=== PATIENT | female | born 1935 | race Caucasian/White ===

== ENCOUNTER 2017-09-05 13:40 | Emergency (ER) | payer MEDICARE, OTHER ==
[2017-09-05 14:36] VITALS: BP 128/49
--- NOTE | 2017-09-05 14:56 | UC ---
Skin Complaint HPI - HPI Summary HPI Summary: 81 year old female presents with complains of rash on her right upper arm after a Prevnar vaccination - History of Current Complaint Chief Complaint: UCSkin Time Seen by Provider: 09/05/17 14:54 Stated Complaint: BUG BITE BLISTER ON ARM Hx Obtained From: Patient Onset/Duration: Lasting Days Skin Exposure Onset/Duration: Days Ago Onset Severity: Moderate Current Severity: Moderate - Allergy/Home Medications Allergies/Adverse Reactions: Allergies Allergy/AdvReac Type Severity Reaction Status Date / Time Haloperidol [From Haldol] Allergy Severe Altered Verified 09/05/17 14:25 Mental Status Azathioprine Allergy Unknown Verified 09/05/17 14:25 Reaction Details Bupropion [From Wellbutrin] Allergy Unknown Verified 09/05/17 14:25 Reaction Details Methotrexate Allergy Unknown Verified 09/05/17 14:25 Reaction Details Mycophenolate [From Cellcept] Allergy Unknown Verified 09/05/17 14:25 Reaction Details Review of Systems Constitutional: Negative Skin: Rash Eyes: Negative ENT: Negative Respiratory: Negative Cardiovascular: Negative Gastrointestinal: Negative Genitourinary: Negative Motor: Negative Neurovascular: Negative Musculoskeletal: Negative Neurological: Negative Psychological: Negative All Other Systems Reviewed And Are Negative: Yes PMH/Surg Hx/FS Hx/Imm Hx Previously Healthy: Yes Other History Of: Anticoagulant Therapy - Surgical History Surgical History: Yes Surgery Procedure, Year, and Place: Hysterectomy, bilat carpal tunnel, cataracts ; choley; hip surgery - Family History Known Family History: Positive: Diabetes, Other - CVA, Lung CA. - Social History Alcohol Use: None Substance Use Type: None Smoking Status (MU): Former Smoker Type: Cigarettes Have You Smoked in the Last Year: No When Did the Patient Quit Smoking/Using Tobacco: 50 years ago Household Exposure Type: Cigarettes - Immunization History Most Recent Influenza Vaccination: 08/2016 Most Recent Tetanus Shot: 2013 Most Recent Pneumonia Vaccination: 2014 Physical Exam Triage Information Reviewed: Yes Vital Signs: Initial Vital Signs Temp 36.9 C 09/05/17 14:27 Pulse 87 09/05/17 14:27 Resp 16 09/05/17 14:27 BP 128/49 09/05/17 14:27 Pulse Ox 97 09/05/17 14:27 Vital Signs Reviewed: Yes Eye Exam: Normal ENT Exam: Normal Dental Exam: Normal Neck exam: Normal Neck: Positive: 1 Respiratory Exam: Normal Cardiovascular Exam: Normal Abdominal Exam: Normal Musculoskeletal Exam: Normal Neurological Exam: Normal Psychological Exam: Normal Skin: Positive: rashes Course/Dx - Diagnoses Provider Diagnoses: right arm rash/erythema/infection post prevnar injection Discharge - Discharge Plan Condition: Stable Disposition: HOME Prescriptions: Cephalexin CAP* [Keflex CAP*] 500 mg PO TID #30 cap [id number]-Uxtfgotfg [Triple Antibiotic] 1 oin TOPICAL TID #1 tube Patient Education Materials: Acute Wound Care (ED) Referrals: Miguel Dwyer MD [Medical Doctor] -
== END 2017-09-05 15:15 | disposition home or self-care (01) ==
LOC: UCEAST 13:40
DX: R21 Rash and other nonspecific skin eruption (principal)
CPT/HCPCS: 99212; G0463

== ENCOUNTER 2018-08-17 10:44 | Inpatient (IN) | payer MEDICARE, OTHER ==
[2018-08-17] MEDS ORDERED: Ondansetron INJ* 2 MG/ML VIAL IV ONE (11:02)
[2018-08-17] MEDS ORDERED: NS 0.9% 1000 ML* 1,000 ML IV ONE (11:02)
[2018-08-17 11:23] LABS: ABS Basophils 0.1 10^3/ul (0-0.2); ABS Eosinophils 0.2 10^3/ul (0-0.6); ABS Lymphocytes 1.5 10^3/ul (1.0-4.8); ABS Monocytes 0.6 10^3/ul (0-0.8); ABS Neutrophils 3.3 10^3/ul (1.5-7.7); ABS Nucleated RBC 0 10^3/ul; Eosinophil % 2.8 % (0-6); Hematocrit 40 % (35-47); Hemoglobin 13.7 g/dl (12.0-16.0); Lymphocyte % 26.8 % (25-47); Mean Corpuscular HGB Conc 35 g/dl (31-36); Mean Corpuscular Hemoglobin 33 pg (27-31); Mean Corpuscular Volume 95 fL (80-97); Mean Platelet Volume 7.6 um3 (7.4-10.4); Nucleated Red Blood Cells % 0.1; Platelet Count 215 10^3/ul (150-450); Red Blood Count 4.16 10^6/ul (4.00-5.40); Red Cell Distribution Width 13 % (10.5-15); White Blood Count 5.6 10^3/ul (3.5-10.8)
[2018-08-17 11:40] LABS: INR 1.01 (0.77-1.02)
[2018-08-17 11:49] LABS: EGFR Non-African American 35.1 (>60)
--- NOTE | 2018-08-17 11:59 | ED ---
Neurological HPI - HPI Summary HPI Summary: An 82 y/o female JUDY presents to [facility] c/o losing balance and falling at 18:22 last night when going to the bathroom. She iced herself and this morning she woke up and everything became fuzzy and she fell again on the floor. 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 She has dizziness, nausea and vomiting, with movement worsening the nausea. She has neck pain. She seemed fine last night despite her fall. She denies CP, SOB, MOON, abdominal pain, weakness or numbness. She is on a blood thinner. 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 She is borderline diabetic but denies HLD or HTN. She does not smoke or drink. - History of Current Complaint Chief Complaint: EDDizziness Stated Complaint: NAUSEA/VOMITING Time Seen by Provider: 08/17/18 10:49 Hx Obtained From: Patient, Family/Bone Char Operator Onset/Duration: Sudden Onset, Started hours ago Timing: Intermittent Episodes Lasting: - two falling episodes a couple hours apart Onset Severity: Moderate Current Severity: Moderate Neurological Deficit Location: Generalized Pain Intensity: 0 Associated Signs and Symptoms: Positive: Nausea/Vomiting - Additional Pertinent History Primary Care Physician: [id number] - Allergy/Home Medications Allergies/Adverse Reactions: Allergies Allergy/AdvReac Type Severity Reaction Status Date / Time azathioprine Allergy Unknown Verified 08/17/18 11:49 Reaction Details bupropion [From Wellbutrin] Allergy Unknown Verified 08/17/18 11:49 Reaction Details haloperidol [From Haldol] Allergy Altered Verified 08/17/18 11:49 Mental Status methotrexate Allergy Unknown Verified 08/17/18 11:49 Reaction Details mycophenolate mofetil Allergy Unknown Verified 08/17/18 11:49 [From CellCept] Reaction Details Home Medications: Home Medications Atorvastatin* [Lipitor*] 10 mg PO DAILY 08/17/18 [History Confirmed 08/17/18] DOXYcycline CAP(*) [DOXYcycline 100MG CAP(*)] 100 mg PO BID 08/17/18 [History Confirmed 08/17/18] Dipyridamole/Aspirin 25/200* [Aggrenox 25/200*] 1 cap.er PO BID 08/17/18 [ History Confirmed 08/17/18] Fexofenadine/Pseudoephedrine [Uma-D 24 Hour Tablet] 1 tab PO DAILY 08/17/18 [History Confirmed 08/17/18] Fluticasone NASAL SPRAY 50MCG* [Flonase NASAL SPRAY 50MCG*] 2 spray BOTH NARES BID PRN 08/17/18 [History Confirmed 08/17/18] Iron 28 mg PO DAILY 08/17/18 [History Confirmed 08/17/18] Levothyroxine TAB* [Synthroid TAB*] 125 mcg PO DAILY 08/17/18 [History Confirmed 08/17/18] Mirabegron (NF) [Myrbetriq (NF)] 25 mg PO BID 08/17/18 [History Confirmed ] Omeprazole CAP* [Prilosec CAP* 20 MG] 20 mg PO DAILY 08/17/18 [History Confirmed 08/17/18] Potassium Chlor TAB* [Klor Con ER TAB*] 20 meq PO BID 08/17/18 [History Confirmed 08/17/18] Ranitidine TAB (NF) [Zantac TAB (NF)] 150 mg PO DAILY PRN 08/17/18 [History Confirmed 08/17/18] Venlafaxine EXT RELEASE CAP* [Effexor Xr CAP*] 37.5 mg PO BEDTIME 08/17/18 [ History Confirmed 08/17/18] Venlafaxine EXT RELEASE CAP* [Effexor Xr CAP*] 75 mg PO QAM 08/17/18 [History Confirmed 08/17/18] PMH/Surg Hx/FS Hx/Imm Hx Endocrine/Hematology History: Reports: Hx Anticoagulant Therapy, Hx Thyroid Disease - hypothyroidism Denies: Hx Diabetes, Hx Anemia, Other Endocrine/Hematological Disorders Cardiovascular History: Reports: Hx Hypercholesterolemia Denies: Other Cardiovascular Problems/Disorders - temporal arteritis Respiratory History: Reports: Other Respiratory Problems/Disorders - SARCOIDOSIS ; hx of respiratory failure. Denies: Hx Asthma GI History: Reports: Hx Gall Bladder Disease - removed, Hx Gastroesophageal Reflux Disease, Hx Obstructive Bowel - small bowel obstruction, Other GI Disorders - constipation/diarrheaa History: Reports: Hx Acute Renal Failure, Hx Chronic Renal Failure Musculoskeletal History: Reports: Hx Back Problems, Hx Orthopedic Injury - left pelvic fracture, 2013, Other Musculoskeletal History - Hip fx and surgery jul 2016 Sensory History: Reports: Hx Cataracts, Hx Contacts or Glasses, Hx Vision Problem - L eye blindness, Hx Hearing Aid - b/l Opthamlomology History: Reports: Hx Cataracts, Hx Contacts or Glasses, Hx Vision Problem - L eye blindness Neurological History: Reports: Other Neuro Impairments/Disorders - HX of AMS Denies: Hx Dementia Psychiatric History: Reports: Hx Depression Denies: Other Psychiatric Issues/Disorders - Cancer History Cancer Type, Location and Year: h/o sarcoidosis - Surgical History Surgery Procedure, Year, and Place: Hysterectomy, bilat carpal tunnel, cataracts ; choley; hip surgery Hx Anesthesia Reactions: No - Immunization History Date of Influenza Vaccine: Fall 2012 Infectious Disease History: Unable to Obtain/Confirm Infectious Disease History: Denies: Traveled Outside the [place] in Last 30 Days - Family History Known Family History: Positive: Diabetes, Other - CVA, Lung CA. - Social History Alcohol Use: None Substance Use Type: Reports: None Smoking Status (MU): Former Smoker Type: Cigarettes Have You Smoked in the Last Year: No Review of Systems Negative: Fever Negative: Chest Pain Negative: Shortness Of Breath Positive: Vomiting, Nausea. Negative: Abdominal Pain Positive: Myalgia - neck Neurological: Other - Positive: dizziness Negative: Headache, Weakness, Numbness All Other Systems Reviewed And Are Negative: Yes Physical Exam - Summary Physical Exam Summary: Appearance: Well appearing, no pain distress Skin: warm, dry, reflects adequate perfusion Head/face: forehead contusion with hematoma and no step off Eyes: EOMI, KHADIJAH, cataract lenses, no nystagmus ENT: mucous membranes moist Neck: supple, non-tender Respiratory: CTA, breath sounds present Cardiovascular: RRR, grade 3 systolic murmur, pulses symmetrical Abdomen: non-tender, soft Bowel Sounds: present Musculoskeletal: normal, no midline cervical tenderness, no T or L-spine tenderness, strength/ROM intact Neuro: normal, sensory motor intact, A&Ox3 GCS: 15 Triage Information Reviewed: Yes Vital Signs On Initial Exam: Initial Vitals Temp Pulse Resp BP Pulse Ox 97.7 F 80 18 161/86 92 08/17/18 10:48 08/17/18 10:48 08/17/18 10:48 08/17/18 10:48 08/17/18 10:48 Vital Signs Reviewed: Yes Diagnostics - Vital Signs Vital Signs Temp Pulse Resp BP Pulse Ox 08/17/18 11:32 75 7 150/75 96 08/17/18 11:02 82 22 161/86 91 08/17/18 11:00 17 08/17/18 10:48 97.7 F 80 18 161/86 92 - Laboratory Lab Results: Lab Results 08/17/18 08/17/18 08/17/18 Range/Units 11:10 11:19 11:19 WBC 5.6 (3.5-10.8) 10^3/ul RBC 4.16 (4.00-5.40) 10^6/ul Hgb 13.7 (12.0-16.0) g/dl Hct 40 (35-47) % MCV 95 (80-97) fL MCH 33 H (27-31) pg MCHC 35 (31-36) g/dl RDW 13 (10.5-15) % Plt Count 215 (150-450) 10^3/ul MPV 7.6 (7.4-10.4) um3 Neut % (Auto) 58.6 (38-83) % Lymph % (Auto) 26.8 (25-47) % [place] % (Auto) 10.6 H (0-7) % Eos % (Auto) 2.8 (0-6) % Baso % (Auto) 1.2 (0-2) % Absolute Neuts (auto) 3.3 (1.5-7.7) 10^3/ul Absolute Lymphs (auto) 1.5 (1.0-4.8) 10^3/ul Absolute Monos (auto) 0.6 (0-0.8) 10^3/ul Absolute Eos (auto) 0.2 (0-0.6) 10^3/ul Absolute Basos (auto) 0.1 (0-0.2) 10^3/ul Absolute Nucleated RBC 0 10^3/ul Nucleated RBC % 0.1 INR (Anticoag Therapy) 1.01 (0.77-1.02) Sodium 138 (135-145) mmol/L Potassium 4.2 (3.5-5.0) mmol/L Chloride 104 (101-111) mmol/L Carbon Dioxide 25 (22-32) mmol/L Anion Gap 9 (2-11) mmol/L BUN 33 H (6-24) mg/dL Creatinine 1.43 H (0.51-0.95) mg/dL Est GFR ( Amer) 42.5 (>60) Est GFR (Non-Af Amer) 35.1 (>60) BUN/Creatinine Ratio 23.1 H (8-20) Glucose 131 H (70-100) mg/dL Calcium 9.6 (8.6-10.3) mg/dL Total Bilirubin 0.40 (0.2-1.0) mg/dL AST 17 (13-39) U/L ALT 10 (7-52) U/L Alkaline Phosphatase 70 (34-104) U/L Troponin I 0.01 (<0.04) ng/mL Total Protein 7.2 (6.4-8.9) g/dL Albumin 3.8 (3.2-5.2) g/dL Globulin 3.4 (2-4) g/dL Albumin/Globulin Ratio 1.1 (1-3) Result Diagrams: 08/17/18 11:10 08/17/18 11:19 Lab Statement: Any lab studies that have been ordered have been reviewed, and results considered in the medical decision making process. - Radiology CXR Xray Interpretation: No Acute Changes Radiology Interpretation Completed By: Radiologist - No acute cardiopulmonary disease. This report has been reviewed by the ED physician. - CT cervical spine CT Interpretation: Positive (See Comments) CT Interpretation Completed By: Radiologist - 1. OSTEOPENIA. 2. DEGENERATIVE DISC DISEASE AND OSTEOARTHRITIS. 3. NO ACUTE OSSEOUS INJURY TO THE CERVICAL SPINE. This report has been reviewed by the ED physicain. Brain CT CT Interpretation: Positive (See Comments) CT Interpretation Completed By: Radiologist - Chronic ischemic White matter change. There is no evidence of intracranial mass or hemorrhage noted. This report has been reviewed by the ED physician. - EKG 11:23 Cardiac Rate: NL - 77 bpm EKG Rhythm: Sinus Rhythm ST Segment: Non-Specific EKG Interpretation: RBBB, LAD Course/Dx - Course Course Of Treatment: Patient describes rotational dizziness associated with fall and forehead injury last night. She now has been sensing nausea and vomiting associated with movements and dizziness. Head CT is negative. Some improvement with IV fluids, Zofran and meclizine. She is still unsteady and given her age she will be admitted for further evaluation and treatment. - Differential Dx Differential Diagnoses Neuro: Positive: Benign Paroxysmal Positional Vertigo, Hemorrhage, Hypovolemia, Intracranial Bleed, Medication Reaction, Metabolic Abnormality, Vasovagal Reaction, Other - Diagnoses Provider Diagnoses: Vertigo, Fall, Weakness - Physician Notifications Discussed Care Of Patient With: Aissatou Gay Time Discussed With Above Provider: 14:04 Instructed by Provider To: Admit As Inpatient Discharge - Sign-Out/Discharge Documenting (check all that apply): Patient Departure - admit - Discharge Plan Condition: Fair Disposition: ADMITTED TO [facility] - Billing Disposition and Condition Condition: FAIR Disposition: Admitted to [facility] - Attestation Statements Document Initiated by Scribe: Yes Documenting Scribe: Andrew Funes Provider For Whom Scribe is Documenting (Include Credential): Darrin Portillo MD Scribe Attestation: Andrew Chong scribed for Darrin Portillo MD on 08/17/18 at 1518. Scribe Documentation Reviewed: Yes Provider Attestation: The documentation as recorded by the Andrew riggs accurately reflects the service I personally performed and the decisions made by me, Darrin Portillo MD
--- NOTE | 2018-08-17 12:11 | RAD ---
Indication: Fall, head injury. CT of the brain performed without IV contrast. Ventricular structures are midline. No midline shift is noted. The extra-axial spaces are unremarkable. Periventricular lucency consistent with chronic ischemic White matter change is noted. There is no evidence of intracranial mass or hemorrhage noted. When compared to previous exam of July 09, 2016 no significant change is noted. IMPRESSION: Chronic ischemic White matter change. There is no evidence of intracranial mass or hemorrhage noted.
--- NOTE | 2018-08-17 12:13 | RAD ---
HISTORY: fall, injury COMPARISONS: July 09, 2016 TECHNIQUE: Multiple contiguous axial CT scans were obtained of the cervical spine without intravenous contrast, with coronal and sagittal multiplanar reformations. FINDINGS: BRAIN: The visualized brain is unremarkable CENTRAL CANAL: Evaluation of the central canal is limited on CT technique; however, there is no obvious canalicular mass or epidural hemorrhage. ALIGNMENT: There is straightening of the cervical lordosis. VERTEBRAL BODIES: There is diffuse osteopenia. There is multilevel anterolateral marginal osteophyte formation. There is no displaced fracture. JOINTS: There is multilevel uncovertebral and facet osteoarthritis. MUSCULATURE: Unremarkable INTERVERTEBRAL DISCS: There is diffuse loss of intervertebral disc height. AXIAL IMAGES: C2-C3: There is left greater than the right facet osteoarthritis. There is no osseous neural foraminal narrowing or central canal stenosis. C3-C4: There is bilateral uncovertebral and facet hypertrophy. There is severe right and moderate left neural foraminal narrowing. There is mild narrowing of the central canal. C4-C5: There is bilateral uncovertebral hypertrophy. There is moderate bilateral neuroforaminal narrowing. There is moderate narrowing of the central canal. C5-C6: There is bilateral uncovertebral hypertrophy. There is mild right neuroforaminal narrowing. There is mild narrowing of the central canal. C6-C7: There is bilateral uncovertebral hypertrophy. There is no osseous neural foraminal narrowing of central canal stenosis. C7-T1: There is no osseous neural foraminal narrowing or central canal stenosis. SOFT TISSUES: There is calcification of the bifurcations bilaterally.. The prevertebral fat stripe is preserved. The thyroid gland is atrophic versus absent. OTHER: There is advanced osteoarthritis of the left compartment joint. IMPRESSION: 1. OSTEOPENIA. 2. DEGENERATIVE DISC DISEASE AND OSTEOARTHRITIS. 3. NO ACUTE OSSEOUS INJURY TO THE CERVICAL SPINE.
--- NOTE | 2018-08-17 12:54 | RAD ---
HISTORY: fall, injury COMPARISONS: February 04, 2018 VIEWS: 1: frontal AP view of the chest at 12:30 PM FINDINGS: LINES AND TUBES: None. CARDIOMEDIASTINAL SILHOUETTE: The cardiomediastinal silhouette is normal for portable technique. PLEURA: The costophrenic angles are sharp. No pleural abnormalities are noted. LUNG PARENCHYMA: The lungs are clear. ABDOMEN: The upper abdomen is clear. There is no subphrenic gas. BONES AND SOFT TISSUES: No bone or soft tissue abnormalities are noted. IMPRESSION: NO ACTIVE CARDIOPULMONARY DISEASE.
[2018-08-17] MEDS ORDERED: Meclizine TAB* 12.5 MG PO ONE (13:40)
[2018-08-17 13:51] LABS: Urine Appearance Clear; Urine Blood Negative (Negative); Urine Color Straw; Urine Ketones Negative (Negative); Urine Protein Negative (Negative); Urine Specific Gravity 1.008 (1.010-1.030); Urine Urobilinogen Negative (Negative)
[2018-08-17] MEDS ORDERED: Albuterol 2.5 MG/3 ML NEB.SOL* (0.083%) INH PRN (15:10)
[2018-08-17] MEDS ORDERED: Al Hydrox/Mg Hydrox/Simet LIQ* 30 ML UDC PO PRN (15:10)
[2018-08-17] MEDS ORDERED: Ondansetron INJ* 2 MG/ML VIAL IV PRN (15:10)
[2018-08-17] MEDS ORDERED: Acetaminophen TAB* 325 MG PO PRN (15:10)
[2018-08-17] MEDS ORDERED: Meclizine TAB* 12.5 MG PO PRN (15:13)
[2018-08-17] MEDS ORDERED: Fluticasone NASAL SPRAY 50MCG* 16 gm SPRAY BTL BOTH NARES PRN (15:14)
--- NOTE | 2018-08-17 17:03 | HP ---
AMENDED REPORT NOW INCLUDES COSIGNER DESIGNATION - ESIGNED BEFORE ADJUSTMENT CC: Dr. Yun * ADMISSION HISTORY AND PHYSICAL: DATE OF ADMISSION: 08/17/18 PATIENT OF ADMITTING HOSPITALIST: Dr. Aissatou Michael. PRIMARY CARE PROVIDER: Dr. Rios Yun. ATTENDING PHYSICIAN WHILE PATIENT HERE: Dr. Michael.* (DICTATED BY DIONNE ESPINOZA) CHIEF COMPLAINT: Weakness, dizziness, and fall. HISTORY OF PRESENT ILLNESS: Mrs. Poe is an 82-year-old female with past medical history significant for hyperlipidemia, chronic kidney disease, hypothyroidism, as well as CVA with left-sided residual weakness back from 2007 , who presented to the emergency room earlier today with complaints of fall at home. The patient apparently fell last night without any dizziness and she sustained traumatic injury to her head. She struck the left side of her adventism against the chair; however, she denied any loss of consciousness, dizziness last night, nausea, or vomiting. She got up and was able to ambulate and went back to sleep. She got up again this morning and this time she felt a little dizzy, for which she was not able to maintain her balance and noticed that the room was spinning when she fell again. She denied any head trauma this morning, nausea, vomiting, chest pain, or any progressive weakness or numbness. She has never had any dizzy spells in the past. Given her recurrent fall and the fact that she struck her head last night, her family was concerned and wanted her to be evaluated in the emergency room. The patient herself denied any headache, visual changes, loss of consciousness. She had a CT scan of the head that revealed no evidence of intracranial hemorrhage. She has been taking Aggrenox for the past few years given her history of CVA with left hemiparesis. She had laboratory workup that revealed normal hemoglobin and hematocrit as well as normal chemistry panel. She was noted to have slightly elevated BUN and creatinine, however looking back in her record it appears to be at her baseline. She denied any nausea, vomiting, cough, shortness of breath, urinary symptoms, or any other associated issues. Given her multiple falls and her longstanding history of left-sided weakness, which was secondary to her CVA incident back in 2007, we were asked to see the patient to consider admission for observation overnight and for PT/OT evaluation. PAST MEDICAL HISTORY: As mentioned above, significant for: 1. 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 2. History of temporal arteritis and sarcoidosis. 3. History of hip fracture, status post fixation about 3 years ago. 4. Hypothyroidism. 5. Hyperlipidemia. 6. Urinary incontinence. 7. Chronic kidney disease at stage 3. 8. GERD. PAST SURGICAL HISTORY: Significant for: 1. Right hip fixation secondary to fracture about 3 years ago. 2. Carpal tunnel release bilaterally. 3. Hysterectomy. 4. Cataract extraction. HOME MEDICATIONS: Her medications at home include: 1. Lipitor 10 mg p.o. daily. 2. Aggrenox 25/200 one tablet p.o. b.i.d. 3. Doxycycline 100 mg p.o. b.i.d. 4. Uma-D 1 tablet daily. 5. Fluticasone nasal spray 50 mcg 2 sprays both nostrils once daily. 6. Iron supplement 28 mg p.o. daily. 7. Synthroid 125 mcg p.o. daily. 8. Mirabegron 25 mg p.o. b.i.d. 9. Prilosec 20 mg p.o. daily. 10. Potassium chloride 20 mEq p.o. b.i.d. 11. Zantac 150 mg p.o. daily as needed for heartburn. 12. Effexor 37.5 mg p.o. q.h.s. 13. Effexor 75 mg p.o. daily. ALLERGIES: Multiple, include AZATHIOPRINE, HALOPERIDOL, METHOTREXATE. FAMILY HISTORY: Reviewed and noncontributory. SOCIAL HISTORY: The patient lives with her daughter in a separate apartment behind her house. She denies any history of smoking or regular alcohol consumption. She ambulates at her baseline using a walker and the healthcare proxy is carried between her daughter and granddaughter, Kemi. REVIEW OF SYSTEMS: See HPI. Otherwise, 12 points review of systems were examined and they were essentially negative. PHYSICAL EXAMINATION GENERAL: She is a pleasant, elderly female, appears healthy and in no acute distress or discomfort at the time of admission. VITAL SIGNS: Revealed temperature of 98.2, blood pressure 141/78, pulse of 76, respirations of 17 with O2 sat of 95% on room air. HEENT: Head is normocephalic, atraumatic. Sclerae are anicteric. PERRLA. EOMs intact. Oropharynx is pink and moist. NECK: Supple. Trachea midline. No cervical adenopathy, thyromegaly, or JVD. LUNGS: Clear to auscultation bilaterally. HEART: Regular rate and rhythm. There is a harsh 4/6 systolic murmur noted at the right sternal margin. No rubs or gallops. ABDOMEN: Soft, nontender, and nondistended. There are no hernias, masses, or hepatosplenomegaly. BACK: With normal curvature and no CVA tenderness. EXTREMITIES: Without cyanosis, clubbing, or edema. NEUROLOGIC: She is awake, alert, and oriented x3. Handgrip is equal bilaterally. Tongue is midline and sensation is intact throughout. RECTAL: Exam deferred at this time. LABORATORY WORKUP: CBC with white count of 5600, hemoglobin 13.7, hematocrit of 40, and platelets of 215. Her INR is 1.01. Chemistry panel with sodium of 138, potassium 4.2, chloride 104, CO2 of 25, BUN of 33 and creatinine of 1.43, glucose is 131. LFTs within normal limits and troponin was negative. Urinalysis was essentially within normal limits. ACCESSORY DIAGNOSTIC DATA: EKG with evidence of right bundle branch block, sinus rhythm, unchanged from prior studies and no evidence of ST changes. Chest x-ray with no acute cardiopulmonary issues. Brain and cervical spine CT with no intracranial hemorrhage and evidence of arthritis and degenerative disk changes and no acute injury. IMPRESSION: An 82-year-old female with past medical history significant for cerebrovascular accident, hyperlipidemia, hypothyroidism, temporal arteritis and sarcoidosis, who presented to the emergency room after she sustained a fall with head trauma last night and again this morning with accompanied dizziness and will be admitted for the following. ASSESSMENT AND PLAN: 1. Vertigo versus concussion. The patient exhibits signs and symptoms of vertigo at home this morning. She had episode lasting approximately a minute with the room spinning and led to her loss of balance and fall. She also sustained a fall last night with head trauma and luckily she did not have any intracranial acute process given the fact that she is on dual antiplatelet therapy given her history of stroke. The patient will be admitted to telemetry for close observation. I suspect this could be related to vertigo given symptomatic relief with meclizine and bedrest in the emergency room. She also could have a slight concussion related to her head trauma from falling last night. Her scans were normal and she has no other bony injury. We will ask the PT for assessment to see if she is able to ambulate using her walking and how steady she is on her feet prior to making any discharge planning. 2. History of cerebrovascular accident. The patient appears to be stable at this point and there is no new neurological deficit. She does exhibit some weakness from residual stroke 10 years ago that was per family very much unchanged. 3. Chronic kidney disease, stage 3. Appears to be at her baseline with BUN and creatinine compared to her last admission a couple of years ago. 4. History of temporal arteritis. She is stable and not on any prednisone or immunosuppressive therapy. 5. Hypothyroidism. We will continue her levothyroxine dose. 6. History of sarcoidosis. Again, not an active issue. 7. Code status: She wishes to be DNR and according to her daughter, DNR paperwork has been filled and updated and we will review that during this admission. 8. DVT prophylaxis: She is at highest risk and will be covered with subcu heparin on a daily basis. 9. Disposition: Admit to telemetry for close observation, neurologic checks, likely secondary to concussion versus vertigo. Will ambulate with caution and resume all her meds including antiplatelet therapy given her history of strokes. TIME SPENT: Approximately 60 minutes spent admitting this patient, for which greater than 50% on taking history and performing physical exam. I went on and discussed the case with my attending, who agreed to plan of care and will follow her up accordingly. Any plans for additional imaging including MRI of the brain is on hold for this time given the patient's improvement of dizziness, however if she continues to have any worsening dizziness or recurrent episodes overnight we will go ahead and MRI her head to rule out any acute ischemic stroke. DIONEN ESPINOZA [id number]/[facility] #: [id number] SHEYLA
[2018-08-17] MEDS: NF:Mirabegron (NF) 25 MG TAB PO SCH (21:43)
[2018-08-17] MEDS: Venlafaxine EXT RELEASE CAP* 37.5 MG PO SCH (21:44)
[2018-08-17] MEDS: Heparin VIAL(*) 5000 UNITS/ML VIAL (FIVE THOUSAND) SUBCUT SCH (21:44)
[2018-08-17] MEDS: DOXYcycline CAP(*) 100 MG PO SCH (21:44)
[2018-08-17] MEDS: Dipyridamole/Aspirin 25/200* CAP.ER PO SCH (21:44)
[2018-08-17] MEDS: Potassium Chlor TAB* 20 MEQ TAB.ER PO SCH (21:44)
[2018-08-18] MEDS: Heparin VIAL(*) 5000 UNITS/ML VIAL (FIVE THOUSAND) SUBCUT SCH ×3 (05:48→22:14)
[2018-08-18] MEDS: Levothyroxine TAB* 125 MCG TAB PO SCH (05:49)
[2018-08-18 06:55] LABS: ABS Basophils 0 10^3/ul (0-0.2); ABS Eosinophils 0.2 10^3/ul (0-0.6); ABS Lymphocytes 2.1 10^3/ul (1.0-4.8); ABS Monocytes 0.5 10^3/ul (0-0.8); ABS Neutrophils 2.4 10^3/ul (1.5-7.7); ABS Nucleated RBC 0 10^3/ul; Eosinophil % 3.2 % (0-6); Hematocrit 39 % (35-47); Hemoglobin 13.2 g/dl (12.0-16.0); Lymphocyte % 39.7 % (25-47); Mean Corpuscular HGB Conc 34 g/dl (31-36); Mean Corpuscular Hemoglobin 32 pg (27-31); Mean Corpuscular Volume 96 fL (80-97); Mean Platelet Volume 7.8 um3 (7.4-10.4); Nucleated Red Blood Cells % 0.2; Platelet Count 198 10^3/ul (150-450); Red Cell Distribution Width 13 % (10.5-15); White Blood Count 5.2 10^3/ul (3.5-10.8)
[2018-08-18 07:45] LABS: EGFR Non-African American 34.3 (>60)
[2018-08-18] MEDS ORDERED: Atorvastatin* 10 MG TAB PO SCH ×2 (09:00→21:00)
[2018-08-18] MEDS ORDERED: Omeprazole CAP* 20 MG PO SCH (09:00)
[2018-08-18] MEDS: DOXYcycline CAP(*) 100 MG PO SCH ×2 (09:25→22:11)
[2018-08-18] MEDS: Potassium Chlor TAB* 20 MEQ TAB.ER PO SCH ×2 (09:25→22:11)
[2018-08-18] MEDS: Venlafaxine EXT RELEASE CAP* 75 MG PO SCH (09:25)
[2018-08-18] MEDS: Dipyridamole/Aspirin 25/200* CAP.ER PO SCH ×2 (09:25→22:11)
[2018-08-18] MEDS: NF:Mirabegron (NF) 25 MG TAB PO SCH ×2 (09:31→22:12)
--- NOTE | 2018-08-18 11:19 | RAD ---
HISTORY: r/o CVA COMPARISONS: Head CT dated July 18, 2018, MRI dated March 01, 2009 TECHNIQUE: The following sequences were obtained of the head: Sagittal T1-weighted images, axial T2-weighted images, axial FLAIR images, axial susceptibility weighted images, axial T1-weighted images. Additionally, axial diffusion-weighted images were obtained with calculated apparent diffusion coefficients. FINDINGS: HEMORRHAGE/INFARCT: There are punctate foci of restricted diffusion within the posterior medial temporal lobe on the right and along the lateral aspect of the splenium of the corpus callosum best seen on axial image 16 of series 5. This is consistent with subacute nonhemorrhagic infarct. Elsewhere, there is no hemorrhage or acute infarct. MASSES/SHIFT: There is no mass or shift. EXTRA-AXIAL SPACES/MENINGES: There are no extra-axial fluid collections. SULCI AND VENTRICLES: The sulci and ventricles are normal in size and position for the patient's stated age. CEREBRUM: There is diffusely elevated T2/FLAIR signal within the periventricular and subcortical white matter. There is right periventricular encephalomalacia. BRAINSTEM: There is elevated T2/FLAIR signal in the pontine white matter. CEREBELLUM: There is elevated T2/FLAIR signal within the cerebellar white matter. The cerebellar tonsils are normal in size and position. SELLA: The sella is normal. PINEAL: The pineal region is clear. CP ANGLE/TEMPORAL BONES: The labyrinthine structures are grossly normal. VESSELS: Normal flow-voids are noted within the visualized vertebral vasculature. DIFFUSION ABNORMALITIES: As noted above, there are punctate foci of restricted diffusion within the right mesial temporal lobe posteriorly and along the splenium of the corpus callosum PARANASAL SINUSES/MASTOIDS: The paranasal sinuses are clear. ORBITS: The orbits are unremarkable. BONES AND SOFT TISSUE: No bone or soft tissue abnormalities are noted. OTHER: None IMPRESSION: 1. PUNCTATE FOCI OF RESTRICTED DIFFUSION ALONG THE LATERAL MARGIN THE SPLENIUM OF THE CORPUS CALLOSUM AND THE POSTERIOR MESIAL TEMPORAL LOBE ON THE RIGHT CONSISTENT WITH SUBACUTE NONHEMORRHAGIC INFARCT. THE DIFFERENTIAL INCLUDES EMBOLIC DISEASE. 2. EXTENSIVE WHITE MATTER CHANGES MOST CONSISTENT WITH ADVANCED CHRONIC SMALL VESSEL ISCHEMIC CHANGE.
[2018-08-18] MEDS ORDERED: Sodium Phosphate ADULT ENEMA* 118 ml bottle PR ONE (11:25)
--- NOTE | 2018-08-18 11:38 | PN ---
Subjective Date of Service: 08/18/18 Interval History: pt walked to bathroom with assist and felt back to her baseline. At baseline" she drags her left foot a little bit". today is on day 04/19 on PO Doxy for left 3rd toe infection Objective Active Medications: Acetaminophen (Tylenol Tab*) 650 mg PO Q4H PRN PRN Reason: FEVER/PAIN Al Hydrox/Mg Hydrox/Simethicone (Maalox Plus*) 30 ml PO Q6H PRN PRN Reason: INDIGESTION Albuterol (Ventolin 2.5 Mg/3 Ml Neb.Tierney*) 2.5 mg INH [id number] AWAKE PRN PRN Reason: sob/wheezing Atorvastatin Calcium (Lipitor*) 10 mg PO 2100 [facility] Dipyridamole/Aspirin (Aggrenox 25/200*) 1 cap.er PO BID [facility] Last Admin: 08/18/18 09:25 Dose: 1 cap.er Doxycycline Hyclate (Vibramycin Cap(*)) 100 mg PO BID [facility] Last Admin: 08/18/18 09:25 Dose: 100 mg Fluticasone Propionate (Flonase Nasal [place] 50mcg*) 2 spray BOTH NARES BID PRN PRN Reason: CONGESTION Heparin Sodium (Porcine) (Heparin Vial(*)) 5,000 units SUBCUT Q8HR [facility] Last Admin: 08/18/18 05:48 Dose: 5,000 units Levothyroxine Sodium (Synthroid Tab*) 125 mcg PO 0600 [facility] Last Admin: 08/18/18 05:49 Dose: 125 mcg Meclizine HCl (Antivert Tab*) 25 mg PO Q8HR PRN PRN Reason: VERTIGO Mirabegron (Myrbetriq (Nf)) 25 mg PO BID [facility] Last Admin: 08/18/18 09:31 Dose: Not Given Omeprazole (Prilosec Cap*) 20 mg PO DAILY [facility] Last Admin: 08/18/18 09:25 Dose: 20 mg Ondansetron HCl (Zofran Inj*) 4 mg IV Q4H PRN PRN Reason: NAUSEA/VOMITING Potassium Chloride (Klor Con Er Tab*) 20 meq PO BID [facility] Last Admin: 08/18/18 09:25 Dose: 20 meq Venlafaxine HCl (Effexor Xr Cap*) 37.5 mg PO BEDTIME [facility] Last Admin: 08/17/18 21:44 Dose: 37.5 mg Venlafaxine HCl (Effexor Xr Cap*) 75 mg PO QAM [facility] Last Admin: 08/18/18 09:25 Dose: 75 mg Vital Signs - 8 hr 08/18/18 08/18/18 03:43 08:59 Temperature 98.1 F 97.5 F Pulse Rate 76 78 Respiratory 16 16 Rate Blood Pressure 155/75 143/74 (mmHg) O2 Sat by Pulse 97 96 Oximetry Oxygen Devices in Use Now: Nasal Cannula Appearance: 82 yo F in nAD, aAOx3 Eyes: No Scleral Icterus, PERRLA Ears/Nose/Mouth/Throat: NL Teeth, Lips, Gums, Mucous Membranes Moist Neck: NL Appearance and Movements; NL JVP, Trachea Midline Respiratory: Symmetrical Chest Expansion and Respiratory Effort, Clear to Auscultation Cardiovascular: NL Sounds; No Murmurs; No JVD, RRR Abdominal: NL Sounds; No Tenderness; No Distention, No Hepatosplenomegaly Lymphatic: No Cervical Adenopathy Extremities: No Clubbing, Cyanosis, - - trace left ankle edema Skin: No Nodules or Sclerosis Neurological: Alert and Oriented x 3, - - left LE- distal weakness at 4+/5. figer to nose b/l dysmetric by 2 cm. speech clear, CN2-12 grossly intact Result Diagrams: 08/18/18 06:24 08/18/18 06:24 Additional Lab and Data: Lab Results 08/17/18 08/17/18 08/17/18 Range/Units 11:10 11:19 11:19 WBC 5.6 (3.5-10.8) 10^3/ul RBC 4.16 (4.00-5.40) 10^6/ul Hgb 13.7 (12.0-16.0) g/dl Hct 40 (35-47) % MCV 95 (80-97) fL MCH 33 H (27-31) pg MCHC 35 (31-36) g/dl RDW 13 (10.5-15) % Plt Count 215 (150-450) 10^3/ul MPV 7.6 (7.4-10.4) um3 Neut % (Auto) 58.6 (38-83) % Lymph % (Auto) 26.8 (25-47) % Calloway % (Auto) 10.6 H (0-7) % Eos % (Auto) 2.8 (0-6) % Baso % (Auto) 1.2 (0-2) % Absolute Neuts (auto) 3.3 (1.5-7.7) 10^3/ul Absolute Lymphs (auto) 1.5 (1.0-4.8) 10^3/ul Absolute Monos (auto) 0.6 (0-0.8) 10^3/ul Absolute Eos (auto) 0.2 (0-0.6) 10^3/ul Absolute Basos (auto) 0.1 (0-0.2) 10^3/ul Absolute Nucleated RBC 0 10^3/ul Nucleated RBC % 0.1 INR (Anticoag Therapy) 1.01 (0.77-1.02) Sodium 138 (135-145) mmol/L Potassium 4.2 (3.5-5.0) mmol/L Chloride 104 (101-111) mmol/L Carbon Dioxide 25 (22-32) mmol/L Anion Gap 9 (2-11) mmol/L BUN 33 H (6-24) mg/dL Creatinine 1.43 H (0.51-0.95) mg/dL Est GFR ( Amer) 42.5 (>60) Est GFR (Non-Af Amer) 35.1 (>60) BUN/Creatinine Ratio 23.1 H (8-20) Glucose 131 H (70-100) mg/dL Calcium 9.6 (8.6-10.3) mg/dL Total Bilirubin 0.40 (0.2-1.0) mg/dL AST 17 (13-39) U/L ALT 10 (7-52) U/L Alkaline Phosphatase 70 (34-104) U/L Troponin I 0.01 (<0.04) ng/mL Total Protein 7.2 (6.4-8.9) g/dL Albumin 3.8 (3.2-5.2) g/dL Globulin 3.4 (2-4) g/dL Albumin/Globulin Ratio 1.1 (1-3) Assess/Plan/Problems-Billing Assessment: 82 yo f with h/o left sided hemiparesis due to ischemic CVA in the past, CKD stage 3, sarcoidosis, PMR presents s/p fall c/o dizziness - Patient Problems (1) Dizziness Comment: MRI positive for CVA, possible embolic. Asked DR. Pinzon to see pt in consult Echo with bubble, carotid dopplers pending Cont neurochecks Cont Aggrenox for now (2) AV block, 2nd degree Comment: curbsided cardiology, pt was noted on telem to drop 3 beats- asymptomatic. It appears to be related to AV block type 2, but it is diffcult to determine whether it is Mobitz I, or II cont tele, for now. 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 TSH pending (6) Hx of polymyalgia rheumatica Comment: in remission (7) Cellulitis of toe Comment: no evidence od cellulitis, but apparently this is her second round of antibiotics today is day 6/10 and there is no longer evidence of cellulitis. Will cont Doxy x 10 days as scheduled (8) DVT prophylaxis Comment: HSQ
[2018-08-18] MEDS ORDERED: Senna TAB PO ONE (12:19)
[2018-08-18] MEDS ORDERED: Sodium Phosphate ADULT ENEMA* 118 ml bottle PR PRN (12:20)
--- NOTE | 2018-08-18 15:23 | RAD ---
CPT II: CPT II Codes: 3100F Indication: Stroke. Duplex Doppler sonography of the carotid arteries was performed. The right common carotid artery demonstrates intimal wall thickening with plaque extending into the right internal carotid artery. Peak systolic velocity of the distal right common carotid artery is 58 cm/s. Peak systolic velocity of the proximal right internal carotid artery is 46 cm/s. The ICA/CC ratio is 0.79. Right vertebral artery demonstrates antegrade flow. The left common carotid artery demonstrates intimal wall thickening with plaque extending into the left internal carotid artery. Peak systolic velocity of the distal left common carotid artery is 42 cm/s. The peak systolic velocity of the proximal left internal carotid artery is 64 cm/s. The ICA/CC ratio is 1.52. Left vertebral artery demonstrates antegrade flow. IMPRESSION: Intimal wall thickening with plaque in the carotid bulb extending into the ICA bilaterally. No evidence of elevated velocity is noted. Less than 50% stenosis of both internal carotid arteries.
--- NOTE | 2018-08-18 15:58 | ECHO ---
Patient: MIREYA COREAS [place] Rec#: [id number] : 1935 Date: 08/18/2018 Age: 82y Height: 163 cm / 64.2 in Weight: 79.1 kg / 174.3 lbs Sex: F BSA: 1.85 Room#: 434 Admit Date#: 08/18/2018 Type: Inpatient Referring: Kinjal Hinton MD Reading: Sam Leger MD Machine Lay Out Worker: Lubna Webb RN RDCS CC: Rios Yun MD Transthoracic Echocardiogram Indication: CVA BP: 143/74 HR: 83 Rhythm: NSR Findings History: DM, HLD, CVA, hypothyroidism, sarcoidosis, temporal arteritis, polymyalgia rheumatica, CKD Technical Comments: The study quality is fair. The study is technically limited due to patient body habitus. Left Ventricle: The left ventricular chamber size is decreased. Moderate concentric left ventricular hypertrophy is observed. There is increased basal septal hypertrophy noted without evidence of an increased gradient across the left ventricular outflow tract. Global left ventricular wall motion and contractility are within normal limits. There is normal left ventricular systolic function. The estimated ejection fraction is 60-65%. Abnormal left ventricular diastolic filling is observed, consistent with impaired relaxation. Left Atrium: The left atrium is mildly dilated. Right Ventricle: The right ventricular chamber size and systolic function are within normal limits. Right Atrium: The right atrial cavity size is normal. The bubble study is negative. A patent foramen ovale is not demonstrated with color Doppler and agitated contrast. Aortic Valve: The aortic valve leaflets are mildly thickened. There is moderate thickening of the non coronary cusp. Systolic excursion of the aortic valve cusps is reduced. There is aortic annular calcification. There is no evidence of aortic regurgitation. There is moderate aortic stenosis. The mean gradient of the aortic valve is 10 mmHg. The peak instantaneous gradient of the aortic valve is 25 mmHg. The aortic valve area, by peak velocities, is calculated at 1.1 cm2. The aortic valve area, by VTI's, is calculated at 1.3 cm2. The dimensionless index is 0.40 to 0.46. Highest aortic valve velocity was acquired with Pedoff in right sternal border position. Mitral Valve: Moderate mitral annular calcification present. The mitral valve leaflets are mildly thickened. There is mild mitral regurgitation. Tricuspid Valve: The tricuspid valve leaflets are normal. There is mild tricuspid regurgitation. No pulmonary hypertension is noted. There is no tricuspid stenosis. Pulmonic Valve: The pulmonic valve appears normal. There is a trace pulmonic regurgitation. There is no pulmonic stenosis. Pericardium: There is no significant pericardial effusion. A pericardial fat pad is visualized. Aorta: There is no dilatation of the ascending aorta. The aortic arch is not well visualized. There is no dilation of the aortic root. Pulmonary Artery: The main pulmonary artery appears normal. Venous: The inferior vena cava appears normal in size. There is a greater than 50% respiratory change in the inferior vena cava dimension. Contrast: Normal saline was used as contrast for the bubble study. Images 97 and 98. Summary: There are no significant changes when compared to the previous study done on 01/05/15 Conclusions Moderate concentric left ventricular hypertrophy is observed. Global left ventricular wall motion and contractility are within normal limits. There is normal left ventricular systolic function. The estimated ejection fraction is 60-65%. A patent foramen ovale is not demonstrated with color Doppler and agitated contrast. There is moderate thickening of the non coronary cusp. There is moderate aortic stenosis. The mean gradient of the aortic valve is 10 mmHg. There is no evidence of aortic regurgitation. There is mild mitral regurgitation. Moderate mitral annular calcification present. There is mild tricuspid regurgitation. No pulmonary hypertension is noted. There is no significant pericardial effusion. There are no significant changes when compared to the previous study done on 01/05/15 Measurements Name Value Normal Range RVIDd (AP) 2D 2.8 cm (0.9 - 2.6) RVDdMajor (2D) 3.2 cm (2.2 - 4.4) RAd ISD 4CH 4.7 cm (3.4 - 4.9) RA (A4C)W 3 cm (2.9 - 4.6) IVSd (2D) 1.9 cm (0.6 - 1) LVPWd (2D) 1.4 cm (0.6 - 1) LVIDd (2D) 2.7 cm (3.6 - 5.4) LVIDs (2D) 1.8 cm - LV FS (2D) 33 % (25 - 45) Aortic Annulus 1.9 cm (1.4 - 2.6) Ao root diameter (2D) 2.4 cm (2.1 - 3.5) Ascending Ao 3.4 cm (2.1 - 3.4) LA dimension (AP) 2D 4.5 cm (2.3 - 3.8) LAd ISD 4CH 5 cm (2.9 - 5.3) LA ISD 4CH W 3.9 cm (2.5 - 4.5) Name Value Normal Range LA ESV BP (A/L) index 28 ml/m2 - Name Value Normal Range MV E-wave Vmax 1.1 m/sec - MV deceleration time 408 msec - MV A-wave Vmax 1.7 m/sec - MV E:A ratio 0.65 ratio - LV septal e' Vmax 0.05 m/sec - LV lateral e' Vmax 0.05 m/sec - LV E:e' septal ratio 22 ratio - LV E:e' lateral ratio 22 ratio - Name Value Normal Range AV Vmax 2.5 m/sec - AV VTI 50 cm - AV peak gradient 25 mmHg - AV mean gradient 10 mmHg - LVOT diameter 1.9 cm - LVOT Vmax 1 m/sec - LVOT VTI 22.9 cm - LVOT peak gradient 4 mmHg - LVOT mean gradient 3 mmHg - DOI (VTI) 0.46 ratio - DOI (Vmax) 0.4 ratio - Cardiac index 2.9 l/min/m2 - ZACHARY (continuity Vmax) 1.1 cm2 - ZACHARY (continuity VTI) 1.3 cm2 - Name Value Normal Range MV Vmax 2 m/sec - MV VTI 47.5 cm - MV peak gradient 16 mmHg - MV mean gradient 5 mmHg - MV PHT 119 msec - MVA (PHT) 1.9 cm2 - MVA (continuity VTI) 1.4 cm2 - Name Value Normal Range TR Vmax 2.5 m/sec - TR peak gradient 25 mmHg - RAP 3 mmHg - RVSP 28 mmHg - IVC diameter 1.8 cm - Name Value Normal Range PV Vmax 0.99 m/sec -
[2018-08-18] MEDS ORDERED: Senna TAB PO SCH (21:00)
[2018-08-18] MEDS: Venlafaxine EXT RELEASE CAP* 37.5 MG PO SCH (22:11)
--- NOTE | 2018-08-18 23:34 | CONS ---
CC: Dr. Hinton * CONSULTATION REPORT: DATE OF CONSULT: 08/18/18 PATIENT OF: Dr. Yun. HISTORY OF PRESENT ILLNESS: This is an 82-year-old woman who I am asked to evaluate for a new stroke. The night prior to admission, she fell and her balance has been slowly worse over time but she was fine. She walked without problems and went back to sleep. In the morning, she felt little dizzy and had room spinning and fell again and she came in and was admitted. I was asked to see her when her MRI scan was positive for subacute stroke. 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 Her stroke left her with a hemiparesis affecting her left leg mostly, status post hip fracture, hypothyroidism. She has had sarcoid in the past; this has been quiet for many years. She has hyperlipidemia; urinary incontinence; chronic kidney disease, stage 3; GERD. PAST SURGICAL HISTORY: She has carpal tunnel release bilaterally, hysterectomy , and cataract extraction. MEDICATIONS: At home, include: 1. Lipitor 10 mg daily. 2. Aggrenox 25/200 one p.o. b.i.d. 3. Doxycycline 100 b.i.d. 4. Uma 1 tab daily. 5. Synthroid 125 mcg daily. 6. Mirabegron 25 mg b.i.d. 7. Prilosec 20 mg daily. 8. Zantac 150 mg daily. 9. Effexor 37.5 q.h.s. 10. Effexor 75 mg daily. ALLERGIES: She is allergic to AZATHIOPRINE, HALOPERIDOL, METHOTREXATE. FAMILY HISTORY: Reviewed, noncontributory. SOCIAL HISTORY: She lives with her daughter. She does not smoke, drink, or use drugs. She uses a walker at baseline. REVIEW OF SYSTEMS: Negative in all 14 spheres other than HPI and she notes that her vertigo is completely gone and she feels back to baseline. PHYSICAL EXAM: Temperature 97.9, pulse 75, respirations 20, blood pressure 138/ 48. She had no temporal tenderness in either oriental orthodox. Cranial nerves II through XII were intact. Fundi were benign. Motor exam revealed normal tone and strength is with some 5-/5 left weakness but she needed to be coaxed to do that. Reflexes were 1. Toes were equivocal to downgoing. Neck was supple. Chest: Clear. Cardiovascular: Regular rate and rhythm. Abdomen: Soft with positive bowel sounds. DIAGNOSTIC STUDIES/LAB DATA: I reviewed her MRI scan, which did show some extensive white matter disease and a small subacute infarct on DWI in the splenium and mesial temporal lobe on the right. She also has extensive white matter disease consistent with chronic small vessel disease. She had a carotid Doppler that showed less than 50% stenosis bilaterally. Her echo did not show any source of clot and there was no patent foramen ovale noted on bubble study. Labs include negative UA. Normal CMP other than BUN of 26, creatinine of 1.46. Normal TSH. Normal CBC. The lipid profile was being done in the morning. IMPRESSION AND PLAN: She has had most of her stroke workup done but she needs a sed rate done just to screen for temporal arteritis with the past history of temporal arteritis. She has no temporal tenderness today and if her sed rate is normal, I would not pursue this further. Depending on what her LDL is, she may need more aggressive treatment with her Lipitor. She is on Aggrenox. I would probably switch her to Plavix at this point since the stroke occurred on Aggrenox. Dr. Tian raised the issue of embolic disease with multiple punctate lesions that may be embolic from an artery since it is all within an arterial distribution rather than cardiac but it would be not unreasonable to check. Thank you for sharing her case. [id number]/[facility] #: [id number] SHEYLA
[2018-08-19] MEDS: Levothyroxine TAB* 125 MCG TAB PO SCH (05:45)
[2018-08-19] MEDS: Heparin VIAL(*) 5000 UNITS/ML VIAL (FIVE THOUSAND) SUBCUT SCH ×2 (05:46→13:32)
[2018-08-19] MEDS: Venlafaxine EXT RELEASE CAP* 75 MG PO SCH (08:58)
[2018-08-19] MEDS: DOXYcycline CAP(*) 100 MG PO SCH (08:59)
[2018-08-19] MEDS: Potassium Chlor TAB* 20 MEQ TAB.ER PO SCH (08:59)
[2018-08-19] MEDS ORDERED: Clopidogrel TAB* 75 MG PO SCH (09:00)
[2018-08-19] MEDS ORDERED: Pantoprazole TAB (NF) 40 MG TAB PO SCH (09:00)
[2018-08-19] MEDS ORDERED: MIRABEGRON 25 MG PO SCH (10:00)
[2018-08-19] MEDS: NF:Mirabegron (NF) 25 MG TAB PO SCH (10:37)
[2018-08-19 13:35] VITALS: BP 148/72
[2018-08-19] MEDS ORDERED: amLODIPine TAB* 5 MG PO SCH (14:00)
--- NOTE | 2018-08-20 08:37 | DS ---
CC: Dr. Pinzon; Dr. Wu; Dr. Yun* DISCHARGE SUMMARY: DATE OF ADMISSION: 08/17/18 DATE OF DISCHARGE: 08/19/18 PRIMARY CARE PROVIDER: Dr. Yun. The patient also follows with Dr. Pinzon and Dr. Wu. DISCHARGE DIAGNOSES: An episode of dizziness and fall as well as worsening left leg weakness due to ischemic cerebrovascular accident of the right hemisphere. SECONDARY DIAGNOSES: 1. Left hemiplegia due to ischemic cerebrovascular accident in 2018 affecting mostly left leg. 2. History of temporal arteritis, in remission. 3. History of sarcoidosis, in remission. 4. History of hip fracture, status post open reduction and internal fixation 3 years ago. 5. Hypothyroidism. 6. Hyperlipidemia. 7. History of urinary incontinence. 8. History of chronic kidney disease stage 3. 9. Gastroesophageal reflux disease. MEDICATIONS AT DISCHARGE: Include, 1. Aggrenox was discontinued. 2. Omeprazole was substituted with pantoprazole due to patient being on Plavix now. 1. Plavix 75 mg p.o. daily. 2. Lipitor 10 mg daily. 3. Doxycycline 100 mg b.i.d. for total of 3 days and stop. 4. Uma-D 1 tablet daily. 5. Fluticasone 2 sprays both nostrils daily. 6. Iron supplements 28 mg daily. 7. Levothyroxine 125 mcg daily. 8. Mirabegron 25 mg b.i.d. 9. Potassium chloride 20 mEq b.i.d. 10. Zantac 150 mg daily. 11. Effexor XR 37.5 mg at bedtime and 75 mg q.a.m. 12. Protonix 40 mg daily. CONSULTATIONS DURING HOSPITAL STAY: Included Dr. Pinzon from Neurology. LABORATORY DATA AND STUDIES PERFORMED DURING HOSPITAL STAY: Included, On 08/18/18, white blood cell count was 5.2, hemoglobin of 13.2, hematocrit of 39, and platelets of 198. The patient's ESR was 32. Sodium was 139, potassium 4.4, chloride 105, carbon dioxide 29, BUN 26, creatinine 1.46. Liver function tests were unremarkable and checked on admission. TSH was 0.57. Cholesterol was total of 107, triglycerides of 204, HDL of 47, and LDL of 82. Carotid Doppler studies obtained on 08/18/18 showed less than 50% stenosis of both internal carotid arteries. Transthoracic echocardiogram obtained on 08/18/18 was negative for PFO. Shows EF of 60% to 65% with moderate mitral annular calcification present and mild mitral regurgitation and moderate aortic stenosis. There were no significant changes noted from 2015 echo. Brain MRI on 08/18/18, impression: "Punctate foci of restricted diffusion along the lateral margin of the splenium of the corpus callosum and the posterior medial temporal lobe on the right, consistent with subacute nonhemorrhagic infarct. The differential includes embolic disease. Extensive white matter changes were consistent with advanced chronic small vessel ischemic changes." Cervical spine CT obtained on admission, impression: "Osteopenia. Degenerative disk disease and osteoarthritis. No acute osseous injury to the cervical spine." HOSPITALIZATION COURSE: Francine Poe is an 82-year-old female with history of ischemic stroke 8 years ago from which the patient has residual left leg weakness and ambulates with a roller walker with slight footdrop. She stated that she fell 2 days prior to her presentation to the emergency department. She had another fall on the day of presentation to the ER. She also complained of dizziness. She was admitted to the hospital initially for observation. An MRI of the brain was obtained, which showed [id number] ischemic CVA. At this point, patient was placed for admission and neurology consult was requested. By the time her symptoms of dizziness resolved, but she did notice to have more weakness in the left leg than her baseline. Dr. Pinzon saw the patient on evaluation and recommended switching the patient from Aggrenox to Plavix. With the patient being on omeprazole, that was discontinued and changed to Protonix. The patient was seen by physical therapist who recommended physiotherapy admission to our PMRU unit, to which the patient is going to be discharged and transferred on 08/19/18. By the time of discharge, the patient still requires assistance with walking due to left leg weakness but otherwise has no other neurologic symptoms. Please note that during her hospital stay, on the first day of her hospital stay , she had 3 episodes of dropping her beats. When I evaluated the EKG with the floor broker power plant operations manager, there was a question of Mobitz type 1 or type 2 on patient 's telemetry. Unfortunately, we were unable to capture those episodes on patient's full 12-lead EKG. The patient was continued to be monitored for another 24 hours on conveyor monitor bed and had no further episodes. At this point, recommendations is for the patient, who after seeing her primary care provider, to be referred to a floor broker for possibility of longer term monitoring consideration in the future. PHYSICAL EXAM AT THE TIME OF DISCHARGE: Blood pressure of 144/70, heart rate of 88 and regular, respiratory rate 20, oxygen saturation 96% on room air, temperature 98.3. General: The patient is a very pleasant 82-year-old female who is in no acute distress, alert, oriented x3. HEENT: Head: Atraumatic, normocephalic. Eyes: Pupils equal and reactive to light and accommodation. Oropharynx clear. Mucosa moist. Neck: Supple. No JVD. No bruits bilaterally. Cardiovascular: Regular rate and rhythm with 2/6 systolic ejection murmur noted on auscultation of right upper sternal border. Respiratory: Clear to auscultation bilaterally. Abdomen: Soft, nontender. Bowel sounds present in all 4 quadrants. Extremities: There is no edema. Pulses +2 bilaterally. No clubbing or cyanosis. Neuro Evaluation: Speech clear, cranial nerves II through XII grossly intact. Motor strength is 5/5 in all extremities apart from the left lower extremity where the strength is at 4+/ 5, decreased more so distally with foot, plantar flexion being mostly affected. The patient's [id number]-[id number] is dissymmetric by 2 cm bilaterally. There is no pronator drift. Psychiatric Evaluation: Oriented x2 with no evidence of anxiety or depression. Please note that this is a short summary of the patient' s hospitalization. Please refer to further medical records for details. TIME SPENT: Approximately 50 minutes were spent on the patient's discharge. ADDENDUM TO DISCHARGE SUMMARY: Please note the patient's repeat blood pressure measurements later on during the day prior to her discharge to [facility] noted the patient to have systolic pressures in the 160s to 170s. On the basis of that, the patient was started on amlodipine 5 mg daily which is going to be continued after discharge. [id number]/[facility] #: [id number]/[facility] #: [id number] SHEYLA
== END 2018-08-19 14:20 | DRG 65 ==
LOC: ED 10:44 → MEDTELE 14:49 → OBSVTOIN 08-18 11:35
PROVIDERS: ADMIT Internal Medicine; ATTEND Internal Medicine
DX: I63.9 Cerebral infarction, unspecified (principal); E78.5 Hyperlipidemia, unspecified; E03.9 Hypothyroidism, unspecified; W18.30XA Fall on same level, unspecified, initial encounter; D86.9 Sarcoidosis, unspecified; N18.3 Chronic kidney disease, stage 3 (moderate); K21.9 Gastro-esophageal reflux disease without esophagitis; Z66 Do not resuscitate; R73.03 Prediabetes; H54.62 Unqualified visual loss, left eye, normal vision right eye; F32.9 Major depressive disorder, single episode, unspecified; I44.1 Atrioventricular block, second degree; L03.032 Cellulitis of left toe; R42 Dizziness and giddiness; M35.3 Polymyalgia rheumatica; I08.0 Rheumatic disorders of both mitral and aortic valves; M47.812 Spondylosis without myelopathy or radiculopathy, cervical region; M50.30 Other cervical disc degeneration, unspecified cervical region; M85.88 Other specified disorders of bone density and structure, other site; M21.379 Foot drop, unspecified foot; I69.354 Hemiplegia and hemiparesis following cerebral infarction affecting left non-dominant side; Y92.009 Unspecified place in unspecified non-institutional (private) residence as the place of occurrence of the external cause; Z90.710 Acquired absence of both cervix and uterus; Z98.49 Cataract extraction status, unspecified eye; Z88.8 Allergy status to other drugs, medicaments and biological substances; Z90.49 Acquired absence of other specified parts of digestive tract; Z97.4 Presence of external hearing-aid; Z98.42 Cataract extraction status, left eye; Z98.41 Cataract extraction status, right eye; Z83.3 Family history of diabetes mellitus; Z82.3 Family history of stroke; Z80.1 Family history of malignant neoplasm of trachea, bronchus and lung; Z87.891 Personal history of nicotine dependence; Z23 Encounter for immunization; Z79.02 Long term (current) use of antithrombotics/antiplatelets
CPT/HCPCS: 36415; 70450; 70551; 71045; 72125; 80048; 80053; 80061; 81003; 84443; 84484; 85025; 85610; 85652; 90686; 93005; 93306; 93880; 99285; A9270-GY; G0378; G8987-GO-CL; G8988-GO-CI; J1644; J2405

== ENCOUNTER 2018-11-08 11:20 | Inpatient (IN) | payer MEDICARE, OTHER ==
--- NOTE | 2018-11-08 12:09 | ED ---
HPI Chest Pain - HPI Summary HPI Summary: The patient is an 82 y/o F presenting to [facility] accompanied by daughter with a chief complaint of epigastric pain and burning across the lower sternal region of her chest starting six days ago. She reports that she has had a nonproductive cough except for some emesis of phlegm with GERD episodes. She additionally c/o SOB with exertion, edema in left leg, which is due to a series of strokes she had in August 2018, decreased appetite, and chest congestion. She is not currently experiencing heartburn symptoms, but she had them while in the waiting room. Her current discomfort is rated 5/10 in severity. The pain is aggravated by movement. She has hx of thyroid disease, but denies diabetes or cardiac diseases. Her PCP is Dr. Yun. - History of Current Complaint Chief Complaint: EDChestPainROMI Time Seen by Provider: 11/08/18 11:45 Hx Obtained From: Patient Onset/Duration: Started Days Ago - six, Still Present Timing: Lasting Days - six Initial Severity: Moderate Current Severity: Mild Pain Intensity: 5 Pain Scale Used: 0-10 Numeric Chest Pain Location: Lower Sternal Chest Pain Radiates: No Character: Burning Aggravating Factor(s): Exertion - SOB worsens, Movement - epigastric pain worsens Alleviating Factor(s): Nothing Associated Signs and Symptoms: Positive: Shortness of Breath, Nonproductive Cough - except with episodes of GERD, Edema - in left leg, since strokes in Aug 2018. Negative: Chest Pain - Additional Pertinent History Primary Care Physician: [id number] - Allergy/Home Medications Allergies/Adverse Reactions: Allergies Allergy/AdvReac Type Severity Reaction Status Date / Time azathioprine Allergy Unknown Verified 11/08/18 11:29 Reaction Details bupropion [From Wellbutrin] Allergy Unknown Verified 11/08/18 11:29 Reaction Details haloperidol [From Haldol] Allergy Altered Verified 11/08/18 11:29 Mental Status methotrexate Allergy Unknown Verified 11/08/18 11:29 Reaction Details mycophenolate mofetil Allergy Unknown Verified 11/08/18 11:29 [From CellCept] Reaction Details PMH/Surg Hx/FS Hx/Imm Hx Endocrine/Hematology History: Reports: Hx Anticoagulant Therapy, Hx Thyroid Disease - hypothyroidism Denies: Hx Diabetes, Hx Anemia, Other Endocrine/Hematological Disorders Cardiovascular History: Reports: Hx Hypercholesterolemia Denies: Hx Pacemaker/ICD, Other Cardiovascular Problems/Disorders - temporal arteritis Respiratory History: Reports: Other Respiratory Problems/Disorders - SARCOIDOSIS ; hx of respiratory failure. Denies: Hx Asthma GI History: Reports: Hx Gall Bladder Disease - removed, Hx Gastroesophageal Reflux Disease, Hx Obstructive Bowel - small bowel obstruction, Other GI Disorders - constipation/diarrheaa History: Reports: Hx Acute Renal Failure, Hx Chronic Renal Failure - stage 3 , Other Problems/Disorders - incontinence Musculoskeletal History: Reports: Hx Back Problems, Hx Orthopedic Injury - left pelvic fracture, 2013, Other Musculoskeletal History - Hip fx and surgery jul 2016 Sensory History: Reports: Hx Cataracts, Hx Contacts or Glasses, Hx Vision Problem - left sided peripheral vision problems Denies: Hx Hearing Aid Opthamlomology History: Reports: Hx Cataracts, Hx Contacts or Glasses, Hx Vision Problem - left sided peripheral vision problems Neurological History: Reports: Hx Dementia - short term memory loss, Other Neuro Impairments/Disorders - HX of AMS Psychiatric History: Reports: Hx Depression - controlled w/ meds Denies: Hx Panic Disorder, Other Psychiatric Issues/Disorders - Cancer History Cancer Type, Location and Year: h/o sarcoidosis - Surgical History Surgery Procedure, Year, and Place: Hysterectomy, bilat carpal tunnel, cataracts ; choley; right hip surgery Hx Anesthesia Reactions: No - Immunization History Date of Influenza Vaccine: Fall 2012 Infectious Disease History: No Infectious Disease History: Denies: Traveled Outside the [place] in Last 30 Days - Family History Known Family History: Positive: Diabetes, Other - CVA, Lung CA. - Social History Alcohol Use: None Substance Use Type: Reports: None Smoking Status (MU): Former Smoker Type: Cigarettes Have You Smoked in the Last Year: No Review of Systems Negative: Fever, Chills Negative: Erythema Negative: Sore Throat Positive: Other - burning across chest especially low sternal to epigastric area. Negative: Chest Pain Positive: Shortness Of Breath - with exertion, Cough - nonproductive, Other - chest congestion Positive: Abdominal Pain - epigastric pain, Other - decreased appetite. Negative: Vomiting, Nausea Negative: dysuria, hematuria Positive: Edema - in left leg s/p stroke. Negative: Myalgia Neurological: Other - NEGATIVE: dizziness All Other Systems Reviewed And Are Negative: Yes Physical Exam - Summary Physical Exam Summary: Constitutional: Well-developed, Well-nourished, Alert. (-) Distressed Skin: Warm, Dry HENT: Normocephalic; Atraumatic Eyes: Conjunctiva normal Neck: Musculoskeletal ROM normal neck. (-) JVD, (-) Stridor, (-) Tracheal deviation Cardio: Rhythm regular, rate normal, Heart sounds normal; Intact distal pulses; The pedal pulses are 2+ and symmetric. Radial pulses are 2+ and symmetric. (-) Murmur Pulmonary/Chest wall: Diminished breath sounds, Effort normal. (-) Respiratory distress, (-) Wheezes, (-) Rales Abd: Soft, (-) epigastric tenderness, (-) Distension, (-) Guarding, (-) Rebound Musculoskeletal: (-) Edema Lymph: (-) Cervical adenopathy Neuro: Alert, Oriented x3 Psych: Mood and affect Normal Triage Information Reviewed: Yes Vital Signs On Initial Exam: Initial Vitals Temp Pulse Resp BP Pulse Ox 96.7 F 88 16 102/73 97 11/08/18 11:29 11/08/18 11:29 11/08/18 11:29 11/08/18 11:29 11/08/18 11:29 Vital Signs Reviewed: Yes Diagnostics - Vital Signs Vital Signs Temp Pulse Resp BP Pulse Ox 11/08/18 11:29 96.7 F 88 16 102/73 97 - Laboratory Result Diagrams: 11/08/18 12:32 11/08/18 12:32 Lab Statement: Any lab studies that have been ordered have been reviewed, and results considered in the medical decision making process. - Radiology CXR Radiology Interpretation Completed By: Radiologist Summary of Radiographic Findings: 1. There appears to be a numerable small multifocal densities throughout both lung pat. This appearance as a broad differential but can be seen in the setting of sarcoidosis. 2. Additional chronic findings described in body the report unlikely to be related to the patient's current clinical presentation. ED physician has reviewed this report. - CT Chest/Thorax CTA CT Interpretation Completed By: Radiologist Summary of CT Findings: 1. There are scattered segmental and subsegmental nonocclusive filling defects in the bilateral lower lobes consistent with small pulmonary emboli. At least one of these filling defects in the right lower lobe appears to have been present on the CTA of the chest November 08, 2010 indicating the possibility of chronic segmental and subsegmental arterial filling defects. 2. Interval appearance of widespread pulmonary edema that is improved when compared to the CTA of the chest dated November 08, 2010 but worse when compared to the more recent September 08, 2016 CT of the chest. 3. Additional chronic and degenerative changes described in the body the report. ED physician has reviewed this report. - EKG 11:36 Cardiac Rate: NL - 86 BPM EKG Rhythm: Sinus Rhythm Summary of EKG Findings: No STEMI. Re-Evaluation - Re-Evaluation First Eval Re-Evaluation Time: 16:25 Change: Unchanged Comment: I spoke with the patient concerning imaging results and admission to [facility]. Chest Pain Course/Dx - Course Course Of Treatment: We went to see the patient [12:00] in [facility], but she was not there. She will be posted in room 15, and we will see her then. The patient is an 82 y/o F presenting to [facility] accompanied by daughter with a chief complaint of epigastric pain and burning across the lower sternal region of her chest starting six days ago. She reports that she has had a nonproductive cough except for some emesis of phlegm with GERD episodes. She additionally c/o SOB with exertion, edema in left leg, which is due to a series of strokes she had in August 2018, decreased appetite, and chest congestion. She is not currently experiencing heartburn symptoms, but she had them while in the waiting room. The pain is aggravated by movement. She has hx of thyroid disease, but denies diabetes or cardiac diseases. Her PCP is Dr. Yun. Upon physical exam, the patient exhibits diminished breath sounds. In the ED course, the patient was administered Lovenox, Lasix, and Iodixanol (for CTA). Blood work reveals elevated D-dimer and BUN. UA is unremarkable. EKG is negative. CXR reveals small densities in bilateral lung pat. CTA Chest/Thorax reveals small pulmonary emboli. I consulted with Dr. Michael, hospitalist, at 16:30; she accepts the patient for admission. She is diagnosed with pulmonary embolus and unspecified chest pain. The patient understands the need for admission and agrees with this plan. - Diagnoses Provider Diagnoses: Pulmonary embolus, Chest pain, unspecified - Provider Notifications Discussed Care Of Patient With: Aissatou Michael - hospitalist Time Discussed With Above Provider: 16:30 Instructed by Provider To: Admit As Observation - I consulted with Dr. Michael, who accepts the patient for admission. Discharge - Sign-Out/Discharge Documenting (check all that apply): Patient Departure - Patient will be admitted to [facility] for further care by Dr. Michael. - Discharge Plan Condition: Stable Disposition: ADMITTED TO [facility] Referrals: Rios Yun MD [Primary Care Provider] - - Billing Disposition and Condition Condition: STABLE Disposition: Admitted to [facility] - Attestation Statements Document Initiated by Tom: Yes Documenting Scribe: Racheal Cleveland Provider For Whom Tom is Documenting (Include Credential): Dr. Jad Goodman MD Scribe Attestation: IRacheal, scribed for Dr. Jad Goodman MD on 11/08/18 at 1635. Scribe Documentation Reviewed: Yes Provider Attestation: The documentation as recorded by the Racheal riggs accurately reflects the service I personally performed and the decisions made by me, Dr. Jad Goodman MD Status of Scribe Document: Viewed
[2018-11-08 12:47] LABS: ABS Basophils 0.1 10^3/ul (0-0.2); ABS Eosinophils 0.3 10^3/ul (0-0.6); ABS Lymphocytes 1.7 10^3/ul (1.0-4.8); ABS Monocytes 0.6 10^3/ul (0-0.8); ABS Neutrophils 3.5 10^3/ul (1.5-7.7); ABS Nucleated RBC 0 10^3/ul; Eosinophil % 4.4 %; Hematocrit 43 % (35-47); Hemoglobin 14.5 g/dl (12.0-16.0); Lymphocyte % 28.2 %; Mean Corpuscular HGB Conc 34 g/dl (31-36); Mean Corpuscular Hemoglobin 33 pg (27-31); Mean Corpuscular Volume 96 fL (80-97); Mean Platelet Volume 7.1 fL (7.4-10.4); Nucleated Red Blood Cells % 0.1; Platelet Count 259 10^3/ul (150-450); Red Blood Count 4.42 10^6/ul (4.00-5.40); Red Cell Distribution Width 13 % (10.5-15)
[2018-11-08 13:04] LABS: Albumin 3.9 g/dL (3.2-5.2); Albumin/Globulin Ratio 1.1 (1-3); BUN/Creatinine Ratio 20.4 (8-20); Calcium 10.2 mg/dL (8.6-10.3); EGFR Non-African American 30.4 (>60); Globulin 3.4 g/dL (2-4); Potassium 4.3 mmol/L (3.5-5.0); Total Bilirubin 0.4 mg/dL (0.2-1.0); Total Protein 7.3 g/dL (6.4-8.9)
[2018-11-08] MEDS ORDERED: Iodixanol* (CONTRAST) 320 MG/ML 100 ML SDV IV ONE (14:24)
[2018-11-08 15:01] LABS: Urine Appearance Clear; Urine Bilirubin Negative (Negative); Urine Blood Negative (Negative); Urine Color Yellow; Urine Glucose Negative (Negative); Urine Ketones Negative (Negative); Urine Nitrite Negative (Negative); Urine Protein Negative (Negative); Urine Specific Gravity 1.009 (1.010-1.030); Urine Urobilinogen Negative (Negative)
[2018-11-08] MEDS ORDERED: Enoxaparin(*) 80 MG/0.8 ML SYR SUBCUT ONE (16:32)
[2018-11-08] MEDS ORDERED: Furosemide IV* 10 MG/ML VIAL (40 MG) IV SLOW PU ONE (16:36)
[2018-11-08] MEDS ORDERED: Famotidine TAB* 20 MG PO PRN (18:04)
--- NOTE | 2018-11-08 20:19 | HP ---
CC: Dr. Rios Yun HISTORY AND PHYSICAL: DATE OF ADMISSION: 11/08/18 TIME OF EVALUATION: 5:50 p.m. PRIMARY CARE PROVIDER: Dr. Rios Yun. CHIEF COMPLAINT: Chest pain. HISTORY OF PRESENT ILLNESS: Ms. Poe is an 82-year-old lady with a past medical history of temporal arteritis, sarcoidosis, both in remission; hip fracture, status post ORIF; hypothyroidism; hyperlipidemia; CKD, stage 3; GERD; CVA, the most recent one in August 2018, who presents to the emergency room with complaints of chest pain. The patient was [place] [facility] [place] where she was diagnosed with a CVA. On that admission, her Aggrenox had been changed to low-dose aspirin and Plavix. The patient did well with rehab and as per her daughter, she is making lots of progress with physical therapy as an outpatient 4 times a week with progress of her energy levels and improvement of her mobility. The patient states that about a week ago, she started to have some shortness of breath associated with retrosternal chest pain, worse with exertion. She rates the pain at 3/10, but this has progressed to the point that she decided to come to the emergency room today. She also has had frequent dry cough for more than 2 weeks, but did not seek medical attention because she thought "it was not that bad." She denies fever, chills, urinary or GI symptoms. There is no hemoptysis. PAST MEDICAL HISTORY: 1. History of CVA with residual left hemiparesis, initially in 2007 and another episode in August 2018. 2. History of temporal arteritis and sarcoidosis, in remission. 3. History of hip fracture, status post ORIF. 4. Hypothyroidism. 5. Hyperlipidemia. 6. Urinary incontinence. 7. CKD, stage 3. 8. GERD. PAST SURGICAL HISTORY: 1. Status post right hip ORIF. 2. Status post carpal tunnel release bilaterally. 3. Status post hysterectomy. 4. Status post cataract extraction. MEDICATIONS: 1. Amlodipine 2.5 mg p.o. daily. 2. Aspirin 81 mg p.o. daily. 3. Atorvastatin 10 mg p.o. daily. 4. Plavix 75 mg p.o. daily. 5. Colace 100 mg p.o. b.i.d. 6. Levothyroxine 125 mcg p.o. daily at 6 a.m. 7. Myrbetriq 25 mg p.o. b.i.d. 8. Potassium chloride 20 mEq p.o. b.i.d. 9. Ranitidine 150 mg p.o. daily as needed for indigestion. 10. Senna 2 tablets p.o. at bedtime. 11. Effexor XR 75 mg p.o. q.a.m. and 37.5 mg p.o. at bedtime. ALLERGIES: To AZATHIOPRINE, BUPROPION, HALOPERIDOL, METHOTREXATE, and CELLCEPT. FAMILY HISTORY: Reviewed and noncontributory. SOCIAL HISTORY: There is no history of tobacco, alcohol, or drug use. With physical therapy, the patient now is transferring independently and uses a walker. Surrogate decision maker is her daughter, Alla Gilman, phone number [phone] or her granddaughter, Kemi Gilman, phone number is [phone]. REVIEW OF SYSTEMS: A 14-point review of systems was performed and all the pertinent negative and positive findings are in the HPI. PHYSICAL EXAMINATION GENERAL: The patient is a pleasant, elderly lady, lying in the ED stretcher, in no acute distress. VITAL SIGNS: Temperature 96.7, heart rate is 79, respiratory rate is 22, oxygen saturation 95% on room air, blood pressure is 167/80. HEENT: Pupils are equal. Moist mucous membranes. CHEST: Breath sounds present bilaterally with no added sounds. CVS: Normal S1, S2. Regular rate and rhythm. ABDOMEN: Soft. Bowel sounds are present. EXTREMITIES: There is mild left lower extremity edema, but no calf tenderness. NEURO: She is alert and oriented x3. Able to move all 4 extremities. Hard of hearing. DIAGNOSTIC STUDIES/LAB DATA: The patient had a CBC that showed WBC of 6, hemoglobin of 14.5, hematocrit of 43, platelets of 259 with 57% neutrophils. D - dimer is 527. Chemistry showed a sodium of 136, potassium of 4.3, chloride of 101, bicarb of 29, BUN of 33, creatinine of 1.6, glucose 119, lactic acid of 1.4, calcium of 10.2. LFTs were normal. Troponin is 0.01 x2. Urinalysis was negative. EKG done 11/08/18 at 11:30 a.m. shows sinus rhythm at 86 beats per minute with an RBBB and left anterior fascicular block. The RBBB and LAFB are unchanged from her prior EKG from 08/18/18. Chest x-ray showed innumerable small multifocal densities throughout both lung pat with a broad differential, but can be seen in the setting of sarcoidosis. CTA of the chest shows scattered segmental and subsegmental nonocclusive filling defects in the bilateral lower lobes consistent with small pulmonary emboli. At least one of these filling defects in the right lower lobe appears to have been present on the CTA in October 2010 indicating the possibility of chronic segmental and subsegmental arterial filling defects. ASSESSMENT AND PLAN: Ms. Poe is an 82-year-old lady with a past medical history of cerebrovascular accident, temporal arteritis, sarcoidosis, hypothyroidism, hyperlipidemia, chronic kidney disease, who presents to the emergency room with complaints of chest pain, cough, shortness of breath, found to have bilateral pulmonary embolism. 1. Bilateral pulmonary embolism. There are some old reports in [facility] that when the patient was followed by Dr. Barclay there was suspicion for antiphospholipid syndrome. The patient was on warfarin in the past and this was discontinued. As per daughter, the warfarin was initiated when she had her first stroke in 2007 and as far as she knows there is no history of pulmonary embolism and the antiphospholipid syndrome was never confirmed. Although the report of the CTA suggested that there are blood clots that were present in 2009 , the family and the patient are unaware. I did talk to Dr. Gabriel and he states that at least 1 blood clot he thinks was already present and that the findings now could be suggestive of chronicity, but the patient does have acute symptoms with chest pain and shortness of breath over the last week. I am going to check lupus anticoagulant and anticardiolipin IgG and IgM. For now, she will be treated with Lovenox until we complete her workup. She will have an echocardiogram and lower extremity duplex to rule out deep venous thrombosis. I am concerned with aspirin, Plavix, and another anticoagulant on this lady, who already is at high risk for fall due to her left hemiparesis. I discussed the case with Neurology (Dr. Pinzon) and the plan for now is to discontinue her Plavix as she has been on it for 3 months after her cerebrovascular accident in August and continue low-dose aspirin and Lovenox for now. Neurology will see her in consultation to see if they have any other recommendations. At this point, the patient is comfortable with mild pleuritic chest pain and good oxygen saturation on room air. She will be admitted to telemetry, so we can continue her workup and treatment. 2. History of cerebrovascular accident. We will continue aspirin and atorvastatin. 3. Hypothyroidism. We will continue levothyroxine. 4. Depression. We will continue Effexor. 5. DVT prophylaxis. The patient has a score of 3 on the DVT Prophylaxis Risk Assessment Guide and she is already being treated with Lovenox. 6. Code status was discussed with the patient and her daughter and she wishes to be a do not resuscitate. A MOLST form was completed and signed, added to her chart. TIME SPENT: Approximately 50 minutes was spent with the patient and daughter's interview, medical records review, physical examination to complete this admission, more than half of this time was spent [id number] with the patient and coordination of care. [id number]/[facility] #: [id number] SHEYLA
[2018-11-08] MEDS: Senna TAB PO SCH (22:13)
[2018-11-08] MEDS: Venlafaxine EXT RELEASE CAP* 37.5 MG PO SCH (22:13)
[2018-11-08] MEDS: Potassium Chlor TAB* 20 MEQ TAB.ER PO SCH (22:13)
[2018-11-08] MEDS: Docusate CAP* 100 MG PO SCH (22:13)
[2018-11-08] MEDS: NF:Mirabegron (NF) 25 MG TAB PO SCH (22:15)
[2018-11-09] MEDS ORDERED: Acetaminophen TAB* 325 MG ONE (04:08)
[2018-11-09] MEDS: Acetaminophen TAB* 325 MG PO PRN ×3 (04:11→23:01)
[2018-11-09] MEDS: Levothyroxine TAB* 125 MCG TAB PO SCH (05:55)
[2018-11-09 06:48] LABS: ABS Basophils 0 10^3/ul (0-0.2); ABS Eosinophils 0.3 10^3/ul (0-0.6); ABS Lymphocytes 1.2 10^3/ul (1.0-4.8); ABS Monocytes 0.6 10^3/ul (0-0.8); ABS Neutrophils 4.2 10^3/ul (1.5-7.7); ABS Nucleated RBC 0 10^3/ul; Eosinophil % 4.8 %; Hematocrit 41 % (35-47); Lymphocyte % 19.4 %; Mean Corpuscular HGB Conc 34 g/dl (31-36); Mean Corpuscular Hemoglobin 33 pg (27-31); Mean Corpuscular Volume 96 fL (80-97); Mean Platelet Volume 7.8 fL (7.4-10.4); Nucleated Red Blood Cells % 0; Platelet Count 240 10^3/ul (150-450); Red Blood Count 4.28 10^6/ul (4.00-5.40); Red Cell Distribution Width 13 % (10.5-15); White Blood Count 6.4 10^3/ul (3.5-10.8)
[2018-11-09 07:02] LABS: BUN/Creatinine Ratio 21.6 (8-20); Calcium 9.7 mg/dL (8.6-10.3); EGFR Non-African American 26.1 (>60); Potassium 3.8 mmol/L (3.5-5.0)
[2018-11-09] MEDS: NF:Mirabegron (NF) 25 MG TAB PO SCH ×2 (09:12→21:16)
--- NOTE | 2018-11-09 09:16 | CONSULT ---
Consultation - Reason for Consultation Reason for Consultation: recurrent blood clots Ordering Provider: Aissatou Gay Chief Complaint: chest pain, found to have PE History of Present Illness: Pleasant 82 yo F w PMH of sarcoidosis, temporal arteritis, ischemic colitis, and prior Mata now p.w. chest pain and found to have likely acute on chronic PEs. In terms of 's clotting history,the history is a bit difficult to recreate, and there was at least at some point concern for antiphospholipid antibody syndrome in 2008 when she presented with a CVA. In reading Dr. Dwyer 's notes from that period however it was felt likely related to her temporal arteritis. She was on coumadin for a period of time, and then ultimately felt NOT to have APLS and this was stopped. The only testing I see in our EMR is from 2010 and was negative. She was [place] [facility] [place] with a CVA. She reports the day before she fell in her bathroom and hit her head. The next day she was diagnosed with a CVA. Her aggrenox was changed to plavix and low dose aspirin. She comes in now with chest pain and SOB and had a CTA which revealed new and at least one old PE. She has been on lovenox since and we are asked to consult on most appropriate anticoagulation. Unfortunately according to Ms. Poe and her granddaughter she falls very frequently, since her initial stroke in 2008. Sometimes as frequently as several times per week, and has hit her head. She is not really clear as to why she falls, but it does sound to be a gait issue, and some noncompliance at times with her walker (though she falls with it too). Allergies/Medications Medication: Acetaminophen (Tylenol Tab*) 650 mg PO Q4H PRN PRN Reason: FEVER/PAIN Last Admin: 11/09/18 04:11 Dose: 650 mg Amlodipine Besylate (Norvasc Tab*) 2.5 mg PO DAILY [facility] Aspirin (Aspirin Ec Tab*) 81 mg PO DAILY [facility] Atorvastatin Calcium (Lipitor*) 10 mg PO DAILY [facility] Docusate Sodium (Colace Cap*) 100 mg PO BID [facility] Last Admin: 11/08/18 22:13 Dose: 100 mg Enoxaparin Sodium (Lovenox(*)) 70 mg SUBCUT DAILY@1700 [facility] Famotidine (Pepcid Tab*) 20 mg PO DAILY PRN; Protocol PRN Reason: INDIGESTION Levothyroxine Sodium (Synthroid Tab*) 125 mcg PO DAILY@0600 [facility] Last Admin: 11/09/18 05:55 Dose: 125 mcg Mirabegron (Myrbetriq (Nf)) 25 mg PO BID [facility] Last Admin: 11/09/18 09:12 Dose: Not Given Potassium Chloride (Klor Con Er Tab*) 20 meq PO BID [facility] Last Admin: 11/08/18 22:13 Dose: 20 meq Senna (Senokot Tab*) 2 tab PO BEDTIME [facility] Last Admin: 11/08/18 22:13 Dose: 2 tab Venlafaxine HCl (Effexor Xr Cap*) 75 mg PO QAM [facility] Venlafaxine HCl (Effexor Xr Cap*) 37.5 mg PO BEDTIME [facility] Last Admin: 11/08/18 22:13 Dose: 37.5 mg Allergies/Adverse Reactions: Allergies Allergy/AdvReac Type Severity Reaction Status Date / Time azathioprine Allergy Unknown Verified 11/08/18 11:29 Reaction Details bupropion [From Wellbutrin] Allergy Unknown Verified 11/08/18 11:29 Reaction Details haloperidol [From Haldol] Allergy Altered Verified 11/08/18 11:29 Mental Status methotrexate Allergy Unknown Verified 11/08/18 11:29 Reaction Details mycophenolate mofetil Allergy Unknown Verified 11/08/18 11:29 [From CellCept] Reaction Details History - Past Medical History Other History: CVA x 2. ischemic colitis. hyperlip. hypothyroidism. sarcoidosis. termporal arteritis. CKD. GERD. r ORIF hip. carpal tunnel bl. hysterectomy. cataracts Review of Systems - Review of Systems General Comments: fatigued today but did not sleep well. gait instability. denies SOB or chest pain now. left sided weakness. otherwise neg ROS Physical Exam - Physical Exam Physical Examination: Vital Signs Temp Pulse Resp BP Pulse Ox 97.9 F 84 20 126/59 94 11/09/18 07:31 11/09/18 07:31 11/09/18 07:31 11/09/18 07:31 11/09/18 07:31 lying in bed in nad perr eomi op moist CTA bl s1 s2 nl soft obese nt+bs trace LLE edema did not ambulate but grossly nonfocal oriented and conversant Results - Lab Results Lab Results: 11/08/18 11/08/18 11/08/18 12:29 12:29 12:32 WBC 6.0 RBC 4.42 Hgb 14.5 Hct 43 MCV 96 MCH 33 H MCHC 34 RDW 13 Plt Count 259 MPV 7.1 L Neut % (Auto) 57.0 Lymph % (Auto) 28.2 [place] % (Auto) 9.4 Eos % (Auto) 4.4 Baso % (Auto) 1.0 Absolute Neuts (auto) 3.5 Absolute Lymphs (auto) 1.7 Absolute Monos (auto) 0.6 Absolute Eos (auto) 0.3 Absolute Basos (auto) 0.1 Absolute Nucleated RBC 0 Nucleated RBC % 0.1 D-Dimer, Quantitative 527 H Sodium Potassium Chloride Carbon Dioxide Anion Gap BUN Creatinine Est GFR ( Amer) Est GFR (Non-Af Amer) BUN/Creatinine Ratio Glucose Lactic Acid Calcium Total Bilirubin AST ALT Alkaline Phosphatase Troponin I B-Natriuretic Peptide 60 Total Protein Albumin Globulin Albumin/Globulin Ratio Urine Color Urine Appearance Urine pH Ur Specific [place] Urine Protein Urine Ketones Urine Blood Urine Nitrate Urine Bilirubin Urine Urobilinogen Ur Leukocyte Esterase Urine Glucose Influenza A (Rapid) Influenza B (Rapid) 11/08/18 11/08/18 11/08/18 12:32 12:32 14:24 WBC RBC Hgb Hct MCV MCH MCHC RDW Plt Count MPV Neut % (Auto) Lymph % (Auto) [place] % (Auto) Eos % (Auto) Baso % (Auto) Absolute Neuts (auto) Absolute Lymphs (auto) Absolute Monos (auto) Absolute Eos (auto) Absolute Basos (auto) Absolute Nucleated RBC Nucleated RBC % D-Dimer, Quantitative Sodium 136 Potassium 4.3 Chloride 101 Carbon Dioxide 29 Anion Gap 6 BUN 33 H Creatinine 1.62 H Est GFR ( Amer) 36.8 Est GFR (Non-Af Amer) 30.4 BUN/Creatinine Ratio 20.4 H Glucose 119 H Lactic Acid 1.4 Calcium 10.2 Total Bilirubin 0.40 AST 14 ALT 11 Alkaline Phosphatase 76 Troponin I 0.01 B-Natriuretic Peptide Total Protein 7.3 Albumin 3.9 Globulin 3.4 Albumin/Globulin Ratio 1.1 Urine Color Yellow Urine Appearance Clear Urine pH 5.0 Ur Specific [place] 1.009 L Urine Protein Negative Urine Ketones Negative Urine Blood Negative Urine Nitrate Negative Urine Bilirubin Negative Urine Urobilinogen Negative Ur Leukocyte Esterase Negative Urine Glucose Negative Influenza A (Rapid) Influenza B (Rapid) 11/08/18 11/08/18 11/08/18 15:53 18:17 21:11 WBC RBC Hgb Hct MCV MCH MCHC RDW Plt Count MPV Neut % (Auto) Lymph % (Auto) [place] % (Auto) Eos % (Auto) Baso % (Auto) Absolute Neuts (auto) Absolute Lymphs (auto) Absolute Monos (auto) Absolute Eos (auto) Absolute Basos (auto) Absolute Nucleated RBC Nucleated RBC % D-Dimer, Quantitative Sodium Potassium Chloride Carbon Dioxide Anion Gap BUN Creatinine Est GFR ( Amer) Est GFR (Non-Af Amer) BUN/Creatinine Ratio Glucose Lactic Acid Calcium Total Bilirubin AST ALT Alkaline Phosphatase Troponin I 0.01 0.01 B-Natriuretic Peptide Total Protein Albumin Globulin Albumin/Globulin Ratio Urine Color Urine Appearance Urine pH Ur Specific [place] Urine Protein Urine Ketones Urine Blood Urine Nitrate Urine Bilirubin Urine Urobilinogen Ur Leukocyte Esterase Urine Glucose Influenza A (Rapid) Negative Influenza B (Rapid) Negative 11/09/18 11/09/18 05:58 05:58 WBC 6.4 RBC 4.28 Hgb 14.0 Hct 41 MCV 96 MCH 33 H MCHC 34 RDW 13 Plt Count 240 MPV 7.8 Neut % (Auto) 65.5 Lymph % (Auto) 19.4 [place] % (Auto) 9.6 Eos % (Auto) 4.8 Baso % (Auto) 0.7 Absolute Neuts (auto) 4.2 Absolute Lymphs (auto) 1.2 Absolute Monos (auto) 0.6 Absolute Eos (auto) 0.3 Absolute Basos (auto) 0 Absolute Nucleated RBC 0 Nucleated RBC % 0 D-Dimer, Quantitative Sodium 136 Potassium 3.8 Chloride 100 L Carbon Dioxide 26 Anion Gap 10 BUN 40 H Creatinine 1.85 H Est GFR ( Amer) 31.6 Est GFR (Non-Af Amer) 26.1 BUN/Creatinine Ratio 21.6 H Glucose 135 H Lactic Acid Calcium 9.7 Total Bilirubin AST ALT Alkaline Phosphatase Troponin I B-Natriuretic Peptide Total Protein Albumin Globulin Albumin/Globulin Ratio Urine Color Urine Appearance Urine pH Ur Specific [place] Urine Protein Urine Ketones Urine Blood Urine Nitrate Urine Bilirubin Urine Urobilinogen Ur Leukocyte Esterase Urine Glucose Influenza A (Rapid) Influenza B (Rapid) Assessment and Plan Impression: complicated 82 yo F w PMH of CVA x 2, ischemic colitis, and now PEs. There was some prior question of APLS though no testing to confirm this. Unfortunately at this point I do not think it matters as I do not feel that she can be safely anticoagulated given her recurrent and frequent falls. I have recommended an IVC filter to protect against further PEs. Her family understands that this is a very difficult situation and she is clearly at higher risk of further blood clots, but the risk of bleeding with multiple falls is too high for coumadin. In terms of her aspirin and plavix, I will defer that to neurology. I would keep her on a heparin drip while inpatient and being monitored closely.
[2018-11-09] MEDS: Venlafaxine EXT RELEASE CAP* 75 MG PO SCH (10:35)
[2018-11-09] MEDS: amLODIPine TAB* 5 MG PO SCH (10:35)
[2018-11-09] MEDS: Aspirin EC TAB* 81 MG TAB.EC PO SCH (10:36)
[2018-11-09] MEDS: Potassium Chlor TAB* 20 MEQ TAB.ER PO SCH ×2 (10:36→21:03)
[2018-11-09] MEDS: Docusate CAP* 100 MG PO SCH ×2 (10:36→21:03)
[2018-11-09] MEDS: Atorvastatin* 10 MG TAB PO SCH (10:36)
[2018-11-09 11:23] LABS: EGFR Non-African American 24.1 (>60)
--- NOTE | 2018-11-09 11:47 | ECHO ---
Patient: MIREYA COREAS [facility] Rec#: [id number] : 1935 Date: 11/09/2018 Age: 82y Height: 163 cm / 64.2 in Weight: 70 kg / 154.3 lbs Sex: F BSA: 1.76 Room#: [facility] Admit Date#: 11/08/2018 Type: Inpatient Referring: Aissatou Sosa MD Reading: Chung Sanchez MD [employer] Developer: Sera Maynard RDCS,RDMS CC: Rios Yun MD Transthoracic Echocardiogram Indication: PE BP: 98/52 HR: 83 Rhythm: NSR Findings History: DM, HLD, CVA, AOV stenosis, sarcoidosis Technical Comments: The study quality is fair. Left Ventricle: The left ventricular chamber size is decreased. Moderate concentric left ventricular hypertrophy is observed. There is increased basal septal hypertrophy noted without evidence of an increased gradient across the left ventricular outflow tract. Global left ventricular wall motion and contractility are within normal limits. There is normal left ventricular systolic function. The estimated ejection fraction is 60-65%. There is an E to A reversal in the mitral valve flow pattern suggestive of diastolic dysfunction. Left Atrium: The left atrium is mildly dilated. Right Ventricle: The right ventricular chamber size and systolic function are within normal limits. The right ventricle wall thickness is mildly increased. Right Atrium: The right atrium is mildly dilated. Aortic Valve: The aortic valve is trileaflet. The aortic valve leaflets are mildly thickened. There is moderate thickening of the non coronary cusp. Systolic excursion of the aortic valve cusps is reduced. There is no evidence of aortic regurgitation. There is mild aortic stenosis. The mean gradient of the aortic valve is 9 mmHg. Mitral Valve: Moderate mitral annular calcification present. The mitral valve leaflets are mildly thickened. There is a trace of mitral regurgitation. There is mild mitral stenosis. Tricuspid Valve: The tricuspid valve leaflets are normal. There is trace tricuspid regurgitation. Unable to estimate the right ventricular systolic pressure. Pulmonic Valve: The pulmonic valve appears normal. There is a trace pulmonic regurgitation. There is no pulmonic stenosis. Pericardium: There is no significant pericardial effusion. Aorta: The aortic root appears normal. There is no dilatation of the aortic arch. Pulmonary Artery: The main pulmonary artery is not well visualized. Venous: The inferior vena cava appears normal in size. There is a greater than 50% respiratory change in the inferior vena cava dimension. Conclusions There is normal left ventricular systolic function. The estimated ejection fraction is 60-65%. Global left ventricular wall motion and contractility are within normal limits. The left ventricular chamber size is decreased. Moderate concentric left ventricular hypertrophy is observed. There is an E to A reversal in the mitral valve flow pattern suggestive of diastolic dysfunction. The left atrium is mildly dilated. The right atrium is mildly dilated. There is mild aortic stenosis. There is mild mitral stenosis. Since the prior echocardiogram completed 08/18/18, there appears to be little change. Measurements Name Value Normal Range RVIDd (AP) 2D 2.6 cm (0.9 - 2.6) RVDdMajor (2D) 3.6 cm (2.2 - 4.4) RAd ISD 4CH 5.3 cm (3.4 - 4.9) RA (A4C)W 3.8 cm (2.9 - 4.6) IVSd (2D) 1.7 cm (0.6 - 1) LVPWd (2D) 1.2 cm (0.6 - 1) LVIDd (2D) 3.1 cm (3.6 - 5.4) LVIDs (2D) 1.6 cm - LV FS (2D) 49 % (25 - 45) Aortic Annulus 2 cm (1.4 - 2.6) Ao root diameter (2D) 2.6 cm (2.1 - 3.5) Ascending Ao 2.7 cm (2.1 - 3.4) Aortic arch 2.5 cm (1.8 - 3.4) LA dimension (AP) 2D 4 cm (2.3 - 3.8) LAd ISD 4CH 5.5 cm (2.9 - 5.3) LA ISD 4CH W 4.3 cm (2.5 - 4.5) Name Value Normal Range MV E-wave Vmax 0.9 m/sec - MV deceleration time 164 msec - MV A-wave Vmax 1.6 m/sec - MV E:A ratio 0.5 ratio - LV lateral e' Vmax 0.02 m/sec - LV E:e' lateral ratio 36.5 ratio - Name Value Normal Range AV Vmax 2 m/sec - AV VTI 38 cm - AV peak gradient 16 mmHg - AV mean gradient 9 mmHg - LVOT diameter 2 cm - LVOT Vmax 0.7 m/sec - LVOT VTI 14.5 cm - LVOT peak gradient 2 mmHg - LVOT mean gradient 1 mmHg - DOI (VTI) 0.4 ratio - ZACHARY (continuity VTI) 1.2 cm2 - Name Value Normal Range MV Vmax 1.9 m/sec - MV VTI 33 cm - MV peak gradient 14 mmHg - MV mean gradient 5 mmHg - MV PHT 89 msec - MVA (PHT) 2.5 cm2 - MVA (continuity VTI) 1.3 cm2 - Name Value Normal Range RAP 8 mmHg - IVC diameter 1.1 cm - Name Value Normal Range PV Vmax 0.8 m/sec - PV peak gradient 2.6 mmHg -
--- NOTE | 2018-11-09 12:46 | PN ---
Subjective Date of Service: 11/09/18 Interval History: HOSPITALIST PROGRESS NOTE Patient seen and examined at bedside. Care reviewed and d/w Gino Georges RN. She feels better today. Chest pain is resolved, and breathing is easier, but not back to baseline. Family History: Unchanged from Admission Social History: Unchanged from Admission Past Medical History: Unchanged from Admission Objective Active Medications: Acetaminophen (Tylenol Tab*) 650 mg PO Q4H PRN PRN Reason: FEVER/PAIN Last Admin: 11/09/18 11:40 Dose: 650 mg Amlodipine Besylate (Norvasc Tab*) 2.5 mg PO DAILY [facility] Last Admin: 11/09/18 10:35 Dose: 2.5 mg Aspirin (Aspirin Ec Tab*) 81 mg PO DAILY [facility] Last Admin: 11/09/18 10:36 Dose: 81 mg Atorvastatin Calcium (Lipitor*) 10 mg PO DAILY [facility] Last Admin: 11/09/18 10:36 Dose: 10 mg Docusate Sodium (Colace Cap*) 100 mg PO BID [facility] Last Admin: 11/09/18 10:36 Dose: 100 mg Famotidine (Pepcid Tab*) 20 mg PO DAILY PRN; Protocol PRN Reason: INDIGESTION Heparin Sodium/Dextrose (Heparin Drip 25,000 Units(*)) 25,000 units in 500 mls @ 0 mls/hr IV PER RATE [facility]; Protocol Levothyroxine Sodium (Synthroid Tab*) 125 mcg PO DAILY@0600 [facility] Last Admin: 11/09/18 05:55 Dose: 125 mcg Mirabegron (Myrbetriq (Nf)) 25 mg PO BID [facility] Last Admin: 11/09/18 09:12 Dose: Not Given Potassium Chloride (Klor Con Er Tab*) 20 meq PO BID [facility] Last Admin: 11/09/18 10:36 Dose: 20 meq Senna (Senokot Tab*) 2 tab PO BEDTIME [facility] Last Admin: 11/08/18 22:13 Dose: 2 tab Venlafaxine HCl (Effexor Xr Cap*) 75 mg PO QAM [facility] Last Admin: 11/09/18 10:35 Dose: 75 mg Venlafaxine HCl (Effexor Xr Cap*) 37.5 mg PO BEDTIME [facility] Last Admin: 11/08/18 22:13 Dose: 37.5 mg Vital Signs - 8 hr 11/09/18 11/09/18 07:31 08:00 Temperature 97.9 F Pulse Rate 84 Respiratory 20 16 Rate Blood Pressure 126/59 (mmHg) O2 Sat by Pulse 94 Oximetry Oxygen Devices in Use Now: None Appearance: Pleasant elderly lady lying in bed in NAD. Eyes: No Scleral Icterus Ears/Nose/Mouth/Throat: Mucous Membranes Moist Neck: Trachea Midline Respiratory: Symmetrical Chest Expansion and Respiratory Effort, Clear to Auscultation Cardiovascular: RRR - Normal S1 and S2 Abdominal: NL Sounds; No Tenderness; No Distention Neurological: Alert and Oriented x 3, NL Muscle Strength and Tone Result Diagrams: 11/09/18 05:58 11/09/18 10:56 Assess/Plan/Problems-Billing Assessment: Mrs Poe is an 82yo F with PMH of CVA with residual left hemiparesis, temporal arteritis, sarcoidosis, HLD, hypothyroidism, CKD stage 3, GERD, who presented to ED with c/o chest pain and dyspnea, found to have PE. - Patient Problems (1) Pulmonary embolism Comment: - Echo showed EF 60-65% and normal RV function. - LE doppler negative for DVT. - Hematology input appreciated - not a candidate for anticoagulation due to high risk for fall/head trauma/bleed. Surgery consult requested for IVC filter placement. - Will transition to heparin drip while in the hospital. (2) H/O: CVA (cerebrovascular accident) Comment: - Continue Aspirin and statin. - Plavix was discontinued 11/08/18 after discussion with Neurology. (3) Hypothyroid Code(s): E03.9 - HYPOTHYROIDISM, UNSPECIFIED SNOMED Code(s): 91823530 Comment: - Continue levothyroxine. (4) History of depression Comment: - Continue Effexor. (5) DNR (do not resuscitate)
[2018-11-09] MEDS: Heparin DRIP 25,000 UNITS(*) 25,000 UNITS/500 ML BAG IV SCH (15:37)
[2018-11-09] MEDS ORDERED: Enoxaparin(*) 80 MG/0.8 ML SYR SUBCUT SCH (17:00)
[2018-11-09] MEDS: Venlafaxine EXT RELEASE CAP* 37.5 MG PO SCH (21:03)
[2018-11-09] MEDS: Senna TAB PO SCH (21:03)
--- NOTE | 2018-11-09 23:33 | CONS ---
CC: Dr. Chin * CONSULTATION REPORT: DATE OF CONSULT: 11/09/18 PATIENT OF: Dr. Michael. HISTORY OF PRESENT ILLNESS: This is an 82-year-old woman who I had seen back on 08/18/18 for subacute stroke with a positive MRI scan at that point. She has a history of temporal arteritis, but had negative sed rate then and was placed on aspirin and Plavix at that time. Following her workup, her MRI scan had shown restricted diffusion along the corpus callosum and a medial temporal lobe on the right consistent with a subacute nonhemorrhagic stroke. She had an echo negative for PFO without significant change from prior studies. She had a carotid Doppler at that time showing less than 50% stenosis in both carotid arteries. She had had a prior stroke years prior to August 2018 stroke and she notes that after the stroke in August, she returned to her baseline, which was a mild left hemiparesis but with continued falls and the left footdrop. She presents on 11/08/18 with several weeks of shortness of breath and chest pain worse with exertion and was found to have pulmonary embolism. She has been started on anticoagulation, but because of her frailty and falls, the geotechnical engineering technician is not recommending ongoing anticoagulation. PAST MEDICAL HISTORY: Significant for: 1. Stroke with residual left hemiparesis. 2. History of temporal arteritis and sarcoidosis, in remission. 3. History of hip fracture, status post ORIF. 4. Hypothyroidism. 5. Hyperlipidemia. 6. Urinary incontinence. 7. CKD, stage III. 8. GERD. PAST SURGICAL HISTORY: She has also had bilateral carpal tunnel release as well as a hysterectomy and cataract extraction. MEDICATIONS: Medicines on admission include: 1. Amlodipine 2.5 daily. 2. Aspirin 81 mg daily. 3. Atorvastatin 10 mg daily. 4. Plavix 75 mg daily. 5. Colace 100 mg b.i.d. 6. Levothyroxine 125 mcg daily at 6 a.m. 7. Myrbetriq 25 mg b.i.d. 8. Ranitidine 100 mg p.r.n. 9. Effexor 75 mg in the morning and 37.5 mg at bedtime. ALLERGIES: She is allergic to AZATHIOPRINE, BUPROPION, HALOPERIDOL, METHOTREXATE, and CELLCEPT. FAMILY HISTORY: Noncontributory. SOCIAL HISTORY: She does not smoke, drink or use drugs. She uses a walker. REVIEW OF SYSTEMS: Negative in all 14 spheres other than in the HPI. PHYSICAL EXAM: Temperature 97.7, pulse 80, respirations 16 and blood pressure 114/51. She is alert and oriented with normal speech and comprehension. Cranial nerves II through XII were intact. Other than a mild left facial weakness, she has a mild left hemiparesis, weakness in the left arm, left leg is -5/5 weak with 4+/5 left foot dorsiflexion. Reflexes were 2+ on the left, 2 on the right. Equivocal toe on the left, downgoing on the right. Chest: Clear. Cardiovascular: Regular rate and rhythm. Abdomen: Soft with positive bowel sounds. DIAGNOSTIC STUDIES/LAB DATA: She had a transthoracic echo at this time, which showed no change from prior studies, but there was bilateral biatrial mild dilatation. Her chest and thorax CTA showed evidence of pulmonary embolism. IMPRESSION: I defer to Dr. Chin whether she should be anticoagulated given her pulmonary embolisms and her fall status. If she is on longstanding anticoagulation, I will just have her on baby aspirin in addition and this is the plan. If she goes off anticoagulation, she should be on aspirin plus Plavix for 3 months following her stroke in August, which would mean the beginning of November, at which point, I would have her either back on Aggrenox which she was on before or Plavix, whichever she tolerates better. I would probably start off with the Plavix because it is less likely to give headaches. Thank you for sharing her case. [id number]/[facility] #: [id number] SHEYLA
[2018-11-10] MEDS: Levothyroxine TAB* 125 MCG TAB PO SCH (06:03)
[2018-11-10 06:56] LABS: ABS Basophils 0 10^3/ul (0-0.2); ABS Eosinophils 0.5 10^3/ul (0-0.6); ABS Lymphocytes 2.4 10^3/ul (1.0-4.8); ABS Monocytes 0.5 10^3/ul (0-0.8); ABS Neutrophils 2.5 10^3/ul (1.5-7.7); ABS Nucleated RBC 0 10^3/ul; Eosinophil % 8.6 %; Hematocrit 40 % (35-47); Hemoglobin 13.7 g/dl (12.0-16.0); Lymphocyte % 40.3 %; Mean Corpuscular HGB Conc 34 g/dl (31-36); Mean Corpuscular Hemoglobin 33 pg (27-31); Mean Corpuscular Volume 96 fL (80-97); Mean Platelet Volume 7.5 fL (7.4-10.4); Nucleated Red Blood Cells % 0.1; Platelet Count 234 10^3/ul (150-450); Red Blood Count 4.17 10^6/ul (4.00-5.40); Red Cell Distribution Width 14 % (10.5-15)
[2018-11-10 08:24] LABS: BUN/Creatinine Ratio 21.4 (8-20); EGFR Non-African American 26.6 (>60)
[2018-11-10 08:31] LABS: Potassium 4.1 mmol/L (3.5-5.0)
[2018-11-10 08:35] LABS: Calcium 9.3 mg/dL (8.6-10.3)
[2018-11-10] MEDS: Potassium Chlor TAB* 20 MEQ TAB.ER PO SCH ×2 (09:25→20:52)
[2018-11-10] MEDS: Docusate CAP* 100 MG PO SCH ×2 (09:25→20:54)
[2018-11-10] MEDS: Aspirin EC TAB* 81 MG TAB.EC PO SCH (09:25)
[2018-11-10] MEDS: NF:Mirabegron (NF) 25 MG TAB PO SCH ×2 (09:26→20:55)
[2018-11-10] MEDS: Venlafaxine EXT RELEASE CAP* 75 MG PO SCH (09:26)
[2018-11-10] MEDS: Atorvastatin* 10 MG TAB PO SCH (09:26)
[2018-11-10] MEDS: amLODIPine TAB* 5 MG PO SCH (09:26)
--- NOTE | 2018-11-10 09:53 | CONSULT ---
Consult Consult: Care discussed with Dr. Pollack Will plan IVC filter on with Dr. Boyle Will need to be NPO after MN Friday and D/C IV heparin at least 6 hours before the procedure.
--- NOTE | 2018-11-10 14:54 | PN ---
Subjective Date of Service: 11/10/18 Interval History: HOSPITALIST PROGRESS NOTE Patient seen and examined at bedside. Care reviewed and d/w Audie Robertson RN. She offers no new complaints today. Chest pain is resolved. Has not moved around much. Family History: Unchanged from Admission Social History: Unchanged from Admission Past Medical History: Unchanged from Admission Objective Active Medications: Acetaminophen (Tylenol Tab*) 650 mg PO Q4H PRN PRN Reason: FEVER/PAIN Last Admin: 11/09/18 23:01 Dose: 650 mg Amlodipine Besylate (Norvasc Tab*) 2.5 mg PO DAILY [facility] Last Admin: 11/10/18 09:26 Dose: 2.5 mg Aspirin (Aspirin Ec Tab*) 81 mg PO DAILY [facility] Last Admin: 11/10/18 09:25 Dose: 81 mg Atorvastatin Calcium (Lipitor*) 10 mg PO DAILY [facility] Last Admin: 11/10/18 09:26 Dose: 10 mg Docusate Sodium (Colace Cap*) 100 mg PO BID [facility] Last Admin: 11/10/18 09:25 Dose: 100 mg Famotidine (Pepcid Tab*) 20 mg PO DAILY PRN; Protocol PRN Reason: INDIGESTION Heparin Sodium/Dextrose (Heparin Drip 25,000 Units(*)) 25,000 units in 500 mls @ 0 mls/hr IV PER RATE [facility]; Protocol Last Admin: 11/09/18 15:37 Dose: 25 mls/hr Levothyroxine Sodium (Synthroid Tab*) 125 mcg PO DAILY@0600 [facility] Last Admin: 11/10/18 06:03 Dose: 125 mcg Mirabegron (Myrbetriq (Nf)) 25 mg PO BID [facility] Last Admin: 11/10/18 09:26 Dose: Not Given Potassium Chloride (Klor Con Er Tab*) 20 meq PO BID [facility] Last Admin: 11/10/18 09:25 Dose: 20 meq Senna (Senokot Tab*) 2 tab PO BEDTIME [facility] Last Admin: 11/09/18 21:03 Dose: 2 tab Venlafaxine HCl (Effexor Xr Cap*) 75 mg PO QAM [facility] Last Admin: 11/10/18 09:26 Dose: 75 mg Venlafaxine HCl (Effexor Xr Cap*) 37.5 mg PO BEDTIME [facility] Last Admin: 12/31/18 21:03 Dose: 37.5 mg Vital Signs - 8 hr 11/10/18 11/10/18 11/10/18 07:50 08:00 10:59 Temperature 97.5 F 97.5 F Pulse Rate 87 83 Respiratory 18 18 18 Rate Blood Pressure 110/58 124/58 (mmHg) O2 Sat by Pulse 93 92 Oximetry Oxygen Devices in Use Now: None Appearance: Elderly lady lying in bed in NAD. Eyes: No Scleral Icterus Ears/Nose/Mouth/Throat: Mucous Membranes Moist Neck: Trachea Midline Respiratory: Symmetrical Chest Expansion and Respiratory Effort, Clear to Auscultation Cardiovascular: RRR - Normal S1 and S2 Neurological: Alert and Oriented x 3, NL Muscle Strength and Tone Result Diagrams: 11/10/18 06:49 11/10/18 06:49 Assess/Plan/Problems-Billing Assessment: Mrs Poe is an 82yo F with PMH of CVA with residual left hemiparesis, temporal arteritis, sarcoidosis, HLD, hypothyroidism, CKD stage 3, GERD, who presented to ED with c/o chest pain and dyspnea, found to have PE. - Patient Problems (1) Pulmonary embolism Comment: - Echo showed EF 60-65% and normal RV function. - LE doppler negative for DVT. - Hematology input appreciated - not a candidate for anticoagulation due to high risk for fall/head trauma/bleed. - Surgery consult requested for IVC filter placement - tentative plan for with Dr Boyle. - Continue heparin drip while in the hospital. (2) H/O: CVA (cerebrovascular accident) Comment: - Continue Aspirin and statin. - Plavix was discontinued 11/08/18 after discussion with Neurology. (3) Hypothyroid Code(s): E03.9 - HYPOTHYROIDISM, UNSPECIFIED SNOMED Code(s): 06324266 Comment: - Continue levothyroxine. (4) History of depression Comment: - Continue Effexor. (5) DNR (do not resuscitate)
[2018-11-10] MEDS: Heparin DRIP 25,000 UNITS(*) 25,000 UNITS/500 ML BAG IV SCH (15:32)
[2018-11-10] MEDS ORDERED: Heparin VIAL(*) 5000 UNITS/ML VIAL (FIVE THOUSAND) IV SCH (16:00)
[2018-11-10] MEDS: Venlafaxine EXT RELEASE CAP* 37.5 MG PO SCH (20:52)
[2018-11-10] MEDS: Senna TAB PO SCH (20:55)
[2018-11-11] MEDS: Levothyroxine TAB* 125 MCG TAB PO SCH (05:39)
[2018-11-11 07:02] LABS: ABS Basophils 0 10^3/ul (0-0.2); ABS Eosinophils 0.5 10^3/ul (0-0.6); ABS Lymphocytes 2.4 10^3/ul (1.0-4.8); ABS Monocytes 0.5 10^3/ul (0-0.8); ABS Neutrophils 2.7 10^3/ul (1.5-7.7); ABS Nucleated RBC 0 10^3/ul; Eosinophil % 8.3 %; Hematocrit 38 % (35-47); Hemoglobin 12.8 g/dl (12.0-16.0); Lymphocyte % 38.6 %; Mean Corpuscular HGB Conc 34 g/dl (31-36); Mean Corpuscular Hemoglobin 33 pg (27-31); Mean Corpuscular Volume 97 fL (80-97); Mean Platelet Volume 7.7 fL (7.4-10.4); Nucleated Red Blood Cells % 0.1; Platelet Count 223 10^3/ul (150-450); Red Blood Count 3.95 10^6/ul (4.00-5.40); Red Cell Distribution Width 14 % (10.5-15); White Blood Count 6.1 10^3/ul (3.5-10.8)
[2018-11-11 07:28] LABS: EGFR Non-African American 28.4 (>60)
[2018-11-11] MEDS: Atorvastatin* 10 MG TAB PO SCH (08:20)
[2018-11-11] MEDS: Docusate CAP* 100 MG PO SCH ×3 (08:20→21:00)
[2018-11-11] MEDS: Venlafaxine EXT RELEASE CAP* 75 MG PO SCH (08:20)
[2018-11-11] MEDS: Acetaminophen TAB* 325 MG PO PRN (08:20)
[2018-11-11] MEDS: Potassium Chlor TAB* 20 MEQ TAB.ER PO SCH ×2 (08:20→21:31)
[2018-11-11] MEDS: Aspirin EC TAB* 81 MG TAB.EC PO SCH (08:20)
[2018-11-11] MEDS: amLODIPine TAB* 5 MG PO SCH (08:20)
[2018-11-11] MEDS: NF:Mirabegron (NF) 25 MG TAB PO SCH ×2 (08:23→21:00)
--- NOTE | 2018-11-11 15:58 | PN ---
Subjective Date of Service: 11/11/18 Interval History: HOSPITALIST PROGRESS NOTE Patient seen and examined at bedside. Care reviewed and d/w Annemarie Gray RN. Family History: Unchanged from Admission Social History: Unchanged from Admission Past Medical History: Unchanged from Admission Objective Active Medications: Acetaminophen (Tylenol Tab*) 650 mg PO Q4H PRN PRN Reason: FEVER/PAIN Last Admin: 11/11/18 08:20 Dose: 650 mg Amlodipine Besylate (Norvasc Tab*) 2.5 mg PO DAILY [facility] Last Admin: 11/11/18 08:20 Dose: 2.5 mg Aspirin (Aspirin Ec Tab*) 81 mg PO DAILY [facility] Last Admin: 11/11/18 08:20 Dose: 81 mg Atorvastatin Calcium (Lipitor*) 10 mg PO DAILY [facility] Last Admin: 11/11/18 08:20 Dose: 10 mg Docusate Sodium (Colace Cap*) 100 mg PO BID [facility] Last Admin: 11/11/18 08:23 Dose: Not Given Famotidine (Pepcid Tab*) 20 mg PO DAILY PRN; Protocol PRN Reason: INDIGESTION Heparin Sodium (Porcine) (Heparin Vial(*)) 0 units IV .PER PROTOCOL [facility] Heparin Sodium/Dextrose (Heparin Drip 25,000 Units(*)) 25,000 units in 500 mls @ 0 mls/hr IV PER RATE [facility]; Protocol Last Admin: 11/10/18 15:32 Dose: 15 mls/hr Levothyroxine Sodium (Synthroid Tab*) 125 mcg PO DAILY@0600 [facility] Last Admin: 11/11/18 05:39 Dose: 125 mcg Mirabegron (Myrbetriq (Nf)) 25 mg PO BID [facility] Last Admin: 11/11/18 08:23 Dose: Not Given Potassium Chloride (Klor Con Er Tab*) 20 meq PO BID [facility] Last Admin: 11/11/18 08:20 Dose: 20 meq Senna (Senokot Tab*) 2 tab PO BEDTIME [facility] Last Admin: 11/10/18 20:55 Dose: Not Given Venlafaxine HCl (Effexor Xr Cap*) 75 mg PO QAM [facility] Last Admin: 11/11/18 08:20 Dose: 75 mg Venlafaxine HCl (Effexor Xr Cap*) 37.5 mg PO BEDTIME [facility] Last Admin: 11/10/18 20:52 Dose: 37.5 mg Vital Signs - 8 hr 11/11/18 11/11/18 08:00 11:49 Temperature 98.7 F Pulse Rate 86 Respiratory 18 16 Rate Blood Pressure 131/65 (mmHg) O2 Sat by Pulse 95 Oximetry Oxygen Devices in Use Now: None Appearance: Pleasant elderly lady lying in bed in NAD. Eyes: No Scleral Icterus Ears/Nose/Mouth/Throat: Mucous Membranes Moist Neck: Trachea Midline Respiratory: Symmetrical Chest Expansion and Respiratory Effort, Clear to Auscultation Cardiovascular: NL Sounds; No Murmurs; No JVD, RRR Neurological: Alert and Oriented x 3, NL Muscle Strength and Tone Result Diagrams: 11/11/18 06:06 11/11/18 06:06 Assess/Plan/Problems-Billing Assessment: Mrs Poe is an 82yo F with PMH of CVA with residual left hemiparesis, temporal arteritis, sarcoidosis, HLD, hypothyroidism, CKD stage 3, GERD, who presented to ED with c/o chest pain and dyspnea, found to have PE. - Patient Problems (1) Pulmonary embolism Comment: - Echo showed EF 60-65% and normal RV function. - LE doppler negative for DVT. - Hematology input appreciated - not a candidate for anticoagulation due to high risk for fall/head trauma/bleed. - Surgery consult requested for IVC filter placement - tentative plan for with Dr Boyle. Daughter called and updated about plan. Questions answered, but still has questions for surgeon. - Continue heparin drip while in the hospital. (2) H/O: CVA (cerebrovascular accident) Comment: - Continue Aspirin and statin. - Plavix was discontinued 11/08/18 after discussion with Neurology. (3) Hypothyroid Code(s): E03.9 - HYPOTHYROIDISM, UNSPECIFIED SNOMED Code(s): 49553208 Comment: - Continue levothyroxine. (4) History of depression Comment: - Continue Effexor. (5) DNR (do not resuscitate)
[2018-11-11] MEDS ORDERED: Heparin DRIP 25,000 UNITS(*) 25,000 UNITS/500 ML BAG IV SCH ×2 (16:00→23:59)
[2018-11-11 16:41] LABS: ABS Basophils 0 10^3/ul (0-0.2); ABS Eosinophils 0.4 10^3/ul (0-0.6); ABS Lymphocytes 1.9 10^3/ul (1.0-4.8); ABS Monocytes 0.4 10^3/ul (0-0.8); ABS Neutrophils 2.4 10^3/ul (1.5-7.7); ABS Nucleated RBC 0 10^3/ul; Eosinophil % 8.1 %; Hematocrit 38 % (35-47); Hemoglobin 12.7 g/dl (12.0-16.0); Lymphocyte % 37.2 %; Mean Corpuscular HGB Conc 34 g/dl (31-36); Mean Corpuscular Hemoglobin 33 pg (27-31); Mean Corpuscular Volume 97 fL (80-97); Mean Platelet Volume 7.5 fL (7.4-10.4); Nucleated Red Blood Cells % 0.2; Platelet Count 235 10^3/ul (150-450); Red Blood Count 3.88 10^6/ul (4.00-5.40); Red Cell Distribution Width 14 % (10.5-15); White Blood Count 5.2 10^3/ul (3.5-10.8)
[2018-11-11] MEDS ORDERED: diPHENhydraMINE PO* 25 MG PO PRN (18:47)
[2018-11-11] MEDS: Hydrocortisone 1% CREAM* 30 GM TUBE TOPICAL SCH ×2 (19:50→21:00)
[2018-11-11] MEDS: Senna TAB PO SCH (21:00)
[2018-11-11] MEDS: Venlafaxine EXT RELEASE CAP* 37.5 MG PO SCH (21:31)
[2018-11-11 22:49] LABS: Phospholipid Ab IgG < 9.4 GPL; Phospholipid Ab IgM, S 10.2 MPL
[2018-11-12] MEDS ORDERED: Famotidine TAB* 20 MG PO SCH (01:00)
[2018-11-12] MEDS: Levothyroxine TAB* 125 MCG TAB PO SCH (05:53)
[2018-11-12] MEDS ORDERED: oxyCODONE/Acetamin 5/325 MG* TAB PO PRN (05:55)
[2018-11-12] MEDS ORDERED: fentaNYL* 50 MCG/ML 2 ML VIAL (100 MCG VIAL) IV PRN (05:55)
[2018-11-12] MEDS ORDERED: Naloxone* 0.4 MG/ML 1 ML VIAL IV PRN (05:55)
[2018-11-12 07:39] LABS: ABS Basophils 0 10^3/ul (0-0.2); ABS Eosinophils 0.5 10^3/ul (0-0.6); ABS Lymphocytes 1.8 10^3/ul (1.0-4.8); ABS Monocytes 0.4 10^3/ul (0-0.8); ABS Neutrophils 2.7 10^3/ul (1.5-7.7); ABS Nucleated RBC 0 10^3/ul; Eosinophil % 8.3 %; Hematocrit 40 % (35-47); Hemoglobin 13.6 g/dl (12.0-16.0); Lymphocyte % 33.1 %; Mean Corpuscular HGB Conc 34 g/dl (31-36); Mean Corpuscular Hemoglobin 33 pg (27-31); Mean Corpuscular Volume 97 fL (80-97); Mean Platelet Volume 7.2 fL (7.4-10.4); Nucleated Red Blood Cells % 0; Platelet Count 248 10^3/ul (150-450); Red Blood Count 4.14 10^6/ul (4.00-5.40); Red Cell Distribution Width 14 % (10.5-15); White Blood Count 5.5 10^3/ul (3.5-10.8)
[2018-11-12] MEDS: Venlafaxine EXT RELEASE CAP* 75 MG PO SCH (08:15)
[2018-11-12] MEDS: amLODIPine TAB* 5 MG PO SCH (08:16)
[2018-11-12] MEDS: Aspirin EC TAB* 81 MG TAB.EC PO SCH (08:16)
[2018-11-12] MEDS: Hydrocortisone 1% CREAM* 30 GM TUBE TOPICAL SCH ×3 (08:16→21:00)
[2018-11-12] MEDS: Potassium Chlor TAB* 20 MEQ TAB.ER PO SCH ×3 (08:16→20:59)
[2018-11-12] MEDS: Atorvastatin* 10 MG TAB PO SCH (08:16)
[2018-11-12] MEDS: NF:Mirabegron (NF) 25 MG TAB PO SCH ×2 (08:19→20:50)
[2018-11-12] MEDS: Docusate CAP* 100 MG PO SCH ×2 (08:19→20:59)
[2018-11-12] MEDS ORDERED: Lactated Ringers 1000 ML Bag* 1,000 ML IV SCH (12:00)
[2018-11-12 12:31] LABS: LAC APTT 36 sec (26 - 36); LAC INR 1.1; Prothrombin Time(LAC) 12.4 sec
[2018-11-12] MEDS ORDERED: KETAMINE HCL* 50 MG/ML 10 ML VIAL ONE (13:36)
[2018-11-12] MEDS ORDERED: Midazolam* 1 MG/ML 2 ML VIAL (2 MG) ONE (13:36)
[2018-11-12] MEDS ORDERED: fentaNYL* 50 MCG/ML 2 ML VIAL (100 MCG VIAL) ONE (13:36)
[2018-11-12] MEDS ORDERED: Ketorolac INJ* 30 MG/ML 1 ML VIAL ONE (13:37)
[2018-11-12] MEDS ORDERED: Heparin DIALYSIS ONLY(*) 1,000 UNITS/ML VIAL ONE (14:11)
[2018-11-12] MEDS ORDERED: Iohexol 180 (CONTRAST) 10 ML SDV IV ONE (14:11)
[2018-11-12] MEDS ORDERED: Lidocaine 1% INJ* 10 MG/ML 30 ML SDV ONE (14:11)
--- NOTE | 2018-11-12 15:06 | PN ---
Subjective Date of Service: 11/12/18 Interval History: HOSPITALIST PROGRESS NOTE Patient seen and examined at bedside. Care reviewed and d/w Annemarie Gray RN. She is anxious for her procedure today. Denies chest pain, dyspnea, palpitations. Her rash is improving. Family History: Unchanged from Admission Social History: Unchanged from Admission Past Medical History: Unchanged from Admission Objective Active Medications: Acetaminophen (Tylenol Tab*) 650 mg PO Q4H PRN PRN Reason: FEVER/PAIN Last Admin: 11/11/18 08:20 Dose: 650 mg Amlodipine Besylate (Norvasc Tab*) 2.5 mg PO DAILY [facility] Last Admin: 11/12/18 08:16 Dose: 2.5 mg Aspirin (Aspirin Ec Tab*) 81 mg PO DAILY [facility] Last Admin: 11/12/18 08:16 Dose: 81 mg Atorvastatin Calcium (Lipitor*) 10 mg PO DAILY [facility] Last Admin: 11/12/18 08:16 Dose: 10 mg Diphenhydramine HCl (Benadryl Po*) 25 mg PO Q4H PRN PRN Reason: ITCHING Last Admin: 11/12/18 00:34 Dose: 25 mg Docusate Sodium (Colace Cap*) 100 mg PO BID [facility] Last Admin: 11/12/18 08:19 Dose: Not Given Famotidine (Pepcid Tab*) 20 mg PO EVERY OTHER DAY [facility] Last Admin: 11/12/18 01:31 Dose: 20 mg Fentanyl Citrate (Fentanyl*) 10 mcg IV Q5M PRN PRN Reason: PAIN - MODERATE Heparin Sodium (Porcine) (Heparin Vial(*)) 0 units IV .PER PROTOCOL [facility] Hydrocortisone (Hytone Cream 1%*) 1 applic TOPICAL TID [facility] Last Admin: 11/12/18 13:20 Dose: 1 applic Lactated Ringer's (Lactated Ringers 1000 Ml Bag*) 1,000 mls @ 75 mls/hr IV PER RATE [facility] Last Admin: 11/12/18 11:49 Dose: 75 mls/hr Levothyroxine Sodium (Synthroid Tab*) 125 mcg PO DAILY@0600 [facility] Last Admin: 11/12/18 05:53 Dose: 125 mcg Mirabegron (Myrbetriq (Nf)) 25 mg PO BID [facility] Last Admin: 11/12/18 08:19 Dose: Not Given Naloxone HCl (Narcan*) 0.08 mg IV Q2M PRN PRN Reason: severe induced resp depression Oxycodone/Acetaminophen (Percocet 5/325 Tab*) 1 tab PO ONCE PRN PRN Reason: PAIN - MODERATE Potassium Chloride (Klor Con Er Tab*) 20 meq PO BID [facility] Last Admin: 11/12/18 08:23 Dose: Not Given Senna (Senokot Tab*) 2 tab PO BEDTIME [facility] Last Admin: 11/11/18 21:00 Dose: Not Given Venlafaxine HCl (Effexor Xr Cap*) 75 mg PO QAM [facility] Last Admin: 11/12/18 08:15 Dose: 75 mg Venlafaxine HCl (Effexor Xr Cap*) 37.5 mg PO BEDTIME [facility] Last Admin: 11/11/18 21:31 Dose: 37.5 mg Vital Signs - 8 hr 11/12/18 11/12/18 11/12/18 07:28 07:39 11:03 Temperature 97.1 F 97.3 F Pulse Rate 81 72 Respiratory 18 20 18 Rate Blood Pressure 148/70 142/67 (mmHg) O2 Sat by Pulse 96 94 Oximetry 11/12/18 13:48 Temperature 97.9 F Pulse Rate 80 Respiratory 18 Rate Blood Pressure 166/88 (mmHg) O2 Sat by Pulse 94 Oximetry Oxygen Devices in Use Now: None Appearance: Pleasant elderly lady lying in bed in NAD Eyes: No Scleral Icterus Ears/Nose/Mouth/Throat: Mucous Membranes Moist Neck: Trachea Midline Respiratory: Symmetrical Chest Expansion and Respiratory Effort, Clear to Auscultation Cardiovascular: RRR - Normal S1 and S2 Abdominal: NL Sounds; No Tenderness; No Distention Skin: - - faint macular rash on lower abdome extending to thighs and back Neurological: Alert and Oriented x 3, NL Muscle Strength and Tone Result Diagrams: 11/12/18 07:32 11/11/18 06:06 Assess/Plan/Problems-Billing Assessment: Mrs Poe is an 82yo F with PMH of CVA with residual left hemiparesis, temporal arteritis, sarcoidosis, HLD, hypothyroidism, CKD stage 3, GERD, who presented to ED with c/o chest pain and dyspnea, found to have PE. - Patient Problems (1) Pulmonary embolism Comment: - Echo showed EF 60-65% and normal RV function. - LE doppler negative for DVT. - Hematology input appreciated - not a candidate for anticoagulation due to high risk for fall/head trauma/bleed. - Surgery consult requested for IVC filter placement - plan for placement today with Dr Boyle. - Heparin drip discontinued. (2) Rash Comment: - Continue Benadryl, Famotidine, and hydrocortisone cream. (3) H/O: CVA (cerebrovascular accident) Comment: - Continue Aspirin and statin. - Plavix was discontinued 11/08/18 after discussion with Neurology. (4) Hypothyroid Code(s): E03.9 - HYPOTHYROIDISM, UNSPECIFIED SNOMED Code(s): 72980726 Comment: - Continue levothyroxine. (5) History of depression Comment: - Continue Effexor. (6) DNR (do not resuscitate)
[2018-11-12] MEDS ORDERED: Lidocaine 2% PF * 5 ML VIAL ONE (15:15)
[2018-11-12] MEDS ORDERED: Propofol* 500 MG/50 ML BTL ONE (15:15)
[2018-11-12] MEDS: Venlafaxine EXT RELEASE CAP* 37.5 MG PO SCH (20:59)
[2018-11-12] MEDS: Senna TAB PO SCH (20:59)
--- NOTE | 2018-11-12 23:22 | OP ---
DATE OF OPERATION: 11/12/18 - ROOM #446 DATE OF : 35 SURGEON: Dr. Boyle. HIGHWAY MAINTENANCE TECHNICIAN: None. ANESTHESIOLOGIST: Dr. Estevez. ANESTHESIA: LMAC anesthesia. PRE-OP DIAGNOSIS: Pulmonary embolus. POST-OP DIAGNOSIS: Pulmonary embolus. OPERATIVE PROCEDURE: Placement of right transfemoral inferior vena cava filter with fluoroscopy. DESCRIPTION OF PROCEDURE: The patient was supine on the operating room table. After adequate intravenous sedation, the right groin was prepped with antiseptic and draped in a sterile fashion. Local infiltrative anesthesia was administered. Venipuncture was carried out in the right femoral space without difficulty. Guidewire was passed under fluoroscopic guidance and dilator was used to expand the tract and then the introducer was placed. The filter was brought in through the introducer and placed roughly at the L2-3 level, at which point it was deployed and opened nicely. The catheter was removed and the filter was in good position; 5-0 Vicryl suture was used at the skin. Pressure was held for about 10 minutes. Everything was in good condition and the patient was brought to recovery. COMPLICATIONS: There were no complications. DRAINS: No drains. SPECIMENS: No pathologic specimens. ESTIMATED BLOOD LOSS: 5 mL. [id number]/[facility] #: [id number] MTDD
[2018-11-13] MEDS: Levothyroxine TAB* 125 MCG TAB PO SCH (05:09)
[2018-11-13 06:33] LABS: ABS Basophils 0 10^3/ul (0-0.2); ABS Eosinophils 0.4 10^3/ul (0-0.6); ABS Lymphocytes 1.7 10^3/ul (1.0-4.8); ABS Monocytes 0.5 10^3/ul (0-0.8); ABS Neutrophils 3.5 10^3/ul (1.5-7.7); ABS Nucleated RBC 0 10^3/ul; Eosinophil % 7.2 %; Hematocrit 38 % (35-47); Hemoglobin 13.1 g/dl (12.0-16.0); Lymphocyte % 27.8 %; Mean Corpuscular HGB Conc 34 g/dl (31-36); Mean Corpuscular Hemoglobin 33 pg (27-31); Mean Corpuscular Volume 96 fL (80-97); Mean Platelet Volume 7.2 fL (7.4-10.4); Nucleated Red Blood Cells % 0; Platelet Count 232 10^3/ul (150-450); Red Blood Count 4.01 10^6/ul (4.00-5.40); Red Cell Distribution Width 14 % (10.5-15); White Blood Count 6.2 10^3/ul (3.5-10.8)
[2018-11-13 06:51] LABS: EGFR Non-African American 32.7 (>60)
[2018-11-13] MEDS: Venlafaxine EXT RELEASE CAP* 75 MG PO SCH (09:48)
[2018-11-13] MEDS: Potassium Chlor TAB* 20 MEQ TAB.ER PO SCH (09:48)
[2018-11-13] MEDS: Atorvastatin* 10 MG TAB PO SCH (09:48)
[2018-11-13] MEDS: Docusate CAP* 100 MG PO SCH (09:48)
[2018-11-13] MEDS: Aspirin EC TAB* 81 MG TAB.EC PO SCH (09:49)
[2018-11-13] MEDS: amLODIPine TAB* 5 MG PO SCH (09:49)
[2018-11-13] MEDS: Hydrocortisone 1% CREAM* 30 GM TUBE TOPICAL SCH ×2 (09:49→15:40)
[2018-11-13] MEDS: NF:Mirabegron (NF) 25 MG TAB PO SCH (09:54)
[2018-11-13 18:28] VITALS: BP 149/65
--- NOTE | 2018-11-14 01:47 | DS ---
CC: Dr. Meghann Connell at [facility] [address] * DISCHARGE SUMMARY: DATE OF ADMISSION: 11/08/18 DATE OF DISCHARGE: 11/13/18 PRIMARY CARE PROVIDER: Dr. Rios Yun. PRIMARY DIAGNOSIS: Pulmonary embolism. SECONDARY DIAGNOSES: Include: 1. Frequent falls. 2. History of cerebrovascular accidents. 3. History of temporal arteritis. 4. Drug rash. MEDICATIONS ON DISCHARGE: Include: 1. Docusate 100 mg twice daily. 2. Clopidogrel 75 mg daily, until 11/19/18. 3. Atorvastatin 10 mg daily. 4. Aspirin 81 mg daily. 5. Levothyroxine 125 mcg daily. 6. Ranitidine 150 mg daily as needed. 7. Potassium chloride 20 mEq twice daily. 8. Myrbetriq 25 mg twice daily. 9. Senna 2 tablets at bedtime. 10. Effexor 75 mg in the morning and 37.5 mg at bedtime. 11. Amlodipine 2.5 mg at bedtime. DIAGNOSTIC DATA: CTA chest: Impression: Scattered segmental and subsegmental nonocclusive filling defects in the bilateral lower lobes consistent with small pulmonary emboli, at least one of these filling defects in the right lower lobe appears to have been present on the CTA from October 2010. Interval-appearing widespread pulmonary edema that has improved when compared to the CTA of the chest from 2009 and additional chronic degenerative changes described in the full body of this report. CONSULTATIONS DURING THE COURSE OF HOSPITAL STAY: 1. Neurology. 2. General surgery. 3. Hematology. PROCEDURES PERFORMED DURING HOSPITAL STAY: Placement of IVC filter by General Surgery on 11/12/18. HISTORY OF PRESENT ILLNESS AND HOSPITAL COURSE: This is an 82-year-old female with past medical history as outlined in the history of present illness. On the day of admission, with a history of CVA, most recently in August 2018, was on aspirin and Plavix in addition to history of multiple falls, perhaps up to several times a week, presented to the hospital with retrosternal chest pain and found with bilateral pulmonary embolism with some evidence on the CTA of chronicity. She was seen in consultation with Hematology who did not recommend long-term anticoagulation in the setting of her frequent falls with head strikes at home. She was also seen in consultation with Neurology. She is to continue her aspirin and Plavix for the full 3 months, which is to complete on 11/19/18, after which she will resume aspirin alone. She is not to begin an anticoagulation. She is ambulating on the day of discharge. Discussed the care with both the patient and her daughter who agreed with plan of discharge at this time. There are no complications according to the hospital stay, although there was noted a rash that began approximately half way down medial thighs, extended up partially on her belly and around to her sides not to fully include her flank that was petechial and blanching and no purpura associated with it. I believe this would be a medication- induced rash that is asymptomatic. She is to follow up with a commercial real estate lender if it persists. At followup, please; 1. Evaluate for continued disability after discharge. 2. Evaluate rash, referring for appropriate care if it does not resolve. 3. No other specific labs or vitals need to be followed. Reasons to return to the hospital including, but not limited to recurrent or worsening symptoms, increasing shortness of breath, dyspnea on exertion, chest pain, lightheadedness, loss of consciousness or near loss of consciousness, bleeding from any source following head strike discussed with the patient and her daughter. They acknowledged understanding. TIME SPENT: Greater than 60 minutes was spent on discharge of this patient, greater than half was spent [id number] with the patient . [id number]/[facility] #: [id number] SHEYLA
== END 2018-11-13 18:30 | disposition home or self-care (01) | DRG 167 ==
LOC: ED 11:20 → MEDTELE 17:51
PROVIDERS: ADMIT Internal Medicine; ATTEND Internal Medicine
PROC: 06H03DZ Insertion of Intraluminal Device into Inferior Vena Cava, Percutaneous Approach (ICD-10-PCS; principal; 2018-11-12 14:45)
DX: I26.99 Other pulmonary embolism without acute cor pulmonale (principal); I69.354 Hemiplegia and hemiparesis following cerebral infarction affecting left non-dominant side; E03.9 Hypothyroidism, unspecified; E78.5 Hyperlipidemia, unspecified; N18.3 Chronic kidney disease, stage 3 (moderate); K21.9 Gastro-esophageal reflux disease without esophagitis; F32.9 Major depressive disorder, single episode, unspecified; Z66 Do not resuscitate; L27.0 Generalized skin eruption due to drugs and medicaments taken internally; R32 Unspecified urinary incontinence; Z91.81 History of falling; Z79.02 Long term (current) use of antithrombotics/antiplatelets; Z79.82 Long term (current) use of aspirin; Z79.899 Other long term (current) drug therapy; Z88.8 Allergy status to other drugs, medicaments and biological substances
CPT/HCPCS: 36415; 71045; 71275; 76000; 80048; 80053; 81003; 82565; 83605; 83880; 84484; 84520; 85025; 85379; 85610; 85613; 85730; 86147; 93005; 93306; 93970; 99223; 99284; A9270-GY; G8978-GP-CJ; G8979-GP-CI; J1644; J1650; J1885; J1940; J2250; J2704; J3010; Q9967

== ENCOUNTER 2019-03-15 14:43 | Emergency (ER) | payer MEDICARE, OTHER ==
--- OUTSIDE RECORDS SUMMARY | 2019-03-15 14:50 | XMS REPORT | Continuity of Care Document ---
:1935 External Reference #:[id number] Author Name TiagoLarissa hudson Care Team Providers Name Role Phone Meghann Connell M.D. Primary Care Physician Unavailable Payers Date Identification Numbers Payment Provider Subscriber Policy Number: [id number] Medicare Mireya Coreas PayID: [id number] [address] [place] [address] Policy Number: [id number] [employer] Mireya Coreas Group Number: [id number] [address] PayID: [id number] [place] [address] Advance Directives Type Date Description Status Comment Other Directive 08/21/2017 [facility] Care Agent Current and Verified Problems Active Problems Provider Date Giant cell arteritis Coleman Barclay M.D. Onset: 02/28/2011 Disorder of muscle Coleman Barclay M.D. 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 Onset: 12/2011 Inactive: 12/03/2017 Resolved Problems Acute ill-defined cerebrovascular disease Coleman Barclay M.D. Onset: 2012 Resolved: 12/03/2017 Family History Date Family Member(s) Observation Comments General Diabetes General Heart Disease General Hypertension General Cancer General Rheumatoid Arthritis Father Lung Cancer Heavy smoker - age 74 Mother Hypertension Mother Diabetes Mother Congestive Heart Failure (CHF) age 86 Siblings 4 1 bro now First Brother due to Diabetes () First Sister due to Alcohol Related () Second Sister due to Gastric Cancer () Social History Type Date Description Comments Sex Unknown Lives With Alone apartment on the back of daughters house Occupation Retired ADL's/IADL's Independent with feeding ADL's/IADL's Independent with dressing ADL's/IADL's Independent with grooming ADL's/IADL's Independent with standing ADL's/IADL's Independent with toileting ADL's/IADL's Requires assistance with ambulating ADL's/IADL's Requires assistance with bathing ADL's/IADL's Independent with money management ADL's/IADL's Dependent with cleaning ADL's/IADL's Dependent with cooking ADL's/IADL's Dependent with food preparation ADL's/IADL's Dependent with housekeeping ADL's/IADL's Dependent with laundry ADL's/IADL's Independent with using the telephone ADL's/IADL's Independent with reading ADL's/IADL's Dependent with transportation ADL's/IADL's Dependent with shopping Tobacco Use Start: Unknown Former Cigarette Smoker End: Unknown Smoking Status Reviewed: 03/08/19 Former Cigarette Smoker ETOH Use 12/03/2017 Denies alcohol use Tobacco Use Start: Unknown Patient is a former End: Unknown smoker Recreational Drug Use Denies Drug Use Exercise Type/Frequency Exercises rarely walks very little Allergies, Adverse Reactions, Alerts Active Allergies Reaction Severity Comments Date Haldol contracts muscles, Severe altered mental status 01/09/2011 agitation Methotrexate Methotrexate lung 02/28/2011 Mycophenolate leukopenia 02/28/2011 Azathioprine nausea 04/14/2012 Bupropion 08/12/2016 Medications Active Medications SIG Qnty Indications Ordering Date Provider Clotrimazole Apply to affected 45gm B35.4 Meghann Connell MD 03/08/2019 1% Cream area of skin twice a day for 7-10 days Macrobid 1 by mouth twice a 14caps N39.0 Meghann Connell MD 03/08/2019 100mg day x 7 days Capsules Lactulose 30ml once a day, march 473ml K59.00 Meghann Connell MD 01/20/2019 10GM/15ML take 60 if needed Solution Atorvastatin Calcium Take 1 Tablet By 90tabs Lucie Pavon MD 12/23/2018 Mouth Every Night 10mg Tablets AT Bedtime Norvasc 1 by mouth every day 90tabs Rios Mcdowell 09/07/2018 2.5mg Tablets Lanette Yun,FACP Aspirin Regimen Low one tab by mouth Rios Mcdowell 09/07/2018 Dose Adult daily Lanette Yun,FACP 81mg Tablets DR Transport Chair use as needed when 1units Z86.73 Meghann Connell MD 2017 Misc going out of residence to appointments M23.231 Fluticasone Propionate 2 sprays each 48gm Rios Yun, 04/03/2018 nostril twice a day M.July,FACP 50mcg/Act Suspension as needed Myrbetriq Take 1 Tablet By 180tabs Rios Yun, 12/03/2017 25mg Tablets ER 24HR Mouth Twice A Day M.DGomez,FACP Effexor XR once at bedtime 90caps Rios Yun, 06/02/2017 37.5mg Caps ER 24HR M.DGomez,FACP Tylenol PM Extra Strength q hs Unknown 500-25mg Tablets Melatonin ER 1 tab at bedtime Unknown 5mg Tablets ER Senna take 2 tablets by Unknown 8.6mg Tablets mouth every day at bedtime Iron 1 by mouth every Unknown 65mg Tablets day Vitamin D 3 Unknown Omeprazole 1 by mouth every 30caps Meghann Connell MD 20mg Capsules DR day Levothyroxine Sodium 1 by mouth every 90tabs Rios Yun, 125mcg day M.DGomez,FACP Tablets Effexor XR 1 cap by mouth in 90caps Rios Yun, 75mg Caps ER 24HR in the morning M.D.,FACP History Medications Aricept 1 by mouth every 30tabs R41.81 Meghann Connell MD 12/08/2018 - 10mg day, at bedtime 01/20/2019 Tablets Tramadol HCL 1 by mouth every 30tabs Meghann Connell MD 11/27/2018 - 50mg 6-8 hours as 03/08/2019 Tablets needed for pain Potassium Chloride 1 by mouth twice 30tabs Meghann Connell MD 11/20/2018 - ER daily 11/20/2018 20Meq Tablets ER Colace 1 tab by mouth 90caps Rios Mcdowell 09/07/2018 - 100mg twice daily Lanette Yun,FACP 12/03/2018 Capsules Lipitor 1 by mouth every 90tabs Rios Mcdowell 09/07/2018 - 10mg night at bedtime Lanette Yun,FACP 12/23/2018 Tablets Potassium Chloride twice daily 180tabs Meghann Connell MD 08/26/2018 - Shannan ER 01/20/2019 20Meq Tablets ER Potassium Chloride Twice Daily Unknown 08/17/2018 - Shannan ER 09/18/2018 20Meq Tablets ER Doxycycline Hyclate 1 tablet twice a 20tabs L03.032 Rani Munoz, 2017 - day x 10 days M.DGomez 08/22/[address] Cephalexin take 1 by mouth 20tabs L03.032 Miesha 07/31/2018 - 500mg four times a day x Lanette Hansen 08/05/2018 Tablets 5 days Miralax one packet qd for 1units K59.00 Camila 02/04/2018 - 3350NF constipation LAURA Hector 12/03/2018 Packet Bactroban apply to nasal 15gm J34.9 Camila 02/04/2018 - 2% Cream passage twice a LAURA Hector 05/07/2018 day for 2 weeks Ranitidine HCL take one tablet by 90tabs Rios Mcdowell 12/03/2017 - mouth once a day Lanette Yun,[facility] 01/20/2019 150mg Tablets as needed Sulfacetamide 2 drops in left 15ml H10.9 Camila 10/22/2017 - Sodium eye four times a LAURA Hector 11/12/2017 10% Solution day Silvadene apply to bilateral 50gm T24.212A Camila 10/22/2017 - 1% Cream thigh de luna area HectorLAURA gregg 05/07/2018 every 12 hours, remove all old cream before iam new Uma Allergy 1 by mouth every Umer EGomez 10/14/2017 - day Lanette Rodriguez 11/10/2017 60mg Tablets Ciprofloxacin HCL take 1 tab by 10tabs N39.0 Jared Castillo, 10/10/2017 - mouth twice a day [employer]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 Prednisone 1 tab po q Am in 30tabs 446.5 Alejandraofikody Castillo, 2012 - 5mg conjunction with 2 PRODUCTION DRILLING MACHINE OPERATOR 11/24/2013 Tablets tabs of 1 mg dose po q PM. V58.69 Lidoderm Apply Patch 30units 721.3 Coleman Barclay, 04/26/2012 - 5% Patches And Leave On M.D. 08/05/2014 For 10 Hours Prednisone 1 qam plus 90tabs Coleman Barclay, 04/04/2011 - 5mg Tablets 1/2 qpm M.D. 2012 Azathioprine 1 tab every 30tabs Coleman Barclay, 01/09/2011 - 50mg Tablets day M.D. 08/06/2011 Prednisone 1 and 1/2 tabs 45tabs Coleman Barclay, 01/09/2011 - 10mg Tablets q pm M.D. 02/11/2012 Prednisone 1 po q am 30tabs Coleman Barclay, 01/09/2011 - 20mg Tablets M.D. 04/04/2011 Pantoprazole Sodium 1 by mouth Unknown - 40mg Tablets every day 09/07/2018 Clopidogrel Bisulfate 1 by mouth 30tabs Rios Mcdowell - 75mg every day Joice, 11/23/2018 Tablets M.D.,FACP Potassium Chloride ER 1 by mouth Unknown - 20Meq every day 09/18/2018 Tablets ER Uma D once per day Unknown - 08/19/2018 Uma Allergy 1 by mouth Unknown - 60mg Tablets every day 10/13/2017 Iron 1 by mouth Unknown - 28mg Tablets every day 09/07/2018 Atorvastatin Calcium 1 by mouth 90tabs Camila - 10mg Tablets every day LAURA Hector 08/17/2018 Glipizide XL 1 po qd 30tabs Unknown - 10mg Tablets ER 24HR 08/21/2017 Omeprazole 1 by mouth 90caps Camila - 20mg Capsules DR every day LAURA Hector 08/17/2018 Feosol once daily 90tabs Unknown - 200(65Fe) mg Tablets 02/16/2014 Potassium one tab twice 180tabs Camila - 20Meq Tablets a day LAURA Hector 08/21/2017 Oxybutynin Chloride two tablets 180tabs Camila - 5mg Tablets daily as LAURA Hector 12/03/2017 needed Humalog Insulin Lispro 30u qd 3Bottles Unknown - 2012 100Units/ML Hydrochlorothiazide 1 po qd 30caps Unknown - 12.5mg 2012 Capsules Calcium 500/D 1 po bid Unknown - [id number] 08/21/2017 Tablets Levothyroxine Sodium take 1 tablet 90tabs [place] - 100mcg by mouth every [place], 08/21/2017 Tablets morning M.D. Lipitor 1 po qhs Unknown - 10mg Tablets 08/21/2017 Aggrenox 1 by mouth 180caps Camila - 25-200mg Caps ER 12HR twice a day LAURA Hector 08/16/2015 Immunizations CPT Code Status Date Vaccine Reaction Lot # [id number] Given 08/21/2018 Influenza Virus Vaccine, Quadrivalent, Split, Preservative Free [id number] Given 08/12/2018 Pneumonia Vaccine Pt. tolerated well. [id number] Given 08/29/2017 Influenza Virus Vaccine, administered at [facility] Quadrivalent, Split, Preservative Free 67571 Given 08/19/2017 Pneumococcal Conjugate Vaccine 13 Valent For Intramuscular Use Vital Signs Date Vital Result Comment 03/08/2019 2:32pm Height 60 inches 5'0" Weight 156.00 lb Heart Rate 96 /min BP Systolic Sitting 121 mmHg BP Diastolic Sitting 75 mmHg Body Temperature 97.4 F O2 % BldC Oximetry 95 % BMI (Body Mass Index) 30.5 kg/m2 01/20/2019 2:04pm Height 60 inches 5'0" Weight 159.38 lb Heart Rate 94 /min BP Systolic 130 mmHg BP Diastolic 76 mmHg Body Temperature 97.7 F O2 % BldC Oximetry 94 % BMI (Body Mass Index) 31.1 kg/m2 12/08/2018 9:52am Height 60 inches 5'0" Weight 155.00 lb Heart Rate 92 /min BP Systolic 106 mmHg BP Diastolic 70 mmHg O2 % BldC Oximetry 96 % BMI (Body Mass Index) 30.3 kg/m2 12/04/2018 10:59am Height 64 inches 5'4" Weight 164.00 lb Heart Rate 86 /min BP Systolic 120 mmHg BP Diastolic 78 mmHg Body Temperature 97.6 F O2 % BldC Oximetry 96 % BMI (Body Mass Index) 28.1 kg/m2 11/18/2018 2:10pm Height 64 inches 5'4" Weight 156.00 lb Heart Rate 92 /min BP Systolic 130 mmHg BP Diastolic 74 mmHg Body Temperature 97.6 F O2 % BldC Oximetry 93 % BMI (Body Mass Index) 26.8 kg/m2 09/18/2018 10:24am Height 64 inches 5'4" Weight 155.00 lb Heart Rate 85 /min BP Systolic Sitting 136 mmHg BP Diastolic Sitting 70 mmHg Body Temperature 97.0 F O2 % BldC Oximetry 99 % BMI (Body Mass Index) 26.6 kg/m2 08/12/2018 10:32am Height 64 inches 5'4" Weight 155.00 lb Heart Rate 81 /min BP Systolic Sitting 120 mmHg BP Diastolic Sitting 76 mmHg O2 % BldC Oximetry 95 % BMI (Body Mass Index) 26.6 kg/m2 07/31/2018 8:40am Height 64 inches 5'4" Weight 154.00 lb Heart Rate 83 /min BP Systolic 130 mmHg BP Diastolic 78 mmHg O2 % BldC Oximetry 96 % BMI (Body Mass Index) 26.4 kg/m2 05/07/2018 1:34pm Weight 156.00 lb Heart Rate 92 /min BP Systolic Sitting 120 mmHg BP Diastolic Sitting 70 mmHg Body Temperature 97.7 F O2 % BldC Oximetry 96 % 02/04/2018 10:18am Weight 152.00 lb Heart Rate 99 /min BP Systolic 118 mmHg BP Diastolic 60 mmHg Body Temperature 97.9 F O2 % BldC Oximetry 96 % 12/03/2017 3:48pm Weight 151.00 lb Heart Rate 92 /min BP Systolic Sitting 122 mmHg BP Diastolic Sitting 70 mmHg Body Temperature 96.7 F O2 % BldC Oximetry 95 % 11/12/2017 10:40am Height 63 inches 5'3" Weight 154.00 lb Heart Rate 81 /min BP Systolic Standing 114 mmHg BP Diastolic Standing 66 mmHg Body Temperature 97.0 F O2 % BldC Oximetry 95 % BMI (Body Mass Index) 27.3 kg/m2 10/22/2017 3:11pm Weight 157.00 lb Heart Rate 87 /min BP Systolic Sitting 118 mmHg BP Diastolic Sitting 78 mmHg Body Temperature 97.5 F O2 % BldC Oximetry 92 % 10/14/2017 11:56am Height 64 inches 5'4" Weight 157.00 lb Heart Rate 87 /min BP Systolic Sitting 110 mmHg BP Diastolic Sitting 75 mmHg Body Temperature 97.5 F O2 % BldC Oximetry 94 % BMI (Body Mass Index) 26.9 kg/m2 10/10/2017 2:41pm Height 64 inches 5'4" Weight 157.00 lb Heart Rate 96 /min BP Systolic Sitting 120 mmHg BP Diastolic Sitting 71 mmHg Respiratory Rate 16 /min Body Temperature 99.0 F BMI (Body Mass Index) 26.9 kg/m2 08/21/2017 1:35pm Height 64 inches 5'4" Weight 153.00 lb Heart Rate 103 /min BP Systolic Sitting 130 mmHg BP Diastolic Sitting 70 mmHg Body Temperature 98.3 F O2 % BldC Oximetry 96 % BMI (Body Mass Index) 26.3 kg/m2 10/16/2016 1:44pm Height 62 inches 5'2" Weight 140.00 lb Respiratory Rate 16 /min Pain Level 2 BMI (Body Mass Index) 25.6 kg/m2 08/12/2016 10:16am Height 62 inches 5'2" Respiratory Rate 16 /min Pain Level 0 took pain meds 08/05/2014 12:47pm Height 62 inches 5'2" Weight 140.00 lb Heart Rate 94 /min BP Systolic Sitting 130 mmHg BP Diastolic Sitting 62 mmHg Pain Level 1 BMI (Body Mass Index) 25.6 kg/m2 04/20/2014 1:34pm Height 62 inches 5'2" Weight 145.50 lb Heart Rate 102 /min BP Systolic Sitting 110 mmHg BP Diastolic Sitting 68 mmHg Pain Level 4 BMI (Body Mass Index) 26.6 kg/m2 02/16/2014 1:22pm Height 62 inches 5'2" Weight 144.00 lb Heart Rate 102 /min BP Systolic Sitting 114 mmHg BP Diastolic Sitting 70 mmHg BMI (Body Mass Index) 26.3 kg/m2 11/24/2013 1:46pm Weight 147.00 lb Heart Rate 95 /min BP Systolic Sitting 140 mmHg BP Diastolic Sitting 78 mmHg 09/01/2013 1:41pm Height 62.50 inches 5'2.50" Weight 144.75 lb Heart Rate 82 /min BP Systolic Sitting 154 mmHg BP Diastolic Sitting 84 mmHg BMI (Body Mass Index) 26.1 kg/m2 06/30/2013 10:59am Height 62 inches 5'2" Weight 137.00 lb Heart Rate 60 /min BP Systolic Sitting 124 mmHg BP Diastolic Sitting 70 mmHg BMI (Body Mass Index) 25.1 kg/m2 03/09/2013 1:34pm Height 62 inches 5'2" Weight 138.00 lb Heart Rate 78 /min BP Systolic Sitting 128 mmHg BP Diastolic Sitting 66 mmHg BMI (Body Mass Index) 25.2 kg/m2 2012 1:06pm Height 62 inches 5'2" Weight 140.00 lb Heart Rate 82 /min BP Systolic Sitting 117 mmHg BP Diastolic Sitting 72 mmHg BMI (Body Mass Index) 25.6 kg/m2 09/11/2012 11:50am Height 62 inches 5'2" Weight 148.50 lb Heart Rate 81 /min BP Systolic Sitting 122 mmHg BP Diastolic Sitting 72 mmHg BMI (Body Mass Index) 27.2 kg/m2 06/29/2012 1:21pm Height 62 inches 5'2" Heart Rate 80 /min BP Systolic Sitting 110 mmHg BP Diastolic Sitting 66 mmHg 04/14/2012 3:49pm Height 62 inches 5'2" Heart Rate 79 /min BP Systolic Sitting 128 mmHg BP Diastolic Sitting 72 mmHg 02/11/2012 4:02pm Height 62 inches 5'2" Heart Rate 82 /min BP Systolic Sitting 117 mmHg BP Diastolic Sitting 73 mmHg 12/16/2011 2:29pm Height 62 inches 5'2" Weight 168.00 lb Heart Rate 80 /min BP Systolic Sitting 126 mmHg BP Diastolic Sitting 73 mmHg BMI (Body Mass Index) 30.7 kg/m2 10/21/2011 3:20pm Height 62 inches 5'2" Weight 160.00 lb Heart Rate 82 /min BP Systolic Sitting 108 mmHg BP Diastolic Sitting 68 mmHg BMI (Body Mass Index) 29.3 kg/m2 08/06/2011 4:23pm Height 62 inches 5'2" Heart Rate 76 /min BP Systolic 100 mmHg BP Diastolic 70 mmHg 05/28/2011 10:02am Height 62 inches 5'2" Heart Rate 78 /min BP Systolic 122 mmHg BP Diastolic 74 mmHg 04/04/2011 9:16am Height 62 inches 5'2" Weight 162.00 lb Heart Rate 88 /min BP Systolic 130 mmHg BP Diastolic 90 mmHg BMI (Body Mass Index) 29.6 kg/m2 02/28/2011 4:06pm Height 62 inches 5'2" Weight 162.00 lb Heart Rate 80 /min BP Systolic 100 mmHg BP Diastolic 60 mmHg BMI (Body Mass Index) 29.6 kg/m2 01/09/2011 4:29pm Height 62 inches 5'2" Weight 162.00 lb Heart Rate 82 /min BP Systolic 138 mmHg BP Diastolic 86 mmHg BMI (Body Mass Index) 29.6 kg/m2 Results Test Date Facility Test Result H/L Range Note Ua Routine 03/08/2019 [facility] Ua Specific [place] 1.020 Ua PH 5 Ua Color dark yellow Ua Appera cloudy Ua WBC ++ Ua Protein trace Ua Glucose normal Ua Ketones negative Ua Bilirubin negative Ua Urobilinogen negative Ua Nitrite negative Ua Occult Blood trace Laboratory test 02/23/2019 [facility] Potassium 4.4 mmol/L N 3.5-5.[address] [place] [address] [phone] Basic Metabolic 01/21/2019 [facility] Sodium 136 mmol/L N 135- 145 1 Panel [address] [place] [address] [phone] Chloride 104 mmol/L N 101-111 Co2 Carbon Dioxide 22 mmol/L N 22-32 Calcium 9.5 mg/dL N 8.6-10.3 Glucose 145 mg/dL High 70-100 Blood Urea Nitrogen 27 mg/dL High 6-24 Creatinine 1.55 mg/dL High 0.51-0.95 BUN/Creatinine Ratio 17.4 N 8-20 Egfr Non- 31.9 >60 Egfr 38.6 >60 2 Potassium TNP mmol/L 3.5-5.0 3 Anion Gap 10 mmol/L N 2-11 Laboratory test 11/24/2018 [facility] Hemoglobin A1c 6.1 % High 4.0-5.6 4, [address] [facility] ([facility]) [place] [address] [phone] TSH (Thyroid Stim Horm) 1.04 mcIU/mL N 0.34-5.60 6 Basic Metabolic Panel 11/24/2018 [facility] Sodium 137 mmol/L N 135-145 [address] [place] [address] [phone] Potassium 4.5 mmol/L N 3.5-5.0 Chloride 105 mmol/L N 101-111 Co2 Carbon Dioxide 24 mmol/L N 22-32 Anion Gap 8 mmol/L N 2-11 Glucose 130 mg/dL High 70-100 Blood Urea Nitrogen 25 mg/dL High 6-24 Creatinine 1.46 mg/dL High 0.51-0.95 BUN/Creatinine Ratio 17.1 N 8-20 Calcium 9.1 mg/dL N 8.6-10.3 Egfr Non- 34.3 >60 Egfr 41.5 >60 7 Laboratory test 11/08/2018 [facility] Troponin-I (TnI) 0.01 ng/ mL <0.04 8 finding [address] [place] [address] [phone] Laboratory test 11/08/2018 [facility] Troponin-I (TnI) 0.01 ng/ mL <0.04 9 finding [address] [place] [address] [phone] Urinalysis 11/08/2018 [facility] Urine Color Yellow Profile [address] [place] [address] [phone] Urine Appearance Clear Urine Specific [place] 1.009 Low 1.010-1.030 Urine pH 5.0 N 5-9 Urine Urobilinogen Negative Negative Urine Ketones Negative Negative Urine Protein Negative Negative Urine Leukocytes Negative Negative Urine Blood Negative Negative Urine Nitrite Negative Negative Urine Bilirubin Negative Negative Urine Glucose Negative Negative CBC Auto Diff 11/08/2018 [facility] White Blood 6.0 10^3/uL N 3.5-10.[address] [facility] [place] [address] [phone] Red Blood Count 4.42 10^6/uL N 4.00-5.40 Hemoglobin 14.5 g/dL N 12.0-16.0 Hematocrit 43 % N 35-47 Mean Corpuscular Volume 96 fL N 80-97 Mean Corpuscular Hemoglobin 33 pg High 27-31 Mean Corpuscular HGB Conc 34 g/dL N 31-36 Red Cell Distribution Width 13 % N 10.5-15 Platelet Count 259 10^3/uL N 150-450 Mean Platelet Volume 7.1 fL Low 7.4-10.4 Abs Neutrophils 3.5 10^3/uL N 1.5-7.7 Abs Lymphocytes 1.7 10^3/uL N 1.0-4.8 Abs Monocytes 0.6 10^3/uL N 0-0.8 Abs Eosinophils 0.3 10^3/uL N 0-0.6 Abs Basophils 0.1 10^3/uL N 0-0.2 Abs Nucleated RBC 0 10^3/uL Granulocyte % 57.0 % Lymphocyte % 28.2 % Monocyte % 9.4 % Eosinophil % 4.4 % Basophil % 1.0 % Nucleated Red Blood Cells % 0.1 Laboratory test 11/08/2018 [facility] Lactic Acid 1.4 mmol/L N 0.5-2.0 10 finding [address] [place] [address] [phone] Comp Metabolic 11/08/2018 [facility] Sodium 136 mmol/L N 135- 145 Panel [address] [place] [address] [phone] Potassium 4.3 mmol/L N 3.5-5.0 Chloride 101 mmol/L N 101-111 Co2 Carbon Dioxide 29 mmol/L N 22-32 Anion Gap 6 mmol/L N 2-11 Glucose 119 mg/dL High 70-100 Blood Urea Nitrogen 33 mg/dL High 6-24 Creatinine 1.62 mg/dL High 0.51-0.95 BUN/Creatinine Ratio 20.4 High 8-20 Calcium 10.2 mg/dL N 8.6-10.3 Total Protein 7.3 g/dL N 6.4-8.9 Albumin 3.9 g/dL N 3.2-5.2 Globulin 3.4 g/dL N 2-4 Albumin/Globulin Ratio 1.1 N 1-3 Total Bilirubin 0.40 mg/dL N 0.2-1.0 Alkaline Phosphatase 76 U/L N 34-104 Alt 11 U/L N 7-52 Ast 14 U/L N 13-39 Egfr Non- 30.4 >60 Egfr 36.8 >60 11 Laboratory test 11/08/2018 [facility] Troponin-I (TnI) 0.01 ng/ mL <0.04 [address] [place] [address] [phone] Laboratory test 11/08/2018 [facility] B-Type 60 pg/mL <=[address] [place] [address] Peptide BNP [phone] D Dimer Quantitative 527 ng/mL High Less Than 230 13 Inr/Protime 08/17/2018 [facility] Inr 1.01 N 0.77-1.02 [address] [place] [address] [phone] Comp Metabolic Panel 08/17/2018 [facility] Sodium 138 mmol/L N 135-145 [address] [place] [address] [phone] Potassium 4.2 mmol/L N 3.5-5.0 Chloride 104 mmol/L N 101-111 Co2 Carbon Dioxide 25 mmol/L N 22-32 Anion Gap 9 mmol/L N 2-11 Glucose 131 mg/dL High 70-100 Blood Urea Nitrogen 33 mg/dL High 6-24 Creatinine 1.43 mg/dL High 0.51-0.95 BUN/Creatinine Ratio 23.1 High 8-20 Calcium 9.6 mg/dL N 8.6-10.3 Total Protein 7.2 g/dL N 6.4-8.9 Albumin 3.8 g/dL N 3.2-5.2 Globulin 3.4 g/dL N 2-4 Albumin/Globulin Ratio 1.1 N 1-3 Total Bilirubin 0.40 mg/dL N 0.2-1.0 Alkaline Phosphatase 70 U/L N 34-104 Alt 10 U/L N 7-52 Ast 17 U/L N 13-39 Egfr Non- 35.1 >60 Egfr 42.5 >60 14 Laboratory test 08/17/2018 [facility] Troponin-I (TnI) 0.01 ng/ mL <0.04 finding [address] [place] [address] [phone] Urinalysis 08/17/2018 [facility] Urine Color Straw Profile [address] [place] [address] [phone] Urine Appearance Clear Urine Specific [place] 1.008 Low 1.010-1.030 Urine pH 7.0 N 5-9 Urine Urobilinogen Negative Negative Urine Ketones Negative Negative Urine Protein Negative Negative Urine Leukocytes Negative Negative Urine Blood Negative Negative Urine Nitrite Negative Negative Urine Bilirubin Negative Negative Urine Glucose Negative Negative CBC Auto Diff 08/17/2018 [facility] White Blood 5.6 10^3/uL N 3.5-10.[address] [place] [address] [phone] Red Blood Count 4.16 10^6/uL N 4.00-5.40 Hemoglobin 13.7 g/dL N 12.0-16.0 Hematocrit 40 % N 35-47 Mean Corpuscular Volume 95 fL N 80-97 Mean Corpuscular Hemoglobin 33 pg High 27-31 Mean Corpuscular HGB Conc 35 g/dL N 31-36 Red Cell Distribution Width 13 % N 10.5-15 Platelet Count 215 10^3/uL N 150-450 Mean Platelet Volume 7.6 um3 N 7.4-10.4 Abs Neutrophils 3.3 10^3/uL N 1.5-7.7 Abs Lymphocytes 1.5 10^3/uL N 1.0-4.8 Abs Monocytes 0.6 10^3/uL N 0-0.8 Abs Eosinophils 0.2 10^3/uL N 0-0.6 Abs Basophils 0.1 10^3/uL N 0-0.2 Abs Nucleated RBC 0 10^3/uL Granulocyte % 58.6 % N 38-83 Lymphocyte % 26.8 % N 25-47 Monocyte % 10.6 % High 0-7 Eosinophil % 2.8 % N 0-6 Basophil % 1.2 % N 0-2 Nucleated Red Blood Cells % 0.1 Lipid Profile 05/11/2018 [facility] Triglycerides 172 mg/dL 15 (Trig/Chol/HDL) [address] [place] [address] [phone] Cholesterol 167 mg/dL 16 HDL Cholesterol 46.2 mg/dL 17 LDL Cholesterol 86 mg/dL 18 Basic Metabolic Panel 05/11/2018 [facility] Sodium 137 mmol/L N 135-145 [address] [place] [address] [phone] Potassium 4.5 mmol/L N 3.5-5.0 Chloride 103 mmol/L N 101-111 Co2 Carbon Dioxide 25 mmol/L N 22-32 Anion Gap 9 mmol/L N 2-11 Glucose 137 mg/dL High 70-100 Blood Urea Nitrogen 30 mg/dL High 6-24 Creatinine 1.57 mg/dL High 0.51-0.95 BUN/Creatinine Ratio 19.1 N 8-20 Calcium 9.2 mg/dL N 8.6-10.3 Egfr Non- 31.5 >60 Egfr 38.2 >60 19 Laboratory test 05/11/2018 [facility] Hemoglobin A1c 6.3 % High 4.0-5.6 [address] (Glyco HGB) [place] [address] [phone] Laboratory test 05/07/2018 [facility] Hemoglobin A1c 7.4 High 5-7 finding Laboratory test 12/03/2017 [facility] Hemoglobin A1c 6.5 5-7 finding Urine 12/03/2017 [facility] Ur Microalbumin 22.[address] (mg/L) mg/[place] [address] [phone] Urine Creatinine 125.02 mg/dL Urine Microalbumin/Creatinine 17.9 ug/mg N <31 Urinalysis Profile 10/10/2017 [facility] Urine Color Yellow [address] [place] [address] [phone] Urine Appearance Cloudy Urine Specific [place] 1.014 N 1.010-1.030 Urine pH 5.0 N 5-9 Urine Urobilinogen Negative Negative Urine Ketones Negative Negative Urine Protein Negative Negative Urine Leukocytes 3+ Abnormal Negative Urine Blood Negative Negative Urine Nitrite Positive Abnormal Negative Urine Bilirubin Negative Negative Urine Glucose Negative Negative Urine White Blood Cell 3+(>20/hpf) Abnormal Absent Urine Red Blood Cell Absent Absent Urine Bacteria 1+ Abnormal Absent Urine Transitional Epithelial Present Abnormal Absent Urine Amorphous Crystals Present Abnormal Absent Urine Culture And 10/10/2017 [facility] Urine Culture SEE RESULT [address] [place] [address] [phone] Ua Routine 10/10/2017 [facility] Ua Specific 1.015 [place] Ua PH 5 Ua Color yellow Ua WBC ++ Ua Protein trace Ua Glucose normal Ua Ketones neg Ua Bilirubin neg Ua Urobilinogen normal Ua Nitrite pos Ua Occult Blood about 50 Laboratory test 09/05/2017 [facility] TSH (Thyroid 1.57 mcIU/mL N 0.34-5.[address] Stim Horm) [place] [address] [phone] Comp Metabolic 09/05/2017 [facility] Sodium 137 mmol/L N 133- [address] [place] [address] [phone] Potassium 4.2 mmol/L N 3.5-5.0 Chloride 102 mmol/L N 101-111 Co2 Carbon Dioxide 29 mmol/L N 22-32 Anion Gap 6 mmol/L N 2-11 Glucose 116 mg/dL High 70-100 Blood Urea Nitrogen 35 mg/dL High 6-24 Creatinine 1.61 mg/dL High 0.51-0.95 BUN/Creatinine Ratio 21.7 High 8-20 Calcium 10.3 mg/dL N 8.6-10.3 Total Protein 7.4 g/dL N 6.4-8.9 Albumin 4.0 g/dL N 3.2-5.2 Globulin 3.4 g/dL N 2-4 Albumin/Globulin Ratio 1.2 N 1-3 Total Bilirubin 0.40 mg/dL N 0.2-1.0 Alkaline Phosphatase 66 U/L N 34-104 Alt 10 U/L N 7-52 Ast 16 U/L N 13-39 Egfr Non- 30.7 N >60 Egfr 39.5 N >60 22 CBC Auto Diff 12/26/2014 [facility] White Blood 5.3 10^3/uL N 4.8-10.[address] [place] [address] [phone] Red Blood Count 3.10 10^6/uL Low 4.0-5.4 Hemoglobin 8.6 g/dL Low 12.0-16.0 Hematocrit 26 % Low 35-47 Mean Corpuscular Volume 85 fL N 80-97 Mean Corpuscular Hemoglobin 28 pg N 27-31 Mean Corpuscular HGB Conc 32 g/dL N 31-36 Red Cell Distribution Width 15 % N 10.5-15 Platelet Count 343 10^3/uL N 150-450 Mean Platelet Volume 7 um3 Low 7.4-10.4 Abs Neutrophils 3.0 10^3/uL N 1.5-7.7 Abs Lymphocytes 1.6 10^3/uL N 1.0-4.8 Abs Monocytes 0.5 10^3/uL N 0-0.8 Abs Eosinophils 0.2 10^3/uL N 0-0.6 Abs Basophils 0.1 10^3/uL N 0-0.2 Abs Nucleated RBC 0 10^3/uL N Granulocyte % 56.7 % N 38-83 Lymphocyte % 29.5 % N 25-47 Monocyte % 9.9 % High 1-9 Eosinophil % 2.8 % N 0-6 Basophil % 1.1 % N 0-2 Nucleated Red Blood Cells % 0 N Comp Metabolic Panel 12/26/2014 [facility] Sodium 135 mmol/L N 133-[address] [place] [address] [phone] Potassium 4.3 mmol/L N 3.5-5.0 Chloride 101 mmol/L N 101-111 Co2 Carbon Dioxide 28 mmol/L N 22-32 Anion Gap 6 mmol/L N 2-11 Glucose 128 mg/dL High 70-100 Blood Urea Nitrogen 30 mg/dL High 6-24 Creatinine 2.09 mg/dL High 0.51-0.95 BUN/Creatinine Ratio 14.4 N 8-20 Calcium 11.2 mg/dL High 8.6-10.3 Total Protein 6.9 g/dL N 6.4-8.9 Albumin 3.9 g/dL N 3.2-5.2 Globulin 3.0 g/dL N 2-4 Albumin/Globulin Ratio 1.3 N 1-3 Total Bilirubin 0.30 mg/dL N 0.2-1.0 Alkaline Phosphatase 50 U/L N 34-104 Alt 8 U/L N 7-52 Ast 14 U/L N 13-39 Egfr Non- 22.8 N >60 Egfr 29.4 N >60 23 Laboratory test 12/26/2014 [facility] C Reactive 1.10 mg/L N < 5.00 [address] [place] [address] [phone] Erythrocyte Sed Rate 77 mm/Hr High 0-40 Protein 12/26/2014 [facility] Total 7.2 g/dL N 6.3 - Electrophoresis [address] Protein(Pep) 7.9 [place] [address] [phone] Albumin 3.1 g/dL Abnormal 3.4-4.7 Alpha-1 Globulin 0.3 g/dL N 0.1-0.3 Alpha-2 Globulin 1.2 g/dL Abnormal 0.6-1.0 Beta Globulin 1.1 g/dL N 0.7-1.2 Gamma Globulin 1.5 g/dL N 0.6-1.6 Albumin/Globulin Ratio 0.73 N Impression See Comment N 25 CBC Auto Diff 10/17/2014 [facility] White Blood 6.1 10^3/uL N 4.8-10.[address] [place] [address] [phone] Red Blood Count 3.14 10^6/uL Low 4.0-5.4 Hemoglobin 9.0 g/dL Low 12.0-16.0 Hematocrit 28 % Low 35-47 Mean Corpuscular Volume 88 fL N 80-97 Mean Corpuscular Hemoglobin 29 pg N 27-31 Mean Corpuscular HGB Conc 33 g/dL N 31-36 Red Cell Distribution Width 15 % N 10.5-15 Platelet Count 314 10^3/uL N 150-450 Mean Platelet Volume 8 um3 N 7.4-10.4 Abs Neutrophils 4.2 10^3/uL N 1.5-7.7 Abs Lymphocytes 1.3 10^3/uL N 1.0-4.8 Abs Monocytes 0.5 10^3/uL N 0-0.8 Abs Eosinophils 0.1 10^3/uL N 0-0.6 Abs Basophils 0 10^3/uL N 0-0.2 Abs Nucleated RBC 0 10^3/uL N Granulocyte % 67.7 % N 38-83 Lymphocyte % 21.9 % Low 25-47 Monocyte % 8.3 % N 1-9 Eosinophil % 1.6 % N 0-6 Basophil % 0.5 % N 0-2 Nucleated Red Blood Cells % 0.1 N Laboratory test 10/17/2014 [facility] Erythrocyte Sed 58 mm/Hr High 0-[address] [place] [address] [phone] Comp Metabolic 10/17/2014 [facility] Sodium 138 N 133-[address] mmol/[place] [address] [phone] Potassium 4.5 mmol/L N 3.5-5.0 Chloride 103 mmol/L N 101-111 Co2 Carbon Dioxide 28 mmol/L N 22-32 Anion Gap 7 mmol/L N 2-11 Glucose 99 mg/dL N 70-100 Blood Urea Nitrogen 32 mg/dL High 6-24 Creatinine 1.61 mg/dL High 0.51-0.95 BUN/Creatinine Ratio 19.9 N 8-20 Calcium 9.5 mg/dL N 8.6-10.3 Total Protein 6.9 g/dL N 6.4-8.9 Albumin 3.9 g/dL N 3.2-5.2 Globulin 3.0 g/dL N 2-4 Albumin/Globulin Ratio 1.3 N 1-3 Total Bilirubin 0.30 mg/dL N 0.2-1.0 Alkaline Phosphatase 54 U/L N 34-104 Alt 12 U/L N 7-52 Ast 18 U/L N 13-39 Egfr Non- 31.0 N >60 Egfr 39.8 N >60 26 Laboratory test 10/17/2014 [facility] C Reactive 1.74 mg/L N < 5.[address] [place] [address] [phone] Comp Metabolic 10/03/2014 [facility] Sodium 137 mmol/L N 133- [address] [place] [address] [phone] Potassium 4.7 mmol/L N 3.5-5.0 28 Chloride 104 mmol/L N 101-111 Co2 Carbon Dioxide 28 mmol/L N 22-32 Anion Gap 5 mmol/L N 2-11 Glucose 176 mg/dL High 70-100 Blood Urea Nitrogen 34 mg/dL High 6-24 Creatinine 1.70 mg/dL High 0.51-0.95 BUN/Creatinine Ratio 20.0 N 8-20 Calcium 9.4 mg/dL N 8.6-10.3 Total Protein 6.8 g/dL N 6.4-8.9 Albumin 3.7 g/dL N 3.2-5.2 Globulin 3.1 g/dL N 2-4 Albumin/Globulin Ratio 1.2 N 1-3 Total Bilirubin 0.20 mg/dL N 0.2-1.0 Alkaline Phosphatase 58 U/L N 34-104 Alt 9 U/L N 7-52 Ast 15 U/L N 13-39 Egfr Non- 29.1 N >60 Egfr 37.4 N >60 29 Laboratory test 10/03/2014 [facility] C Reactive 3.10 mg/L N < 5.[address] [place] [address] [phone] CBC Auto Diff 10/03/2014 [facility] White Blood 5.1 N 4.8- 10.[address] Count 10^3/[place] [address] [phone] Red Blood Count 3.12 10^6/uL Low 4.0-5.4 Hemoglobin 9.0 g/dL Low 12.0-16.0 Hematocrit 28 % Low 35-47 Mean Corpuscular Volume 89 fL N 80-97 Mean Corpuscular Hemoglobin 29 pg N 27-31 Mean Corpuscular HGB Conc 33 g/dL N 31-36 Red Cell Distribution Width 15 % N 10.5-15 Platelet Count 324 10^3/uL N 150-450 Mean Platelet Volume 8 um3 N 7.4-10.4 Abs Neutrophils 3.3 10^3/uL N 1.5-7.7 Abs Lymphocytes 1.2 10^3/uL N 1.0-4.8 Abs Monocytes 0.5 10^3/uL N 0-0.8 Abs Eosinophils 0.1 10^3/uL N 0-0.6 Abs Basophils 0 10^3/uL N 0-0.2 Abs Nucleated RBC 0 10^3/uL N Granulocyte % 65.2 % N 38-83 Lymphocyte % 23.0 % Low 25-47 Monocyte % 9.7 % High 1-9 Eosinophil % 1.5 % N 0-6 Basophil % 0.6 % N 0-2 Nucleated Red Blood Cells % 0 N Laboratory test 10/03/2014 [facility] Erythrocyte Sed 68 mm/Hr High 0-[address] [place] [address] [phone] Comp Metabolic 08/31/2014 [facility] Sodium 137 N 133-[address] mmol/[place] [address] [phone] Potassium 4.8 mmol/L N 3.7-5.6 Chloride 104 mmol/L N 101-111 Co2 Carbon Dioxide 28 mmol/L N 22-32 Anion Gap 5 mmol/L N 2-11 Glucose 138 mg/dL High 70-100 Blood Urea Nitrogen 34 mg/dL High 6-24 Creatinine 1.58 mg/dL High 0.51-0.95 BUN/Creatinine Ratio 21.5 High 8-20 Calcium 9.5 mg/dL N 8.6-10.3 Total Protein 6.7 g/dL N 6.4-8.9 Albumin 3.7 g/dL N 3.2-5.2 Globulin 3.0 g/dL N 2-4 Albumin/Globulin Ratio 1.2 N 1-3 Total Bilirubin 0.20 mg/dL N 0.2-1.0 Alkaline Phosphatase 60 U/L N 34-104 Alt 11 U/L N 7-52 Ast 18 U/L N 13-39 Egfr Non- 31.6 N >60 Egfr 40.7 N >60 31 Laboratory test 08/31/2014 [facility] C Reactive 1.17 mg/L N < 5.00 [address] [place] [address] [phone] CBC Auto Diff 08/31/2014 [facility] White Blood 5.3 N 4.8- 10.[address] Count 10^3/[place] [address] [phone] Red Blood Count 3.23 10^6/uL Low 4.0-5.4 Hemoglobin 9.5 g/dL Low 12.0-16.0 Hematocrit 29 % Low 35-47 Mean Corpuscular Volume 90 fL N 80-97 Mean Corpuscular Hemoglobin 29 pg N 27-31 Mean Corpuscular HGB Conc 33 g/dL N 31-36 Red Cell Distribution Width 16 % High 10.5-15 Platelet Count 308 10^3/uL N 150-450 Mean Platelet Volume 7 um3 Low 7.4-10.4 Abs Neutrophils 3.3 10^3/uL N 1.5-7.7 Abs Lymphocytes 1.3 10^3/uL N 1.0-4.8 Abs Monocytes 0.5 10^3/uL N 0-0.8 Abs Eosinophils 0.1 10^3/uL N 0-0.6 Abs Basophils 0.1 10^3/uL N 0-0.2 Abs Nucleated RBC 0 10^3/uL N Granulocyte % 63.0 % N 38-83 Lymphocyte % 24.1 % Low 25-47 Monocyte % 9.4 % High 1-9 Eosinophil % 2.4 % N 0-6 Basophil % 1.1 % N 0-2 Nucleated Red Blood Cells % 0.1 N Laboratory test 08/31/2014 [facility] Erythrocyte Sed 56 mm/Hr High 0-[address] [place] [address] [phone] Comp Metabolic 07/20/2014 [facility] Sodium 137 N 133-[address] mmol/[place] [address] [phone] Potassium 4.6 mmol/L N 3.7-5.6 Chloride 104 mmol/L N 101-111 Co2 Carbon Dioxide 28 mmol/L N 22-32 Anion Gap 5 mmol/L N 2-11 Glucose 138 mg/dL High 70-100 Blood Urea Nitrogen 32 mg/dL High 6-24 Creatinine 1.70 mg/dL High 0.51-0.95 BUN/Creatinine Ratio 18.8 N 8-20 Calcium 9.2 mg/dL N 8.6-10.3 Total Protein 7.2 g/dL N 6.4-8.9 Albumin 3.8 g/dL N 3.2-5.2 Globulin 3.4 g/dL N 2-4 Albumin/Globulin Ratio 1.1 N 1-3 Total Bilirubin 0.30 mg/dL N 0.2-1.0 Alkaline Phosphatase 59 U/L N 34-104 Alt 11 U/L N 7-52 Ast 17 U/L N 13-39 Egfr Non- 29.1 N >60 Egfr 37.4 N >60 33 Laboratory test 07/20/2014 [facility] C Reactive 1.65 mg/L N < 5.00 [address] [place] [address] [phone] CBC With Manual 07/20/2014 [facility] White Blood 5.7 N 4.8- 10.[address] Count 10^3/[place] [address] [phone] Red Blood Count 3.57 10^6/uL Low 4.0-5.4 Hemoglobin 10.5 g/dL Low 12.0-16.0 Hematocrit 32 % Low 35-47 Mean Corpuscular Volume 90 fL N 80-97 Mean Corpuscular Hemoglobin 30 pg N 27-31 Mean Corpuscular HGB Conc 33 g/dL N 31-36 Red Cell Distribution Width 16 % High 10.5-15 Platelet Count 316 10^3/uL N 150-450 Mean Platelet Volume 7 um3 Low 7.4-10.4 Abs Neutrophils 4.1 10^3/uL N 1.5-7.7 Abs Lymphocytes 0.9 10^3/uL Low 1.0-4.8 Abs Monocytes 0.5 10^3/uL N 0-0.8 Abs Eosinophils 0.1 10^3/uL N 0-0.6 Abs Basophils 0 10^3/uL N 0-0.2 Abs Nucleated RBC 0 10^3/uL N Neutrophil % 72 % N 38-83 Band % 1 % N 0-8 Lymphocytes % 19 % Low 25-47 Monocytes % 5 % N 0-13 Eosinophils % 2 % N 0-6 Basophil % 1 % N 0-2 Hypochromasia 1+ N Laboratory test 07/20/2014 [facility] Erythrocyte Sed 53 mm/Hr High 0-[address] [place] [address] [phone] CBC With Manual 05/18/2014 [facility] White Blood 6.2 N 4.8- 10.[address] Count 10^3/[place] [address] [phone] Red Blood Count 3.67 10^6/uL Low 4.0-5.4 Hemoglobin 10.6 g/dL Low 12.0-16.0 Hematocrit 33 % Low 35-47 Mean Corpuscular Volume 89 fL N 80-97 Mean Corpuscular Hemoglobin 29 pg N 27-31 Mean Corpuscular HGB Conc 33 g/dL N 31-36 Red Cell Distribution Width 16 % High 10.5-15 Platelet Count 274 10^3/uL N 150-450 Mean Platelet Volume 8 um3 N 7.4-10.4 Abs Neutrophils 4.7 10^3/uL N 1.5-7.7 Abs Lymphocytes 0.8 10^3/uL Low 1.0-4.8 Abs Monocytes 0.6 10^3/uL N 0-0.8 Abs Eosinophils 0.1 10^3/uL N 0-0.6 Abs Basophils 0 10^3/uL N 0-0.2 Abs Nucleated RBC 0 10^3/uL N Neutrophil % 80 % N 38-83 Lymphocytes % 16 % Low 25-47 Monocytes % 4 % N 0-13 RBC Morphology Normal N Normal Comp Metabolic Panel 05/18/2014 [facility] Sodium 137 mmol/L N 133-[address] [place] [address] [phone] Potassium 4.9 mmol/L N 3.7-5.6 Chloride 105 mmol/L N 101-111 Co2 Carbon Dioxide 27 mmol/L N 22-32 Anion Gap 5 mmol/L N 2-11 Glucose 136 mg/dL High 70-100 Blood Urea Nitrogen 30 mg/dL High 6-24 Creatinine 1.73 mg/dL High 0.51-0.95 BUN/Creatinine Ratio 17.3 N 8-20 Calcium 9.0 mg/dL N 8.6-10.3 Total Protein 6.7 g/dL N 6.4-8.9 Albumin 3.7 g/dL N 3.2-5.2 Globulin 3.0 g/dL N 2-4 Albumin/Globulin Ratio 1.2 N 1-3 Total Bilirubin 0.20 mg/dL N 0.2-1.0 Alkaline Phosphatase 70 U/L N 34-104 Alt 11 U/L N 7-52 Ast 16 U/L N 13-39 Egfr Non- 28.5 N >60 Egfr 36.6 N >60 35 Laboratory test 05/18/2014 [facility] Erythrocyte Sed 48 mm/Hr High 0-[address] [place] [address] [phone] C Reactive Protein 4.90 mg/L N < 5.00 36 Comp Metabolic Panel 04/09/2014 [facility] Sodium 139 mmol/L N 133-[address] [place] [address] [phone] Potassium 4.2 mmol/L N 3.7-5.6 Chloride 104 mmol/L N 101-111 Co2 Carbon Dioxide 29 mmol/L N 22-32 Anion Gap 6 mmol/L N 2-11 Glucose 95 mg/dL N 70-100 Blood Urea Nitrogen 29 mg/dL High 6-24 Creatinine 1.55 mg/dL High 0.51-0.95 BUN/Creatinine Ratio 18.7 N 8-20 Calcium 9.1 mg/dL N 8.6-10.3 Total Protein 6.7 g/dL N 6.4-8.9 Albumin 3.7 g/dL N 3.2-5.2 Globulin 3.0 g/dL N 2-4 Albumin/Globulin Ratio 1.2 N 1-3 Total Bilirubin 0.20 mg/dL N 0.2-1.0 Alkaline Phosphatase 85 U/L N 34-104 Alt 11 U/L N 7-52 Ast 15 U/L N 13-39 Egfr Non- 32.3 N >60 Egfr 41.6 N >60 37 Laboratory test 04/09/2014 [facility] C Reactive 2.30 mg/L N < 5.00 [address] [place] [address] [phone] CBC With Manual 04/09/2014 [facility] White Blood 6.4 N 4.8- 10.[address] Count 10^3/[place] [address] [phone] Red Blood Count 3.52 10^6/uL Low 4.0-5.4 Hemoglobin 10.2 g/dL Low 12.0-16.0 Hematocrit 32 % Low 35-47 Mean Corpuscular Volume 90 fL N 80-97 Mean Corpuscular Hemoglobin 29 pg N 27-31 Mean Corpuscular HGB Conc 32 g/dL N 31-36 Red Cell Distribution Width 15 % N 10.5-15 Platelet Count 316 10^3/uL N 150-450 Mean Platelet Volume 8 um3 N 7.4-10.4 Abs Neutrophils 4.1 10^3/uL N 1.5-7.7 Abs Lymphocytes 1.5 10^3/uL N 1.0-4.8 Abs Monocytes 0.6 10^3/uL N 0-0.8 Abs Eosinophils 0.1 10^3/uL N 0-0.6 Abs Basophils 0 10^3/uL N 0-0.2 Abs Nucleated RBC 0 10^3/uL N Neutrophil % 76 % N 38-83 Lymphocytes % 20 % Low 25-47 Monocytes % 3 % N 0-13 Eosinophils % 1 % N 0-6 RBC Morphology Normal N Normal Laboratory 04/09/2014 [facility] Erythrocyte Sed 55 mm/Hr High 0-40 test finding [address] [place] [address] [phone] Lipid Profile 03/26/2014 [facility] Triglycerides 161 mg/dL N 39, 40 (Trig/Chol/HDL [address] ) [place] [address] [phone] Cholesterol 182 mg/dL N 41 HDL Cholesterol 48.7 mg/dL N 42 LDL Cholesterol 101 mg/dL N 43 Laboratory test 03/26/2014 [facility] Hemoglobin A1c 6.3 % High Less than [address] 6.0 [place] [address] [phone] Comp Metabolic 03/24/2014 [facility] Sodium 138 N 133-[address] mmol/[place] [address] [phone] Potassium 4.8 mmol/L N 3.7-5.6 Chloride 105 mmol/L N 101-111 Co2 Carbon Dioxide 26 mmol/L N 22-32 Anion Gap 7 mmol/L N 2-11 Glucose 122 mg/dL High 70-100 Blood Urea Nitrogen 30 mg/dL High 6-24 Creatinine 1.59 mg/dL High 0.51-0.95 BUN/Creatinine Ratio 18.9 N 8-20 Calcium 9.0 mg/dL N 8.6-10.3 Total Protein 7.1 g/dL N 6.4-8.9 Albumin 3.7 g/dL N 3.2-5.2 Globulin 3.4 g/dL N 2-4 Albumin/Globulin Ratio 1.1 N 1-3 Total Bilirubin 0.30 mg/dL N 0.2-1.0 Alkaline Phosphatase 77 U/L N 34-104 Alt 9 U/L N 7-52 Ast 13 U/L N 13-39 Egfr Non- 31.4 N >60 Egfr 40.4 N >60 45 Laboratory test 03/24/2014 [facility] C Reactive 2.48 mg/L N < 5.00 [address] [place] [address] [phone] CBC Auto Diff 03/24/2014 [facility] White Blood 6.0 N 4.8- 10.[address] Count 10^3/[place] [address] [phone] Red Blood Count 3.62 10^6/uL Low 4.0-5.4 Hemoglobin 10.7 g/dL Low 12.0-16.0 Hematocrit 32 % Low 35-47 Mean Corpuscular Volume 90 fL N 80-97 Mean Corpuscular Hemoglobin 30 pg N 27-31 Mean Corpuscular HGB Conc 33 g/dL N 31-36 Red Cell Distribution Width 14 % N 10.5-15 Platelet Count 331 10^3/uL N 150-450 Mean Platelet Volume 8 um3 N 7.4-10.4 Abs Neutrophils 4.4 10^3/uL N 1.5-7.7 Abs Lymphocytes 1.0 10^3/uL N 1.0-4.8 Abs Monocytes 0.4 10^3/uL N 0-0.8 Abs Eosinophils 0 10^3/uL N 0-0.6 Abs Basophils 0 10^3/uL N 0-0.2 Abs Nucleated RBC 0 10^3/uL N Granulocyte % 74.3 % N 38-83 Lymphocyte % 17.5 % Low 25-47 Monocyte % 7.0 % N 1-9 Eosinophil % 0.6 % N 0-6 Basophil % 0.6 % N 0-2 Nucleated Red Blood Cells % 0.1 N Laboratory test 03/24/2014 [facility] Erythrocyte Sed 58 mm/Hr High 0-[address] [place] [address] [phone] Comp Metabolic 02/15/2014 [facility] Sodium 136 N 133-[address] mmol/[place] [address] [phone] Potassium 5.1 mmol/L N 3.7-5.6 Chloride 104 mmol/L N 101-111 Co2 Carbon Dioxide 25 mmol/L N 22-32 Anion Gap 7 mmol/L N 2-11 Glucose 186 mg/dL High 70-100 Blood Urea Nitrogen 35 mg/dL High 6-24 Creatinine 1.54 mg/dL High 0.51-0.95 BUN/Creatinine Ratio 22.7 High 8-20 Calcium 8.7 mg/dL N 8.6-10.3 Total Protein 6.5 g/dL N 6.4-8.9 Albumin 3.9 g/dL N 3.2-5.2 Globulin 2.6 g/dL N 2-4 Albumin/Globulin Ratio 1.5 N 1-3 Total Bilirubin 0.30 mg/dL N 0.2-1.0 Alkaline Phosphatase 89 U/L N 34-104 Alt 12 U/L N 7-52 Ast 15 U/L N 13-39 Egfr Non- 32.6 N >60 Egfr 41.9 N >60 47 Laboratory test 02/15/2014 [facility] C Reactive 7.08 mg/L High < 5.00 [address] [place] [address] [phone] CBC With Manual 02/15/2014 [facility] White Blood 6.3 N 4.8- 10.[address] Count 10^3/[place] [address] [phone] Red Blood Count 3.47 10^6/uL Low 4.0-5.4 Hemoglobin 11.0 g/dL Low 12.0-16.0 Hematocrit 32 % Low 35-47 Mean Corpuscular Volume 93 fL N 80-97 Mean Corpuscular Hemoglobin 32 pg High 27-31 Mean Corpuscular HGB Conc 34 g/dL N 31-36 Red Cell Distribution Width 15 % N 10.5-15 Platelet Count 281 10^3/uL N 150-450 Mean Platelet Volume 8 um3 N 7.4-10.4 Abs Neutrophils 4.7 10^3/uL N 1.5-7.7 Abs Lymphocytes 1.0 10^3/uL N 1.0-4.8 Abs Monocytes 0.5 10^3/uL N 0-0.8 Abs Eosinophils 0.1 10^3/uL N 0-0.6 Abs Basophils 0 10^3/uL N 0-0.2 Abs Nucleated RBC 0 10^3/uL N Neutrophil % 77 % N 38-83 Lymphocytes % 16 % Low 25-47 Monocytes % 7 % N 0-13 RBC Morphology Normal N Normal Laboratory test 02/15/2014 [facility] Erythrocyte Sed 46 mm/Hr High 0-[address] [place] [address] [phone] Comp Metabolic 11/23/2013 [facility] Sodium 135 133-[address] mmol/[place] [address] [phone] Potassium 4.5 mmol/L 3.5-5.0 Chloride 105 mmol/L 101-111 Co2 Carbon Dioxide 25.0 mmol/L 22-32 Anion Gap 5.0 mmol/L 2-11 Glucose 103 mg/dL High 70-100 Blood Urea Nitrogen 31 mg/dL High 6-24 Creatinine 1.50 mg/dL High 0.50-1.40 BUN/Creatinine Ratio 20.7 High 8-20 Calcium 8.9 mg/dL 8.1-9.9 Total Protein 6.1 g/dL Low 6.2-8.1 Albumin 3.5 g/dL 3.2-5.2 Globulin 2.6 g/dL 2-4 Albumin/Globulin Ratio 1.3 1-3 Total Bilirubin 0.6 mg/dL 0.4-1.5 Alkaline Phosphatase 54 U/L 30-110 Alt 15 U/L 14-54 Ast 20 U/L 12-42 Egfr Non- 33.7 >60 Egfr 43.3 >60 49 Laboratory test 11/23/2013 [facility] C Reactive < 0.5 mg/dL Less than finding [address] Protein 0.5 [place] [address] [phone] CBC With Manual 11/23/2013 [facility] White Blood 7.6 10^3/uL 4.8-10.[address] [place] [address] [phone] Red Blood Count 3.65 10^6/uL Low 4.0-5.4 Hemoglobin 12.2 g/dL 12.0-16.0 Hematocrit 36 % 35-47 Mean Corpuscular Volume 97 fL 80-97 Mean Corpuscular Hemoglobin 34 pg High 27-31 Mean Corpuscular HGB Conc 34 g/dL 31-36 Red Cell Distribution Width 13 % 10.5-15 Platelet Count 272 10^3/uL 150-450 Mean Platelet Volume 8 um3 7.4-10.4 Abs Neutrophils 5.7 10^3/uL 1.5-7.7 Abs Lymphocytes 1.3 10^3/uL 1.0-4.8 Abs Monocytes 0.6 10^3/uL 0-0.8 Abs Eosinophils 0 10^3/uL 0-0.6 Abs Basophils 0 10^3/uL 0-0.2 Abs Nucleated RBC 0 10^3/uL Neutrophil % 73 % 38-83 Band % 1 % 0-8 Lymphocytes % 18 % Low 25-47 Monocytes % 8 % 0-13 RBC Morphology Normal Normal Laboratory test 11/23/2013 [facility] Erythrocyte Sed 35 mm/Hr 0-[address] [place] [address] [phone] Comp Metabolic 09/22/2013 [facility] Sodium 140 mmol/L 133- [address] [place] [address] [phone] Potassium 5.0 mmol/L 3.5-5.0 Chloride 107 mmol/L 101-111 Co2 Carbon Dioxide 28.0 mmol/L 22-32 Anion Gap 5.0 mmol/L 2-11 Glucose 110 mg/dL High 70-100 Blood Urea Nitrogen 29 mg/dL High 6-24 Creatinine 1.50 mg/dL High 0.50-1.40 BUN/Creatinine Ratio 19.3 8-20 Calcium 9.1 mg/dL 8.1-9.9 Total Protein 6.3 g/dL 6.2-8.1 Albumin 3.5 g/dL 3.2-5.2 Globulin 2.8 g/dL 2-4 Albumin/Globulin Ratio 1.3 1-3 Total Bilirubin 0.7 mg/dL 0.4-1.5 Alkaline Phosphatase 51 U/L 30-110 Alt 15 U/L 14-54 Ast 20 U/L 12-42 Egfr Non- 33.7 >60 Egfr 43.3 >60 50 Pthi 09/22/2013 [facility] PTH Intact 11.0 pmol/L High 1.3- 9.[address] [place] [address] [phone] Calcium (PTH Intact) 9.0 mg/dL 8.1-9.9 CBC With 08/31/2013 [facility] White Blood 9.2 10^3/uL 4.8- 10.8 Manual Diff [address] [place] [address] [phone] Red Blood Count 4.29 10^6/uL 4.0-5.4 Hemoglobin 13.4 g/dL 12.0-16.0 Hematocrit 41 % 35-47 Mean Corpuscular Volume 96 fL 80-97 Mean Corpuscular Hemoglobin 31 pg 27-31 Mean Corpuscular HGB Conc 33 g/dL 31-36 Red Cell Distribution Width 15 % 10.5-15 Platelet Count 285 10^3/uL 150-450 Mean Platelet Volume 8 um3 7.4-10.4 Abs Neutrophils 6.2 10^3/uL 1.5-7.7 Abs Lymphocytes 2.1 10^3/uL 1.0-4.8 Abs Monocytes 0.8 10^3/uL 0-0.8 Abs Eosinophils 0.1 10^3/uL 0-0.6 Abs Basophils 0.1 10^3/uL 0-0.2 Abs Nucleated RBC 0 10^3/uL Neutrophil % 73 % 38-83 Band % 2 % 0-8 Lymphocytes % 20 % Low 25-47 Monocytes % 4 % 0-13 Eosinophils % 1 % 0-6 RBC Morphology Normal Normal Comp Metabolic Panel 08/31/2013 [facility] Sodium 137 mmol/L 133-[address] [place] [address] [phone] Potassium 3.7 mmol/L 3.5-5.0 Chloride 100 mmol/L Low 101-111 Co2 Carbon Dioxide 28.0 mmol/L 22-32 Anion Gap 9.0 mmol/L 2-11 Glucose 130 mg/dL High 70-100 Blood Urea Nitrogen 30 mg/dL High 6-24 Creatinine 1.70 mg/dL High 0.50-1.40 BUN/Creatinine Ratio 17.6 8-20 Calcium 10.7 mg/dL High 8.1-9.9 Total Protein 5.9 g/dL Low 6.2-8.1 Albumin 3.6 g/dL 3.2-5.2 Globulin 2.3 g/dL 2-4 Albumin/Globulin Ratio 1.6 1-3 Total Bilirubin 0.6 mg/dL 0.4-1.5 Alkaline Phosphatase 56 U/L 30-110 Alt 15 U/L 14-54 Ast 23 U/L 12-42 Egfr Non- 29.1 >60 Egfr 37.5 >60 51 Laboratory test 08/31/2013 [facility] Erythrocyte Sed 29 mm/Hr 0-[address] [place] [address] [phone] C Reactive Protein < 0.5 mg/dL Less than 0.5 Surgical 07/16/2013 [facility] S RUN DATE: [address] 07/21/ <[place] [address] NOTE> [phone] Laboratory test 06/29/2013 [facility] C Reactive < 0.5 mg/dL Less than finding [address] Protein 0.5 [place], [place] [id number] [phone] Comp Metabolic 06/29/2013 [facility] Sodium 135 mmol/L 133- [address] [place] [address] [phone] Potassium 4.5 mmol/L 3.5-5.0 Chloride 100 mmol/L Low 101-111 Co2 Carbon Dioxide 30.0 mmol/L 22-32 Anion Gap 5.0 mmol/L 2-11 Glucose 98 mg/dL 70-100 Blood Urea Nitrogen 28 mg/dL High 6-24 Creatinine 1.40 mg/dL 0.50-1.40 BUN/Creatinine Ratio 20.0 8-20 Calcium 9.3 mg/dL 8.1-9.9 Total Protein 6.1 g/dL Low 6.2-8.1 Albumin 3.4 g/dL 3.2-5.2 Globulin 2.7 g/dL 2-4 Albumin/Globulin Ratio 1.3 1-3 Total Bilirubin 0.6 mg/dL 0.4-1.5 Alkaline Phosphatase 54 U/L 30-110 Alt 19 U/L 14-54 Ast 28 U/L 12-42 Egfr Non- 36.5 >60 Egfr 46.9 >60 53 Laboratory test 06/29/2013 [facility] Erythrocyte Sed 37 mm/Hr 0-[address] [place] [address] [phone] CBC With Manual 06/29/2013 [facility] White Blood 5.9 4.8- 10.[address] Count 10^3/[place] [address] [phone] Red Blood Count 4.01 10^6/uL 4.0-5.4 Hemoglobin 11.6 g/dL Low 12.0-16.0 Hematocrit 37 % 35-47 Mean Corpuscular Volume 94 fL 80-97 Mean Corpuscular Hemoglobin 29 pg 27-31 Mean Corpuscular HGB Conc 31 g/dL 31-36 Red Cell Distribution Width 23 % High 10.5-15 Platelet Count 272 10^3/uL 150-450 Mean Platelet Volume 8 um3 7.4-10.4 Abs Neutrophils 4.5 10^3/uL 1.5-7.7 Abs Lymphocytes 1.0 10^3/uL 1.0-4.8 Abs Monocytes 0.4 10^3/uL 0-0.8 Abs Eosinophils 0 10^3/uL 0-0.6 Abs Basophils 0 10^3/uL 0-0.2 Abs Nucleated RBC 0 10^3/uL Neutrophil % 80 % 38-83 Lymphocytes % 15 % Low 25-47 Monocytes % 4 % 0-13 Eosinophils % 1 % 0-6 RBC Morphology Normal Normal Laboratory test 04/13/2013 [facility] C Reactive 0.8 mg/dL High Less than finding [address] Protein 0.5 [place], [place] [id number] [phone] Comp Metabolic 04/13/2013 [facility] Sodium 137 mmol/L 133- [address] [place] [address] [phone] Potassium 4.9 mmol/L 3.5-5.0 Chloride 102 mmol/L 101-111 Co2 Carbon Dioxide 26.0 mmol/L 22-32 Anion Gap 9.0 mmol/L 2-11 Glucose 139 mg/dL High 70-100 Blood Urea Nitrogen 34 mg/dL High 6-24 Creatinine 1.80 mg/dL High 0.50-1.40 BUN/Creatinine Ratio 18.9 8-20 Calcium 9.4 mg/dL 8.1-9.9 Total Protein 6.2 g/dL 6.2-8.1 Albumin 3.4 g/dL 3.2-5.2 Globulin 2.8 g/dL 2-4 Albumin/Globulin Ratio 1.2 1-3 Total Bilirubin 0.4 mg/dL 0.4-1.5 Alkaline Phosphatase 53 U/L 30-110 Alt 13 U/L Low 14-54 Ast 18 U/L 12-42 Egfr Non- 27.3 >60 Egfr 35.1 >60 54 Laboratory test 04/13/2013 [facility] Erythrocyte Sed 59 mm/Hr High 0-[address] [place] [address] [phone] CBC With Manual 04/13/2013 [facility] White Blood 7.7 4.8- 10.[address] Count 10^3/[place] [address] [phone] Red Blood Count 3.26 10^6/uL Low 4.0-5.4 Hemoglobin 8.3 g/dL Low 12.0-16.0 Hematocrit 26 % Low 35-47 Mean Corpuscular Volume 81 fL 80-97 Mean Corpuscular Hemoglobin 26 pg Low 27-31 Mean Corpuscular HGB Conc 32 g/dL 31-36 Red Cell Distribution Width 18 % High 10.5-15 Platelet Count 338 10^3/uL 150-450 Mean Platelet Volume 8 um3 7.4-10.4 Abs Neutrophils 6.0 10^3/uL 1.5-7.7 Abs Lymphocytes 1.2 10^3/uL 1.0-4.8 Abs Monocytes 0.5 10^3/uL 0-0.8 Abs Eosinophils 0 10^3/uL 0-0.6 Abs Basophils 0 10^3/uL 0-0.2 Abs Nucleated RBC 0 10^3/uL Neutrophil % 79 % 38-83 Band % 2 % 0-8 Lymphocytes % 17 % Low 25-47 Monocytes % 2 % 0-13 Hypochromasia 1+ Elliptocyte 1+ Order 03/09/2013 [facility] Occupational <pending> [address] [place] [address] [phone] Laboratory 03/01/2013 [facility] C Reactive 1.0 mg/dL High Less test finding [address] [place] [address] 0.5 [phone] Laboratory 03/01/2013 [facility] Erythrocyte Sed 76 mm/Hr High 0-40 test finding [address] Rate [place], [place] [id number] [phone] CBC With 03/01/2013 [facility] White Blood 7.6 10^3/uL 4.8- 10. Manual Diff [address] Count 8 [place], [place] [id number] [phone] Red Blood Count 3.13 10^6/uL Low 4.0-5.4 Hemoglobin 7.9 g/dL Low 12.0-16.0 Hematocrit 26 % Low 35-47 Mean Corpuscular Volume 82 fL 80-97 Mean Corpuscular Hemoglobin 25 pg Low 27-31 Mean Corpuscular HGB Conc 31 g/dL 31-36 Red Cell Distribution Width 18 % High 10.5-15 Platelet Count 397 10^3/uL 150-450 Mean Platelet Volume 8 um3 7.4-10.4 Abs Neutrophils 5.7 10^3/uL 1.5-7.7 Abs Lymphocytes 1.0 10^3/uL 1.0-4.8 Abs Monocytes 0.7 10^3/uL 0-0.8 Abs Eosinophils 0.1 10^3/uL 0-0.6 Abs Basophils 0 10^3/uL 0-0.2 Abs Nucleated RBC 0 10^3/uL Neutrophil % 76 % 38-83 Band % 5 % 0-8 Lymphocytes % 12 % Low 25-47 Monocytes % 5 % 0-13 Eosinophils % 1 % 0-6 Metamyelocytes % 1 % 0-2 Macrocytosis 1+ Microcytosis 1+ Hypochromasia 1+ Polychromasia 1+ Elliptocyte 1+ Comp Metabolic Panel 03/01/2013 [facility] Sodium 137 mmol/L 133-145 [address] [place] [address] [phone] Potassium 4.7 mmol/L 3.5-5.0 Chloride 103 mmol/L 101-111 Co2 Carbon Dioxide 27.0 mmol/L 22-32 Anion Gap 7.0 mmol/L 2-11 Glucose 210 mg/dL High 70-100 Blood Urea Nitrogen 32 mg/dL High 6-24 Creatinine 2.00 mg/dL High 0.50-1.40 BUN/Creatinine Ratio 16.0 8-20 Calcium 9.5 mg/dL 8.1-9.9 Total Protein 6.3 g/dL 6.2-8.1 Albumin 3.1 g/dL Low 3.2-5.2 Globulin 3.2 g/dL 2-4 Albumin/Globulin Ratio 1.0 1-3 Total Bilirubin 0.4 mg/dL 0.4-1.5 Alkaline Phosphatase 47 U/L 30-110 Alt 13 U/L Low 14-54 Ast 18 U/L 12-42 Egfr Non- 24.2 >60 Egfr 31.1 >60 55 Comp Metabolic Panel 11/21/2012 [facility] Sodium 140 mmol/L 133-145 [address] [place] [address] [phone] Potassium 4.5 mmol/L 3.5-5.0 Chloride 104 mmol/L 101-111 Co2 Carbon Dioxide 29.0 mmol/L 22-32 Anion Gap 7.0 mmol/L 2-11 Glucose 116 mg/dL High 70-100 Blood Urea Nitrogen 34 mg/dL High 6-24 Creatinine 1.60 mg/dL High 0.50-1.40 BUN/Creatinine Ratio 21.3 High 8-20 Calcium 9.6 mg/dL 8.1-9.9 Total Protein 6.0 g/dL Low 6.2-8.1 Albumin 3.3 g/dL 3.2-5.2 Globulin 2.7 g/dL 2-4 Albumin/Globulin Ratio 1.2 1-3 Total Bilirubin 0.4 mg/dL 0.4-1.5 Alkaline Phosphatase 56 U/L 30-110 Alt 13 U/L Low 14-54 Ast 16 U/L 12-42 Egfr Non- 31.3 >60 Egfr 40.3 >60 56 Laboratory test 11/21/2012 [facility] C Reactive 0.8 mg/dL High Less than finding [address] Protein 0.5 [place], [place] [id number] [phone] CBC Auto Diff 11/21/2012 [facility] White Blood 8.2 4.8-10.[address] Count 10^3/[place] [address] [phone] Red Blood Count 3.36 10^6/uL Low 4.0-5.4 Hemoglobin 8.7 g/dL Low 12.0-16.0 Hematocrit 28 % Low 35-47 Mean Corpuscular Volume 83 fL 80-97 Mean Corpuscular Hemoglobin 26 pg Low 27-31 Mean Corpuscular HGB Conc 31 g/dL 31-36 Red Cell Distribution Width 18 % High 10.5-15 Platelet Count 356 10^3/uL 150-450 Mean Platelet Volume 8 um3 7.4-10.4 Abs Neutrophils 5.4 10^3/uL 1.5-7.7 Abs Lymphocytes 1.9 10^3/uL 1.0-4.8 Abs Monocytes 0.8 10^3/uL 0-0.8 Abs Eosinophils 0.1 10^3/uL 0-0.6 Abs Basophils 0.1 10^3/uL 0-0.2 Abs Nucleated RBC 0 10^3/uL Granulocyte % 65.9 % 38-83 Lymphocyte % 23.1 % Low 25-47 Monocyte % 9.2 % High 1-9 Eosinophil % 1.2 % 0-6 Basophil % 0.6 % 0-2 Nucleated Red Blood Cells % 0 Laboratory test finding 11/21/2012 [facility] Cell Morphology 2 + [address] [place] [address] [phone] Erythrocyte Sed Rate 60 mm/Hr High 0-40 CBC With 11/21/2012 [facility] White Blood 8.2 10^3/uL 4.8- 10.8 Manual Diff [address] [place] [address] [phone] Red Blood Count 3.36 10^6/uL Low 4.0-5.4 Hemoglobin 8.7 g/dL Low 12.0-16.0 Hematocrit 28 % Low 35-47 Mean Corpuscular Volume 83 fL 80-97 Mean Corpuscular Hemoglobin 26 pg Low 27-31 Mean Corpuscular HGB Conc 31 g/dL 31-36 Red Cell Distribution Width 18 % High 10.5-15 Platelet Count 356 10^3/uL 150-450 Mean Platelet Volume 8 um3 7.4-10.4 Abs Neutrophils 5.4 10^3/uL 1.5-7.7 Abs Lymphocytes 1.9 10^3/uL 1.0-4.8 Abs Monocytes 0.8 10^3/uL 0-0.8 Abs Eosinophils 0.1 10^3/uL 0-0.6 Abs Basophils 0.1 10^3/uL 0-0.2 Abs Nucleated RBC 0 10^3/uL Neutrophil % 76 % 38-83 Lymphocytes % 20 % Low 25-47 Eosinophils % 4 % 0-6 Hypochromasia 2+ Laboratory test 08/18/2012 [facility] C Reactive 0.6 mg/dL High Less Than finding [address] Protein 0.5 [place], [place] [id number] [phone] CBC With Manual 08/18/2012 [facility] White Blood 7.9 4.8- 10.[address] Count 10^3/[place] [address] [phone] Red Blood Count 3.33 10^6/uL Low 4.0-5.4 Hemoglobin 8.5 g/dL Low 12.0-16.0 Hematocrit 28 % Low 35-47 Mean Corpuscular Volume 84 fL 80-97 Mean Corpuscular Hemoglobin 26 pg Low 27-31 Mean Corpuscular HGB Conc 31 g/dL 31-36 Red Cell Distribution Width 18 % High 10.5-15 Platelet Count 358 10^3/uL 150-450 Mean Platelet Volume 8 um3 7.4-10.4 Abs Neutrophils 6.2 10^3/uL 1.5-7.7 Abs Lymphocytes 1.1 10^3/uL 1.0-4.8 Abs Monocytes 0.5 10^3/uL 0-0.8 Abs Eosinophils 0 10^3/uL 0-0.6 Abs Basophils 0 10^3/uL 0-0.2 Abs Nucleated RBC 0 10^3/uL Neutrophil % 76.0 % 38-83 Band % 0 % 0-8 Lymphocytes % 24.0 % Low 25-47 Monocytes % 0 % 0-13 Eosinophils % 0 % 0-6 Basophil % 0 % 0-2 Reactive Lymph % 0 % 0-6 Metamyelocytes % 0 % 0-2 Myelocytes % 0 % 0-1 Promyelocytes % 0 % Blast % 0 % RBC Morphology Normal Normal Macrocytosis 1+ Microcytosis 1+ Laboratory test 08/18/2012 [facility] Erythrocyte Sed 71 MM/HR High 0-[address] [place] [address] [phone] Comp Metabolic 08/18/2012 [facility] Sodium 137 133-[address] mmol/[place] [address] [phone] Potassium 4.5 mmol/L 3.5-5.0 Chloride 104 mmol/L 101-111 Co2 Carbon Dioxide 25.0 mmol/L 22-32 Anion Gap 8.0 mmol/L 2-11 Glucose 171 mg/dL High 70-100 Blood Urea Nitrogen 38 mg/dL High 6-24 Creatinine 2.10 mg/dL High 0.50-1.40 BUN/Creatinine Ratio 18.1 8-20 Calcium 9.8 mg/dL 8.1-9.9 Total Protein 6.6 GM/DL 6.2-8.1 Albumin 3.4 GM/DL 3.2-5.2 Globulin 3.2 GM/DL 2-4 Albumin/Globulin Ratio 1.1 1-3 Total Bilirubin 0.4 mg/dL 0.1-1.0 57 Alkaline Phosphatase 57 U/L 30-110 Alt 12 U/L Low 14-54 Ast 18 U/L 12-42 Egfr Non- 22.9 >60 Egfr 29.4 >60 58 Comp Metabolic Panel 06/25/2012 [facility] Sodium 138 mmol/L 135-[address] [place] [address] [phone] Potassium 4.4 mmol/L 3.5-5.0 Chloride 106 mmol/L 101-111 Co2 (Carbon Dioxide) 25.0 mmol/L 22-32 Anion Gap 7.0 mmol/L 2-11 59 Glucose 117 mg/dL High 70-100 BUN 37 mg/dL High 6-24 Creatinine 1.8 mg/dL High 0.50-1.40 One Over Creatinine 0.55 BUN/Creatinine Ratio 20.6 High 8-20 Calcium 9.9 mg/dL 8.1-9.9 Total Protein 6.4 GM/DL 6.2-8.1 Albumin 3.6 GM/DL 3.2-5.2 Globulin 2.8 GM/DL 2-4 Albumin/Globulin Ratio 1.3 1-3 Bilirubin Total 0.7 mg/dL 0.4-1.5 60 Alkaline Phosphatase 45 U/L 30-110 Alt (SGPT) 16 U/L 14-54 Ast (Sgot) 20 U/L 12-42 eGFR Non- 27.4 > 60 eGFR 35.2 > 60 61 CBC With Manual 06/25/2012 [facility] White Blood 9.0 CUMM 4.8-10.[address] [place] [address] [phone] Red Cell Count 3.37 CUMM Low 4.2-5.4 Hemoglobin 9.0 g/dL Low 12.0-16.0 Hematocrit 28 % Low 35-47 Mean Corpuscular Volume 84 um3 79-97 Mean Corpuscular Hemoglob 27 pg 27-31 Mean Corpuscular HGB Cone 32 g/dL 32-36 Redcell Distribution WDTH 18 % High 10.5-15 Platelet Count 395 CUMM 150-450 Mean Platelet Volume 8.0 um3 7.4-10.4 Absolute Neutrophil Count 6.5 1.5-7.7 Polysegmented Neutrophil 71 % 38-83 Lymphocyte 19 % Low 25-47 Monocyte 8 % 0-13 Basophil 2 % 0-2 Hypochromasia SLIGHT Laboratory test 06/25/2012 [facility] C Reactive < 0.5 mg/dL Less Than finding [address] Protein 0.5 [place] [address] [phone] Erythrocyte Sed Rate 52 MM/HR High 0-40 Comp Metabolic Panel 04/11/2012 [facility] Sodium 138 mmol/L 135-[address] [place] [address] [phone] Potassium 5.0 mmol/L 3.5-5.0 Chloride 105 mmol/L 101-111 Co2 (Carbon Dioxide) 25.0 mmol/L 22-32 Anion Gap 8.0 mmol/L 2-11 62 Glucose 149 mg/dL High 70-100 BUN 40 mg/dL High 6-24 Creatinine 1.7 mg/dL High 0.50-1.40 One Over Creatinine 0.58 BUN/Creatinine Ratio 23.5 High 8-20 Calcium 9.3 mg/dL 8.1-9.9 Total Protein 6.0 GM/DL Low 6.2-8.1 Albumin 3.5 GM/DL 3.2-5.2 Globulin 2.5 GM/DL 2-4 Albumin/Globulin Ratio 1.4 1-3 Bilirubin Total 0.6 mg/dL 0.4-1.5 63 Alkaline Phosphatase 52 U/L 30-110 Alt (SGPT) 14 U/L 14-54 Ast (Sgot) 16 U/L 12-42 eGFR Non- 29.2 > 60 eGFR 37.6 > 60 64 Laboratory test 04/11/2012 [facility] C Reactive 1.0 mg/dL High Less Than finding [address] Protein 0.5 [place] [address] [phone] CBC With Manual 04/11/2012 [facility] White Blood 7.8 CUMM 4.8-10.[address] [place] [address] [phone] Red Cell Count 3.29 CUMM Low 4.2-5.4 Hemoglobin 9.1 g/dL Low 12.0-16.0 Hematocrit 28 % Low 35-47 Mean Corpuscular Volume 84 um3 79-97 Mean Corpuscular Hemoglob 28 pg 27-31 Mean Corpuscular HGB Cone 33 g/dL 32-36 Redcell Distribution WDTH 19 % High 10.5-15 Platelet Count 419 CUMM 150-450 Mean Platelet Volume 7.9 um3 7.4-10.4 Absolute Neutrophil Count 5.3 1.5-7.7 Polysegmented Neutrophil 80 % 38-83 Lymphocyte 14 % Low 25-47 Monocyte 5 % 0-13 Eosinophil 1 % 0-6 Anisocytosis 1+ Polychromasia SLIGHT Laboratory test 04/11/2012 [facility] Erythrocyte Sed 50 MM/HR High 0-[address] [place] [address] [phone] 1 [id number] 2 Because ethnic data is not always readily available, this report includes an eGFR for both -Americans and non- Americans. The National Kidney Disease Education Program (NKDEP) does not endorse the use of the MDRD equation for patients that are not between the ages of 18 and 70, are , have extremes of body size, muscle mass, or nutritional status, or are non- or non-. According to the National Kidney Foundation, irrespective of diagnosis, the stage of the disease is based on the level of kidney function: Stage Description GFR(mL/min/1.73 m(2)) 1 Kidney damage with normal or decreased GFR 90 2 Kidney damage with mild decrease in GFR 60-89 3 Moderate decrease in GFR 30-59 4 Severe decrease in GFR 15-29 5 Kidney failure <15 (or dialysis) 3 Specimen Hemolyzed. Result may not be valid. Unable to report test result due to hemolysis. 4 [id number] 5 Therapeutic target for the treatment of diabetes mellitus patients is <7% HBA1C, and in selective patients <6.0%. Please refer to [place] [employer] diabetic care guidelines for further information. 6 [id number] 7 Because ethnic data is not always readily available, this report includes an eGFR for both -Americans and non- Americans. The National Kidney Disease Education Program (NKDEP) does not endorse the use of the MDRD equation for patients that are not between the ages of 18 and 70, are , have extremes of body size, muscle mass, or nutritional status, or are non- or non-. According to the National Kidney Foundation, irrespective of diagnosis, the stage of the disease is based on the level of kidney function: Stage Description GFR(mL/min/1.73 m(2)) 1 Kidney damage with normal or decreased GFR 90 2 Kidney damage with mild decrease in GFR 60-89 3 Moderate decrease in GFR 30-59 4 Severe decrease in GFR 15-29 5 Kidney failure <15 (or dialysis) 8 Troponin-I testing on Plasma Separator Tubes (PST) has a known false positive rate of 0.20-0.40%. All positive troponins reflex immediate secondary confirmatory testing. 9 Troponin-I testing on Plasma Separator Tubes (PST) has a known false positive rate of 0.20-0.40%. All positive troponins reflex immediate secondary confirmatory testing. 10 [facility] Severe Sepsis and Septic Shock Management Bundle Measure requires all lactic acids initially measuring >2.0 mmol/L be repeated. 11 Because ethnic data is not always readily available, this report includes an eGFR for both -Americans and non- Americans. The National Kidney Disease Education Program (NKDEP) does not endorse the use of the MDRD equation for patients that are not between the ages of 18 and 70, are , have extremes of body size, muscle mass, or nutritional status, or are non- or non-. According to the National Kidney Foundation, irrespective of diagnosis, the stage of the disease is based on the level of kidney function: Stage Description GFR(mL/min/1.73 m(2)) 1 Kidney damage with normal or decreased GFR 90 2 Kidney damage with mild decrease in GFR 60-89 3 Moderate decrease in GFR 30-59 4 Severe decrease in GFR 15-29 5 Kidney failure <15 (or dialysis) 12 Troponin-I testing on Plasma Separator Tubes (PST) has a known false positive rate of 0.20-0.40%. All positive troponins reflex immediate secondary confirmatory testing. 13 Please note: The following may produce a false positive D Dimer test: - Rheumatoid factor greater than 60 IU/ml - Plasma hemoglobin greater than 0.05 gm/dl - Bilirubin greater than 50 mg/dl - Lipids greater than 1000 mg/dl - FDP greater than 20 ug/ml 14 Because ethnic data is not always readily available, this report includes an eGFR for both -Americans and non- Americans. The National Kidney Disease Education Program (NKDEP) does not endorse the use of the MDRD equation for patients that are not between the ages of 18 and 70, are , have extremes of body size, muscle mass, or nutritional status, or are non- or non-. According to the National Kidney Foundation, irrespective of diagnosis, the stage of the disease is based on the level of kidney function: Stage Description GFR(mL/min/1.73 m(2)) 1 Kidney damage with normal or decreased GFR 90 2 Kidney damage with mild decrease in GFR 60-89 3 Moderate decrease in GFR 30-59 4 Severe decrease in GFR 15-29 5 Kidney failure <15 (or dialysis) 15 Desirable: <150 Borderline High: 150-199 High: 200-499 Very High: >500 16 Desirable: <200 Borderline High: 200-239 High: >239 17 Low: <40 Desirable: 40-60 High: >60 18 Desirable: <100 Near Optimal: 100-129 Borderline High: 130-159 High: 160-189 Very High: >189 19 Because ethnic data is not always readily available, this report includes an eGFR for both -Americans and non- Americans. The National Kidney Disease Education Program (NKDEP) does not endorse the use of the MDRD equation for patients that are not between the ages of 18 and 70, are , have extremes of body size, muscle mass, or nutritional status, or are non- or non-. According to the National Kidney Foundation, irrespective of diagnosis, the stage of the disease is based on the level of kidney function: Stage Description GFR(mL/min/1.73 m(2)) 1 Kidney damage with normal or decreased GFR 90 2 Kidney damage with mild decrease in GFR 60-89 3 Moderate decrease in GFR 30-59 4 Severe decrease in GFR 15-29 5 Kidney failure <15 (or dialysis) 20 Therapeutic target for the treatment of diabetes mellitus patients is <7% HBA1C, and in selective patients <6.0%. Please refer to [place] [employer] diabetic care guidelines for further information. 21 SEE RESULT BELOW Name: MIREYA COREAS : [address]: Jared Castillo NP Acct: [id number] Unit: [id number] AGE: 81 Location: [facility] Re10/10/17 SEX: F Status: REG REF SPEC: [id number] FLORES: 10/10/[address]: Jared Castillo NP REQ: [id number] RECD: 10/10/17 STATUS: COMP _ SOURCE: URINE SPDESC: ORDERED: Urine Culture Procedure Result Reported Site Urine Culture Final 10/12/17- 825 ML Organism 1 ESCHERICHIA COLI [place] Count >100,000 (Many) CFU/ML 1. ESCHERICHIA COLI M.I.C. RX --------- ------ Ampicillin 8 S Cefazolin <=4 S Cefepime <=1 S Ceftriaxone <=1 S Ciprofloxacin <=0.25 S Gentamicin <=1 S Levofloxacin <=0.12 S Meropenem <=0.25 S Nitrofurantoin <=16 S Tetracycline <=1 S Pipercillin/Tazobactam <=4 S Trimethoprim/Sulfamethoxazole <=20 S Amoxicillin/Clavulanic Acid 4 S Aztreonam <=1 S Contact the Microbiology Department for any additional antibiotic reporting. * ML - MAIN LAB ([facility]) . END OF REPORT * ML=Testing performed at Main Lab DEPARTMENT OF PATHOLOGY, [address] [place] [address] Enrico Lucero M.D. Director [facility] # [id number] 22 Because ethnic data is not always readily available, this report includes an eGFR for both -Americans and non- Americans. The National Kidney Disease Education Program (NKDEP) does not endorse the use of the MDRD equation for patients that are not between the ages of 18 and 70, are , have extremes of body size, muscle mass, or nutritional status, or are non- or non-. According to the National Kidney Foundation, irrespective of diagnosis, the stage of the disease is based on the level of kidney function: Stage Description GFR(mL/min/1.73 m(2)) 1 Kidney damage with normal or decreased GFR 90 2 Kidney damage with mild decrease in GFR 60-89 3 Moderate decrease in GFR 30-59 4 Severe decrease in GFR 15-29 5 Kidney failure <15 (or dialysis) 23 Because ethnic data is not always readily available, this report includes an eGFR for both -Americans and non- Americans. The National Kidney Disease Education Program (NKDEP) does not endorse the use of the MDRD equation for patients that are not between the ages of 18 and 70, are , have extremes of body size, muscle mass, or nutritional status, or are non- or non-. According to the National Kidney Foundation, irrespective of diagnosis, the stage of the disease is based on the level of kidney function: Stage Description GFR(mL/min/1.73 m(2)) 1 Kidney damage with normal or decreased GFR 90 2 Kidney damage with mild decrease in GFR 60-89 3 Moderate decrease in GFR 30-59 4 Severe decrease in GFR 15-29 5 Kidney failure <15 (or dialysis) 24 Acute inflammation: >10.00 25 RESULT: No apparent monoclonal protein on serum electrophoresis. Test Performed by: [address] [address] [employer]er: Hema Bello II, M.D., Ph.D. 26 Because ethnic data is not always readily available, this report includes an eGFR for both -Americans and non- Americans. The National Kidney Disease Education Program (NKDEP) does not endorse the use of the MDRD equation for patients that are not between the ages of 18 and 70, are , have extremes of body size, muscle mass, or nutritional status, or are non- or non-. According to the National Kidney Foundation, irrespective of diagnosis, the stage of the disease is based on the level of kidney function: Stage Description GFR(mL/min/1.73 m(2)) 1 Kidney damage with normal or decreased GFR 90 2 Kidney damage with mild decrease in GFR 60-89 3 Moderate decrease in GFR 30-59 4 Severe decrease in GFR 15-29 5 Kidney failure <15 (or dialysis) 27 Acute inflammation: >10.00 28 Potassium reference range changed effective 09/11/14 29 Because ethnic data is not always readily available, this report includes an eGFR for both -Americans and non- Americans. The National Kidney Disease Education Program (NKDEP) does not endorse the use of the MDRD equation for patients that are not between the ages of 18 and 70, are , have extremes of body size, muscle mass, or nutritional status, or are non- or non-. According to the National Kidney Foundation, irrespective of diagnosis, the stage of the disease is based on the level of kidney function: Stage Description GFR(mL/min/1.73 m(2)) 1 Kidney damage with normal or decreased GFR 90 2 Kidney damage with mild decrease in GFR 60-89 3 Moderate decrease in GFR 30-59 4 Severe decrease in GFR 15-29 5 Kidney failure <15 (or dialysis) 30 Acute inflammation: >10.00 31 Because ethnic data is not always readily available, this report includes an eGFR for both -Americans and non- Americans. The National Kidney Disease Education Program (NKDEP) does not endorse the use of the MDRD equation for patients that are not between the ages of 18 and 70, are , have extremes of body size, muscle mass, or nutritional status, or are non- or non-. According to the National Kidney Foundation, irrespective of diagnosis, the stage of the disease is based on the level of kidney function: Stage Description GFR(mL/min/1.73 m(2)) 1 Kidney damage with normal or decreased GFR 90 2 Kidney damage with mild decrease in GFR 60-89 3 Moderate decrease in GFR 30-59 4 Severe decrease in GFR 15-29 5 Kidney failure <15 (or dialysis) 32 Acute inflammation: >10.00 33 Because ethnic data is not always readily available, this report includes an eGFR for both -Americans and non- Americans. The National Kidney Disease Education Program (NKDEP) does not endorse the use of the MDRD equation for patients that are not between the ages of 18 and 70, are , have extremes of body size, muscle mass, or nutritional status, or are non- or non-. According to the National Kidney Foundation, irrespective of diagnosis, the stage of the disease is based on the level of kidney function: Stage Description GFR(mL/min/1.73 m(2)) 1 Kidney damage with normal or decreased GFR 90 2 Kidney damage with mild decrease in GFR 60-89 3 Moderate decrease in GFR 30-59 4 Severe decrease in GFR 15-29 5 Kidney failure <15 (or dialysis) 34 Acute inflammation: >10.00 35 Because ethnic data is not always readily available, this report includes an eGFR for both -Americans and non- Americans. The National Kidney Disease Education Program (NKDEP) does not endorse the use of the MDRD equation for patients that are not between the ages of 18 and 70, are , have extremes of body size, muscle mass, or nutritional status, or are non- or non-. According to the National Kidney Foundation, irrespective of diagnosis, the stage of the disease is based on the level of kidney function: Stage Description GFR(mL/min/1.73 m(2)) 1 Kidney damage with normal or decreased GFR 90 2 Kidney damage with mild decrease in GFR 60-89 3 Moderate decrease in GFR 30-59 4 Severe decrease in GFR 15-29 5 Kidney failure <15 (or dialysis) 36 Acute inflammation: >10.00 37 Because ethnic data is not always readily available, this report includes an eGFR for both -Americans and non- Americans. The National Kidney Disease Education Program (NKDEP) does not endorse the use of the MDRD equation for patients that are not between the ages of 18 and 70, are , have extremes of body size, muscle mass, or nutritional status, or are non- or non-. According to the National Kidney Foundation, irrespective of diagnosis, the stage of the disease is based on the level of kidney function: Stage Description GFR(mL/min/1.73 m(2)) 1 Kidney damage with normal or decreased GFR 90 2 Kidney damage with mild decrease in GFR 60-89 3 Moderate decrease in GFR 30-59 4 Severe decrease in GFR 15-29 5 Kidney failure <15 (or dialysis) 38 Acute inflammation: >10.00 39 PT IS FASTING 40 Desirable <150 Borderline high 150-199 High 200-499 Very High >500 41 Desirable <200 Borderline high 200-239 High >239 42 Low <40 Desirable: 40-60 High: >60 43 Desirable <100 Near Optimal 100-129 Borderline high 130-159 High 160-189 Very High >189 44 Therapeutic target for the treatment of diabetes Mellitus patients is <7% HBA1C, and in selective patients <6.0%.Please refer to [place] [employer] Diabetic care guidelines for further information. 45 Because ethnic data is not always readily available, this report includes an eGFR for both -Americans and non- Americans. The National Kidney Disease Education Program (NKDEP) does not endorse the use of the MDRD equation for patients that are not between the ages of 18 and 70, are , have extremes of body size, muscle mass, or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 Cell V58.69 Medications Associate Application Developer (Current) Use Encounter Office Visit 06/29/2012 1:20p Rheumatology Coleman Barclay 446.5 Arteritis [facility] Soil M.D. 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 Cell V58.69 Medications Usp (Current) Use Encounter 733.00 Osteoporosis Unspec 721.3 Spondylosis Lumbar W/O Myelopathy Office Visit 02/11/2012 4:00p Rheumatology Coleman Barclay, 446.5 Arteritis [facility] Soil M.D. Cell V58.69 Medications Associate Application Developer (Current) Use Encounter Office Visit 12/16/2011 2:40p Rheumatology Coleman Barclay, 446.5 Arteritis [facility] Soil M.D. 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 Cell V58.69 Medications Associate Application Developer (Current) Use Encounter Office Visit 08/06/2011 4:20p Rheumatology Coleman Barclay, 446.5 Arteritis [facility] Soil M.D. Cell V58.69 Medications Associate Application Developer (Current) Use Encounter Office Visit 05/28/2011 10:20a Rheumatology Coleman Barclay, 446.5 Arteritis [facility] Soil M.D. 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 Cell v58.69 Medications Associate Application Developer (Current) Use Encounter Office Visit 02/28/2011 4:00p Rheumatology Coleman Barclay 446.5 Arteritis [facility] Soil M.D. Cell V58.69 Medications Associate Application Developer (Current) Use Encounter Office Visit 01/09/2011 Rheumatology Coleman 288.50 Leukocytopenia, 4:00p Services Of Darron Barclay M.D. Unspecified 515 Pulmonary Fibrosis Postinflammatory V58.69 Medications Usp (Current) Use Encounter Office Visit 03/12/2009 2:45a [facility] Willis Grace, 780.79 Malaise And Assoc,pc Lanette Fatigue Other Hospitalists Office Visit 03/11/2009 2:00a [facility] Willis Grace, 780.79 Malaise And Assoc,pc M.D. Fatigue Other Hospitalists Office Visit 03/10/2009 2:30a [facility] 780.79 Malaise And Assocfabio, Fatigue Other Hospitalists Lanette 436 Cerebrovascular Disease Acute Ill-Defined Plan of Treatment Future Appointment(s):04/21/2019 1:40 pm - Meghann Connell MD at [facility] Internal [place]79/29/2019 - Meghann Connell MDB35.4 Tinea corporisNew Medication: Clotrimazole 1 % - Apply to affected area of skin twice a day for 7-10 daysN39.0 Urinary tract infection, site not specifiedNew Medication:Macrobid 100 mg - 1 by mouth twice a day x 7 daysNew Labs:Urine Culture And Sensitivities , Ordered: 03/08/19
--- NOTE | 2019-03-15 15:57 | UC ---
Lower Extremity/Ankle HPI - HPI Summary HPI Summary: 83-year-old woman comes in with a chief complaint of pain and swelling in the right upper thigh. Started yesterday. 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 She is on an aspirin a day. No other blood thinners. Swelling is just distal to the inguinal fold in the area of the femoral vein and artery. No complaint of any weakness or numbness or pain or swelling. The area is tender to palpation so it hurts more when you push on it. No complaint of any abdominal pain or shortness of breath. - History of Current Complaint Chief Complaint: UCLowerExtremity Stated Complaint: LEG COMPLAINT Time Seen by Provider: 03/15/19 15:43 Pain Intensity: 6 - Allergies/Home Medications Allergies/Adverse Reactions: Allergies Allergy/AdvReac Type Severity Reaction Status Date / Time azathioprine Allergy Unknown Verified 03/15/19 15:03 Reaction Details bupropion [From Wellbutrin] Allergy Unknown Verified 03/15/19 15:03 Reaction Details haloperidol [From Haldol] Allergy Altered Verified 03/15/19 15:03 Mental Status methotrexate Allergy Unknown Verified 03/15/19 15:03 Reaction Details mycophenolate mofetil Allergy Unknown Verified 03/15/19 15:03 [From CellCept] Reaction Details Home Medications: Home Medications Clopidogrel TAB* [Plavix TAB*] 75 mg PO DAILY 03/15/19 [History Confirmed ] Ferrous Gluconate [Iron] 1 mg PO DAILY WITH MEAL 03/15/19 [History Confirmed 04/28] PMH/Surg Hx/FS Hx/Imm Hx Previously Healthy: Yes Endocrine History: Hypothyroidism, Dyslipidemia Cardiovascular History: Hypertension, Deep Vein Thrombosis Other Cardiovascular History: PE Other History Of: Anticoagulant Therapy - Surgical History Surgical History: Yes Surgery Procedure, Year, and Place: Hysterectomy, bilat carpal tunnel, cataracts ; choley; right hip surgery Other Surgical History: IVC FILTER - Family History Known Family History: Positive: Diabetes, Other - CVA, Lung CA. - Social History Alcohol Use: None Substance Use Type: None Smoking Status (MU): Former Smoker Type: Cigarettes Have You Smoked in the Last Year: No When Did the Patient Quit Smoking/Using Tobacco: 50 years ago Household Exposure Type: Cigarettes - Immunization History Most Recent Influenza Vaccination: 08/19/18 Most Recent Tetanus Shot: 2013 Most Recent Pneumonia Vaccination: 2018 Review of Systems All Other Systems Reviewed And Are Negative: Yes Constitutional: Positive: Negative Skin: Positive: Other - SEE HPI Eyes: Positive: Negative ENT: Positive: Negative Respiratory: Positive: Negative Cardiovascular: Positive: Negative Gastrointestinal: Positive: Negative Motor: Positive: Other - USES WALKER Neurovascular: Positive: Negative Musculoskeletal: Positive: Other: - SEE HPI Neurological: Positive: Negative Psychological: Positive: Negative Is Patient Immunocompromised?: No Physical Exam Triage Information Reviewed: Yes Appearance: Well-Appearing, No Pain Distress, Well-Nourished Vital Signs: Initial Vital Signs Temp 98.1 F 03/15/19 14:58 Pulse 90 03/15/19 14:58 Resp 20 03/15/19 14:58 BP 147/80 03/15/19 14:58 Pulse Ox 97 03/15/19 14:58 Vital Signs Reviewed: Yes Eye Exam: Normal Eyes: Positive: Conjunctiva Clear Respiratory: Positive: No respiratory distress Musculoskeletal: Positive: ROM Intact, No Edema - NO CALF TENDERNESS, Other: - NORMAL RT LEG CAPILLARY REFILL Neurological: Positive: Alert Psychological Exam: Normal Psychological: Positive: Normal Response To Family, Age Appropriate Behavior Skin: Positive: Other - RIGHT UPPER THIGH OVER THE FEMORAL CANAL THERE IS SWELLING AND TENDERNESS. MINIMAL ERYTHEMA. MILDLY TENDER TO PALPATION. Lower Extremity Course/Dx - Course Course Of Treatment: Patient Name: MIREYA COREAS Medical Record#: [id number] Ordering Physician: Hema Sidhu MD Acct.#: [id number] : 1935 Age: 83 Sex: F Location: [facility] Exam Date: 03/15/191551 ADM Status: REG ER Order Information: VL LOWER EXT VEINS RIGHT Accession Number: [id number] CPT: 67901 INDICATION: Painful RIGHT groin varicosities. COMPARISON: November 09, 2018 ultrasound. TECHNIQUE: Lanier scale, color Doppler, and spectral analysis of the deep veins of the RIGHT lower extremity. Vessel compression, phasicity, and augmentation assessed. REPORT: There is long segment occlusive thrombosis within the RIGHT great saphenous vein extending to the level of the saphenous femoral junction without protruding into the common femoral vein. The RIGHT common femoral, profunda femoral, and superficial femoral veins are patent. There is venous stasis at the RIGHT popliteal vein without visualized thrombosis. Only one patent posterior tibial vein couldn't be visualized limiting assessment. This represents a change compared with the November 09, 2018 exam. The remaining posterior tibial vein may be thrombosed. The peroneal veins appear patent. Patency of the LEFT common femoral vein documented. IMPRESSION: #. There is long segment occlusive superficial venous thrombosis within the RIGHT great saphenous vein extending to the level of the saphenous femoral junction without protruding into the common femoral vein. #. Only one patent posterior tibial vein couldn't be visualized limiting assessment. This represents a change compared with the November 09, 2018 exam. The remaining posterior tibial vein may be thrombosed. #. Venous stasis without definitive thrombosis visualized at the RIGHT common femoral vein. <Electronically signed by Umer Ferreira MD in OV> 03/15/19 4051 I discussed the ultrasound results with the patient and her daughter. At this time the patient's only anticoagulation is a baby aspirin. Backwards she was in the hospital in October 2018 in November 2018 she was evaluated for further anticoagulation however the concern then was that she has some the falls that it would be too dangerous to have her on further anticoagulation. At that time she had a consultation by hematology. I discussed the case with the hospitalist who given the findings did not feel the patient needs to be admitted at this time for TPA or other inpatient treatments. I discussed the case also with hematology Dr. Erazo. His recommendation was to start the patient on Lovenox 1 mg/kg per day for 10 days and have her follow-up with hematology in the outpatient setting. I discussed all this with the patient and her daughter discussing the risks of not being on a blood thinner and also the risks of being on blood thinner. Patient's go the emergency department if she worsens or has any other questions or concerns. - Differential Dx/Diagnosis Provider Diagnosis: Venous thrombosis of leg Discharge - Sign-Out/Discharge Documenting (check all that apply): Patient Departure All imaging exams completed and their final reports reviewed: Yes - Discharge Plan Condition: Stable Disposition: HOME Prescriptions: Enoxaparin Sodium [Lovenox] 70 mg SC DAILY #10 inj Patient Education Materials: Venous Thromboembolism (ED) Referrals: Meghann Connell MD [Primary Care Provider] - Kemi Ribeiro MD [Medical Doctor] - Additional Instructions: FOLLOW UP WITH HEMATOLOGY, DR RIBEIRO. GO TO THE EMERGENCY DEPARTMENT IF YOUR CONDITION WORSENS OR ANY QUESTIONS OR CONCERNS. - Billing Disposition and Condition Condition: STABLE Disposition: Home
[2019-03-15 18:14] VITALS: BP 131/67
== END 2019-03-15 18:14 | disposition home or self-care (01) ==
LOC: UCEAST 14:43
DX: I82.811 Embolism and thrombosis of superficial veins of right lower extremity (principal); I87.8 Other specified disorders of veins; Z86.718 Personal history of other venous thrombosis and embolism; Z79.82 Long term (current) use of aspirin; E03.9 Hypothyroidism, unspecified; E78.5 Hyperlipidemia, unspecified; I10 Essential (primary) hypertension; Z88.8 Allergy status to other drugs, medicaments and biological substances; Z87.891 Personal history of nicotine dependence
CPT/HCPCS: 99212; G0463

== ENCOUNTER 2019-06-15 10:16 | Emergency (ER) | payer MEDICARE, OTHER ==
--- NOTE | 2019-06-15 11:01 | ED ---
HPI Chest Pain - History of Current Complaint Chief Complaint: EDChestWallPain Time Seen by Provider: 06/15/19 10:54 Pain Intensity: 3 - Additional Pertinent History Primary Care Physician: [id number] - Allergy/Home Medications Allergies/Adverse Reactions: Allergies Allergy/AdvReac Type Severity Reaction Status Date / Time azathioprine Allergy Unknown Verified 03/15/19 15:03 Reaction Details bupropion [From Wellbutrin] Allergy Unknown Verified 03/15/19 15:03 Reaction Details haloperidol [From Haldol] Allergy Altered Verified 03/15/19 15:03 Mental Status methotrexate Allergy Unknown Verified 03/15/19 15:03 Reaction Details mycophenolate mofetil Allergy Unknown Verified 03/15/19 15:03 [From CellCept] Reaction Details PMH/Surg Hx/FS Hx/Imm Hx Endocrine/Hematology History: Reports: Hx Anticoagulant Therapy, Hx Thyroid Disease - hypothyroidism Denies: Hx Diabetes, Hx Anemia, Other Endocrine/Hematological Disorders Cardiovascular History: Reports: Hx Hypercholesterolemia, Hx Hypertension, Other Cardiovascular Problems/Disorders - temporal arteritis Denies: Hx Pacemaker/ICD Respiratory History: Reports: Other Respiratory Problems/Disorders - SARCOIDOSIS ; hx of respiratory failure. Denies: Hx Asthma, Hx Chronic Obstructive Pulmonary Disease (COPD) GI History: Reports: Hx Gall Bladder Disease - removed, Hx Gastroesophageal Reflux Disease, Other GI Disorders - constipation/diarrhea Denies: Hx Obstructive Bowel, Hx Ulcer History: Reports: Hx Acute Renal Failure, Hx Chronic Renal Failure - stage 3 , Other Problems/Disorders - incontinence Denies: Hx Renal Disease Musculoskeletal History: Reports: Hx Back Problems, Hx Orthopedic Injury - left pelvic fracture2013, Other Musculoskeletal History - Hip fx and surgery jul 2016 Sensory History: Reports: Hx Cataracts, Hx Contacts or Glasses, 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, Hx Hearing Aid - not with patient Opthamlomology History: Reports: Hx Cataracts, Hx Contacts or Glasses, 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 Neurological History: Reports: Hx Dementia - short term memory loss, Hx Transient Ischemic Attacks (TIA) - three, Other Neuro Impairments/Disorders - HX of AMS Psychiatric History: Reports: Hx Depression - controlled w/ meds Denies: Hx Panic Disorder, Other Psychiatric Issues/Disorders - Cancer History Cancer Type, Location and Year: h/o sarcoidosis - Surgical History Surgery Procedure, Year, and Place: Hysterectomy, bilat carpal tunnel, cataracts ; choley; right hip surgery Hx Anesthesia Reactions: No - Immunization History Date of Influenza Vaccine: Fall 2012 Infectious Disease History: No Infectious Disease History: Denies: Hx Hepatitis, Hx Human Immunodeficiency Virus (HIV), Traveled Outside the [place] in Last 30 Days - Family History Known Family History: Positive: Diabetes, Other - CVA, Lung CA. - Social History Alcohol Use: None Hx Substance Use: No Substance Use Type: Reports: None Hx Tobacco Use: Yes Smoking Status (MU): Former Smoker Type: Cigarettes Have You Smoked in the Last Year: No Review of Systems All Other Systems Reviewed And Are Negative: Yes Physical Exam - Summary Physical Exam Summary: Constitutional: Well-developed, Well-nourished, Alert. (-) Distressed Skin: Warm, Dry HENT: Normocephalic; Atraumatic Eyes: Conjunctiva normal Neck: Musculoskeletal ROM normal neck. (-) JVD, (-) Stridor, (-) Tracheal deviation Cardio: Rhythm regular, rate normal, Heart sounds normal; Intact distal pulses; The pedal pulses are 2+ and symmetric. Radial pulses are 2+ and symmetric. (-) Murmur Pulmonary/Chest wall: Effort normal. (-) Respiratory distress, (-) Wheezes, (-) Rales Abd: Soft, (-) tenderness, (-) Distension, (-) Guarding, (-) Rebound Musculoskeletal: (-) Edema Lymph: (-) Cervical adenopathy Neuro: Alert, Oriented x3 Psych: Mood and affect Normal Triage Information Reviewed: Yes Vital Signs On Initial Exam: Initial Vitals Temp Pulse Resp BP Pulse Ox 98.4 F 82 18 155/88 93 06/15/19 10:17 06/15/19 10:17 06/15/19 10:17 06/15/19 10:17 06/15/19 10:17 Vital Signs Reviewed: Yes Diagnostics - Vital Signs Vital Signs Temp Pulse Resp BP Pulse Ox 06/15/19 10:17 98.4 F 82 18 155/88 93 - Laboratory Lab Statement: Any lab studies that have been ordered have been reviewed, and results considered in the medical decision making process. Discharge - Discharge Plan Referrals: Meghann Connell MD [Primary Care Provider] - - Attestation Statements Document Initiated by Scribe: Yes Documenting Scribe: Racheal Cleveland Provider For Whom Scribe is Documenting (Include Credential): Dr. Greg Rey MD Scribe Attestation: I, Racheal Cleveland, scribed for Dr. Greg Rey MD on 06/15/19 at 1056. Status of Scribe Document: Viewed
[2019-06-15] MEDS ORDERED: Acetaminophen TAB* 325 MG PO ONE (11:03)
--- NOTE | 2019-06-15 11:10 | ED ---
Adult Trauma - HPI Summary HPI Summary: The patient is an 82 y/o F presenting to [facility] accompanied by daughter with a chief complaint of sudden onset right-sided chest wall pain starting last night around 2129. She reports she had been standing in her kitchen and hit the right ribs on the counter. Currently, the pain is rated 3/10 in severity, but there is aggravation of pain with deep respirations and movement. Pain is alleviated by rest. She has taken Tylenol to treat the pain [employer], which was last taken during the night. She denies hitting her head and SOB. Takes baby ASA every day. PMHx: thyroid disease, HLD, HTN, umbrella in lungs, renal failure, dementia , multiple strokes. Former smoker, no EtOH, no substance use. - History of Current Complaint Chief Complaint: EDChestWallPain Stated Complaint: RT SIDE RIB PAIN FROM FALL PER PT Time Seen by Provider: 06/15/19 10:54 Hx Obtained From: Patient Mechanism of Injury: Blunt Trauma - hit ribs on counter Onset/Duration: Started Hours Ago - last night at 2129, Still Present Onset of Pain: Immediate Onset Severity: Mild Current Severity: Moderate Pain Intensity: 3 Pain Scale Used: 0-10 Numeric Location: Chest - wall at right ribs Character: Aching Aggravating Factor(s): Movement, Deep Breaths Alleviating Factor(s): Rest Associated Signs & Symptoms: Positive: Painful Respirations, Other: - NEGATIVE: head injury. Negative: SOB - Additional Pertinent History Primary Care Physician: [id number] - Allergy/Home Medications Allergies/Adverse Reactions: Allergies Allergy/AdvReac Type Severity Reaction Status Date / Time azathioprine Allergy Unknown Verified 06/15/19 11:02 Reaction Details bupropion [From Wellbutrin] Allergy Unknown Verified 06/15/19 11:02 Reaction Details haloperidol [From Haldol] Allergy Altered Verified 06/15/19 11:02 Mental Status methotrexate Allergy Unknown Verified 06/15/19 11:02 Reaction Details mycophenolate mofetil Allergy Unknown Verified 06/15/19 11:02 [From CellCept] Reaction Details PMH/Surg Hx/FS Hx/Imm Hx Endocrine/Hematology History: Reports: Hx Anticoagulant Therapy, Hx Thyroid Disease - hypothyroidism Denies: Hx Diabetes, Hx Anemia, Other Endocrine/Hematological Disorders Cardiovascular History: Reports: Hx Hypercholesterolemia, Hx Hypertension, Other Cardiovascular Problems/Disorders - temporal arteritis Denies: Hx Pacemaker/ICD Respiratory History: Reports: Other Respiratory Problems/Disorders - SARCOIDOSIS ; hx of respiratory failure. Denies: Hx Asthma, Hx Chronic Obstructive Pulmonary Disease (COPD) GI History: Reports: Hx Gall Bladder Disease - removed, Hx Gastroesophageal Reflux Disease, Other GI Disorders - constipation/diarrhea Denies: Hx Obstructive Bowel, Hx Ulcer History: Reports: Hx Acute Renal Failure, Hx Chronic Renal Failure - stage 3 , Other Problems/Disorders - incontinence Denies: Hx Renal Disease Musculoskeletal History: Reports: Hx Back Problems, Hx Orthopedic Injury - left pelvic fracture, 2013, Other Musculoskeletal History - Hip fx and surgery jul 2016 Sensory History: Reports: Hx Cataracts, Hx Contacts or Glasses, 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 Opthamlomology History: Reports: Hx Cataracts, Hx Contacts or Glasses, 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 Neurological History: Reports: Hx Dementia - short term memory loss, Other Neuro Impairments/Disorders - HX of AMS Psychiatric History: Reports: Hx Depression - controlled w/ meds Denies: Hx Panic Disorder, Other Psychiatric Issues/Disorders - Cancer History Cancer Type, Location and Year: h/o sarcoidosis - Surgical History Surgery Procedure, Year, and Place: Hysterectomy, bilat carpal tunnel, cataracts ; choley; right hip surgery Hx Anesthesia Reactions: No - Immunization History Date of Influenza Vaccine: Fall 2012 Infectious Disease History: No Infectious Disease History: Denies: Hx Hepatitis, Hx Human Immunodeficiency Virus (HIV), Traveled Outside the [place] in Last 30 Days - Family History Known Family History: Positive: Diabetes, Other - CVA, Lung CA. - Social History Alcohol Use: None Hx Substance Use: No Substance Use Type: Reports: None Hx Tobacco Use: Yes Smoking Status (MU): Former Smoker Type: Cigarettes Have You Smoked in the Last Year: No Review of Systems Positive: Other - painful respirations. Negative: Shortness Of Breath Positive: Other - chest wall pain in the right ribs Neurological: Other - NEGATIVE: head injury All Other Systems Reviewed And Are Negative: Yes Physical Exam - Summary Physical Exam Summary: Constitutional: Well-developed, Well-nourished, Alert, Cooperative Skin: Warm, Dry HENT: Normocephalic; No Racoons eyes; No garcia's sign; No abrasion; No contusion; No hemotympanum; No maxilla facial tenderness or instability; Dentition are smooth; No dental trauma; No trismus Eyes: EOM normal, PERRL Neck: Trachea is midline. No stridor; No JVD; No step off; No posterior cervical spine tenderness Cardio: Rhythm regular, rate normal Heart sounds normal; Intact distal pulses; The pedal pulses are 2+ and symmetric. Radial pulses are 2+ and symmetric. Pulmonary/Chest wall: Right chest wall tenderness; Effort normal; Breath sounds normal bilaterally; Equal chest rise; No flail segment; No sternal tenderness Abd: Soft, Appearance normal. No distension; No tenderness; No palpable pulsatile mass; No Cullens sign; No Fitch-Turners sign Musculoskeletal: Full ROM and no tenderness at hips, ankles, shoulders, elbows and knees; No joint swelling; No vertebral body tenderness; No paraspinal tenderness; No step off or deformity of the spine; Pelvis is stable to lateral compression and rock Neuro: Alert, Oriented x3, Strength 5/5 all extremities. Psych: Mood and affect Normal Triage Information Reviewed: Yes Vital Signs On Initial Exam: Initial Vitals Temp Pulse Resp BP Pulse Ox 98.4 F 82 18 155/88 93 06/15/19 10:17 06/15/19 10:17 06/15/19 10:17 06/15/19 10:17 06/15/19 10:17 Vital Signs Reviewed: Yes Diagnostics - Vital Signs Vital Signs Temp Pulse Resp BP Pulse Ox 06/15/19 10:17 98.4 F 82 18 155/88 93 - Laboratory Lab Statement: Any lab studies that have been ordered have been reviewed, and results considered in the medical decision making process. - Radiology Right Ribs w/ Chest XR Radiology Interpretation Completed By: Radiologist Summary of Radiographic Findings: Impression: There is suggestion of a nondisplaced fracture of the right ninth rib anterolaterally. No pneumothorax is noted. ED physician has reviewed this report. Re-Evaluation - Re-Evaluation First Eval Re-Evaluation Time: 12:25 Comment: We discussed imaging results and discharge home. Adult Trauma Course/Dx - Course Course Of Treatment: Patient is here after a mechanical fall last night. Patient had right-sided rib pain or neck sugars performed which showed a possible nondisplaced microfracture. Patient has no injury on physical exam outside of that. Patient did not need any imaging. Patient is not in pneumothorax. Patient was satting well on room air. Patient was discharged on Tylenol and given very strict return precautions for worsening pain and evidence of pneumonia. She's blood pressure was elevated but she does have a history of hypertension versus probably exacerbated by her pain. - Diagnoses Provider Diagnoses: Fall, Closed traumatic nondisplaced fracture of one rib of right side Discharge - Sign-Out/Discharge Documenting (check all that apply): Patient Departure - Patient will be discharged home. Patient Received Moderate/Deep Sedation with Procedure: No - Discharge Plan Condition: Stable Disposition: HOME Prescriptions: Acetaminophen TAB* [Tylenol TAB*] 650 mg PO Q6H PRN #40 tab PRN Reason: Pain - Moderate Patient Education Materials: Rib Fracture (ED) Referrals: Meghann Connell MD [Primary Care Provider] - 3 Days Additional Instructions: Please do your breathing device 8 times a day. Please take your Tylenol for pain. Please follow up with your primary care provider in 2-3 days.Please return if you have worsening pain, fever, cough, or any other concerning symptoms. - Billing Disposition and Condition Condition: STABLE Disposition: Home - Attestation Statements Document Initiated by Tom: Yes Documenting Scribe: Racheal [place] Provider For Whom Tom is Documenting (Include Credential): Dr. Greg Rey MD Scribe Attestation: Racheal Chong scribed for Dr. Greg Rey MD on 06/15/19 at 1246. Scribe Documentation Reviewed: Yes Provider Attestation: The documentation as recorded by the Racheal riggs accurately reflects the service I personally performed and the decisions made by me, Dr. Greg Rey MD Status of Scribe Document: Viewed
[2019-06-15 12:40] VITALS: BP 177/90
== END 2019-06-15 12:39 | disposition home or self-care (01) ==
LOC: ED 10:16
DX: S22.31XA Fracture of one rib, right side, initial encounter for closed fracture (principal); W18.30XA Fall on same level, unspecified, initial encounter; Y92.000 Kitchen of unspecified non-institutional (private) residence as the place of occurrence of the external cause; E03.9 Hypothyroidism, unspecified; E78.00 Pure hypercholesterolemia, unspecified; I12.9 Hypertensive chronic kidney disease with stage 1 through stage 4 chronic kidney disease, or unspecified chronic kidney disease; N18.3 Chronic kidney disease, stage 3 (moderate); K21.9 Gastro-esophageal reflux disease without esophagitis; F32.9 Major depressive disorder, single episode, unspecified; Z87.891 Personal history of nicotine dependence; Z79.82 Long term (current) use of aspirin; Z79.899 Other long term (current) drug therapy; Z88.8 Allergy status to other drugs, medicaments and biological substances
CPT/HCPCS: 99283; A9270-GY

== ENCOUNTER 2019-08-05 10:55 | Emergency (ER) | payer MEDICARE, OTHER ==
[2019-08-05] MEDS ORDERED: Acetaminophen TAB* 325 MG PO ONE (11:14)
[2019-08-05] MEDS ORDERED: oxyCODONE TAB* 5 MG TAB PO ONE (11:14)
--- NOTE | 2019-08-05 11:14 | ED ---
HPI Chest Pain - HPI Summary HPI Summary: 83 year old F presenting to [facility] from home where she lives alone accompanied by daughter and son-in-law complains of left side rib cage pain rated 2/10 in severity after waking up and walking to the bathroom, losing her balance, and had a mechanical fall on to a leather recliner, hitting her left side on the leather recliner at 05:30 today. Daughter states that patient walks with walker at home. Patient denies shortness of breath, head trauma, loss of consciousness. Symptoms aggravated by movement, talking, deep breathing. Symptoms alleviated by nothing. Patient states she is currently recovering from right rib fracture. - History of Current Complaint Chief Complaint: EDChestWallPain Time Seen by Provider: 08/05/19 11:08 Hx Obtained From: Patient Onset/Duration: Started Hours Ago - 05:#0, Still Present Timing: Constant Current Severity: Mild Pain Intensity: 2 Pain Scale Used: 0-10 Numeric Aggravating Factor(s): Movement, Deep Breaths, Other: - talking Alleviating Factor(s): Nothing Associated Signs and Symptoms: Positive: Negative - shortness of breath, head trauma, loss of consciousness - Additional Pertinent History Primary Care Physician: [id number] - Allergy/Home Medications Allergies/Adverse Reactions: Allergies Allergy/AdvReac Type Severity Reaction Status Date / Time azathioprine Allergy Unknown Verified 06/15/19 11:02 Reaction Details bupropion [From Wellbutrin] Allergy Unknown Verified 06/15/19 11:02 Reaction Details haloperidol [From Haldol] Allergy Altered Verified 06/15/19 11:02 Mental Status methotrexate Allergy Unknown Verified 06/15/19 11:02 Reaction Details mycophenolate mofetil Allergy Unknown Verified 06/15/19 11:02 [From CellCept] Reaction Details Home Medications: Home Medications Acetaminophen/Diphenhydramine [Tylenol Pm Ex-Strength Caplet] 1 each PO BEDTIME 08/05/19 [History Confirmed 08/05/19] Cholecalciferol CAP/TAB(NF) [Vitamin D3 CAP/TAB (NF)] 5,000 unit PO DAILY [History Confirmed 08/05/19] Melatonin (NF) 1 tab PO BEDTIME PRN 08/05/19 [History Confirmed 08/05/19] Multivitamins/Minerals TAB* [Theragran/minerals TAB*] 1 tab PO DAILY 08/05/19 [ History Confirmed 08/05/19] Omeprazole CAP (NF) [Prilosec CAP* 20 MG] 20 mg PO DAILY 08/05/19 [History Confirmed 08/05/19] Venlafaxine EXT RELEASE CAP* [Effexor Xr CAP*] 37.5 mg PO DAILY 08/05/19 [ History Confirmed 08/05/19] PMH/Surg Hx/FS Hx/Imm Hx Endocrine/Hematology History: Reports: Hx Anticoagulant Therapy, Hx Thyroid Disease - hypothyroidism Denies: Hx Diabetes, Hx Anemia, Other Endocrine/Hematological Disorders Cardiovascular History: Reports: Hx Hypercholesterolemia, Hx Hypertension, Other Cardiovascular Problems/Disorders - temporal arteritis Denies: Hx Pacemaker/ICD Respiratory History: Reports: Other Respiratory Problems/Disorders - SARCOIDOSIS ; hx of respiratory failure. Denies: Hx Asthma, Hx Chronic Obstructive Pulmonary Disease (COPD) GI History: Reports: Hx Gall Bladder Disease - removed, Hx Gastroesophageal Reflux Disease, Other GI Disorders - constipation/diarrhea Denies: Hx Obstructive Bowel, Hx Ulcer History: Reports: Hx Acute Renal Failure, Hx Chronic Renal Failure - stage 3 , Other Problems/Disorders - incontinence Denies: Hx Renal Disease Musculoskeletal History: Reports: Hx Back Problems, Hx Orthopedic Injury - left pelvic fracture, 2013, Other Musculoskeletal History - Hip fx and surgery jul 2016 Sensory History: Reports: Hx Cataracts, Hx Contacts or Glasses, 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 Opthamlomology History: Reports: Hx Cataracts, Hx Contacts or Glasses, 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 Neurological History: Reports: Hx Dementia - short term memory loss, Other Neuro Impairments/Disorders - HX of AMS Psychiatric History: Reports: Hx Depression - controlled w/ meds Denies: Hx Panic Disorder, Other Psychiatric Issues/Disorders - Cancer History Cancer Type, Location and Year: h/o sarcoidosis - Surgical History Surgery Procedure, Year, and Place: Hysterectomy, bilat carpal tunnel, cataracts ; choley; right hip surgery Hx Anesthesia Reactions: No - Immunization History Date of Influenza Vaccine: Fall 2012 Infectious Disease History: No Infectious Disease History: Denies: Hx Hepatitis, Hx Human Immunodeficiency Virus (HIV), Traveled Outside the [place] in Last 30 Days - Family History Known Family History: Positive: Diabetes, Other - CVA, Lung CA. - Social History Alcohol Use: None Hx Substance Use: No Substance Use Type: Reports: None Hx Tobacco Use: Yes Smoking Status (MU): Former Smoker Type: Cigarettes Have You Smoked in the Last Year: No Review of Systems Constitutional: Negative - head trauma Negative: Shortness Of Breath Positive: Other - left side rib cage pain Neurological: Negative - LOC All Other Systems Reviewed And Are Negative: Yes Physical Exam - Summary Physical Exam Summary: VITAL SIGNS: Reviewed. GENERAL: Patient is a well-developed and nourished FEMALE who is lying comfortable in the stretcher. Patient is not in any acute respiratory distress. HEAD AND FACE: No signs of trauma. No ecchymosis, hematomas or skull depressions. No sinus tenderness. EYES: PERRLA, EOMI x 2, No injected conjunctiva, no nystagmus. EARS: Hearing grossly intact. Ear canals and tympanic membranes are within normal limits. MOUTH: Oropharynx within normal limits. NECK: Supple, trachea is midline, no adenopathy, no JVD, no carotid bruit, no c- spine tenderness, neck with full ROM. CHEST: Tenderness left rib cage area LUNGS: Clear to auscultation bilaterally. No wheezing or crackles. CVS: Regular rate and rhythm, S1 and S2 present, no murmurs or gallops appreciated. ABDOMEN: Soft, non-tender. No signs of distention. No rebound, no guarding, and no masses palpated. Bowel sounds are normal. EXTREMITIES: FROM in all major joints, no edema, no cyanosis or clubbing. NEURO: Alert and oriented x 3. No acute neurological deficits. Speech is normal and follows commands. SKIN: Dry and warm. Triage Information Reviewed: Yes Vital Signs On Initial Exam: Initial Vitals Temp Pulse Resp BP Pulse Ox 98.5 F 92 18 126/71 93 08/05/19 10:59 08/05/19 10:59 08/05/19 10:59 08/05/19 10:59 08/05/19 10:59 Vital Signs Reviewed: Yes Diagnostics - Vital Signs Vital Signs Temp Pulse Resp BP Pulse Ox 08/05/19 10:59 98.5 F 92 18 126/71 93 - Laboratory Lab Statement: Any lab studies that have been ordered have been reviewed, and results considered in the medical decision making process. - Radiology Ribs with chest x-ray Radiology Interpretation Completed By: Radiologist Summary of Radiographic Findings: Nondisplaced fracture of the LEFT 10th rib laterally. Negative for pulmonary contusion, pleural effusion, or pneumothorax. ED physician has reviewed this report. Re-Evaluation - Re-Evaluation First Eval Re-Evaluation Time: 12:49 Change: Improved Comment: patient feels better after receiving medications. she was informed of her rib fracture. she is agreeable to discharge Chest Pain Course/Dx - Course Assessment/Plan: Patient is an 83 year old female who presents to the emergency department with a chief complaint of left rib cage pain. She reports that this morning, she woke up to go to the bathroom and she lost her balance and she fell. She reports that she hit the left side of the rib cage against a chair and since then the patient is having pain. Rib x ray IMPRESSION: #. Nondisplaced fracture of the LEFT 10th rib laterally. Negative for pulmonary contusion, pleural effusion, or pneumothorax. In the ED course, the patient was given oxycodone for pain and her symptoms improved. I discussed my physical exam and findings with the patient and she agrees to go home with family. The patient will be given a prescription for oxycodone for home. Patient will also be given a spirometer to prevent pneumonias. I discussed all the findings and test results with the patient. Patient was instructed to return to the emergency room immediately if any of the symptoms return or worsen. Plan of care was discussed with the patient and she understands and agrees. All questions were answered at patient satisfaction. There were no further complaints or concerns. Lung exam before discharge: CTA B/L. Good air exchange. No wheezing or crackles heard. CVS: S1 and S2 present. No murmurs appreciated. Patient is alert and oriented x 3. Patient is hemodynamically stable. Patient will be discharged home with follow up PCP in the next 2-3 days. - Diagnoses Provider Diagnoses: Rib fracture Discharge ED - Sign-Out/Discharge Documenting (check all that apply): Patient Departure - Discharge Patient Received Moderate/Deep Sedation with Procedure: No - Discharge Plan Condition: Stable Disposition: HOME Prescriptions: oxyCODONE TAB* [Roxycodone TAB 5 mg*] 5 mg PO Q6H PRN #10 tab MDD 4 PRN Reason: Pain - Moderate Patient Education Materials: Rib Fracture (ED) Referrals: Meghann Connell MD [Primary Care Provider] - 3 Days Additional Instructions: Follow up with your primary care provider in 3 days. RETURN TO EMERGENCY DEPARTMENT FOR NEW OR WORSENING SYMPTOMS. - Billing Disposition and Condition Condition: STABLE Disposition: Home - Attestation Statements Document Initiated by Tom: Yes Documenting Scribe: Kiley Jack Provider For Whom Tom is Documenting (Include Credential): Umer Rg MD Scribe Attestation: IKiley, scribed for Umer Rg MD on 08/05/19 at 1858. Scribe Documentation Reviewed: Yes Provider Attestation: The documentation as recorded by the [email or web address] accurately reflects the service I personally performed and the decisions made by me, Umer Rg MD Status of Scribe Document: Viewed
--- OUTSIDE RECORDS SUMMARY | 2019-08-05 11:33 | XMS REPORT | Continuity of Care Document ---
:1935 External Reference #:[id number] Author Name Meghann Connell MD (transmitted by agent of provider Jillian Villarreal) [facility] [address] [facility] [address] [place] [address] Care Team Providers Name Role Phone [email or web address] - Care Team Information Furnace Mason [phone] Neurology Director Grey Martinez MD - Hand Surgery Care Team Information Furnace Mason Meghann Connell M.D. 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 Rios Yun M.D.,FRANCISCO JAVIER Onset: 12/03/2017 Hypercalcemia Rios Yun M.D.,FACP Onset: 12/03/2017 Note: due to sarcoidosis Essential hypertension Rios Yun M.D.,MERCEDESP Onset: 09/18/2018 Social History Type Date Description Comments Sex Unknown Tobacco Use Start: Unknown End: Former Cigarette Smoker Unknown Smoking Status Reviewed: 06/29/19 Former Cigarette Smoker ETOH Use 12/03/2017 Denies alcohol use Tobacco Use Start: Unknown End: Patient is a former Unknown smoker Recreational Drug Use Denies Drug Use Exercise Type/Frequency Exercises rarely walks very little Allergies, Adverse Reactions, Alerts Active Allergies Reaction Severity Comments Date Haldol contracts muscles, Severe altered mental status 01/09/2011 agitation Methotrexate Methotrexate lung 02/28/2011 Mycophenolate leukopenia 02/28/2011 Azathioprine nausea 04/14/2012 Bupropion 08/12/2016 Medications Active Medications SIG Qnty Indications Ordering Date Provider Ofloxacin 1 drop in left eye 5ml B30.9 Meghann Connell MD 06/29/2019 (Ophthalmic) 4x/day x 5 days 0.3% Solution Nystatin-Triamcinolon apply to affected 15gm Meghann Connell MD 06/29/2019 e area 4x/day as 788927-9.1Unit/GM-% needed Ointment Acetaminophen 2 tabs po q 6hrs 90tabs Meghann Connell MD 06/29/2019 325mg prn pain Tablets Atorvastatin Calcium Take 1 Tablet By 90tabs Meghann Connell MD 12/23/2018 Mouth Every Night 10mg Tablets AT Bedtime Norvasc 1 by mouth every 90tabs Rios Mcdowell 09/07/2018 2.5mg Tablets day Lanette Yun,FACP Aspirin Regimen Low one tab by mouth Rios Mcdowell 09/07/2018 Dose Adult daily Lanette Yun,FACP 81mg Tablets DR Transport Chair use as needed when 1units Z86.73 [facility] M23.231 Fluticasone Propionate 2 sprays each 48gm Rani Munoz, 04/03/2018 50mcg/Act nostril twice a day M.July Suspension as needed Myrbetriq Take 1 Tablet By 180tabs Rios Yun, 12/03/2017 25mg Tablets ER 24HR Mouth Twice A Day Damien.July,FACP Effexor XR once at bedtime 90caps Rios Yun, 06/02/2017 37.5mg Caps ER 24HR M.D.,FACP Tylenol PM at at bedtime Unknown Tablets Tylenol PM Extra Strength q hs Unknown 500-25mg Tablets Melatonin ER 1 tab at bedtime Unknown 5mg Tablets ER Iron 1 by mouth every Unknown 65mg Tablets day Vitamin D 3 Unknown Omeprazole 1 by mouth every 30caps Meghann Connell MD 20mg Capsules DR day Levothyroxine Sodium 1 by mouth every 90tabs Rios Yun, 125mcg day M.D.,FACP Tablets Effexor XR 1 cap by mouth in 90caps Rios Yun, 75mg Caps ER 24HR in the morning M.D.,FACP History Medications Fluconazole one by mouth march 1tabs N76.2 Paula Arenas, 04/27/2019 - 150mg N.P. 06/28/2019 Tablets Nystatin apply to 45gm Meghann Connell MD 03/18/2019 - [id number]/GM affected area 06/28/2019 Ointment four times a day Clotrimazole apply to 45gm B35.4 Paula Arenas, 03/08/2019 - 1% Cream affected area of N.P. 06/28/2019 skin twice a day for 7-10 days Macrobid 1 by mouth twice 14caps N39.0 Meghann Connell MD 03/08/2019 - 100mg Capsules a day x 7 days 04/21/2019 Lactulose 30ml once a day, 473ml K59.00 Meghann Connell MD 01/20/2019 - 10GM/15ML may take 60 if 04/21/2019 Solution needed Immunizations CPT Code Status Date Vaccine Reaction Lot # [id number] Given 08/21/2018 Influenza Virus Vaccine, Quadrivalent, Split, Preservative Free [id number] Given 08/12/2018 Pneumonia Vaccine Pt. tolerated well. [id number] Given 08/29/2017 Influenza Virus Vaccine, administered at [facility] Quadrivalent, Split, Preservative Free [id number] Given 08/19/2017 Pneumococcal Conjugate Vaccine 13 Valent For Intramuscular Use Vital Signs Date Vital Result Comment 06/29/2019 2:26pm Height 60 inches 5'0" Weight 155.00 lb Heart Rate 89 /min BP Systolic Sitting 117 mmHg Rue reg cuff BP Diastolic Sitting 73 mmHg Rue reg cuff O2 % BldC Oximetry 96 % BMI (Body Mass Index) 30.3 kg/m2 04/27/2019 1:21pm Height 60 inches 5'0" Weight 157.00 lb Heart Rate 88 /min BP Systolic 110 mmHg BP Diastolic 67 mmHg Body Temperature 97.8 F O2 % BldC Oximetry 97 % BMI (Body Mass Index) 30.7 kg/m2 Results Test Date Facility Test Result H/L Range Note Urine Culture And 03/08/2019 [facility] Urine Culture SEE RESULT 1, [address] [place] [address] [phone] Ua Routine 03/08/2019 [facility] [employer] In House Ua Specific 1.020 [place] Ua PH 5 Ua Color dark yellow Ua Appera cloudy Ua WBC ++ Ua Protein trace Ua Glucose normal Ua Ketones negative Ua Bilirubin negative Ua Urobilinogen negative Ua Nitrite negative Ua Occult Blood trace Laboratory test 02/23/2019 [facility] Potassium 4.4 mmol/L Normal 3.5-5.[address] [address] [phone] Basic Metabolic 01/21/2019 [facility] Sodium 136 mmol/L Normal 135-[address] [place] [address] [phone] Chloride 104 mmol/L Normal 101-111 Co2 Carbon Dioxide 22 mmol/L Normal 22-32 Calcium 9.5 mg/dL Normal 8.6-10.3 Glucose 145 mg/dL High 70-100 Blood Urea Nitrogen 27 mg/dL High 6-24 Creatinine 1.55 mg/dL High 0.51-0.95 BUN/Creatinine Ratio 17.4 Normal 8-20 Egfr Non- 31.9 >60 Egfr 38.6 >60 4 Potassium TNP mmol/L 3.5-5.0 5 Anion Gap 10 mmol/L Normal 2-11 1 [id number] 2 SEE RESULT BELOW Name: MIREYA COREAS : [address]: Meghann Connell MD Acct: [id number] Unit: [id number] AGE: 83 Location: [facility] Re03/08/19 SEX: F Status: REG REF SPEC: [id number] FLORES: 03/08/[address]: Meghann Connell MD REQ: [id number] RECD: 03/08/19 STATUS: COMP _ SOURCE: URINE SPDESC: ORDERED: Urine Culture COMMENTS: [id number] Urine Source: Random Procedure Result Reported Site Urine Culture Final 03/10/19- 925 ML Organism 1 ESCHERICHIA COLI [place] Count 10-25,000 (Moderate) CFU/ML 1. ESCHERICHIA COLI [facility] RX --------- ------ Ampicillin 8 S Cefazolin <=4 S Cefepime <=1 S Ceftriaxone <=1 S Ciprofloxacin <=0.25 S Gentamicin <=1 S Levofloxacin <=0.12 S Meropenem <=0.25 S Nitrofurantoin <=16 S Tetracycline <=1 S Pipercillin/Tazobactam <=4 S Trimethoprim/Sulfamethoxazole <=20 S Amoxicillin/Clavulanic Acid 4 S Aztreonam <=1 S Contact the Microbiology Department for any additional antibiotic reporting. * [facility] - Main Lab . END OF REPORT DEPARTMENT OF PATHOLOGY, [address] [place] [address] Enrico Lucero M.D. Director [facility] # [id number] 3 [id number] 4 Because ethnic data is not always readily [...] 15-29 5 Kidney failure <15 (or dialysis) 5 Specimen Hemolyzed. Result may not be valid. Unable to report test result due to hemolysis. Procedures Date Code Description Status 06/29/2018 [id number] Diabetic Retinal Eye Exam Completed 10/09/2012 [id number] Mammogram Completed Medical Devices Description No Information Available Encounters Type Date Location Provider Dx Diagnosis Office Visit 04/27/2019 [facility] Paula Arenas, N76.2 Acute vulvitis 1:20p Medicine - [facility] N.P. Office Visit 04/21/2019 [facility] Meghann Connell MD I10 Essential ( primary) [facility] I[facility].01 Phlebitis and thombophlb of superfic vessels of r low extrem K59.00 Constipation, unspecified R41.81 Age-related cognitive decline Office Visit 03/08/2019 2:40p [facility] Meghann Connell MD B35.4 Tinea corporis [facility] N[facility]0 Urinary tract infection, site not specified Office Visit 01/20/2019 2:00p [facility] Meghann Connell MD R06.02 Shortness of Medicine - Suite breath R K59.00 Constipation, unspecified E87.6 Hypokalemia I10 Essential (primary) hypertension Assessments Date Code Description Provider 06/29/2019 S22.31xD Fracture of one rib, right side, subsequent Meghann Connell MD encounter for fracture with routine healing 06/29/2019 B30.9 Viral conjunctivitis, unspecified Meghann Connell MD 06/29/2019 N76.2 Acute vulvitis Meghann Connell MD 04/27/2019 N76.2 Acute vulvitis Paula Arenas, N.P. 04/21/2019 I10 Essential (primary) hypertension Meghann Connell MD 04/21/2019 I80.01 Phlebitis and thrombophlebitis of superficial Meghann Connell MD vessels of rig 04/21/2019 K59.00 Constipation, unspecified Meghann Connell MD 04/21/2019 R41.81 Age-related cognitive decline Meghann Connell MD 03/08/2019 B35.4 Tinea corporis Meghann Connell MD 03/08/2019 N39.0 Urinary tract infection, site not specified Meghann Connell MD 01/20/2019 R06.02 Shortness of breath Meghann Connell MD 01/20/2019 K59.00 Constipation, unspecified Meghann Connell MD 01/20/2019 E87.6 Hypokalemia Meghann Connell MD 01/20/2019 I10 Essential (primary) hypertension Meghann Connell MD Plan of Treatment Future Appointment(s):08/24/2019 10:40 am - Meghann Connell [facility] at [facility] - Meghann Connell MDS22.31xD Fracture of one rib, right side, subsequent encounter for fracture with routine ecmglohL18.9 Viral conjunctivitis, unspecifiedNew Medication:Ofloxacin (Ophthalmic) 0.3 % - 1 drop in left eye 4x/day x 5 daysN76.2 Acute vulvitis Functional Status Functional Condition Comment Date Status Dependent with shopping Active Dependent with transportation Active Independent with reading Active Independent with using the telephone Active Dependent with laundry Active Dependent with housekeeping Active Dependent with food preparation Active Dependent with cooking Active Dependent with cleaning Active Independent with money management Active Requires assistance with bathing Active Requires assistance with ambulating Active Independent with toileting Active Independent with standing Active Independent with grooming Active Independent with dressing Active Independent with feeding Active Mental Status Description No Information Available Referrals Description No Information Available
[2019-08-05 12:54] VITALS: BP 150/71
== END 2019-08-05 12:54 | disposition home or self-care (01) ==
LOC: ED 10:55
DX: S22.32XA Fracture of one rib, left side, initial encounter for closed fracture (principal); W18.30XA Fall on same level, unspecified, initial encounter; Y92.009 Unspecified place in unspecified non-institutional (private) residence as the place of occurrence of the external cause; E78.00 Pure hypercholesterolemia, unspecified; K21.9 Gastro-esophageal reflux disease without esophagitis; I12.9 Hypertensive chronic kidney disease with stage 1 through stage 4 chronic kidney disease, or unspecified chronic kidney disease; N18.3 Chronic kidney disease, stage 3 (moderate); F03.90 Unspecified dementia, unspecified severity, without behavioral disturbance, psychotic disturbance, mood disturbance, and anxiety; F32.9 Major depressive disorder, single episode, unspecified; Z87.891 Personal history of nicotine dependence; Z79.82 Long term (current) use of aspirin; Z79.899 Other long term (current) drug therapy; Z88.8 Allergy status to other drugs, medicaments and biological substances
CPT/HCPCS: 99283; A9270-GY

== ENCOUNTER 2019-08-13 12:31 | Emergency (ER) | payer MEDICARE, OTHER ==
--- OUTSIDE RECORDS SUMMARY | 2019-08-13 12:46 | XMS REPORT | Continuity of Care Document ---
:1935 External Reference #:[id number] Author Name Marlyn Bell O.D. Address [address] [place] [address] Care Team Providers Name Role Phone Meghann Connell MD - Internal Medicine Care Team Information News Broadcaster Mukesh Muñoz M.D. - Ophthalmology Care Team Information News Broadcaster Problems Active Problems Provider Date Hypothyroidism Onset: Arterial retinal branch occlusion Audrey Brewster O.D. Onset: 03/22/2015 Myopia Audrey Brewster O.D. Onset: 03/22/2015 Regular astigmatism Audrey Brewster O.D. Onset: 03/22/2015 Presbyopia Audrey Brewster O.D. Onset: 03/22/2015 Venous retinal branch occlusion Audrey Brewster O.D. Onset: 03/22/2015 Pseudophakia Audrey Brewster O.D. Onset: 03/22/2015 Exudative age-related macular degeneration Audrey Brewster O.D. Onset: 04/13 Vitreous degeneration Audrey Brewster O.D. Onset: 04/13/2016 Presence of intraocular lens Audrey Brewster O.D. Onset: 04/13/2016 Chronic allergic conjunctivitis Marlyn Bell O.D. Onset: 04/16/2017 Vitreous hemorrhage Marlyn Bell O.D. Onset: 03/10/2018 Blood coagulation disorder Onset: Transient cerebral ischemia Onset: H/O: pulmonary embolus Onset: Tear film insufficiency Marlyn Bell O.D. Onset: 07/27/2019 Social History Type Date Description Comments Sex Unknown ETOH Use Never used alcohol Tobacco Use Start: Unknown Patient has never smoked Recreational Drug Use Never Used Drugs Smoking Status Reviewed: 07/27/19 Patient has never smoked Allergies, Adverse Reactions, Alerts Active Allergies Reaction Severity Comments Date Azathioprine 03/22/2015 Methotrexate 03/22/2015 Mycophenolate 03/22/2015 Wellbutrin 03/22/2015 Haldol 07/27/2019 Medications Active Medications SIG Qnty Indications Ordering Provider Date Erythromycin apply thin 1Tubes H04.123 Marlyn Bell, 07/27/2019 5mg/GM strip to left O.D. Ointment eye before bed Theratears 2-3 times a day Marlyn Bell, 07/26/2019 0.25% Solution O.D. Melatonin Unknown 1mg Capsules Tylenol PM Extra Unknown Strength 1000-50mg/30ML Liquid Myrbetriq Unknown 25mg Tablets ER 24HR Venlafaxine HCL Unknown 37.5mg Tablets Atorvastatin Calcium Unknown 10mg Tablets Vitamin D3 Unknown 25mcg Tablets Iron Unknown 325(65Fe) mg Tablets Multi Vitamin Daily Unknown Tablets Aspirin 81 Unknown 81mg Tablets Amlodipine Besylate Unknown 2.5mg Tablets Omeprazole Unknown 20mg Capsules Levothyroxine Sodium Unknown 125mcg Tablets Systane as needed Marlyn Bell, 0.4-0.3% Solution O.D. Medications Administered in Office Medication SIG Qnty Indications Ordering Provider Date Avastin Bevacizumab Wesly Roger M.D. 12/20/2013 Injection Unclassified Biologics, I.EGomez Roger M.D. 12/20/2013 Avastin Injection Unclassified Biologics, I.EGomez Roger M.D. 11/15/2013 Avastin Injection Unclassified Biologics, I.EGomez Roger M.D. 12/24/2012 Avastin Injection Unclassified Biologics, I.E. Wesly Roger M.D. 05/25/2012 Avastin Injection Injection Dexamethasone Sodium Wesly Roger M.D. 05/25/2012 Phosphate, 1 MG Injection Immunizations Description No Information Available Vital Signs Description No Information Available Results Description No Information Available Procedures Description No Information Available Medical Devices Description No Information Available Encounters Description No Information Available Assessments Date Code Description Provider 07/27/2019 H04.123 Dry eye syndrome of bilateral lacrimal Marlyn Bell O.D. 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 left eye, stable Plan of Treatment 07/27/2019 - Marlyn Bell O.D.H04.123 Dry eye syndrome of bilateral lacrimal glandsNew Medication:Erythromycin 5 mg/GM - apply thin strip to left eye before bedComments:Smoking can increase the risk of developing or worsening any eye related disease, as well as affect your overall health. If you are a smoker, we strongly recommend that you quit.If you are not a smoker, we strongly recommend that you do not start. Both of your eyes appear to be dry. Use artificial tears as directed. You can use the tears more often if you are reading a book or are on the computer,as we tend to blink less, making our eyes dry out more.[facility] offers a few items in our optical department to help alleviate dry eye symptoms. start erythromycin ointment left eye before bed as nzonnlV73.8322 Tributary (branch) retinal vein occlusion, left eye , stableComments:You have a Branch Retinal Vein Occlusion in your left eye. This is when the small veins of the retina have become blocked. Please follow any instructions given to you by Dr. Bell.Follow up:as scheduled Functional Status Description No Information Available Mental Status Description No Information Available Referrals Description No Information Available
[2019-08-13] MEDS ORDERED: NS 0.9% 1000 ML** 1,000 ML IV ONE (14:21)
[2019-08-13 14:39] LABS: ABS Eosinophils 0.2 10^3/ul (0-0.6); ABS Lymphocytes 1.6 10^3/ul (1.0-4.8); ABS Monocytes 0.5 10^3/ul (0-0.8); ABS Neutrophils 3.3 10^3/ul (1.5-7.7); Eosinophil % 3.7 %; Hematocrit 42 % (35-47); Hemoglobin 14.4 g/dL (12.0-16.0); Mean Corpuscular HGB Conc 35 g/dL (31-36); Mean Corpuscular Hemoglobin 32 pg (27-31); Mean Corpuscular Volume 93 fL (80-97); Mean Platelet Volume 7.8 fL (7.4-10.4); Nucleated Red Blood Cells % 0.1; Platelet Count 227 10^3/uL (150-450); Red Blood Count 4.46 10^6 /uL (3.70-4.87); Red Cell Distribution Width 13 % (10-15); White Blood Count 5.6 10^3/uL (3.5-10.8)
[2019-08-13 14:50] LABS: Albumin 3.8 g/dL (3.2-5.2); Anion Gap 5 mmol/L (2-11); BUN/Creatinine Ratio 20.6 (8-20); Blood Urea Nitrogen 27 mg/dL (6-24); CO2 Carbon Dioxide 26 mmol/L (22-32); Calcium 9.2 mg/dL (8.6-10.3); Chloride 106 mmol/L (101-111); EGFR African American 46.9 (>60); EGFR Non-African American 38.8 (>60); Glucose 162 mg/dL (70-100); Magnesium 1.8 mg/dL (1.9-2.7); Potassium 3.8 mmol/L (3.5-5.0); Sodium 137 mmol/L (135-145); Total Protein 6.7 g/dL (6.4-8.9)
[2019-08-13 14:51] LABS: ALT 15 U/L (7-52); AST 16 U/L (13-39); Albumin/Globulin Ratio 1.3 (1-3); Alcohol < 10 mg/dL (<10); Alkaline Phosphatase 83 U/L (34-104); C Reactive Protein 4.18 mg/L (<8.01); Creatine Kinase 73 U/L (10-223); Globulin 2.9 g/dL (2-4)
[2019-08-13 14:52] LABS: Troponin I 0.01 ng/mL (<0.04)
[2019-08-13 15:05] LABS: TSH (Thyroid Stimulating Horm) 0.14 mcIU/mL (0.34-5.60)
[2019-08-13] MEDS ORDERED: Iodixanol* (CONTRAST) 320 MG/ML 100 ML SDV IV ONE (15:10)
[2019-08-13 17:26] LABS: Urine Appearance Clear; Urine Bilirubin Negative (Negative); Urine Blood Negative (Negative); Urine Color Yellow; Urine Glucose Negative (Negative); Urine Ketones Negative (Negative); Urine Nitrite Negative (Negative); Urine Protein Negative (Negative); Urine Specific Gravity 1.014 (1.010-1.030); Urine Urobilinogen Negative (Negative)
--- NOTE | 2019-08-13 17:38 | ED ---
Dizziness - HPI Summary HPI Summary: 83 year old female reports to the ED accompanied by her daughter with a chief complaint of dizziness starting this morning. She is not in pain at the time of arrival. Per daughter, she has been coughing a lot. She fell a few weeks ago and broke a rib. She fell again last week, and broke another rib. Finally she fell down yesterday, but was not injured. Per patient, she is not feeling weak, but is feeling dizziness when bending down. Pt denies any fever, chills, erythema of eyes, sore throat, CP, SOB, cough, abdominal pain, N/V, dysuria, hematuria, myalgia, edema, rash, or loss of appetite. She has a PMHx of lung blood clots. She does not smoke or drink. - History Of Current Complaint Chief Complaint: EDDizziness Stated Complaint: DIZZY SPELLS PER DAUGHTER Time Seen by Provider: 08/13/19 14:14 Hx Obtained From: Patient, Family/School Leader - daughter Onset/Duration: Still Present Timing: Frequency Of Episodes - once every few days, twice this morning. Severity Initially: Moderate Severity Currently: Mild Character: Dizzy Aggravating Factor(s): Supine To Erect Alleviating Factor(s): Rest Associated Signs And Symptoms: Positive: Other: - cough. Negative: Nausea, Vomiting, Decreased Oral Intake, Change In Diet - Allergies/Home Medications Allergies/Adverse Reactions: Allergies Allergy/AdvReac Type Severity Reaction Status Date / Time azathioprine Allergy Unknown Verified 06/15/19 11:02 Reaction Details bupropion [From Wellbutrin] Allergy Unknown Verified 06/15/19 11:02 Reaction Details haloperidol [From Haldol] Allergy Altered Verified 06/15/19 11:02 Mental Status methotrexate Allergy Unknown Verified 06/15/19 11:02 Reaction Details mycophenolate mofetil Allergy Unknown Verified 06/15/19 11:02 [From CellCept] Reaction Details PMH/Surg Hx/FS Hx/Imm Hx Endocrine/Hematology History: Reports: Hx Anticoagulant Therapy, Hx Thyroid Disease - hypothyroidism Denies: Hx Diabetes, Hx Anemia, Other Endocrine/Hematological Disorders Cardiovascular History: Reports: Hx Hypercholesterolemia, Hx Hypertension, Other Cardiovascular Problems/Disorders - temporal arteritis Denies: Hx Pacemaker/ICD Respiratory History: Reports: Other Respiratory Problems/Disorders - SARCOIDOSIS ; hx of respiratory failure. Denies: Hx Asthma, Hx Chronic Obstructive Pulmonary Disease (COPD) GI History: Reports: Hx Gall Bladder Disease - removed, Hx Gastroesophageal Reflux Disease, Other GI Disorders - constipation/diarrhea Denies: Hx Obstructive Bowel, Hx Ulcer History: Reports: Hx Acute Renal Failure, Hx Chronic Renal Failure - stage 3 , Other Problems/Disorders - incontinence Denies: Hx Renal Disease Musculoskeletal History: Reports: Hx Back Problems, Hx Orthopedic Injury - left pelvic fracture, 2013, Other Musculoskeletal History - Hip fx and surgery jul 2016 Sensory History: Reports: Hx Cataracts, Hx Contacts or Glasses, 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 Opthamlomology History: Reports: Hx Cataracts, Hx Contacts or Glasses, 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 Neurological History: Reports: Hx Dementia - short term memory loss, Other Neuro Impairments/Disorders - HX of AMS Psychiatric History: Reports: Hx Depression - controlled w/ meds Denies: Hx Panic Disorder, Other Psychiatric Issues/Disorders - Cancer History Cancer Type, Location and Year: h/o sarcoidosis - Surgical History Surgical History: Yes Surgery Procedure, Year, and Place: Hysterectomy, bilat carpal tunnel, cataracts ; choley; right hip surgery Hx Anesthesia Reactions: No - Immunization History Date of Influenza Vaccine: Fall 2012 Infectious Disease History: No Infectious Disease History: Denies: Hx Hepatitis, Hx Human Immunodeficiency Virus (HIV), Traveled Outside the [place] in Last 30 Days - Family History Known Family History: Positive: Diabetes, Other - CVA, Lung CA. - Social History Alcohol Use: None Hx Substance Use: No Substance Use Type: Reports: None Hx Tobacco Use: Yes Smoking Status (MU): Former Smoker Type: Cigarettes Have You Smoked in the Last Year: No Review of Systems Negative: Fever, Chills Negative: Erythema Negative: Sore Throat Negative: Chest Pain Positive: Cough. Negative: Shortness Of Breath Negative: Abdominal Pain, Nausea Negative: dysuria, hematuria Negative: Myalgia, Edema Negative: Rash Neurological: Other - dizziness All Other Systems Reviewed And Are Negative: Yes Physical Exam - Summary Physical Exam Summary: Constitutional: Well-developed, Well-nourished, Alert. (-) Distressed Skin: Warm, Dry HENT: Normocephalic; Atraumatic Eyes: Conjunctiva normal Neck: Musculoskeletal ROM normal neck. (-) JVD, (-) Stridor, (-) Tracheal deviation Cardio: Rhythm regular, rate normal, Heart sounds normal; Intact distal pulses; The pedal pulses are 2+ and symmetric. Radial pulses are 2+ and symmetric. (-) Murmur Pulmonary/Chest wall: Effort normal. (-) Respiratory distress, (-) Wheezes, (-) Rales. Crackles in the lower right lung. Abd: Soft, (-) tenderness, (-) Distension, (-) Guarding, (-) Rebound Musculoskeletal: (-) Edema Lymph: (-) Cervical adenopathy Neuro: Alert, Oriented x3 Psych: Mood and affect Normal Triage Information Reviewed: Yes Vital Signs On Initial Exam: Initial Vitals Temp Pulse Resp BP Pulse Ox 98.1 F 94 18 128/81 97 08/13/19 12:39 08/13/19 12:39 08/13/19 12:39 08/13/19 12:39 08/13/19 12:39 Vital Signs Reviewed: Yes Procedures - Sedation Patient Received Moderate/Deep Sedation with Procedure: No Diagnostics - Vital Signs Vital Signs Temp Pulse Resp BP Pulse Ox 08/13/19 14:06 91 120/68 08/13/19 12:39 98.1 F 94 18 128/81 97 - Laboratory Lab Results: Lab Results 08/13/19 08/13/19 08/13/19 Range/Units 14:18 14:18 14:18 WBC 5.6 (3.5-10.8) 10^3/uL RBC 4.46 (3.70-4.87) 10^6 /uL Hgb 14.4 (12.0-16.0) g/dL Hct 42 (35-47) % MCV 93 (80-97) fL MCH 32 H (27-31) pg MCHC 35 (31-36) g/dL RDW 13 (10-15) % Plt Count 227 (150-450) 10^3/uL MPV 7.8 (7.4-10.4) fL Neut % (Auto) 58.2 % Lymph % (Auto) 28.0 % [place] % (Auto) 9.4 % Eos % (Auto) 3.7 % Baso % (Auto) 0.7 % Absolute Neuts (auto) 3.3 (1.5-7.7) 10^3/ul Absolute Lymphs (auto) 1.6 (1.0-4.8) 10^3/ul Absolute Monos (auto) 0.5 (0-0.8) 10^3/ul Absolute Eos (auto) 0.2 (0-0.6) 10^3/ul Absolute Basos (auto) 0.0 (0-0.2) 10^3/ul Absolute Nucleated RBC 0.0 10^3/ul Nucleated RBC % 0.1 Sodium 137 (135-145) mmol/L Potassium 3.8 (3.5-5.0) mmol/L Chloride 106 (101-111) mmol/L Carbon Dioxide 26 (22-32) mmol/L Anion Gap 5 (2-11) mmol/L BUN 27 H (6-24) mg/dL Creatinine 1.31 H (0.51-0.95) mg/dL Est GFR ( Amer) 46.9 (>60) Est GFR (Non-Af Amer) 38.8 (>60) BUN/Creatinine Ratio 20.6 H (8-20) Glucose 162 H (70-100) mg/dL Lactic Acid 1.6 (0.5-2.0) mmol/L Calcium 9.2 (8.6-10.3) mg/dL Magnesium 1.8 L (1.9-2.7) mg/dL Total Bilirubin 0.50 (0.2-1.0) mg/dL AST 16 (13-39) U/L ALT 15 (7-52) U/L Alkaline Phosphatase 83 (34-104) U/L Total Creatine Kinase 73 (10-223) U/L Troponin I 0.01 (<0.04) ng/mL C-Reactive Protein 4.18 (<8.01) mg/L B-Natriuretic Peptide (<=100) pg/mL Total Protein 6.7 (6.4-8.9) g/dL Albumin 3.8 (3.2-5.2) g/dL Globulin 2.9 (2-4) g/dL Albumin/Globulin Ratio 1.3 (1-3) TSH 0.14 L (0.34-5.60) mcIU/mL Serum Alcohol < 10 (<10) mg/dL 08/13/19 Range/Units 14:18 WBC (3.5-10.8) 10^3/uL RBC (3.70-4.87) 10^6 /uL Hgb (12.0-16.0) g/dL Hct (35-47) % MCV (80-97) fL MCH (27-31) pg MCHC (31-36) g/dL RDW (10-15) % Plt Count (150-450) 10^3/uL MPV (7.4-10.4) fL Neut % (Auto) % Lymph % (Auto) % [place] % (Auto) % Eos % (Auto) % Baso % (Auto) % Absolute Neuts (auto) (1.5-7.7) 10^3/ul Absolute Lymphs (auto) (1.0-4.8) 10^3/ul Absolute Monos (auto) (0-0.8) 10^3/ul Absolute Eos (auto) (0-0.6) 10^3/ul Absolute Basos (auto) (0-0.2) 10^3/ul Absolute Nucleated RBC 10^3/ul Nucleated RBC % Sodium (135-145) mmol/L Potassium (3.5-5.0) mmol/L Chloride (101-111) mmol/L Carbon Dioxide (22-32) mmol/L Anion Gap (2-11) mmol/L BUN (6-24) mg/dL Creatinine (0.51-0.95) mg/dL Est GFR ( Amer) (>60) Est GFR (Non-Af Amer) (>60) BUN/Creatinine Ratio (8-20) Glucose (70-100) mg/dL Lactic Acid (0.5-2.0) mmol/L Calcium (8.6-10.3) mg/dL Magnesium (1.9-2.7) mg/dL Total Bilirubin (0.2-1.0) mg/dL AST (13-39) U/L ALT (7-52) U/L Alkaline Phosphatase (34-104) U/L Total Creatine Kinase (10-223) U/L Troponin I (<0.04) ng/mL C-Reactive Protein (<8.01) mg/L B-Natriuretic Peptide 101 H (<=100) pg/mL Total Protein (6.4-8.9) g/dL Albumin (3.2-5.2) g/dL Globulin (2-4) g/dL Albumin/Globulin Ratio (1-3) TSH (0.34-5.60) mcIU/mL Serum Alcohol (<10) mg/dL Result Diagrams: 08/13/19 14:18 08/13/19 14:18 Lab Statement: Any lab studies that have been ordered have been reviewed, and results considered in the medical decision making process. - Radiology CXR Radiology Interpretation Completed By: Radiologist Summary of Radiographic Findings: CXR shows no active cardiopulmonary disease. ED physician has reviewed this report. - CT CTA Chest/Thorax CT Interpretation Completed By: Radiologist Summary of CT Findings: CT Chest shows NO PULMONARY ARTERIAL FILLING DEFECT TO SUGGEST PULMONARY EMBOLISM. ED physician has reviewed this report - EKG 1415 Cardiac Rate: NL - 80 bpm EKG Rhythm: Sinus Rhythm Summary of EKG Findings: EKG at 1415 shows normal sinus rhythm of 80 bpm. No STEMI. An ED physician has reviewed this report. Re-Evaluation - Re-Evaluation First Eval Re-Evaluation Time: 17:35 Change: Unchanged Comment: We discussed all findings and plan for discharge. Dizzy Course/Dx - Course Course Of Treatment: 83 year old female reports to the ED accompanied by her daughter with a chief complaint of dizziness starting this morning. She is not in pain at the time of arrival. Per daughter, she has been coughing a lot. She fell a few weeks ago and broke a rib. She fell again last week, and broke another rib. Finally she fell down yesterday, but was not injured. Per patient, she is not feeling weak, but is feeling dizziness when bending down. Pt denies any fever, chills, erythema of eyes, sore throat, CP, SOB, cough, abdominal pain , N/V, dysuria, hematuria, myalgia, edema, rash, or loss of appetite. She has a PMHx of lung blood clots. She does not smoke or drink. Physical exam shows crackles in the lower right lung; it is otherwise normal. EKG at 1415 shows normal sinus rhythm of 80 bpm. No STEMI. CTA Chest/Thorax shows NO PULMONARY ARTERIAL FILLING DEFECT TO SUGGEST PULMONARY EMBOLISM. CXR shows no active cardiopulmonary disease. Lab results show MCH of 32, BUN 27, Creatinine 1.31, BUN/Creatinine ratio 20.6, glucose 162, magnesium 1.8, b-natriuretic peptide 101 , and TSH .14. UA is negative. Toxicology reveals negative serum alcohol. Diagnosis is orthostasis and dehydration. Follow up with dr Connell in 3 days. Encourage increased fluid intake. Patient understands and agrees to plans of discharge. - Diagnoses Provider Diagnoses: Orthostasis, Dehydration Discharge ED - Sign-Out/Discharge Documenting (check all that apply): Patient Departure - discharge - Discharge Plan Condition: Stable Disposition: HOME Patient Education Materials: Dehydration (ED), Hypotension (ED) Referrals: Meghann Connell MD [Primary Care Provider] - 2 Days Additional Instructions: Follow up with Dr. Connell in 2-3 days concerning today's visit. Please try to keep your fluid intake high. Return to the emergency department for any new or worsening symptoms. - Billing Disposition and Condition Condition: STABLE Disposition: Home - Attestation Statements Document Initiated by Tom: Yes Documenting Scribe: Sanya Unger Provider For Whom Tom is Documenting (Include Credential): Jad Goodman MD. Scribe Attestation: Sanya Chong scribed for Jad Goodman MD. on 08/24/19 at 2134. Scribe Documentation Reviewed: Yes Provider Attestation: The documentation as recorded by the wandaibSanya olson accurately reflects the service I personally performed and the decisions made by Jad orr MD. Status of Scribe Document: Viewed
[2019-08-13 17:56] VITALS: BP 131/74
== END 2019-08-13 17:50 | disposition home or self-care (01) ==
LOC: ED 12:31
DX: I95.1 Orthostatic hypotension (principal); E86.0 Dehydration; R42 Dizziness and giddiness; R05 Cough; Z79.01 Long term (current) use of anticoagulants; E03.9 Hypothyroidism, unspecified; E78.00 Pure hypercholesterolemia, unspecified; I10 Essential (primary) hypertension; K21.9 Gastro-esophageal reflux disease without esophagitis; F32.9 Major depressive disorder, single episode, unspecified; Z87.891 Personal history of nicotine dependence
CPT/HCPCS: 36415; 71046; 71275; 80053; 80320; 81003; 82550; 83605; 83735; 83880; 84443; 84484; 85025; 86140; 93005; 99283; G0480; Q9967

== ENCOUNTER 2019-09-02 12:14 | Emergency (ER) | payer MEDICARE, OTHER ==
--- OUTSIDE RECORDS SUMMARY | 2019-09-02 12:21 | XMS REPORT | Continuity of Care Document ---
:1935 External Reference #:[id number] Author Name Princess Wu MD (transmitted by agent of provider Hazel Russell) Address [address] [place] [address] Care Team Providers Name Role Phone [facility] - Care Team Information [employer] Grey Martinez MD - Hand Surgery Care Team Information [employer] Meghann Connell M.D. - Family Medicine Care Team Information [employer] Problems Active Problems Provider Date Giant cell [...] Essential hypertension Rios Yun M.D.,FACP Onset: 09/18/2018 Social History Type Date Description Comments Sex Unknown Tobacco Use Start: Unknown End: Former Cigarette Smoker Unknown Smoking Status Reviewed: 09/01/19 Former Cigarette Smoker ETOH Use 12/03/2017 Denies [...] Connell MD 06/29/2019 e area 4x/day as [id number]/GM-% needed Ointment Acetaminophen 2 tabs po q 6hrs 90tabs Meghann Connell MD 06/29/2019 325mg prn pain Tablets Atorvastatin Calcium take 1 tablet by 90tabs Meghann Connell MD 12/23/2018 mouth every night 10mg Tablets at bedtime Norvasc 1 by mouth every 90tabs Rios Mcdowell 09/07/2018 2.5mg Tablets day Lanette Yun,FACP Aspirin Regimen Low one tab by mouth Rios Mcdowell 09/07/2018 Dose Adult daily Lanette Yun,FACP 81mg Tablets DR Transport Chair use as needed when 1units Z86.73 [facility] M23.231 Fluticasone Propionate 2 sprays each 48gm Rani Munoz, 04/03/2018 50mcg/Act nostril twice a day MGomezDGomez Suspension as needed Myrbetriq take 1 tablet by 180tabs Meghann Connell MD 12/03/2017 25mg Tablets ER 24HR mouth twice a day Effexor XR once at bedtime 90caps Meghann Connell MD 06/02/2017 37.5mg Caps ER 24HR Tylenol PM at at bedtime Unknown Tablets Tylenol PM Extra Strength q hs Unknown 500-25mg Tablets Melatonin ER 1 tab at bedtime Unknown 5mg Tablets ER Iron 1 by mouth every Unknown 65mg Tablets day Vitamin D 3 Unknown Omeprazole Take 1 Capsule By 30caps Meghann Connell MD 20mg Capsules DR Mouth Every Day Levothyroxine Sodium 1 by mouth every 90tabs Meghann Connell MD 125mcg day Tablets Effexor XR 1 cap by mouth in 90caps Meghann Connell MD 75mg Caps ER 24HR in the morning History Medications Fluconazole one by mouth march 1ta N76.2 Paula Arenas, 04/27/2019 - 150mg N.P. 06/28/2019 Tablets Nystatin apply to affected 45gm Meghann Connell MD 03/18/2019 - [id number]/GM area four times a 06/28/2019 Ointment day Clotrimazole apply to affected 45gm B35.4 Paula Arenas, 03/08/2019 - 1% Cream area of skin N.P. 06/28/2019 twice a day for 7-10 days Macrobid 1 by mouth twice 14caps N39.0 Meghann Connell MD 03/08/2019 - 100mg Capsules a day x 7 days 04/21/2019 Immunizations CPT Code Status Date Vaccine Reaction Lot # [id number] Given 08/21/2018 Influenza Virus Vaccine, Quadrivalent, Split, Preservative Free [id number] Given 08/12/2018 Pneumonia Vaccine Pt. tolerated well. [id number] Given 08/29/2017 Influenza Virus Vaccine, administered at [facility] Quadrivalent, Split, Preservative Free 98719 Given 08/19/2017 Pneumococcal Conjugate Vaccine 13 Valent For Intramuscular Use Vital Signs Date Vital Result Comment 09/01/2019 10:15am Height 60 inches 5'0" Weight 153.00 lb Heart Rate 86 /min BP Systolic Sitting 117 mmHg BP Diastolic Sitting 67 mmHg BMI (Body Mass Index) 29.9 kg/m2 06/29/2019 2:26pm Height 60 inches 5'0" Weight 155.00 lb Heart Rate 89 /min BP Systolic Sitting 117 mmHg Rue reg cuff BP Diastolic Sitting 73 mmHg Rue reg cuff O2 % BldC Oximetry 96 % BMI (Body Mass Index) 30.3 kg/m2 Results Test Date Facility Test Result H/L Range Note Laboratory test [facility] In House Hemoglobin A1c 6.5 5-7 finding [address] [facility] White Blood 5.6 10^3/uL Normal 3.5-10.[address] [place] [address] [phone] Red Blood Count 4.46 10^6/uL Normal 3.70-4.87 Hemoglobin 14.4 g/dL Normal 12.0-16.0 Hematocrit 42 % Normal 35-47 Mean Corpuscular Volume 93 fL Normal 80-97 Mean Corpuscular Hemoglobin 32 pg High 27-31 Mean Corpuscular HGB Conc 35 g/dL Normal 31-36 Red Cell Distribution Width 13 % Normal 10-15 Platelet Count 227 10^3/uL Normal 150-450 Mean Platelet Volume 7.8 fL Normal 7.4-10.4 Abs Neutrophils 3.3 10^3/uL Normal 1.5-7.7 Abs Lymphocytes 1.6 10^3/uL Normal 1.0-4.8 Abs Monocytes 0.5 10^3/uL Normal 0-0.8 Abs Eosinophils 0.2 10^3/uL Normal 0-0.6 Abs Basophils 0.0 10^3/uL Normal 0-0.2 Abs Nucleated RBC 0.0 10^3/uL Granulocyte % 58.2 % Lymphocyte % 28.0 % Monocyte % 9.4 % Eosinophil % 3.7 % Basophil % 0.7 % Nucleated Red Blood Cells % 0.1 Laboratory test 08/13/2019 [facility] B-Type 101 pg/mL High <= [address] [place] [address] Peptide BNP [phone] Comp Metabolic 08/13/2019 [facility] Sodium 137 Normal 135- [address] mmol/[place] [address] [phone] Potassium 3.8 mmol/L Normal 3.5-5.0 Chloride 106 mmol/L Normal 101-111 Co2 Carbon Dioxide 26 mmol/L Normal 22-32 Anion Gap 5 mmol/L Normal 2-11 Glucose 162 mg/dL High 70-100 Blood Urea Nitrogen 27 mg/dL High 6-24 Creatinine 1.31 mg/dL High 0.51-0.95 BUN/Creatinine Ratio 20.6 High 8-20 Calcium 9.2 mg/dL Normal 8.6-10.3 Total Protein 6.7 g/dL Normal 6.4-8.9 Albumin 3.8 g/dL Normal 3.2-5.2 Globulin 2.9 g/dL Normal 2-4 Albumin/Globulin Ratio 1.3 Normal 1-3 Total Bilirubin 0.50 mg/dL Normal 0.2-1.0 Alkaline Phosphatase 83 U/L Normal 34-104 Alt 15 U/L Normal 7-52 Ast 16 U/L Normal 13-39 Egfr Non- 38.8 >60 Egfr 46.9 >60 1 Laboratory test 08/13/2019 [facility] Magnesium 1.8 mg/dL Low 1.9-2.[address] [place] [address] [phone] Creatine Kinase(CK) 73 U/L Normal 10-223 Alcohol < 10 mg/dL Normal <10 C Reactive Protein 4.18 mg/L Normal <8.01 Troponin-I (TnI) 0.01 ng/mL <0.04 2 TSH (Thyroid Stim Horm) 0.14 mcIU/mL Low 0.34-5.60 Lactic Acid 1.6 mmol/L Normal 0.5-2.0 3 Urinalysis Profile 08/13/2019 [facility] Urine Color Yellow [address] [place] [address] [phone] Urine Appearance Clear Urine Specific [place] 1.014 Normal 1.010-1.030 Urine pH 5.0 Normal 5-9 Urine Urobilinogen Negative Negative Urine Ketones Negative Negative Urine Protein Negative Negative Urine Leukocytes Negative Negative Urine Blood Negative Negative Urine Nitrite Negative Negative Urine Bilirubin Negative Negative Urine Glucose Negative Negative Urine Culture And 03/08/2019 [facility] Urine Culture SEE RESULT 4, [address] [place] [address] [phone] Ua Routine 03/08/2019 [employer] In House Ua Specific 1.020 [place] Ua PH 5 Ua Color dark yellow Ua Appera cloudy Ua WBC ++ Ua Protein trace Ua Glucose normal Ua Ketones negative Ua Bilirubin negative Ua Urobilinogen negative Ua Nitrite negative Ua Occult Blood trace 1 Because ethnic data is not always readily [...] 15-29 5 Kidney failure <15 (or dialysis) 2 Troponin-I testing on Plasma Separator Tubes (PST) has a known false positive rate of 0.20-0.40%. All positive troponins reflex immediately to secondary confirmatory testing. Using the [employer] DxI 800 Access Immunoassay systems, the 99th percentile upper reference limit was demonstrated to be < 0.03 ng/mL. 3 [facility] Severe Sepsis and Septic Shock Management Bundle Measure requires all lactic acids initially measuring >2.0 mmol/L be repeated. 4 [id number] 5 SEE RESULT BELOW Name: MIREYA COREAS : [address]: Meghann Connell MD Acct: [id number] Unit: [id number] AGE: 83 Location: [facility] Re03/08/19 SEX: F Status: REG REF SPEC: [id number] FLORES: 03/08/19 [facility] DR: Meghann Connell MD REQ: [id number] RECD: 03/08/19 STATUS: COMP _ SOURCE: URINE SPDES: ORDERED: Urine Culture COMMENTS: [id number] Urine Source: Random Procedure Result Reported Site Urine Culture Final 03/10/19925 ML Organism 1 ESCHERICHIA COLI [place] Count 10-25,000 (Moderate) CFU/ML 1. ESCHERICHIA COLI [...] . END OF REPORT DEPARTMENT OF PATHOLOGY, [address] [place] [address] Enrico Lucero M.D. Director [facility] # [id number] Procedures Date Code Description Status 06/29/2018 [id number] Diabetic Retinal Eye Exam Completed 10/09/2012 [id number] Mammogram Completed Medical Devices Description No Information Available Encounters Type Date Location Provider Dx Diagnosis Office Visit 06/29/2019 [facility] Internal Meghann Connell MD S22.31xD Fracture of one 2:20p Medicine - Ccmob rib, right side, subs for fx w routn heal N76.2 Acute vulvitis B30.9 Viral conjunctivitis, unspecified Office Visit 04/27/2019 1:20p [facility] Internal Paula Arenas, N76.2 Acute vulvitis Medicine - N.P. Ccmob Office Visit 04/21/2019 1:40p [facility] Internal Meghann Connell MD I10 Essential (primary) Medicine - hypertension Ccmob I80.01 Phlebitis and thombophlb of superfic vessels of r low extrem K59.00 Constipation, unspecified R41.81 Age-related cognitive decline Office Visit 03/08/2019 2:40p [facility] Internal Meghann Connell MD B35.4 Tinea corporis Medicine - Ccmob N39.0 Urinary tract infection, site not specified Assessments Date Code Description Provider 09/01/2019 E11.65 Type 2 diabetes mellitus with hyperglycemia Princess Wu MD 09/01/2019 S22.31xD Fracture of one rib, right side, subsequent Princess Wu MD encounter for fracture with routine healing 09/01/2019 R29.6 Repeated falls Princess Wu MD 09/01/2019 E03.9 Hypothyroidism, unspecified Princess Wu MD 09/01/2019 R42 Dizziness and giddiness Princess Wu MD 09/01/2019 Z23 Encounter for immunization Princess Wu MD 09/01/2019 L02.222 Furuncle of back [any part, except buttock] Princess Wu MD 09/01/2019 R13.10 Dysphagia, unspecified Princess Wu MD 06/29/2019 S22.31xD Fracture of one rib, right side, subsequent Meghann Connell MD encounter for fracture with routine healing 06/29/2019 B30.9 Viral conjunctivitis, unspecified Meghann Connell MD 06/29/2019 N76.2 Acute vulvitis Meghann Connell MD 04/27/2019 N76.2 Acute vulvitis Paula Areans, N.P. 04/21/2019 I10 Essential (primary) hypertension Meghann Connell MD 04/21/2019 I80.01 Phlebitis and thrombophlebitis of superficial Meghann Connell MD vessels of rig 04/21/2019 K59.00 Constipation, unspecified Meghann Connell MD 04/21/2019 R41.81 Age-related cognitive decline Meghann Connell MD 03/08/2019 B35.4 Tinea corporis Meghann Connell MD 03/08/2019 N39.0 Urinary tract infection, site not specified Meghann Connell MD Plan of Treatment 09/01/2019 - Princess Wu MDE11.65 Type 2 diabetes mellitus with hyperglycemiaComments:RTO in 3 months for jfiwvoT76.31xD Fracture of one rib, right side, subsequent encounter for fracture with routine rjiwuppH12.6 Repeated fallsComments:Continue with physical therapy and be more aware of jospgocewpfhF47.9 Hypothyroidism, unspecifiedComments:TSH was low on hospital recordsDecrease to levothyroxine 100mg bkqstB14 Dizziness and gupnkxtktD86 Encounter for aglxwuxtihrrH84.222 Furuncle of back [any part, except buttock] Comments:plastic sugery referralReferral:Elvin Boykin MD, TsyiochvkzdU08.10 Dysphagia, unspecifiedNew Orders:Swallowing Evaluation, 3 Phase, Ordered: 09/01/19 Functional Status Functional Condition Comment Date Status [...] Mental Status Description No Information Available Referrals Refer to Reason for Referral Status Appt Date Elvin Boykin MD lesion removal Created [address] [place] [address] [phone]
[2019-09-02 13:04] VITALS: BP 137/73
[2019-09-02] MEDS ORDERED: Lidocaine 1% MPF ** 5 ML VIAL INJ ONE (13:05)
--- NOTE | 2019-09-02 13:07 | UC ---
Skin Complaint HPI - HPI Summary HPI Summary: 83-year-old female who has had a hard lump on the left side of her neck for more than 20 years according to her daughter who has experienced the area becoming more red, warm, tender and with some pus drainage over the past week and a half. She denies any fever or chills. - History of Current Complaint Chief Complaint: UCSkin Time Seen by Provider: 09/02/19 12:21 Stated Complaint: SKIN ISSUE Hx Obtained From: Patient, Family/Accountant Supervisor - The patient lives at home with her daughter. ?: No Onset/Duration: Gradual Onset Skin Exposure Onset/Duration: Worse Since: - The area has become worse over the past week to 10 days however she has had a hard lump there for years. Timing: Constant Onset Severity: Mild Current Severity: Moderate Pain Intensity: 0 Location: Discrete - Left side of neck. Character: Swelling, Redness, Painful Aggravating Factor(s): Touch Alleviating Factor(s): Nothing Associated Signs & Symptoms: Positive: Drainage - The area had some yellow drainage today., Tenderness - Allergy/Home Medications Allergies/Adverse Reactions: Allergies Allergy/AdvReac Type Severity Reaction Status Date / Time azathioprine Allergy Unknown Verified 09/02/19 13:04 Reaction Details bupropion [From Wellbutrin] Allergy Unknown Verified 09/02/19 13:04 Reaction Details haloperidol [From Haldol] Allergy Altered Verified 09/02/19 13:04 Mental Status methotrexate Allergy Unknown Verified 09/02/19 13:04 Reaction Details mycophenolate mofetil Allergy Unknown Verified 09/02/19 13:04 [From CellCept] Reaction Details PMH/Surg Hx/FS Hx/Imm Hx Previously Healthy: Yes Endocrine History: Thyroid Disease Cardiovascular History: Hypertension Other History Of: Anticoagulant Therapy - Surgical History Surgical History: Yes Surgery Procedure, Year, and Place: Hysterectomy, bilat carpal tunnel, cataracts ; choley; right hip surgery Other Surgical History: IVC FILTER - Family History Known Family History: Positive: Diabetes, Other - CVA, Lung CA. - Social History Occupation: Retired Alcohol Use: None Substance Use Type: None Smoking Status (MU): Former Smoker Type: Cigarettes Have You Smoked in the Last Year: No When Did the Patient Quit Smoking/Using Tobacco: 50 years ago Household Exposure Type: Cigarettes - Immunization History Most Recent Influenza Vaccination: 08/19/18 Most Recent Tetanus Shot: 2013 Most Recent Pneumonia Vaccination: 2018 Review of Systems All Other Systems Reviewed And Are Negative: Yes Skin: Positive: Other - The lump on the left side of the patient's neck has been hard for about 20 years however over the past 10 days has become warm, red , tender and some yellow drainage today. Is Patient Immunocompromised?: No Physical Exam Triage Information Reviewed: Yes Appearance: Well-Appearing, No Pain Distress, Well-Nourished Vital Signs: Initial Vital Signs Temp 99.1 F 09/02/19 12:56 Pulse 93 09/02/19 12:56 Resp 18 09/02/19 12:56 BP 137/73 09/02/19 12:56 Pulse Ox 99 09/02/19 12:56 Vital Signs Reviewed: Yes Neck: Positive: Supple, Nontender, No Lymphadenopathy Skin: Positive: Other - Patient has a lump left neck which is approximately 1.0 cm in diameter, raised, warm red and tender. There is a small pocket of exudate superficially. Procedures - Sedation Patient Received Moderate/Deep Sedation with Procedure: No - Incision and Drainage Left Posterior Lateral Neck Site: left-sided neck. Anesthesia: Local, Lidocaine Instrument(s): Scalpel Course/Dx - Course Course Of Treatment: After instilling lidocaine 1% plain the abscess was opened using a #11 sterile blade. A moderate amount of yellow pus was expressed. It was then probed or more loculations and more pus was expressed. The patient tolerated the procedure well. The daughter is to continue warm moist compresses to the area 4 -6 times a day for 20 minutes each time. She may change dressings as needed. I 'm starting her on Bactrim DS one tab by mouth twice a day 10 days. The daughter assured me she was not allergic to that. They are to follow-up with her primary care provider on Friday for recheck unless the area has almost completely healed. I did advise the daughter since the lump has been there for more than 20 years she is to follow-up with the animal physiologist for further care. The patient and daughter are agreeable to that. - Diagnoses Provider Diagnosis: Abscess of skin of neck Discharge ED - Sign-Out/Discharge Documenting (check all that apply): Patient Departure All imaging exams completed and their final reports reviewed: No Studies - Discharge Plan Condition: Good Disposition: HOME Prescriptions: Sulfamethox/Trimethoprim DS* [Bactrim DS 800/160 TAB*] 1 tab PO BID 10 Days #20 tab Patient Education Materials: Abscess (ED) Referrals: Meghann Connell MD [Primary Care Provider] - Additional Instructions: Warm moist compresses to the area 4-6 times a day for 20 minutes each time. Change the dressing each time. Definite follow-up with your primary care provider on Friday for a recheck unless the area seems to be almost resolved. Take the Bactrim with food. Make an appointment with a animal physiologist for further follow-up of the lump that has been there for years. - Billing Disposition and Condition Condition: GOOD Disposition: Home
== END 2019-09-02 13:42 | disposition home or self-care (01) ==
LOC: UCEAST 12:14
DX: L02.11 Cutaneous abscess of neck (principal); I10 Essential (primary) hypertension; Z88.8 Allergy status to other drugs, medicaments and biological substances; Z87.891 Personal history of nicotine dependence
CPT/HCPCS: 10060; 87070; 87076; 87205; 99212; G0463

== ENCOUNTER 2019-09-21 05:36 | Observation (INO) | payer MEDICARE, OTHER ==
--- OUTSIDE RECORDS SUMMARY | 2019-09-21 05:45 | XMS REPORT | Continuity of Care Document ---
:1935 External Reference #:[id number] Author Name Demetrius Whitehead MD Address [address] [place] [address] Care Team Providers Name Role Phone Ko ALBRECHT, - Family Medicine Care Team Information Painting Worker Bryce Gama, Princess Care Team Information Painting Worker [phone] Problems Description No Information Available Social History Type Date Description Comments Sex Unknown Tobacco Use Start: Unknown End: Former Cigarette Smoker 1/2 quit at age 21 Unknown Pack Daily Tobacco Use Start: Unknown Never Smoked Cigars Tobacco Use Start: Unknown Never Smoked A Pipe Smokeless Tobacco Never Used Smokeless Tobacco ETOH Use Denies alcohol use Allergies, Adverse Reactions, Alerts Active Allergies Reaction Severity Comments Date Haldol 09/16/2019 Methotrexate 09/16/2019 Bupropion 09/16/2019 Mycophenolate 09/16/2019 Azathioprine 09/16/2019 Medications Active Medications SIG Qnty Indications Ordering Date Provider Levothyroxine Sodium Take 1 tab by 30taharmony Wu M.D., 09/02/2019 mouth daily Princess 100mcg Tablets Nystatin-Triamcinolone apply to 15unpaulette Connell MD, 06/29/2019 affected area 108563-9.1Unit/GM-% 4x/day as needed Ointment Acetaminophen 2 tabs po q 6hrs 90tabs Ko ALBRECHT, 06/29/2019 325mg prn pain Tablets Atorvastatin Calcium take 1 tablet by 90taharmony Connell MD, 12/23/2018 10mg mouth every Tablets night at bedtime Aspirin Regimen Low one tab by mouth Sergio Yun 09/07/2018 Dose Adult daily M.July 81mg Tablets DR Stearns take 1 tablet by 180tabs Ko ALBRECHT, 12/03/2017 25mg Tablets ER mouth twice a 24HR day Effexor XR once at bedtime 90chelsi Connell MD, 06/02/2017 37.5mg Caps ER 24HR Effexor XR 1 cap by mouth 90chelsi Connell MD, 75mg Caps ER in in the 24HR morning Omeprazole Take 1 Capsule 30capmp Connell MD, 20mg Capsules By Mouth Every DR Day Tylenol PM Extra q hs Unknown Strength 500-25mg Tablets D3 Adult daily Unknown 25mcg (1000 Ut) Chewtabs History Medications Ofloxacin (Ophthalmic) 1 drop in left 5units B30.9 Ko ALBRECHT, 2018 - eye 4x/day x 5 09/15/2019 0.3% Solution days Immunizations Description No Information Available Vital Signs Date Vital Result Comment 09/16/2019 9:22am Weight 153.00 lb Weight 69.401 kg Height 60 inches 5'0" Height in cm's 152.4 cm BMI (Body Mass Index) 29.9 kg/m2 Results Test Acquired Date Facility Test Result H/L Range Note Laboratory test 09/16/2019 [facility] Surgical < pending> finding c/o Department [place] [address] [phone] Procedures Date Code Description Status 09/16/2019 99346 Exc Cortez Les 3.1-4.0CM Scalp Or Neck Completed Medical Devices Description No Information Available Encounters Type Date Location Provider Dx Diagnosis Office Visit 09/16/2019 [facility] Demetrius Whitehead MD L72.3 Sebaceous cyst 9:15a 11/10/07 L03.221 Cellulitis of neck Assessments Date Code Description Provider 09/16/2019 L72.3 Sebaceous cyst Demetrius Whitehead MD 09/16/2019 L03.221 Cellulitis of neck Demetrius Whitehead MD Plan of Treatment Future Appointment(s):09/28/2019 11:00 am - Prema Douglass PA-C at [facility] - Demetrius Whitehead MDL72.3 Sebaceous cystComments:Excision of lesion, recheck back 10 days for suture removal.L03.221 Cellulitis of neck Functional Status Description No Information Available Mental Status Description No Information Available Referrals Description No Information Available
--- OUTSIDE RECORDS SUMMARY | 2019-09-21 05:45 | XMS REPORT | Continuity of Care Document ---
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 - Family Medicine Care Team Information Pourer Bull Ladle Problems Active Problems Provider Date Giant cell [...] Former Cigarette Smoker Unknown Smoking Status Reviewed: 09/07/19 Former Cigarette Smoker ETOH Use 12/03/2017 Denies [...] Provider Levothyroxine Sodium Take 1 tab by mouth 30tabs Princess 09/02/2019 daily MD Bryce 100mcg Tablets Ofloxacin 1 drop in left eye 5ml B30.9 Meghann Connell MD 06/29/2019 (Ophthalmic) 4x/day x 5 days 0.3% Solution Nystatin-Triamcinolon apply to affected 15gm Meghann Connell MD 06/29/2019 e area 4x/day as 831438-1.1Unit/GM-% needed Ointment Acetaminophen 2 tabs po q [...] Fluticasone Propionate 2 sprays each 48gm Rani Munoz M.D. 04/03/2018 nostril twice a day 50mcg/Act Suspension as needed Myrbetriq take 1 tablet by 180tabs Meghann Connell MD 12/03/2017 25mg Tablets ER mouth twice a day 24HR Effexor XR once at bedtime 90caps Meghann Connell, MD 06/02/2017 37.5mg Caps ER 24HR Effexor XR 1 cap by mouth in in 90chelsi Connell MD 75mg Caps ER 24HR the morning Omeprazole Take 1 Capsule By 30chelsi Connell MD 20mg Capsules DR Mouth Every Day Vitamin D 3 Unknown Iron 1 by mouth every day Unknown 65mg Tablets Melatonin ER 1 tab at bedtime Unknown 5mg Tablets ER Tylenol PM Extra q hs Unknown Strength 500-25mg Tablets Tylenol PM at at bedtime Unknown Tablets History Medications Fluconazole one by mouth march 1tabs N76.2 Paula Arenas, 04/27/2019 - 150mg N.P. 06/28/2019 Tablets Nystatin apply to affected 45gm Meghann Connell MD 03/18/2019 - area four times a 06/28/2019 247159Tquk/GM day Ointment Immunizations CPT Code Status Date Vaccine Reaction Lot # [id number] Given 08/21/2018 Influenza Virus Vaccine, Quadrivalent, Split, Preservative Free [id number] Given 08/12/2018 Pneumonia Vaccine Pt. tolerated well. [id number] Given 08/29/2017 Influenza Virus Vaccine, administered at [facility] Quadrivalent, Split, Preservative Free 06169 Given 08/19/2017 Pneumococcal Conjugate Vaccine 13 Valent For Intramuscular Use Vital Signs Date Vital Result Comment 09/07/2019 11:28am Height 60 inches 5'0" Weight 152.00 lb Heart Rate 92 /min BP Systolic Sitting 115 mmHg BP Diastolic Sitting 69 mmHg Body Temperature 97.5 F O2 % BldC Oximetry 94 % BMI (Body Mass Index) 29.7 kg/m2 09/01/2019 10:15am Height 60 inches 5'0" Weight 153.00 lb Heart Rate 86 /min BP Systolic Sitting 117 mmHg BP Diastolic Sitting 67 mmHg BMI (Body Mass Index) 29.9 kg/m2 Results Test Date Facility Test Result H/L Range Note Wound [facility] Wound/Misc SEE RESULT 1, 2 Culture/Sensi [address] [place] [address] Stain [phone] Laboratory test Social Media Director In House Hemoglobin A1c 6.5 5-7 finding 9 CBC Auto Diff [facility] White Blood 5.6 10^3/uL Normal 3.5-10.[address] [place] [address] [phone] Red Blood Count 4.46 10^6/uL Normal 3.70-4.87 [...] Blood Cells % 0.1 Laboratory test 08/13/2019 [facility] B-Type 101 pg/mL High <= [address] [place] [address] Peptide BNP [phone] Comp Metabolic 08/13/2019 [facility] Sodium 137 Normal 135- [address] mmol/[place] [address] [phone] Potassium 3.8 mmol/L Normal 3.5-5.0 Chloride 106 [...] Egfr Non- 38.8 >60 Egfr 46.9 >60 3 Laboratory test 08/13/2019 [facility] Magnesium 1.8 mg/dL Low 1.9-2.7 finding [address] [place] [address] [phone] Creatine Kinase(CK) 73 U/L Normal 10-223 Alcohol < 10 mg/dL Normal <10 C Reactive Protein 4.18 mg/L Normal <8.01 Troponin-I (TnI) 0.01 ng/mL <0.04 4 TSH (Thyroid Stim Horm) 0.14 mcIU/mL Low 0.34-5.60 Lactic Acid 1.6 mmol/L Normal 0.5-2.0 5 Urinalysis Profile 08/13/2019 [facility] Urine Color Yellow [address] [place] [address] [phone] Urine Appearance Clear Urine Specific [place] 1.014 Normal 1.010-1.030 Urine pH 5.0 Normal 5-9 Urine Urobilinogen Negative Negative Urine Ketones Negative Negative Urine Protein Negative Negative Urine Leukocytes Negative Negative Urine Blood Negative Negative Urine Nitrite Negative Negative Urine Bilirubin Negative Negative Urine Glucose Negative Negative 1 [id number] 2 SEE RESULT BELOW Name: MIREYA COREAS : [address]: Umer Rg MD Acct: [id number] Unit: [id number] AGE: 83 Location: [facility] Re09/02/19 SEX: F Status: DEP ER SPEC: [id number] FLORES: 09/02/[address] [facility] [address]: Belen Hidalgo NP REQ: [id number] RECD: 09/02/19 STATUS: ESTEFANI TOMPKINS DR: Meghann Rg MD _ SOURCE: NECK SPDESC: ORDERED: Culture Stain COMMENTS: [id number] Procedure Result Reported Site Wound/Misc Gram Stain Final 09/02/19- 1646 ML 3+ Epithelial Cells 2+ Neutrophils No Organisms Seen Wound/Misc Culture Final 09/05/19- 1121 ML Organism 1 FINEGOLDIA MAGNA Quantity 2+ Anaerobic sensitivities are not routinely performed. Positive isolates will be saved for one week. Please call the Microbiology Laboratory if susceptibility testing is needed. * ML - Main Lab . END OF REPORT DEPARTMENT OF PATHOLOGY, [address] [place] [address] Enrico Lucero M.D. Director [facility] # [id number] 3 Because ethnic data is not always readily [...] 15-29 5 Kidney failure <15 (or dialysis) 4 Troponin-I testing on Plasma Separator Tubes (PST) has a known false positive rate of 0.20-0.40%. All positive troponins reflex immediately to secondary confirmatory testing. Using the [employer] DxI 800 Access Immunoassay systems, the 99th percentile upper reference limit was demonstrated to be < 0.03 ng/mL. 5 [facility] Severe Sepsis and Septic Shock Management Bundle Measure requires all lactic acids initially measuring >2.0 mmol/L be repeated. Procedures Date Code Description Status 06/29/2018 709571993 Diabetic Retinal Eye Exam Completed 10/09/2012 [id number] Mammogram Completed Medical Devices Description No Information Available Encounters Type Date Location Provider Dx Diagnosis Office Visit 06/29/2019 [facility] Internal Meghann Connell MD S22.31xD Fracture of one 2:20p Medicine - Ccmob rib, right side, subs for fx w routn heal N76.2 Acute vulvitis B30.9 Viral conjunctivitis, unspecified Office Visit 04/27/2019 1:20p [facility] Internal Paula Arenas, N76.2 Acute vulvitis Medicine - N.P. Ccmob Office Visit 04/21/2019 1:40p [facility] Internal Meghann Connell MD I10 Essential (primary) Medicine - hypertension Ccmob I80.01 Phlebitis and thombophlb of superfic vessels of r low extrem K59.00 Constipation, unspecified R41.81 Age-related cognitive decline Assessments Date Code Description Provider 09/07/2019 R23.8 Other skin changes Princess Wu MD 09/07/2019 E03.9 Hypothyroidism, unspecified Princess Wu MD 09/07/2019 R29.6 Repeated falls Princess Wu MD 09/01/2019 E11.65 Type 2 diabetes mellitus with [...] encounter for fracture with routine healing 06/29/2019 N76.2 Acute vulvitis Meghann Connell MD 06/29/2019 B30.9 Viral conjunctivitis, unspecified Meghann Connell MD 04/27/2019 N76.2 Acute vulvitis Paula Arenas, N.P. 04/21/2019 I10 Essential (primary) hypertension Meghann Connell MD 04/21/2019 I80.01 Phlebitis and thrombophlebitis of superficial Meghann Connell MD vessels of rig 04/21/2019 K59.00 Constipation, unspecified Meghann Connell MD 04/21/2019 R41.81 Age-related cognitive decline Meghann Connell MD Plan of Treatment Future Appointment(s):09/20/2019 4:30 pm - Nasir Peters MD at [facility] Ebfjeczyujz98/29/2019 - Princess Wu MDR23.8 Other skin changesComments: Plan to follow up with Derm- sooner appt if possiblec/w abxmonitor for feverUC for wzrzidjigW21.9 Hypothyroidism, mfpqrjkngzhA22.6 Repeated falls Functional Status Functional Condition Comment Date Status [...] to Reason for Referral Status Appt Date Nasir Peters MD lesion removal Sent 09/20/2019 [facility], [place] [address] [phone]
[2019-09-21 06:28] LABS: ABS Basophils 0.1 10^3/ul (0-0.2); ABS Eosinophils 0.4 10^3/ul (0-0.6); ABS Lymphocytes 2.4 10^3/ul (1.0-4.8); ABS Monocytes 0.5 10^3/ul (0-0.8); ABS Neutrophils 2.5 10^3/ul (1.5-7.7); Hematocrit 40 % (35-47); Hemoglobin 13.7 g/dL (12.0-16.0); Lymphocyte % 41.2 %; Mean Corpuscular HGB Conc 34 g/dL (31-36); Mean Corpuscular Hemoglobin 32 pg (27-31); Mean Corpuscular Volume 94 fL (80-97); Mean Platelet Volume 7.2 fL (7.4-10.4); Nucleated Red Blood Cells % 0.1; Platelet Count 208 10^3/uL (150-450); Red Blood Count 4.27 10^6 /uL (3.70-4.87); Red Cell Distribution Width 14 % (10-15); White Blood Count 5.9 10^3/uL (3.5-10.8)
[2019-09-21 06:33] LABS: INR 1.05 (0.82-1.09)
[2019-09-21 06:44] LABS: Albumin 3.6 g/dL (3.2-5.2); Albumin/Globulin Ratio 1.2 (1-3); BUN/Creatinine Ratio 19.9 (8-20); Calcium 9.3 mg/dL (8.6-10.3); EGFR African American 43.1 (>60); EGFR Non-African American 35.6 (>60); Globulin 3.1 g/dL (2-4); Total Bilirubin 0.3 mg/dL (0.2-1.0); Total Protein 6.7 g/dL (6.4-8.9)
[2019-09-21 06:45] LABS: Troponin I 0.01 ng/mL (<0.04)
--- NOTE | 2019-09-21 07:10 | ED ---
Throat Pain/Nasal Congestion - HPI Summary HPI Summary: 83-year-old female with a history of stroke 12 years ago and TIAs presenting to the ED with jaw pain occurred around 3 AM this morning. She took one 500 mg Tylenol at 3 AM and another at 5 AM. She lives at home with her daughter. She was able to tell her daughter about her job pain and was brought to the emergency room. Her troponins since resolved. She did have a fluoroscopy swallowing evaluation completed yesterday, however her daughter states she is concerned about her heart and possibly another stroke and does not feel this is related to her swallowing evaluation. Pt denies any pain currently. Denies any CP, SOB, neuro symptoms and states when jaw pain was present, she did not have diaphoresis, visual changes, MOON, confusion, memory loss, weakness, and had no falls. She recalls the event and states the jaw pain started in her mandible and radiated to her cheek bones. Denies other radiation. Symptoms resolved after 2 tylenol at home. Multiple falls at home per daughter, but no adverse effects, other injuries. No falls this morning. Fluoroscopy swallow evaluation performed yesterday by speech pathology. No pain yesterday during swallow evaluation Left sided neck cyst excision last week - no known complications and no pain to this area. Denies use of blood thinners d/t hx of falling. Hx of a fib with IVC filter. - History of Current Complaint Chief Complaint: EDGeneral Time Seen by Provider: 09/21/19 05:58 Hx Obtained From: Patient, Family/Energy Operations Vice President Onset/Duration: Sudden Onset Severity: Moderate - currently resolved Associated Signs And Symptoms: Positive: Dysphagia - at baseline - recent swallow evaluation yesterday. Negative: Drooling, Wheezing, Hoarseness, Sinus Discomfort, Nasal Discharge - Epiglottits Risk Factors Epiglottis Risk Factors: Negative - Allergies/Home Medications Allergies/Adverse Reactions: Allergies Allergy/AdvReac Type Severity Reaction Status Date / Time azathioprine Allergy Unknown Verified 09/02/19 13:04 Reaction Details bupropion [From Wellbutrin] Allergy Unknown Verified 09/02/19 13:04 Reaction Details haloperidol [From Haldol] Allergy Altered Verified 09/02/19 13:04 Mental Status methotrexate Allergy Unknown Verified 09/02/19 13:04 Reaction Details mycophenolate mofetil Allergy Unknown Verified 09/02/19 13:04 [From CellCept] Reaction Details PMH/Surg Hx/FS Hx/Imm Hx Previously Healthy: Yes Endocrine/Hematology History: Reports: Hx Anticoagulant Therapy, Hx Thyroid Disease - hypothyroidism Denies: Hx Diabetes, Hx Anemia, Other Endocrine/Hematological Disorders Cardiovascular History: Reports: Hx Hypercholesterolemia, Hx Hypertension, Other Cardiovascular Problems/Disorders - temporal arteritis Denies: Hx Pacemaker/ICD Respiratory History: Reports: Other Respiratory Problems/Disorders - SARCOIDOSIS ; hx of respiratory failure. Denies: Hx Asthma, Hx Chronic Obstructive Pulmonary Disease (COPD) GI History: Reports: Hx Gall Bladder Disease - removed, Hx Gastroesophageal Reflux Disease, Other GI Disorders - constipation/diarrhea Denies: Hx Obstructive Bowel, Hx Ulcer History: Reports: Hx Acute Renal Failure, Hx Chronic Renal Failure - stage 3 , Other Problems/Disorders - incontinence Denies: Hx Renal Disease Musculoskeletal History: Reports: Hx Back Problems, Hx Orthopedic Injury - left pelvic fracture, 2013, Other Musculoskeletal History - Hip fx and surgery jul 2016 Sensory History: Reports: Hx Cataracts, Hx Contacts or Glasses, 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 Opthamlomology History: Reports: Hx Cataracts, Hx Contacts or Glasses, 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 Neurological History: Reports: Hx Dementia - short term memory loss, Other Neuro Impairments/Disorders - HX of AMS Psychiatric History: Reports: Hx Depression - controlled w/ meds Denies: Hx Panic Disorder, Other Psychiatric Issues/Disorders - Cancer History Cancer Type, Location and Year: h/o sarcoidosis - Surgical History Surgery Procedure, Year, and Place: Hysterectomy, bilat carpal tunnel, cataracts ; choley; right hip surgery Hx Anesthesia Reactions: No - Immunization History Date of Influenza Vaccine: Fall 2012 Hx Pertussis Vaccination: No Immunizations Up to Date: Yes Infectious Disease History: No Infectious Disease History: Denies: Hx Hepatitis, Hx Human Immunodeficiency Virus (HIV), Traveled Outside the [place] in Last 30 Days - Family History Known Family History: Positive: Diabetes, Other - CVA, Lung CA. - Social History Occupation: Unemployed Lives: Alone - family nearby Alcohol Use: None Hx Substance Use: No Substance Use Type: Reports: None Hx Tobacco Use: Yes Smoking Status (MU): Former Smoker Type: Cigarettes Have You Smoked in the Last Year: No Review of Systems Negative: Fever, Chills, Fatigue, Skin Diaphoresis ENT: Other - mandible pain - resolved on arrival Negative: Palpitations, Chest Pain Negative: Shortness Of Breath, Cough Negative: Vomiting, Diarrhea, Nausea Positive: no symptoms reported, see HPI Negative: Arthralgia, Myalgia Negative: Rash, Bruising Neurological: Other - no falls in the last 48 hours Negative: Headache, Weakness, Paresthesia, Numbness, Syncope, Slurred Speech Psychological: Normal All Other Systems Reviewed And Are Negative: Yes Physical Exam Triage Information Reviewed: Yes Vital Signs On Initial Exam: Initial Vitals Pulse Resp Pulse Ox 93 14 95 09/21/19 05:53 09/21/19 05:53 09/21/19 05:53 Vital Signs Reviewed: Yes Appearance: Positive: Well-Appearing, No Pain Distress, Well-Nourished Skin: Positive: Warm, Skin Color Reflects Adequate Perfusion Head/Face: Positive: Normal Head/Face Inspection, Other - no pain or tenderness to the mandible Eyes: Positive: EOMI, KHADIJAH, Conjunctiva Clear ENT: Positive: Pharynx normal Dental: Positive: Other - no tenderness on palpation throughout including maxillary sinuses Neck: Positive: Supple, Nontender, No Lymphadenopathy, Other: - bandage placed over the L posterior neck from recent excision Respiratory/Lung Sounds: Positive: Clear to Auscultation, Breath Sounds Present. Negative: Decreased Breath Sounds, Rales, Rhonchi, Tracheal Deviation , Wheezes, Unable to speak in full sentences, Fatigue Cardiovascular: Positive: RRR, Pulses are Symmetrical in both Upper and Lower Extremities. Negative: Leg Edema Left, Leg Edema Right Musculoskeletal: Positive: Normal, Strength/ROM Intact Neurological: Positive: Sensory/Motor Intact, Alert, Oriented to Person Place, Time, CN Intact II-III, Dysphagia - baseline - not worse today, Facial Symmetry , Speech Normal. Negative: Reflexes Intact, Receptive Aphasia, Expressive Aphasia, Facial Droop, Focal Deficit @, Slurred Speech, Finger to Nose - intact Psychiatric: Positive: Normal, Affect/Mood Appropriate AVPU Assessment: Alert - Kim Coma Scale Best Eye Response: 4 - Spontaneous Best Motor Response: 6 - Obeys Commands Best Verbal Response: 5 - Oriented Coma Scale Total: 15 Procedures - Sedation Patient Received Moderate/Deep Sedation with Procedure: No Diagnostics - Vital Signs Vital Signs Temp Pulse Resp BP Pulse Ox 09/21/19 06:24 22 134/71 09/21/19 06:00 79 25 93 09/21/19 05:54 98.6 F 78 20 131/74 95 09/21/19 05:53 93 14 95 - Laboratory Lab Results: Lab Results 09/21/19 09/21/19 09/21/19 Range/Units 06:20 06:20 06:21 WBC 5.9 (3.5-10.8) 10^3/uL RBC 4.27 (3.70-4.87) 10^6 /uL Hgb 13.7 (12.0-16.0) g/dL Hct 40 (35-47) % MCV 94 (80-97) fL MCH 32 H (27-31) pg MCHC 34 (31-36) g/dL RDW 14 (10-15) % Plt Count 208 (150-450) 10^3/uL MPV 7.2 L (7.4-10.4) fL Neut % (Auto) 42.2 % Lymph % (Auto) 41.2 % Garvin % (Auto) 8.5 % Eos % (Auto) 7.0 % Baso % (Auto) 1.1 % Absolute Neuts (auto) 2.5 (1.5-7.7) 10^3/ul Absolute Lymphs (auto) 2.4 (1.0-4.8) 10^3/ul Absolute Monos (auto) 0.5 (0-0.8) 10^3/ul Absolute Eos (auto) 0.4 (0-0.6) 10^3/ul Absolute Basos (auto) 0.1 (0-0.2) 10^3/ul Absolute Nucleated RBC 0.0 10^3/ul Nucleated RBC % 0.1 INR (Anticoag Therapy) 1.05 (0.82-1.09) Sodium 139 (135-145) mmol/L Potassium 4.0 (3.5-5.0) mmol/L Chloride 106 (101-111) mmol/L Carbon Dioxide 24 (22-32) mmol/L Anion Gap 9 (2-11) mmol/L BUN 28 H (6-24) mg/dL Creatinine 1.41 H (0.51-0.95) mg/dL Est GFR ( Amer) 43.1 (>60) Est GFR (Non-Af Amer) 35.6 (>60) BUN/Creatinine Ratio 19.9 (8-20) Glucose 133 H (70-100) mg/dL Calcium 9.3 (8.6-10.3) mg/dL Total Bilirubin 0.30 (0.2-1.0) mg/dL AST 16 (13-39) U/L ALT 14 (7-52) U/L Alkaline Phosphatase 74 (34-104) U/L Troponin I 0.01 (<0.04) ng/mL Total Protein 6.7 (6.4-8.9) g/dL Albumin 3.6 (3.2-5.2) g/dL Globulin 3.1 (2-4) g/dL Albumin/Globulin Ratio 1.2 (1-3) Result Diagrams: 09/21/19 06:20 09/21/19 06:21 Lab Statement: Any lab studies that have been ordered have been reviewed, and results considered in the medical decision making process. - EKG No standard instances Cardiac Rate: Tachycardia EKG Rhythm: Sinus Rhythm - bigeminy ST Segment: Normal Ectopy: PVCs EKG Comparison: Other - changes from previous EKG's Re-Evaluation - Re-Evaluation First Eval Change: Improved - patient asympatomatic on arrival Second Eval Change: Worse - patient endorses pain again, however states 2/10 - non- radiating -continues to deny or present with any neuro symptoms EENT Course/Dx - Course Course Of Treatment: During his course treatment, the patient is evaluated for this patient is evaluated for mandibular pain radiating up into the maxillary sinuses which resolved prior to arrival. Patient states symptoms lasted approximately 2 hours and resolved after taking 2 Tylenol. Due to her history of stroke, patient's daughter at bedside states she is concerned due to another stroke or cardiac event. She states "this is not normal." "I am concerned for a stroke due to her job pain." Patient did have a fluoroscopy swallow evaluation completed yesterday, but did not have pain with this. Pain is rated a 8/10, currently a 0/10. She denied any headache, visual changes, confusion, memory loss, weakness. On physical examination, patient appears well, nondiaphoretic. Facial symmetry, ANO 3, no slurring speech, finger to nose intact, rapid alternating movements intact, normal gait, negative Romberg, upper and lower extremities without decreased sensation, equal symmetrically on both sides. Good strength bilaterally to the upper and lower extremities. Normal gaze, no visual field loss, no evidence of facial palsy. Sensory intact. No aphasia or dysarthria noted. D/t hx of TIA/CVA, labs and EKG obtained. EKG showss a possibly bigeminy vs dropped beats. Does not appear to be mobitz. EKG changes are new. No other findings on other EKG's x 3 year hx. Re-examination of pt - now pt complaining of jaw pain again. No radiation and no pain on palpation. Described as ache. Discussed case with Dr. Kerr, ED attending who recommends admission to [facility]. Discussed with Dr. Hinton recommending CT brain and neck. Labs WNL. Trop 0.01. Pt will be admitted. - Differential Diagnoses Differential Diagnoses: Other - manible pain, pain related to recent procedure, TIA, CVA, CAD - Diagnoses Provider Diagnoses: Mandible pain - Provider Notifications Discussed Care Of Patient With: Kinjal Hinton Instructed by Provider To: Admit As Inpatient Discharge ED - Sign-Out/Discharge Documenting (check all that apply): Patient Departure - Discharge Plan Condition: Fair Disposition: ADMITTED TO [facility] - Billing Disposition and Condition Condition: FAIR Disposition: Admitted to [facility]
[2019-09-21] MEDS ORDERED: Iodixanol* (CONTRAST) 320 MG/ML 100 ML SDV IV ONE (08:25)
[2019-09-21] MEDS ORDERED: Acetaminophen TAB* 325 MG PO PRN (09:08)
[2019-09-21] MEDS ORDERED: Melatonin 3 MG TAB PO PRN (09:13)
[2019-09-21] MEDS ORDERED: Neosporin TOPICAL OINT* 1 EA PACKET TOPICAL ONE (09:41)
[2019-09-21] MEDS ORDERED: NS 0.9% 500 ML* 500 ML IV SCH (10:00)
[2019-09-21 10:20] LABS: C Reactive Protein 1.39 mg/L (<8.01)
--- NOTE | 2019-09-21 11:20 | HP ---
CC: Dr. Meghann Connell * HISTORY AND PHYSICAL: DATE OF ADMISSION: 09/21/19 PRIMARY CARE PROVIDER: Dr. Meghann Connell. CHIEF COMPLAINT: Jaw pain. 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 The pain was rather severe, lasted couple of hours , was alleviated after a second dose of Tylenol. She denies any chest pain or shortness of breath with it. She had recurrence of the pain in the ED, but that appears to have resolved spontaneously and it does not appear to be treated. Currently, she is pain free. She was noted to have an episode of ventricular bigeminy and trigeminy in the ED, at that point asymptomatic. She is going to be placed overnight on observation for possibility of cardiac equivalent of the jaw pain with cardiac stress test done for the morning. Please also note that in the recent past, the patient had history of a cyst at the base of the left side of the neck resection performed by Dr. Whitehead from ENT. She stated that on 09/02/19, she was noted to have an infection of a cyst that she had at the base of her neck for over 20 years. She was placed on antibiotics and the cyst was I and D'd, and then she saw Dr. Whitehead in the office who performed further excision of the cyst just within the past few days. The pathology of the excised cyst and it appears that the specimen was collected on 09/16/19 showed ruptured epidermal inclusion cyst. Since then the patient had been doing okay. She also has history of frequent falls with the last fall with a broken rib on 08/05/19 and the rib that she was fractured was the left 10th rib. She also fractured 9th rib on the right side on 06/15/19. Both of those falls were incidental when the patient was ambulating. She ambulates with a walker. PAST MEDICAL HISTORY: 1. History of frequent falls with rib fractures in the past admission. She ambulates with a rolling walker. 2. History of ischemic CVA, recurrent with left foot drop with residual left- sided weakness that is on the left leg that is mild and residual. 3. History of PE in October of 2018 for which she was not fully anticoagulated at home due to history of multiple falls in the past. 4. History of temporal arteritis and sarcoidosis, in remission. 5. History of hip fracture, status post ORIF. 6. Hypothyroidism. 7. Hyperlipidemia. 8. Urinary incontinence. 9. Chronic kidney disease stage 3. 10. Gastroesophageal reflux disease. 11. Carpal tunnel release bilaterally. 12. Hysterectomy. 13. Cataract surgery bilaterally. 14. Recent left epidermal cyst excision at the base of the neck performed by Dr. Whitehead on 09/16/19. CURRENT MEDICATIONS: Include: 1. Amlodipine 2.5 mg daily. 2. Effexor XR 37.5 plus 75 mg daily. 3. Multivitamin 1 tablet daily. 4. Mirabegron 25 mg b.i.d. 5. Melatonin 1 tablet at bedtime p.r.n. 6. Synthroid 125 mcg daily. 7. Vitamin D3 5000 units daily. 8. Lipitor 10 mg daily. 9. Aspirin 81 mg daily. 10. Acetaminophen with Benadryl which is I believe Tylenol PM 1 tablet at bedtime. ALLERGIES: Include AZATHIOPRINE, BUPROPION, HALOPERIDOL, METHOTREXATE, and CELLCEPT. FAMILY HISTORY: Includes mother who of CEA in her 60s. Grandmother of CHF. SOCIAL HISTORY: The patient lives in an apartment adjacent to her daughter who is her healthcare proxy. She ambulates with a rolling walker. She denies any history of smoking or alcohol use. She denies any drug use. REVIEW OF SYSTEMS: Please see history of present illness. Notable for chronic left-sided foot drop. She ambulates with a walker. She has frequent falls and her ambulation is very unsteady. She denies any chest pain or shortness of breath. She denies any fevers. Please note in history of present illness further details of history of the base of the neck epidermal cyst excision. She had been putting Neosporin on it on a daily basis and has had no issues with it. All the remaining 12 systems were reviewed with the patient and were otherwise negative. Please note that the patient had evaluation for dysphagia yesterday with a swallow evaluation and Speech Therapy recommendation was for mechanical ground solids and thin liquids with no straws. PHYSICAL EXAM: GENERAL: The patient is very pleasant 83-year-old female who is in no acute distress. Alert, awake and oriented x3. VITAL SIGNS: Blood pressure of 136/76, heart rate of 79 and regular, respiratory rate 19, oxygen saturation 94% on room air, temperature of 98.6. HEENT: Head: Atraumatic and normocephalic. Eyes: Pupils are equal and reactive to light and accommodation. Oropharynx clear. Mucosa moist. NECK: Supple. No JVD. No bruits bilaterally. RESPIRATORY: Clear to auscultation bilaterally. CARDIOVASCULAR: Regular rate and rhythm. The patient has 3/6 systolic ejection murmur noted on right upper sternal border radiating to bilateral carotids. ABDOMEN: Soft, nontender. Bowel sounds present in all 4 quadrants. EXTREMITIES: There is minimal left ankle edema, right ankle no edema. Pulses are +2 bilaterally. No clubbing or cyanosis. NEURO EVALUATION: Speech is clear. Cranial nerves II through XII grossly intact. Motor strength in 5/5 in bilateral upper extremities. Bilateral lower extremities, the left leg was slightly weaker than the right at 4+/5. PSYCHIATRIC EVALUATION: Pleasant, cooperative with evaluation, oriented x3 with no evidence of anxiety/depression. SKIN: The patient has an approximately 4 to 5 cm postsurgical incision that is sutured. There is no evidence of erythema, no dehiscence, no fluctuance on palpation of the wound and no discharge. On further palpation of the neck, there is no evidence of lymphadenopathy or tenderness on palpation of the jaw area. DIAGNOSTIC STUDIES/LAB DATA: White blood cell count of 5.9, hemoglobin 13.7, hematocrit 48, and platelets of 208. Sodium is 139, potassium 4.0, chloride 106, carbon dioxide 24, BUN 28, creatinine 1.41 which is the patient's baseline. Liver function tests unremarkable. Troponin of 0.01. C-reactive protein is pending at the time of dictation. Neck CT is pending at the time of dictation. Brain CT impression: "Chronic ischemic white matter change with no evidence of intracranial mass or hemorrhage." The patient's EKG showed ventricular bigeminy and trigeminy with a heart rate of 88 beats per minute with the pattern of right bundle-branch block. Comparing with prior EKG from August of 2018, right bundle-branch block pattern is chronic. Of note, please note that during my evaluation currently on telemetry the patient's bigeminy and trigeminy resolved. Portable chest x-ray is pending at the time of this dictation. ASSESSMENT AND PLAN: 1. Jaw pain. May be chest pain equivalent. The patient has no history of exercise intolerance but her ambulation is very limited due to her history of using a walker and very unsteady gait as well as left-sided leg weakness. The patient is going to be placed on overnight observation. Continued with troponin checks and undergo cardiac stress test which is pharmacologic in the morning. At this point, I do not believe that the patient's left-sided neck epidermal cyst excision has anything to do with her jaw pain. Her neck is basically otherwise benign on palpation and the cyst incision is localized at the base of the left side of the neck far away from the jaw. Anyway CT of neck is pending at the time of dictation just to evaluate it further. 2. In regard with the patient's epidermal cyst excision, we will continue Neosporin. Dressing changes on a daily basis as from home. 3. For the patient's history of CVA, her aspirin is going to be continued from home. 4. For hypertension, her amlodipine is going to be continued. 5. For dyslipidemia, the Lipitor is going to be continued. 6. For DVT prophylaxis, the patient is going to be placed on heparin subcutaneous. Her recent DVT history from last year is noted. 7. The patient's code status is carried from the patient's MOLST form. The patient is do not resuscitate and do not intubate and she requested to continue those orders. Her healthcare proxy is her daughter, Alla Gilman and Kemi Gilman who is her granddaughter. TIME SPENT: Please note that approximately 65 minutes was spent on admission of this patient, more than half the time was spent [id number] with the patient during the interview and physical exam. [id number]/[facility] #: [id number] SHEYLA
[2019-09-21] MEDS ORDERED: Regadenoson* 0.4 MG/5 ML SYRINGE ONE (11:43)
[2019-09-21] MEDS ORDERED: Heparin VIAL(*) 5000 UNITS/ML VIAL (FIVE THOUSAND) SUBCUT SCH (14:00)
[2019-09-21 15:29] VITALS: BP 145/76
--- NOTE | 2019-09-21 20:04 | DS ---
DISCHARGE SUMMARY: ADDENDUM: The patient had systolic ejection murmur on evaluation at discharge and echocardiogram was performed, which is now pending at the time of dictation. It is going to be sent to her primary care provider for further evaluation. Once again, the physician credentialing specialist of the echocardiogram is pending. [id number]/[facility] #: [id number] SHEYLA
--- NOTE | 2019-09-21 20:04 | DS ---
ADDENDUM NOW INCLUDED ON THIS REPORT CC: Dr. Connell * DISCHARGE SUMMARY: DATE OF ADMISSION: 09/21/19 DATE OF DISCHARGE: 09/21/19 PRIMARY CARE PROVIDER: Dr. Connell. DISCHARGE DIAGNOSIS: Jaw pain with low probability cardiac stress test documented on 09/21/19. MEDICATIONS AT DISCHARGE: Unchanged from admission and those include: 1. Tylenol PM 1 tablet at bedtime p.r.n. 2. Lipitor 10 mg daily. 3. Vitamin D3 5000 units daily. 4. Iron supplement 65 mg daily. 5. Melatonin 1 tablet at bedtime p.r.n. 6. Mirabegron 25 mg b.i.d. 7. Multivitamin 1 tablet daily. 8. Effexor XR 75 mg plus 37.5 mg daily. 9. Amlodipine 2.5 mg daily. 10. Aspirin 81 mg daily. 11. Levothyroxine 125 mcg daily. STUDIES PERFORMED DURING THE HOSPITAL STAY: Included nuclear medicine cardiac stress test documented on 09/21/19, showed EF of 83% at stress with no evidence of stress-induced myocardial ischemia or presence of an infarct and low risk. Neck CT, impression: "No fracture or adenopathy is noted. Degenerative changes of the temporomandibular joints bilaterally. Some thickening is noted at the left posterior neck, defect is noted at the left neck from prior surgery. " Chest x-ray, impression: "No active cardiopulmonary disease." CT of the brain, impression: "Chronic ischemic white matter changes. There was no evidence of intracranial mass or hemorrhage." HOSPITALIZATION COURSE: Francine Poe is an 83-year-old female who was admitted today in the morning for jaw pain. She had ventricular bigeminy and trigeminy when she came into the hospital and due to that the patient was placed for observation to rule out cardiac issues. Her electrolytes were not abnormal. She did have telemetry monitoring later on, which showed no evidence of bigeminy further on. She had a CT of the neck due to her recent cyst biopsy on the left side at the base of her neck which was also unremarkable and her C- reactive protein was 1.3. She underwent a pharmacologic cardiac stress test, which was noted to be low risk. The patient feels back to her baseline and she is ready to go home. She is going to be discharged home with recommendation to follow up with her primary care provider in 4 to 7 days. DISPOSITION AT DISCHARGE: Home. CONDITION ON DISCHARGE: Stable. PHYSICAL EXAMINATION: Physical exam at the time of discharge is unchanged from admission. ADDENDUM: The patient had systolic ejection murmur on evaluation at discharge and echocardiogram was performed, which is now pending at the time of dictation. It is going to be sent to her primary care provider for further evaluation. Once again, the securities broker of the echocardiogram is pending. [id number]/[facility] #: [id number] A- [id number]/[facility] #: [id number] SHEYLA
[2019-09-21] MEDS ORDERED: diPHENhydraMINE PO* 25 MG PO SCH (21:00)
[2019-09-21] MEDS ORDERED: Acetaminophen TAB* 325 MG PO SCH (21:00)
[2019-09-22] MEDS ORDERED: Levothyroxine TAB* 125 MCG TAB PO SCH (06:00)
[2019-09-22] MEDS ORDERED: Venlafaxine EXT RELEASE CAP* 75 MG PO SCH (09:00)
[2019-09-22] MEDS ORDERED: amLODIPine TAB* 5 MG PO SCH (09:00)
[2019-09-22] MEDS ORDERED: Cholecalciferol TAB* 1000 UNITS PO SCH (09:00)
[2019-09-22] MEDS ORDERED: Venlafaxine EXT RELEASE CAP* 37.5 MG PO SCH (09:00)
[2019-09-22] MEDS ORDERED: Atorvastatin* 10 MG TAB PO SCH (09:00)
[2019-09-22] MEDS ORDERED: Aspirin EC TAB* 81 MG TAB.EC PO SCH (09:00)
== END 2019-09-21 16:27 | disposition home or self-care (01) ==
LOC: ED 05:36 → MEDTELE 09:08
PROVIDERS: ADMIT Internal Medicine; ATTEND Internal Medicine
DX: R68.84 Jaw pain (principal); E03.9 Hypothyroidism, unspecified; E78.5 Hyperlipidemia, unspecified; R32 Unspecified urinary incontinence; Z79.82 Long term (current) use of aspirin; Z79.899 Other long term (current) drug therapy; Z91.81 History of falling; Z86.73 Personal history of transient ischemic attack (TIA), and cerebral infarction without residual deficits; I45.10 Unspecified right bundle-branch block; Z86.711 Personal history of pulmonary embolism; N18.3 Chronic kidney disease, stage 3 (moderate); K21.9 Gastro-esophageal reflux disease without esophagitis; Z79.01 Long term (current) use of anticoagulants; Z87.891 Personal history of nicotine dependence; R07.9 Chest pain, unspecified
CPT/HCPCS: 36415; 70450; 70491; 71045; 78452; 80053; 83735; 84484; 85025; 85610; 86140; 93005; 93017; 93306; 99284; A9270-GY; A9502; G0378; J2785; Q9967

== ENCOUNTER 2019-10-13 10:30 | Emergency (ER) | payer MEDICARE, OTHER ==
--- OUTSIDE RECORDS SUMMARY | 2019-10-13 11:14 | XMS REPORT | Continuity of Care Document ---
:1935 External Reference #:[id number] Author Name Prema Douglass PA-C Address [address] [place] [address] Care Team Providers Name Role Phone Ko ALBRECHT, - Family Medicine Care Team Information Fermentation Engineer Princess Wu M.D. Care Team Information Fermentation Engineer [phone] Problems Description No Information Available Social History [...] daily Princess 100mcg Tablets Nystatin-Triamcinolone apply to 15units Ko ALBRECHT, 06/29/2019 affected area 260012-0.1Unit/GM-% 4x/day as needed Ointment Acetaminophen 2 tabs po q 6hrs 90tabs Ko ALBRECHT, 06/29/2019 325mg prn pain Tablets Atorvastatin Calcium take 1 tablet by 90taharmony Connell MD, 12/23/2018 10mg mouth every Tablets night at bedtime Aspirin Regimen Low one tab by mouth Sergio Yun 09/07/2018 Dose Adult daily M.DGomez 81mg Tablets DR Stearns take 1 tablet [...] Available Vital Signs Date Vital Result Comment 09/28/2019 10:53am Weight 153.00 lb Weight 69.401 kg Height 60 inches 5'0" Height in cm's 152.4 cm BMI (Body Mass Index) 29.9 kg/m2 09/16/2019 9:22am Weight 153.00 lb Weight 69.401 kg Height 60 inches 5'0" Height in cm's 152.4 cm BMI (Body Mass Index) 29.9 kg/m2 Results Test Acquired Date Facility Test Result H/L Range Note Laboratory test 09/16/2019 [facility] Surgical SEE RESULT 1 finding c/o Department of Laboratories Pathology BELOW [place], [place] [id number] [phone] 1 SEE RESULT BELOW Name: MIREYA COREAS : [address]: Ronny Whitehead MD Acct: [id number] Unit: [id number] AGE: 83 Location: [facility] Re09/16/19 SEX: F Status: REG REF SPEC: [id number] FLORES: 09/16/19- SUBM DR: Ronny Whitehead MD REQ: [id number] RECD: 09/16/19 STATUS: SOUT _ ORDERED: LEVEL 3 COMMENTS: [id number] FINAL DIAGNOSIS Skin and subcutaneous tissue, neck, excision: -- Ruptured epidermal inclusion cyst. CLINICAL HISTORY No history given GROSS DESCRIPTION The specimen is received in formalin labeled, Left Neck Cyst, and consists of a 3.1 x 1.5 cm benoit-pink wrinkled hairbearing unoriented skin ellipse excised to a maximum depth of 0.9 cm with a central 0.4 x 0.4 cm defect. The cut surface is focally erythematous yellow pink. The specimen is inked, serially sectioned and electroplating sales representative sections are submitted in one cassette. Signed by and Reported on: Enrico Lucero MD 06/28 1451 END OF REPORT DEPARTMENT OF PATHOLOGY, [address] [place] [address] Enrico Lucero M.D. Director [facility] # [id number] Procedures Date Code Description Status 09/16/2019 18107 Exc Cortez Les 3.1-4.0CM Scalp Or Neck Completed Medical Devices Description No Information Available Encounters Type Date Location Provider Dx Diagnosis Office Visit 09/16/2019 Star,Artemio eDmetrius Whitehead MD L72.3 Sebaceous cyst 9:15a 11/10/07 L03.221 Cellulitis of neck Assessments Date Code Description Provider 09/28/2019 L72.0 Epidermal cyst Prema Douglass PA-C 09/16/2019 L72.3 Sebaceous cyst Demetrius Whitehead MD 09/16/2019 L03.221 Cellulitis of neck Demetrius Whitehead MD Plan of Treatment No Information Available Functional Status Description No Information Available Mental Status Description No Information Available Referrals Description No Information Available
[2019-10-13 11:53] LABS: ABS Basophils 0.1 10^3/ul (0-0.2); ABS Eosinophils 0.3 10^3/ul (0-0.6); ABS Lymphocytes 1.7 10^3/ul (1.0-4.8); ABS Monocytes 0.5 10^3/ul (0-0.8); ABS Neutrophils 2.7 10^3/ul (1.5-7.7); Eosinophil % 5.8 %; Hematocrit 43 % (35-47); Hemoglobin 14.4 g/dL (12.0-16.0); Lymphocyte % 32.2 %; Mean Corpuscular HGB Conc 34 g/dL (31-36); Mean Corpuscular Hemoglobin 32 pg (27-31); Mean Corpuscular Volume 95 fL (80-97); Mean Platelet Volume 7.6 fL (7.4-10.4); Nucleated Red Blood Cells % 0.1; Platelet Count 184 10^3/uL (150-450); Red Cell Distribution Width 14 % (10-15); White Blood Count 5.3 10^3/uL (3.5-10.8)
[2019-10-13 12:05] LABS: Albumin 3.9 g/dL (3.2-5.2); Albumin/Globulin Ratio 1.3 (1-3); BUN/Creatinine Ratio 22.1 (8-20); Calcium 9.6 mg/dL (8.6-10.3); EGFR African American 44.9 (>60); EGFR Non-African American 37.1 (>60); Potassium 4.5 mmol/L (3.5-5.0); Total Bilirubin 0.5 mg/dL (0.2-1.0); Total Protein 6.9 g/dL (6.4-8.9)
[2019-10-13 12:07] LABS: Troponin I 0.01 ng/mL (<0.03)
--- NOTE | 2019-10-13 12:30 | ED ---
Dizziness - HPI Summary HPI Summary: 83 year old F presenting to [facility] accompanied by daughter complains of dizziness since 8:00 am 10/13/19 which has since resolved. Patient reports going to bathroom last night where she experienced weakness and fell. This morning, she says she felt dehydrated and unstable. Denies LOC or head injury during the fall. She landed on her bottom with a resulting bruise to left upper arm. Hx of major stroke 12 years ago and 2 TIA episodes in November. Currently has an IVC filter. The pt denies numbness, tingling, SOB, or CP. The patient rates the pain 0/10 in severity. Symptoms aggravated by nothing. Symptoms alleviated by nothing. - History Of Current Complaint Chief Complaint: EDDizziness Stated Complaint: WEAKNESS, FALL YESTERDAY Hx Obtained From: Patient, Family/Assurance Senior Manager Insurance - Daughter Onset/Duration: Resolved, Suddenly - 8:00 am Timing: Constant Severity Initially: Mild Severity Currently: None Aggravating Factor(s): Nothing Alleviating Factor(s): Nothing Associated Signs And Symptoms: Positive: Unsteady Gait. Negative: Chest Pain, SOB - Allergies/Home Medications Allergies/Adverse Reactions: Allergies Allergy/AdvReac Type Severity Reaction Status Date / Time azathioprine Allergy Unknown Verified 09/02/19 13:04 Reaction Details bupropion [From Wellbutrin] Allergy Unknown Verified 09/02/19 13:04 Reaction Details haloperidol [From Haldol] Allergy Altered Verified 09/02/19 13:04 Mental Status methotrexate Allergy Unknown Verified 09/02/19 13:04 Reaction Details mycophenolate mofetil Allergy Unknown Verified 09/02/19 13:04 [From CellCept] Reaction Details Home Medications: Home Medications Levothyroxine TAB* [Synthroid 125 MCG TAB*] 125 mcg PO DAILY 10/13/19 [History Confirmed 10/13/19] Omeprazole CAP (NF) [Prilosec CAP* 20 MG] 20 mg PO DAILY 10/13/19 [History Confirmed 10/13/19] PMH/Surg Hx/FS Hx/Imm Hx Endocrine/Hematology History: Reports: Hx Anticoagulant Therapy, Hx Thyroid Disease - hypothyroidism Denies: Hx Diabetes, Hx Anemia, Other Endocrine/Hematological Disorders Cardiovascular History: Reports: Hx Angina, Hx Hypercholesterolemia, Hx Hypertension, Other Cardiovascular Problems/Disorders - temporal arteritis Denies: Hx Pacemaker/ICD Comment Only: Hx Valvular Heart Disease - heart murmur Respiratory History: Reports: Other Respiratory Problems/Disorders - SARCOIDOSIS ; hx of respiratory failure. Denies: Hx Asthma, Hx Chronic Obstructive Pulmonary Disease (COPD) GI History: Reports: Hx Gall Bladder Disease - removed, Hx Gastroesophageal Reflux Disease, Other GI Disorders - constipation/diarrhea Denies: Hx Obstructive Bowel, Hx Ulcer History: Reports: Hx Acute Renal Failure, Hx Chronic Renal Failure - stage 3 , Other Problems/Disorders - incontinence Denies: Hx Renal Disease Musculoskeletal History: Reports: Hx Back Problems, Hx Orthopedic Injury - left pelvic fracture, 2013, Other Musculoskeletal History - Hip fx and surgery jul 2016 Sensory History: Reports: Hx Cataracts, Hx Contacts or Glasses, 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, Hx Hearing Aid Opthamlomology History: Reports: Hx Cataracts, Hx Contacts or Glasses, 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 Neurological History: Reports: Hx Dementia - short term memory loss, Other Neuro Impairments/Disorders - HX of AMS Psychiatric History: Reports: Hx Depression - controlled w/ meds Denies: Hx Panic Disorder, Other Psychiatric Issues/Disorders - Cancer History Cancer Type, Location and Year: h/o sarcoidosis - Surgical History Surgery Procedure, Year, and Place: Hysterectomy, bilat carpal tunnel, cataracts ; choley; right hip surgery Hx Anesthesia Reactions: No - Immunization History Date of Influenza Vaccine: Fall 2012 Infectious Disease History: No Infectious Disease History: Denies: Hx Hepatitis, Hx Human Immunodeficiency Virus (HIV), Traveled Outside the [place] in Last 30 Days - Family History Known Family History: Positive: Diabetes, Other - CVA, Lung CA. - Social History Alcohol Use: None Hx Substance Use: No Substance Use Type: Reports: None Hx Tobacco Use: Yes Smoking Status (MU): Former Smoker Type: Cigarettes Have You Smoked in the Last Year: No Review of Systems Negative: Fever Negative: Chest Pain Negative: Shortness Of Breath Positive: Bruising - L upper arm Neurological: Negative - dizziness since resolved Negative: Weakness - since resolved , Paresthesia, Numbness All Other Systems Reviewed And Are Negative: Yes Physical Exam - Summary Physical Exam Summary: Constitutional: Well-developed, Well-nourished, Alert. (-) Distressed Skin: Warm, Dry HENT: Normocephalic; Atraumatic Eyes: Conjunctiva normal Neck: Musculoskeletal ROM normal neck. (-) JVD, (-) Nuchal rigidity Cardio: Rhythm regular, rate normal, Heart sounds normal; Intact distal pulses; Radial pulses are 2+ and symmetric. (-) Murmur Pulmonary/Chest wall: Effort normal. (-) Respiratory distress, (-) Wheezes, (-) Rales Abd: Soft. (-) Tenderness, (-) Distension, (-) Guarding, (-) Rebound Musculoskeletal: (-) Edema Lymph: (-) Cervical adenopathy Neuro: Alert, PERRL, Oriented x3, Strength normal, Cranial nerves II-XII are grossly intact. SILT, Strength 5/5 BUE and BLE, (-) Dysmetria, (-) Nystagmus, Ambulates w walker, GCS 15 Psych: Mood and affect Normal Triage Information Reviewed: Yes Vital Signs On Initial Exam: Initial Vitals Temp Pulse Resp BP Pulse Ox 98.2 F 82 12 126/78 95 10/13/19 11:05 10/13/19 11:05 10/13/19 11:05 10/13/19 11:05 10/13/19 11:05 Vital Signs Reviewed: Yes - Kim Coma Scale Best Eye Response: 4 - Spontaneous Best Motor Response: 6 - Obeys Commands Best Verbal Response: 5 - Oriented Coma Scale Total: 15 Procedures - Sedation Patient Received Moderate/Deep Sedation with Procedure: No Diagnostics - Vital Signs Vital Signs Temp Pulse Resp BP Pulse Ox 10/13/19 12:00 74 18 96 10/13/19 11:45 77 21 142/82 95 10/13/19 11:15 81 22 126/78 95 10/13/19 11:11 84 94 10/13/19 11:05 98.2 F 82 12 126/78 95 - Laboratory Lab Results: Lab Results 10/13/19 10/13/19 Range/Units 11:41 11:41 WBC 5.3 (3.5-10.8) 10^3/uL RBC 4.50 (3.70-4.87) 10^6 /uL Hgb 14.4 (12.0-16.0) g/dL Hct 43 (35-47) % MCV 95 (80-97) fL MCH 32 H (27-31) pg MCHC 34 (31-36) g/dL RDW 14 (10-15) % Plt Count 184 (150-450) 10^3/uL MPV 7.6 (7.4-10.4) fL Neut % (Auto) 51.5 % Lymph % (Auto) 32.2 % [place] % (Auto) 9.2 % Eos % (Auto) 5.8 % Baso % (Auto) 1.3 % Absolute Neuts (auto) 2.7 (1.5-7.7) 10^3/ul Absolute Lymphs (auto) 1.7 (1.0-4.8) 10^3/ul Absolute Monos (auto) 0.5 (0-0.8) 10^3/ul Absolute Eos (auto) 0.3 (0-0.6) 10^3/ul Absolute Basos (auto) 0.1 (0-0.2) 10^3/ul Absolute Nucleated RBC 0.0 10^3/ul Nucleated RBC % 0.1 Sodium 138 (135-145) mmol/L Potassium 4.5 (3.5-5.0) mmol/L Chloride 104 (101-111) mmol/L Carbon Dioxide 28 (22-32) mmol/L Anion Gap 6 (2-11) mmol/L BUN 30 H (6-24) mg/dL Creatinine 1.36 H (0.51-0.95) mg/dL Est GFR ( Amer) 44.9 (>60) Est GFR (Non-Af Amer) 37.1 (>60) BUN/Creatinine Ratio 22.1 H (8-20) Glucose 134 H (70-100) mg/dL Calcium 9.6 (8.6-10.3) mg/dL Total Bilirubin 0.50 (0.2-1.0) mg/dL AST 16 (13-39) U/L ALT 13 (7-52) U/L Alkaline Phosphatase 74 (34-104) U/L Troponin I 0.01 (<0.03) ng/mL Total Protein 6.9 (6.4-8.9) g/dL Albumin 3.9 (3.2-5.2) g/dL Globulin 3.0 (2-4) g/dL Albumin/Globulin Ratio 1.3 (1-3) Result Diagrams: 10/13/19 11:41 10/13/19 11:41 Lab Statement: Any lab studies that have been ordered have been reviewed, and results considered in the medical decision making process. - Radiology CXR Radiology Interpretation Completed By: Radiologist Summary of Radiographic Findings: IMPRESSION: 1. NO EVIDENCE FOR ACUTE FINDING. 2. 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 ED physician has reviewed this report. - CT Brain CT CT Interpretation Completed By: Radiologist Summary of CT Findings: IMPRESSION: #. No acute intracranial process evident. #. Involutional change and stigmata of chronic small vessel ischemic disease. Chronic. RIGHT frontal lobe deep white matter lacunar infarct. ED physician has reviewed this report. - EKG 12:45 Cardiac Rate: NL EKG Rhythm: Sinus Rhythm Summary of EKG Findings: An EKG at 12:45 reveals normal sinus rhythm at 79 bpm, RBBB and LAFB. No STEMI. No change from 08/13/19. ED physician has reviewed this EKG. Re-Evaluation - Re-Evaluation First Eval Re-Evaluation Time: 14:45 Change: Improved - patient has been ambulating in ED. CT head unchanged, labs unremarkable. Normal orthostatics. CXR w/o e/o PNA. TSH wnl. Daughter feels comfortable bringing her home. Arranged neuro f/u Dizzy Course/Dx - Course Course Of Treatment: 83 y/o F w hx CVA, HTN p/w lightheadeness. - PE elderly female, no focal deficits on exam. - Dizziness ddx: Differential diagnosis includes: Cardiac causes - will check EKG, troponin, get orthostatics. Electrolyte disturbances - will check CMP. Anemia - will check CBC. Posterior stroke/tia - will get CT head, has had recent full neuro w/u and is on both aspirin and statin. Recent cough - check CXR. check UA for infection, TSH give recent thyroid med dose change - Diagnoses Provider Diagnoses: Fatigue - Provider Notifications Discussed Care Of Patient With: Gab Dave - Will expedite follow up Time Discussed With Above Provider: 13:51 Discharge ED - Sign-Out/Discharge Documenting (check all that apply): Patient Departure - Discharge Plan Condition: Stable Disposition: HOME Patient Education Materials: Near Syncope (ED) Referrals: Meghann Connell MD [Primary Care Provider] - Additional Instructions: You were seen in the emergency department for light headedness. Your head CT did not show any changes, or labs did not show any evidence of infection. Your thyroid studies were normal. If any studies were not completed at the time of discharge you will be called with the relevant results. Please follow up with your primary care doctor in next 2-3 days and return to emergency department for worsening lightheadedness, passing out, chest pain or concerning symptoms. It was a pleasure taking care of you today. - Billing Disposition and Condition Condition: STABLE Disposition: Home - Attestation Statements Document Initiated by Scribe: Yes Documenting Scribe: Petra Wise Provider For Whom Tom is Documenting (Include Credential): Willem Garcia MD Scribe Attestation: I, Petra Wise, scribed for Willem Garcia MD on 03/28 at 1040. Scribe Documentation Reviewed: Yes Provider Attestation: The documentation as recorded by the scribe, Petra Wise accurately reflects the service I personally performed and the decisions made by me, Willem Garcia MD Status of Scribe Document: Viewed
[2019-10-13 13:29] LABS: Urine Appearance Clear; Urine Bilirubin Negative (Negative); Urine Blood Negative (Negative); Urine Color Yellow; Urine Glucose Negative (Negative); Urine Ketones Negative (Negative); Urine Nitrite Negative (Negative); Urine Protein Negative (Negative); Urine Specific Gravity 1.014 (1.010-1.030); Urine Urobilinogen Negative (Negative)
[2019-10-13 14:50] LABS: T4, Total 9.36 mcg/dL (6.09-12.23)
[2019-10-13 14:53] LABS: TSH (Thyroid Stimulating Horm) 1.32 mcIU/mL (0.34-5.60)
[2019-10-13 15:31] VITALS: BP 148/76
== END 2019-10-13 15:29 | disposition home or self-care (01) ==
LOC: ED 10:30
DX: R53.83 Other fatigue (principal); R26.81 Unsteadiness on feet; S40.022A Contusion of left upper arm, initial encounter; W18.30XA Fall on same level, unspecified, initial encounter; Y92.9 Unspecified place or not applicable; I45.10 Unspecified right bundle-branch block; E03.9 Hypothyroidism, unspecified; I12.9 Hypertensive chronic kidney disease with stage 1 through stage 4 chronic kidney disease, or unspecified chronic kidney disease; N18.3 Chronic kidney disease, stage 3 (moderate); N17.9 Acute kidney failure, unspecified; K21.9 Gastro-esophageal reflux disease without esophagitis; Z79.01 Long term (current) use of anticoagulants; Z86.73 Personal history of transient ischemic attack (TIA), and cerebral infarction without residual deficits; Z88.8 Allergy status to other drugs, medicaments and biological substances; Z87.891 Personal history of nicotine dependence
CPT/HCPCS: 36415; 70450; 71046; 80053; 81003; 84436; 84443; 84484; 85025; 93005; 99284

== ENCOUNTER 2019-10-25 11:15 | Emergency (ER) | payer MEDICARE, OTHER ==
--- NOTE | 2019-10-25 11:56 | ED ---
Lower Extremity - HPI Summary HPI Summary: The patient is an 83 y/o F presenting to [facility] with a chief complaint of intermittent episodes of swelling in the left ankle for the last three days. She reports that she has noticed swelling in the left ankle that has persisted over the last three days but has resolved and returned despite elevation of the ankle. She additionally notes a petechial rash on the ankle that is not present now. She denies any CP, SOB, or left calf, thigh, or ankle pain. She states she has a history of DVT in the left thigh. She takes one 81mg Aspirin daily but is not on any other anticoagulants. PMHx: left foot drop, CVA, hypothyrodisim, HLD , HTN, atrial fibrillation. Former smoker, no EtOH, no substance use. Medications reviewed. Allergies noted. - History of Current Complaint Chief Complaint: EDExtremityLower Stated Complaint: LT FOOT PAIN PER PT Time Seen by Provider: 10/25/19 11:47 Hx Obtained From: Patient Mechanism Of Injury: Unknown Onset/Duration: Days - three Severity Initially: Moderate Severity Currently: Mild Pain Intensity: 0 Pain Scale Used: 0-10 Numeric Timing: Intermittent, Lasting Hours Location: Is Discrete @ - left ankle Associated Signs And Symptoms: Positive: Swelling, Other - petechial rash on left ankle; Negative: CP, SOB, pain in the left thigh, calf, or ankle Aggravating Factor(s): Nothing Alleviating Factor(s): Elevation - Allergies/Home Medications Allergies/Adverse Reactions: Allergies Allergy/AdvReac Type Severity Reaction Status Date / Time azathioprine Allergy Unknown Verified 10/25/19 11:22 Reaction Details bupropion [From Wellbutrin] Allergy Unknown Verified 10/25/19 11:22 Reaction Details haloperidol [From Haldol] Allergy Altered Verified 10/25/19 11:22 Mental Status methotrexate Allergy Unknown Verified 10/25/19 11:22 Reaction Details mycophenolate mofetil Allergy Unknown Verified 10/25/19 11:22 [From CellCept] Reaction Details Home Medications: Home Medications Venlafaxine CAP (NF) [Effexor CAP (NF)] 75 mg PO QAM 10/25/19 [History Confirmed 10/25/19] PMH/Surg Hx/FS Hx/Imm Hx Endocrine/Hematology History: Reports: Hx Anticoagulant Therapy, Hx Thyroid Disease - hypothyroidism Denies: Hx Diabetes, Hx Anemia, Other Endocrine/Hematological Disorders Cardiovascular History: Reports: Hx Angina, Hx Atrial Fibrillation, Hx Deep Vein Thrombosis - RLE, Hx Hypercholesterolemia, Hx Hypertension, Other Cardiovascular Problems/Disorders - temporal arteritis Denies: Hx Pacemaker/ICD Comment Only: Hx Valvular Heart Disease - heart murmur Respiratory History: Reports: Other Respiratory Problems/Disorders - SARCOIDOSIS ; hx of respiratory failure. Denies: Hx Asthma, Hx Chronic Obstructive Pulmonary Disease (COPD) GI History: Reports: Hx Gall Bladder Disease - removed, Hx Gastroesophageal Reflux Disease, Other GI Disorders - constipation/diarrhea Denies: Hx Obstructive Bowel, Hx Ulcer History: Reports: Hx Acute Renal Failure, Hx Chronic Renal Failure - stage 3 , Other Problems/Disorders - incontinence Denies: Hx Renal Disease Musculoskeletal History: Reports: Hx Back Problems, Hx Orthopedic Injury - left pelvic fracture, 2013, Other Musculoskeletal History - Hip fx and surgery jul 2016 Sensory History: Reports: Hx Cataracts, Hx Contacts or Glasses, 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, Hx Hearing Aid Opthamlomology History: Reports: Hx Cataracts, Hx Contacts or Glasses, 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 Neurological History: Reports: Hx CVA, Hx Dementia - short term memory loss, Other Neuro Impairments/Disorders - HX of AMS Psychiatric History: Reports: Hx Depression - controlled w/ meds Denies: Hx Panic Disorder, Other Psychiatric Issues/Disorders - Cancer History Cancer Type, Location and Year: h/o sarcoidosis - Surgical History Surgical History: Yes Surgery Procedure, Year, and Place: Hysterectomy, bilat carpal tunnel, cataracts ; choley; right hip surgery Hx Anesthesia Reactions: No - Immunization History Date of Influenza Vaccine: Fall 2012 Infectious Disease History: No Infectious Disease History: Denies: Hx Hepatitis, Hx Human Immunodeficiency Virus (HIV), Traveled Outside the [place] in Last 30 Days - Family History Known Family History: Positive: Diabetes, Other - CVA, Lung CA. - Social History Alcohol Use: None Hx Substance Use: No Substance Use Type: Reports: None Hx Tobacco Use: Yes Smoking Status (MU): Former Smoker Type: Cigarettes Have You Smoked in the Last Year: No Review of Systems Negative: Chest Pain Negative: Shortness Of Breath Positive: Edema - left ankle. Negative: Other - left ankle pain, left calf pain , left thigh pain Positive: Rash - petechial All Other Systems Reviewed And Are Negative: Yes Physical Exam - Summary Physical Exam Summary: Appearance: The patient is well-nourished in no acute distress and in no acute pain. Skin: The skin is warm and dry, and skin color reflects adequate perfusion. HEENT: The head is normocephalic and atraumatic. The pupils are equal and reactive. The conjunctivae are clear and without drainage. Nares are patent and without drainage. Mouth reveals moist mucous membranes, and the throat is without erythema and exudate. The external ears are intact. The ear canals are patent and without drainage. The tympanic membranes are intact. Neck: The neck is supple with full range of motion and non-tender. There are no carotid bruits. There is no neck vein distension. Respiratory: Chest is non-tender. Lungs are clear to auscultation and breath sounds are symmetrical and equal. Cardiovascular: Heart is regular rate and rhythm. There is no murmur or rub auscultated. There is no peripheral edema and pulses are symmetrical and equal. Abdomen: The abdomen is soft and non-tender. There are normal bowel sounds heard in all four quadrants and there is no organomegaly palpated. Musculoskeletal: There is no back tenderness noted. Extremities are non-tender with full range of motion. There is good capillary refill. There is no peripheral edema or calf tenderness elicited. Neurological: Patient is alert and oriented to person, place and time. The patient has symmetrical motor strength in all four extremities. Cranial nerves are grossly intact. Deep tendon reflexes are symmetrical and equal in all four extremities. Psychiatric: The patient has an appropriate affect and does not exhibit any anxiety or depression. Triage Information Reviewed: Yes Vital Signs On Initial Exam: Initial Vitals Temp Pulse Resp BP Pulse Ox 97.5 F 97 16 117/61 96 10/25/19 11:17 10/25/19 11:17 10/25/19 11:17 10/25/19 11:17 10/25/19 11:17 Vital Signs Reviewed: Yes Procedures - Sedation Patient Received Moderate/Deep Sedation with Procedure: No Diagnostics - Vital Signs Vital Signs Temp Pulse Resp BP Pulse Ox 10/25/19 11:17 97.5 F 97 16 117/61 96 - Laboratory Lab Statement: Any lab studies that have been ordered have been reviewed, and results considered in the medical decision making process. - Ultrasound Venous Doppler LLE US Ultrasound Interpretation Completed By: Radiologist Summary of Ultrasound Findings: Impression: 1. No evidence for LEFT lower extremity deep venous thrombosis. 2. Resolution of previous nonocclusive DVT at the RIGHT common femoral vein compared with the March 15, 2019 exam. ED physician has reviewed this imaging report. Re-Evaluation - Re-Evaluation First Eval Re-Evaluation Time: 13:45 Comment: We discussed all results and plan for discharge home. Lower Extremity Course/Dx - Course Course Of Treatment: Ms. Poe's exam was unremarkable. She was concerned about the possibility of DVT which she's had before and an ultrasound was obtained which was negative. I recommended follow-up with her PCP and return for any problems - Diagnoses Provider Diagnoses: Peripheral edema Discharge ED - Sign-Out/Discharge Documenting (check all that apply): Patient Departure - Patient will be discharged home. - Discharge Plan Condition: Stable Disposition: HOME Patient Education Materials: Leg Edema (ED) Referrals: Meghann Connell MD [Primary Care Provider] - 3 Days Additional Instructions: Follow up with your primary care provider in 2-3 days. Return to the emergency department for any new or worsening symptoms. - Billing Disposition and Condition Condition: STABLE Disposition: Home - Attestation Statements Document Initiated by Tom: Yes Documenting Scribe: Racheal Cleveland Provider For Whom Tom is Documenting (Include Credential): Dr. Samson Weeks MD Scribe Attestation: Racheal Chong scribed for Dr. Samson Weeks MD on 10/25/19 at 1720. Scribe Documentation Reviewed: Yes Provider Attestation: The documentation as recorded by the Racheal irggs accurately reflects the service I personally performed and the decisions made by me, Dr. Samson Weeks MD Status of Scribwesley Document: Viewed
[2019-10-25 12:47] VITALS: BP 111/68
== END 2019-10-25 14:02 | disposition home or self-care (01) ==
LOC: ED 11:15
DX: R60.0 Localized edema (principal); E07.9 Disorder of thyroid, unspecified; E78.00 Pure hypercholesterolemia, unspecified; K21.9 Gastro-esophageal reflux disease without esophagitis; I12.9 Hypertensive chronic kidney disease with stage 1 through stage 4 chronic kidney disease, or unspecified chronic kidney disease; N18.3 Chronic kidney disease, stage 3 (moderate); Z86.718 Personal history of other venous thrombosis and embolism; Z79.82 Long term (current) use of aspirin; F32.9 Major depressive disorder, single episode, unspecified; F03.90 Unspecified dementia, unspecified severity, without behavioral disturbance, psychotic disturbance, mood disturbance, and anxiety; Z88.8 Allergy status to other drugs, medicaments and biological substances; Z87.891 Personal history of nicotine dependence
CPT/HCPCS: 99283

== ENCOUNTER 2020-01-03 19:36 | Inpatient (IN) | payer MEDICARE, OTHER ==
--- NOTE | 2020-01-03 20:06 | ED ---
Medical Screening - History of Current Complaint Chief Complaint: EDShortnessOfBreath Stated Complaint: DIFFICULTY BREATHING PER DAUGHTER Time Seen by Provider: 01/03/20 19:52 PMH/Surg Hx/FS Hx/Imm Hx Previously Healthy: Yes Endocrine/Hematology History: Reports: Hx Anticoagulant Therapy, Hx Thyroid Disease - hypothyroidism Denies: Hx Diabetes, Hx Anemia, Other Endocrine/Hematological Disorders Cardiovascular History: Reports: Hx Angina, Hx Atrial Fibrillation, Hx Deep Vein Thrombosis - RLE, Hx Hypercholesterolemia, Hx Hypertension, Other Cardiovascular Problems/Disorders - temporal arteritis Denies: Hx Pacemaker/ICD Comment Only: Hx Valvular Heart Disease - heart murmur Respiratory History: Reports: Other Respiratory Problems/Disorders - SARCOIDOSIS ; hx of respiratory failure. Denies: Hx Asthma, Hx Chronic Obstructive Pulmonary Disease (COPD) GI History: Reports: Hx Gall Bladder Disease - removed, Hx Gastroesophageal Reflux Disease, Other GI Disorders - constipation/diarrhea Denies: Hx Obstructive Bowel, Hx Ulcer History: Reports: Hx Acute Renal Failure, Hx Chronic Renal Failure - stage 3 , Other Problems/Disorders - incontinence Denies: Hx Renal Disease Musculoskeletal History: Reports: Hx Back Problems, Hx Orthopedic Injury - left pelvic fracture, 2013, Other Musculoskeletal History - Hip fx and surgery jul 2016 Sensory History: Reports: Hx Cataracts, Hx Contacts or Glasses, 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, Hx Hearing Aid Opthamlomology History: Reports: Hx Cataracts, Hx Contacts or Glasses, 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 Neurological History: Reports: Hx CVA, Hx Dementia - short term memory loss, Other Neuro Impairments/Disorders - HX of AMS Psychiatric History: Reports: Hx Depression - controlled w/ meds Denies: Hx Panic Disorder, Other Psychiatric Issues/Disorders - Cancer History Cancer Type, Location and Year: h/o sarcoidosis - Surgical History Surgery Procedure, Year, and Place: Hysterectomy, bilat carpal tunnel, cataracts ; choley; right hip surgery Hx Anesthesia Reactions: No - Immunization History Date of Influenza Vaccine: Fall 2012 Infectious Disease History: No Infectious Disease History: Denies: Hx Hepatitis, Hx Human Immunodeficiency Virus (HIV), Traveled Outside the [place] in Last 30 Days - Family History Known Family History: Positive: Diabetes, Other - CVA, Lung CA. - Social History Alcohol Use: None Hx Substance Use: No Substance Use Type: Reports: None Hx Tobacco Use: Yes Smoking Status (MU): Former Smoker Type: Cigarettes Have You Smoked in the Last Year: No Physical Exam Vital Signs On Initial Exam: Initial Vitals Temp Pulse Resp BP Pulse Ox 99.2 F 47 18 174/78 93 01/03/20 19:36 01/03/20 19:36 01/03/20 19:36 01/03/20 19:36 01/03/20 19:36 Diagnostics - Vital Signs Vital Signs Temp Pulse Resp BP Pulse Ox 01/03/20 19:36 99.2 F 47 18 174/78 93 - Laboratory Lab Statement: Any lab studies that have been ordered have been reviewed, and results considered in the medical decision making process. Discharge ED - Discharge Plan Referrals: Meghann Connell MD [Primary Care Provider] - - Attestation Statements Document Initiated by Tom: Yes
--- NOTE | 2020-01-03 20:15 | ED ---
Shortness of Breath - HPI Summary HPI Summary: This pt is an 84 Y/O F presenting to [facility] with a CC of SOB on exertion that has been present since 01/03/2020 and increased in severity tonight. She has a PMHx of blood clots a year ago and was given a heart pump to assist. She states that she lives relatively independent and had an increase in falls on 12/27/2019 and 12/28/2019. Her daughter states that she hit her head on the 2nd fall. She states that she has been using a new walker and has been losing her balance more and more. The falls were unwitnessed. She states that she has been feeling more dizzy and lightheaded than usual. Her daughter states that she has not been sleeping well over this episode. She denies any recent fevers, headaches, chills, N/V, and diaphoresis. She also denies SOB while at rest. She has no alleviating factors. She states that her ambulation has been increasing her SOB. She has a PMHx of HTN, AFIB, L sided weakness due to a previous stroke, and a Hx of respiratory failure. She currently takes Amlodipine and Levothyroxine. Pt was asked about her care given the presentation of her advanced directives. Pt stated that she wants to respect her DNR and DNI status but states that she would be open to receiving an external pacemaker. - History of Current Complaint Chief Complaint: EDShortnessOfBreath Time Seen by Provider: 01/03/20 19:52 Hx Obtained From: Patient Onset/Duration: Gradual Onset, Lasting Weeks - 1, Still Present, Worse Since Timing: Constant Current Severity: Mild Dyspnea At: Rest Aggravating Factors: Other - exertion Alleviating Factors: Nothing Associated Signs & Symptoms: Negative - fevers, headaches, chills, N/V, and diaphoresis, Dizzy - Allergy/Home Medications Allergies/Adverse Reactions: Allergies Allergy/AdvReac Type Severity Reaction Status Date / Time azathioprine Allergy Unknown Verified 01/03/20 19:39 Reaction Details bupropion [From Wellbutrin] Allergy Unknown Verified 01/03/20 19:39 Reaction Details haloperidol [From Haldol] Allergy Altered Verified 01/03/20 19:39 Mental Status methotrexate Allergy Unknown Verified 01/03/20 19:39 Reaction Details mycophenolate mofetil Allergy Unknown Verified 01/03/20 19:39 [From CellCept] Reaction Details Home Medications: Home Medications Atorvastatin* [Lipitor 10 MG*] 10 mg PO DAILY 08/17/18 [History Confirmed ] Mirabegron (NF) [Myrbetriq (NF)] 25 mg PO BID 08/17/18 [History Confirmed ] Venlafaxine EXT RELEASE CAP* [Effexor Xr CAP*] 37.5 mg PO QPM 08/17/18 [History Confirmed 01/03/20] Aspirin EC TAB* [Ecotrin EC Low Dose 81 MG*] 81 mg PO DAILY tab.ec 08/26/18 [ Rx Confirmed 01/03/20] Iron 65 mg PO DAILY 06/15/19 [History Confirmed 01/03/20] Acetaminophen/Diphenhydramine [Tylenol Pm Ex-Strength Caplet] 1 each PO BEDTIME 08/05/19 [History Confirmed 01/03/20] Melatonin (NF) 1 tab PO BEDTIME PRN 08/05/19 [History Confirmed 01/03/20] Multivitamins/Minerals TAB* [Theragran/minerals TAB*] 1 tab PO DAILY 08/05/19 [ History Confirmed 01/03/20] Levothyroxine TAB* [Synthroid 125 MCG TAB*] 125 mcg PO DAILY 10/13/19 [History Confirmed 01/03/20] Omeprazole CAP (NF) [Prilosec CAP* 20 MG] 20 mg PO DAILY 10/13/19 [History Confirmed 01/03/20] Venlafaxine CAP (NF) [Effexor CAP (NF)] 75 mg PO QAM 10/25/19 [History Confirmed 01/03/20] Amlodipine 2.5 mg TAB (NF) 2.5 mg PO DAILY 01/03/20 [History Confirmed 01/03/20] Cholecalciferol (Vitamin D3) [Vitamin D3] 25 mcg PO DAILY 01/03/20 [History Confirmed 01/03/20] PMH/Surg Hx/FS Hx/Imm Hx Previously Healthy: Yes Endocrine/Hematology History: Reports: Hx Anticoagulant Therapy, Hx Thyroid Disease - hypothyroidism Denies: Hx Diabetes, Hx Anemia, Other Endocrine/Hematological Disorders Cardiovascular History: Reports: Hx Angina, Hx Atrial Fibrillation, Hx Deep Vein Thrombosis - RLE, Hx Hypercholesterolemia, Hx Hypertension, Other Cardiovascular Problems/Disorders - temporal arteritis Denies: Hx Pacemaker/ICD Comment Only: Hx Valvular Heart Disease - heart murmur Respiratory History: Reports: Other Respiratory Problems/Disorders - SARCOIDOSIS ; hx of respiratory failure. Denies: Hx Asthma, Hx Chronic Obstructive Pulmonary Disease (COPD) GI History: Reports: Hx Gall Bladder Disease - removed, Hx Gastroesophageal Reflux Disease, Other GI Disorders - constipation/diarrhea Denies: Hx Obstructive Bowel, Hx Ulcer History: Reports: Hx Acute Renal Failure, Hx Chronic Renal Failure - stage 3 , Other Problems/Disorders - incontinence Denies: Hx Renal Disease Musculoskeletal History: Reports: Hx Back Problems, Hx Orthopedic Injury - left pelvic fracture, 2013, Other Musculoskeletal History - Hip fx and surgery jul 2016 Sensory History: Reports: Hx Cataracts, Hx Contacts or Glasses, 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 Opthamlomology History: Reports: Hx Cataracts, Hx Contacts or Glasses, 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 Neurological History: Reports: Hx CVA, Hx Dementia - short term memory loss, Other Neuro Impairments/Disorders - HX of AMS Psychiatric History: Reports: Hx Depression - controlled w/ meds Denies: Hx Panic Disorder, Other Psychiatric Issues/Disorders - Cancer History Cancer Type, Location and Year: h/o sarcoidosis Hx Chemotherapy: No Hx Radiation Therapy: No - Surgical History Surgical History: Yes Surgery Procedure, Year, and Place: Hysterectomy, bilat carpal tunnel, cataracts ; choley; right hip surgery Hx Anesthesia Reactions: No - Immunization History Date of Influenza Vaccine: Fall 2012 Immunizations Up to Date: Yes Infectious Disease History: No Infectious Disease History: Denies: Hx Hepatitis, Hx Human Immunodeficiency Virus (HIV), Traveled Outside the [place] in Last 30 Days - Family History Known Family History: Positive: Diabetes, Other - CVA, Lung CA. - Social History Occupation: Retired Lives: With Family Alcohol Use: None Hx Substance Use: No Substance Use Type: Reports: None Hx Tobacco Use: Yes Smoking Status (MU): Former Smoker Type: Cigarettes Have You Smoked in the Last Year: No Review of Systems Constitutional: Other - POSITIVE: lightheadedness and dizziness Negative: Fever, Chills, Skin Diaphoresis Negative: Chest Pain Positive: Shortness Of Breath Negative: Vomiting, Nausea Negative: Headache All Other Systems Reviewed And Are Negative: Yes Physical Exam - Summary Physical Exam Summary: Constitutional: Well-developed, Well-nourished, Alert. (-) Distressed Skin: Warm, Dry HENT: Normocephalic; Atraumatic Eyes: Conjunctiva normal Neck: Musculoskeletal ROM normal neck. (-) JVD, (-) Stridor, (-) Tracheal deviation Cardio: Bounding pulses that are irregular and bradycardic, Intact distal pulses ; The pedal pulses are 2+ and symmetric. Radial pulses are 2+ and symmetric. Pulmonary/Chest wall: Effort normal. (-) Respiratory distress, (-) Wheezes, (-) Rales, Clear lungs, no developed fluid on lungs Abd: Soft, (-) tenderness, (-) Distension, (-) Guarding, (-) Rebound Musculoskeletal: (-) Edema Neuro: Alert, Oriented x3 Psych: Mood and affect Normal Triage Information Reviewed: Yes Vital Signs On Initial Exam: Initial Vitals Temp Pulse Resp BP Pulse Ox 99.2 F 47 18 174/78 93 01/03/20 19:36 01/03/20 19:36 01/03/20 19:36 01/03/20 19:36 01/03/20 19:36 Vital Signs Reviewed: Yes Procedures - Sedation Patient Received Moderate/Deep Sedation with Procedure: No Diagnostics - Vital Signs Vital Signs Temp Pulse Resp BP Pulse Ox 01/03/20 19:36 99.2 F 47 18 174/78 93 - Laboratory Result Diagrams: 01/03/20 20:39 01/03/20 20:39 Lab Statement: Any lab studies that have been ordered have been reviewed, and results considered in the medical decision making process. - Radiology CXR Radiology Interpretation Completed By: ED Physician Summary of Radiographic Findings: Suggests some diffuse pulmonary congestion. No obvious consolidation or effusions. Pending offical review. - EKG 1945 Cardiac Rate: Bradycardia - 54 BPM Summary of EKG Findings: An EKG at 1945 reveals sinus bradycardia at 54 BPM with a 2nd degree AVB (Mobitz type 2), p-wave intervals are equal and consistent , RBBB and LAFB. This is a critical EKG. Interpreted by Dr. Melgoza at 1945 Course/Dx - Course Course Of Treatment: This pt is an 84 Y/O F presenting to [facility] with a CC of SOB on exertion that has been present since 01/03/2020 and increased in severity tonight. She has a PMHx of blood clots a year ago and was given a heart pump to assist. She states that she lives relatively independent and had an increase in falls on 12/27/2019 and 12/28/2019. Her PE found that she has bounding pulses that are irregular and bradycardic. An EKG at 1946 reveals sinus bradycardia at 54 BPM with a 2nd degree AVB (Mobitz type 2), p-wave intervals are equal and consistent, RBBB and LAFB. This is a critical EKG. Pt was informed of her current condition. The family discussed her MOLST. The pt decided that external pacemaker devices were acceptable, but wanted to remain a DNI and DNR. CXR: Suggests some diffuse pulmonary congestion. No obvious consolidation or effusions. Dr. Scott, key filer, was contacted at 2014 to discuss the pts ekg and potential POC. He states that the pt should stay in the ED until the morning when she can be reassessed pending any further developments. He recommends discussing the case with Hospitalist for potential admittance. Her Troponin is a .03 with no prior indication for elevated troponins. All other abnormal lab results are not pertinent to current CC. This pt will be admitted to [facility] for further work up and care with a Dx of second degree AV block ( Mobitz's type 2). - Diagnoses Provider Diagnoses: Second degree AV block, Mobitz type II - Physician Notifications Discussed Care of Patient With: Eliel Amin Time Discussed With Above Provider: 22:01 Instructed by Provider To: Admit As Inpatient Admit/Transition Orders Completed By ED Provider: Yes Discharge ED - Sign-Out/Discharge Documenting (check all that apply): Patient Departure - discharge - Discharge Plan Condition: Stable Disposition: ADMITTED TO [facility] - Billing Disposition and Condition Condition: STABLE Disposition: Admitted to [facility] - Attestation Statements Document Initiated by Scribe: Yes Documenting Scribe: Peter Rocha Provider For Whom Tom is Documenting (Include Credential): Ariel Melgoza MD Scribe Attestation: Peter Chong, scribed for Ariel Melgoza MD on 01/04/20 at 0436. Scribe Documentation Reviewed: Yes Provider Attestation: The documentation as recorded by the Peter riggs accurately reflects the service I personally performed and the decisions made by me, Ariel Melgoza MD Status of Scribe Document: Viewed
[2020-01-03 20:59] LABS: ABS Basophils 0.1 10^3/ul (0-0.2); ABS Eosinophils 0.2 10^3/ul (0-0.6); ABS Lymphocytes 2.6 10^3/ul (1.0-4.8); ABS Monocytes 0.6 10^3/ul (0-0.8); ABS Neutrophils 2.6 10^3/ul (1.5-7.7); Eosinophil % 3.6 %; Hematocrit 41 % (35-47); Hemoglobin 14.1 g/dL (12.0-16.0); Lymphocyte % 42.4 %; Mean Corpuscular HGB Conc 34 g/dL (31-36); Mean Corpuscular Hemoglobin 33 pg (27-31); Mean Corpuscular Volume 96 fL (80-97); Mean Platelet Volume 7.8 fL (7.4-10.4); Nucleated Red Blood Cells % 0.1; Platelet Count 218 10^3/uL (150-450); Red Blood Count 4.28 10^6 /uL (3.70-4.87); Red Cell Distribution Width 14 % (10-15); White Blood Count 6.1 10^3/uL (3.5-10.8)
[2020-01-03 21:03] LABS: INR 1.06 (0.82-1.09)
[2020-01-03 21:11] LABS: Anion Gap 9 mmol/L (2-11); BUN/Creatinine Ratio 20.3 (8-20); Blood Urea Nitrogen 35 mg/dL (6-24); CO2 Carbon Dioxide 25 mmol/L (22-32); Calcium 9.7 mg/dL (8.6-10.3); Chloride 103 mmol/L (101-111); EGFR African American 34.2 (>60); EGFR Non-African American 28.2 (>60); Glucose 129 mg/dL (70-100); Magnesium 2.1 mg/dL (1.9-2.7); Potassium 3.8 mmol/L (3.5-5.0); Sodium 137 mmol/L (135-145)
[2020-01-03 21:13] LABS: Troponin I 0.03 ng/mL (<0.03)
[2020-01-03 21:33] LABS: TSH (Thyroid Stimulating Horm) 11.57 mcIU/mL (0.34-5.60)
[2020-01-03 21:45] LABS: Free T4 0.78 ng/dL (0.61-1.12)
[2020-01-03] MEDS ORDERED: Ondansetron INJ* 2 MG/ML VIAL IV PRN (23:59)
--- NOTE | 2020-01-04 03:13 | HP ---
History of Present Illness - History of Present Illness Reason for Visit: Frequent falls, SOB, Dyspnea on exertion, cough History of Present Illness: 84 yo female with PMHx significant for CVA with residual left sided weakness HTN, Hypothyroidism, DVT/PE but not on AC due to fall risk, Temporal arteritis and not on current steroid meds, HLD, GERD presents to the ED with CC of SOB on exertion with has increased in severity since for the past 2 days and worsened tonight. Patient said simple task like going to the bathroom causes her to be dyspneic. She reported a history of DVT/PE and has a filter in place and no AC due to fall risk. She has increased falls lately. The last fall being 12/28/19. She uses a walker to ambulate. She denied F/N/V/headache, diaphoresis. - Past Medical History Cardiac: HTN, Hyperlipidemia Pulmonary: Pulmonary embolus DICE TABLE PERSON: CVA Heme/Onc: Other - DVT Rheumatologic: Vasculitis, Other - Sarcoidosis Endocrine: Hypothyroidism - Past Surgical History Past Surgical History: Cholecystectomy, Hysterectomy, Other - R hip surgery, L foot drop - Past Social History Smoke: <1 pack per day, Quit - 62 years ago Alcohol: Rare Drugs: None Lives: With Family Domestic Violence: Negative Review of Systems - Measurements Intake and Output: Intake and Output Last 24 Hours 01/01/20 01/02/20 01/03/20 01/04/20 06:59 06:59 06:59 06:59 Intake Total 60 Output Total 1000 Balance -940 Weight 70.307 kg Intake: Oral 60 Output: Urine 1000 - Review of Systems Constitutional Symptoms: Positive: Weakness Dermatology: Positive: Normal HEENT: Positive: Normal Eyes: Positive: Normal Thyroid: Positive: Normal Pulmonary: Positive: Cough, Shortness of Breath Cardiology: Positive: Shortness of Breath Gastroenterology: Positive: Normal Genital - Urinary: Positive: Normal Genitourinay - Female: Positive: Menopause Musculoskeletal: Negative: Joint Pain, Sciatica Endocrinology: Positive: Normal Hematologic/Lymphatic: Negative: Easy Bruising Neurology: Positive: Dizziness, Unexplained Weakness Negative: Headache, Diplopia, Change in Speech Psychiatry: Positive: Normal Allergic/Immunologic: Negative: Hx Anaphylaxis, Immunocompromise Objective Active Medications: Acetaminophen (Tylenol Tab*) 650 mg PO Q4H PRN PRN Reason: PAIN - MILD Amlodipine Besylate (Norvasc Tab*) 2.5 mg PO DAILY [facility] Aspirin (Aspirin Ec Tab*) 81 mg PO DAILY [facility] Atorvastatin Calcium (Lipitor*) 10 mg PO DAILY [facility] Cholecalciferol (Vitamin D Tab*) 1,000 units PO DAILY [facility] Docusate Sodium (Colace Cap*) 100 mg PO BID [facility] Heparin Sodium (Porcine) (Heparin Vial(*)) 5,000 units SUBCUT Q8HR [facility] Levothyroxine Sodium (Synthroid Tab*) 125 mcg PO DAILY@0600 [facility] Melatonin (Melatonin) 3 mg PO BEDTIME PRN PRN Reason: SLEEP Mirabegron (Myrbetriq (Nf)) 25 mg PO BID [facility] Non-Formulary Medication (Acetaminophen/Diphenhydramine [Tylenol Pm Ex-Strength Caplet]) 1 each PO BEDTIME [facility] Non-Formulary Medication (Iron [Iron]) 65 mg PO DAILY [facility] Ondansetron HCl (Zofran Inj*) 4 mg IV Q4H PRN PRN Reason: NAUSEA/VOMITING Pantoprazole Sodium (Protonix Tab*) 40 mg PO DAILY [facility] Venlafaxine HCl (Effexor Xr Cap*) 75 mg PO QAM NAZ[facility]; Protocol Venlafaxine HCl (Effexor Xr Cap*) 37.5 mg PO QPM [facility] Vital Signs - 8 hr 01/03/20 01/03/20 01/03/20 19:36 20:02 20:53 Temperature 99.2 F Pulse Rate 47 35 Respiratory 18 21 Rate Blood Pressure 174/78 142/82 (mmHg) O2 Sat by Pulse 93 92 94 Oximetry 01/03/20 01/03/20 01/03/20 21:00 21:51 22:00 Temperature Pulse Rate 40 55 30 Respiratory 25 18 25 Rate Blood Pressure 128/62 (mmHg) O2 Sat by Pulse 91 94 93 Oximetry 01/03/20 01/03/20 01/03/20 23:00 23:07 23:58 Temperature 97.6 F Pulse Rate 53 49 Respiratory 19 18 Rate Blood Pressure 130/72 (mmHg) O2 Sat by Pulse 94 93 Oximetry 01/04/20 01/04/20 01/04/20 00:00 00:40 01:00 Temperature Pulse Rate 48 45 44 Respiratory 24 23 24 Rate Blood Pressure (mmHg) O2 Sat by Pulse 90 91 94 Oximetry 01/04/20 01/04/20 01/04/20 01:03 02:00 02:41 Temperature 96.9 F Pulse Rate 44 45 44 Respiratory 20 23 19 Rate Blood Pressure 130/80 130/80 (mmHg) O2 Sat by Pulse 92 93 94 Oximetry Appearance: Awake, alert and in no obvious distress. Eyes: No Scleral Icterus, PERRLA Ears/Nose/Mouth/Throat: NL Teeth, Lips, Gums, Clear Oropharnyx, Mucous Membranes Moist Neck: NL Appearance and Movements; NL JVP, No Thyroid Enlargement, Masses Respiratory: Symmetrical Chest Expansion and Respiratory Effort, Clear to Auscultation Cardiovascular: NL Sounds; No Murmurs; No JVD, RRR Abdominal: NL Sounds; No Tenderness; No Distention, No Hepatosplenomegaly Lymphatic: No Cervical Adenopathy Extremities: No Edema, No Clubbing, Cyanosis Skin: No Rash or Ulcers Neurological: Alert and Oriented x 3 Result Diagrams: 01/03/20 20:39 01/03/20 20:39 EKG Data: Sinus bradycardia with 2nd degree AVB (Mobitz type 2), p-wave intervals are equal and consistent, RBBB and LAFB. 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 on AC due to fall risk, Temporal arteritis and not on current steroid meds, HLD, GERD presents with: - Patient Problems (1) Sinus bradycardia Current Visit: Yes Status: Acute Code(s): R00.1 - BRADYCARDIA, UNSPECIFIED SNOMED Code(s): 17699963 (2) Heart block AV second degree Current Visit: Yes Status: Acute Code(s): I44.1 - ATRIOVENTRICULAR BLOCK, SECOND DEGREE SNOMED Code(s): 986251526 (3) Hx of gastroesophageal reflux (GERD) Current Visit: No Status: Chronic Priority: Low Code(s): Z87.19 - PERSONAL HISTORY OF OTHER DISEASES OF THE DIGESTIVE SYSTEM SNOMED Code(s): 75195173669663 (4) Hx of sarcoidosis Current Visit: No Status: Chronic Priority: Medium Code(s): Z86.2 - PRSNL HISTORY OF DIS OF THE BLD/BLD-FORM ORG/IMMUN MECHNSM SNOMED Code(s): 613710833 Comment: With 2cm indeterminant lesion on admission CXR Will need follow up CT in future Reports problems with elevated calcium in past - trend (5) Hx of temporal arteritis Current Visit: No Status: Chronic Priority: Medium Code(s): Z87.39 - PERSONAL HISTORY OF DISEASES OF THE MS SYS AND CONN TISS SNOMED Code(s): 582852581 (6) Hypothyroid Current Visit: No Status: Chronic Code(s): E03.9 - HYPOTHYROIDISM, UNSPECIFIED SNOMED Code(s): 92305930 Comment: - Continue levothyroxine. (7) DNR (do not resuscitate) Current Visit: Yes Status: Acute (8) DVT prophylaxis Current Visit: Yes Status: Acute Code(s): Z29.9 - ENCOUNTER FOR PROPHYLACTIC MEASURES, UNSPECIFIED SNOMED Code(s): 301376870 Status and Disposition: Admit to medicine. fair
[2020-01-04] MEDS ORDERED: Levothyroxine TAB* 125 MCG TAB PO SCH (06:00)
[2020-01-04] MEDS: Heparin VIAL(*) 5000 UNITS/ML VIAL (FIVE THOUSAND) SUBCUT SCH ×3 (06:14→21:40)
[2020-01-04] MEDS: amLODIPine TAB* 5 MG PO SCH (09:19)
[2020-01-04] MEDS: Pantoprazole TAB * 40 MG TAB PO SCH (09:20)
[2020-01-04] MEDS: Docusate CAP* 100 MG PO SCH ×2 (09:20→21:36)
[2020-01-04] MEDS: Cholecalciferol TAB* 1000 UNITS PO SCH (09:20)
[2020-01-04] MEDS: Aspirin EC TAB* 81 MG TAB.EC PO SCH (09:20)
[2020-01-04] MEDS: Venlafaxine EXT RELEASE CAP* 75 MG PO SCH (09:20)
[2020-01-04] MEDS: Atorvastatin* 10 MG TAB PO SCH (09:20)
[2020-01-04] MEDS: Ferrous Sulfate TAB* 325 MG PO SCH (09:20)
[2020-01-04] MEDS: PTO: Mirabegron (NF) 25 MG TAB PO SCH ×2 (09:21→21:46)
--- NOTE | 2020-01-04 14:43 | ECHO ---
*[facility]* [place] [address] Fax #: [phone] Transthoracic Echocardiogram Patient: Francine Poe : 1935 Study Date: 01/04/2020 Age: 84 Gender: F HR: 45 bpm Height: 64 in /162.6 cm BSA: 1.73 m^2 Weight: 148.7 lb /67.6 kg BMI: 25.6 kg/m^2 *Roof Fitter: * Pennie Larios [facility] *Referring Physician: * Eri Cunningham *Reading Physician: * Sam Leger MD Indications: Chest Pain, unspecified. History: Risk factors: Former tobacco use. Hypertension. Dyslipidemia. Conclusions Summary: - Left ventricle: The cavity size is below normal. Wall thickness is moderately increased. Systolic function is normal. The estimated ejection fraction is 65-70%. Wall motion is normal; there are no regional wall motion abnormalities. - Mitral valve: The Mitral valve annulus appears moderate to severely calcified. The leaflets are mildly calcified. The findings are consistent with mild stenosis. There is mild to moderate regurgitation. The valve area by pressure half-time is 2.7 cm^2. - Aortic valve: Valve mobility is restricted. The findings are consistent with moderate stenosis. The peak systolic velocity is 2.7 m/sec. The mean systolic gradient is 14.0 mm Hg. - Tricuspid valve: There is mild regurgitation. - Pulmonary arteries: Systolic pressure is within the normal range. - Compared to study of 09/21/19, the left ventricle function is the same. Aortic stenosis is slightly worse. Study data: Transthoracic echocardiogram. Procedure: Transthoracic echocardiography was performed. Image quality was fair. Complete 2D, spectral Doppler, and color flow Doppler. Location: Bedside. Patient status: Inpatient. Patient room number: 450-02. Rhythm: Heart block. Findings Left ventricle: The cavity size is below normal. Wall thickness is moderately increased. Systolic function is normal. The estimated ejection fraction is 65-70%. Wall motion is normal; there are no regional wall motion abnormalities. There is no consistent Doppler evidence of clinically significant diastolic dysfunction. Right ventricle: The cavity size is at the upper limits of normal. Systolic function is normal. Systolic pressure is within the normal range. Left atrium: The atrium is mildly dilated. Right atrium: The atrium is at the upper limits of normal in size. Mitral valve: The Mitral valve annulus appears moderate to severely calcified. The leaflets are mildly calcified. The findings are consistent with mild stenosis. There is mild to moderate regurgitation. Aortic valve: The annulus is mildly calcified. The valve is trileaflet. Moderate calcification involving the noncoronary cusp. Valve mobility is restricted. The findings are consistent with moderate stenosis. There is trace regurgitation. Tricuspid valve: The leaflets are normal thickness. There is no evidence of stenosis. There is mild regurgitation. Pulmonic valve: The leaflets are normal thickness. There is no evidence of stenosis. There is trace regurgitation. Aorta: Aortic root: The aortic root is appears normal. Ascending aorta: The ascending aorta is appears normal. Aortic arch: The aortic arch is poorly visualized. Pericardium: There is no significant pericardial effusion. Pulmonary arteries: The main pulmonary artery is normal-sized. Systolic pressure is within the normal range. Systemic veins: Inferior vena cava: The vessel is normal in size. There is (>= 50%) respiratory change in the IVC dimension. Measurements Left ventricle Value Ref Aortic valve Value Ref ETTA, LAX (L) 3.4 cm 3.8 - 5.2 Senthil diam, ED 2.0 cm ----- ESD, LAX (L) 2.0 cm 2.2 - 3.5 Peak v, S 2.7 m/sec ----- FS, LAX 40 % 27 - 45 VTI, S 78.0 cm ----- PW, ED, LAX (H) 1.3 cm 0.6 - 0.9 Mean grad, S 14.0 mm Hg ----- FS 40 % 27 - 45 Peak grad, S 30.0 mm Hg ----- Mid-wall FS 11 % LVOT/AV, VTI ratio 0.32 ----- PW, ED (H) 1.3 cm 0.6 - 0.9 ZACHARY, VTI 1.01 cm^2 ----- E', lat senthil, TDI (L) 6.5 cm/sec >=10.0 ZACHARY, Vmax 1.10 cm^2 -- --- E/e', lat senthil, 32 TDI Mitral valve Value Ref E', med senthil, TDI 7.7 cm/sec >=7.0 Peak E 2.1 m/sec -- --- E/e', med senthil, 27 Peak A 1.42 m/sec ----- TDI Decel time 176 ms ----- E', avg, TDI 7.1 cm/sec PHT 69 ms ----- E/e', avg, TDI (H) 30 <=14 Mean grad, D 5.0 mm Hg -- --- Peak grad, D 23.0 mm Hg ----- LVOT Value Ref Peak E/A ratio 1.5 ----- Diam, S 2.00 cm MVA, PHT 2.7 cm^2 ----- Area 3.1 cm^2 Peak skylar, S 0.94 m/sec Pulmonic valve Value Ref VTI, S 25.0 cm Peak v, S 1.16 m/sec ----- Peak grad, S 4 mm Hg Peak grad, S 5.0 mm Hg ----- Mean grad, S 2 mm Hg SV 79 ml Tricuspid valve Value Ref SV/bsa 46 ml/m^2 TR peak v 2.44 m/sec <=2.8 Peak RV-RA grad, S 24 mm Hg ----- Ventricular septum Value Ref IVS, ED (H) 1.3 cm 0.6 - 0.9 Aortic root Value Ref Root diam 2.6 cm <3.9 Right ventricle Value Ref ETTA, LAX 3.4 cm Ascending aorta Value Ref ETTA minor ax, A4C 3.5 cm 1.9 - 3.5 AAo AP diam, S 3.4 cm ----- mid AAo AP diam/bsa, S 2.0 cm/m^2 ----- Pressure, S 27 mm Hg Decending aorta Value Ref Left atrium Value Ref Jose peak skylar 0.64 m/sec ----- AP dim, ES (H) 4.50 cm 2.70 - 3.80 Pulmonary artery Value Ref ML dim, A4C 5.0 cm Pressure, S 22.0 mm Hg ----- SI dim, A4C 5.7 cm Vol/bsa, ES, 1-p (H) 57 ml/m^2 11 - 40 Inferior vena cava Value Ref A4C Diam 1.7 cm ----- Vol/bsa, ES, A/L (H) 56 ml/m^2 16 - 34 Right atrium Value Ref SI dim, ES 5.3 cm 3.4 - 5.3 ML dim, ES, A4C 3.5 cm 2.6 - 4.4 Estimated RAP 3 mm Hg Legend: (L) and (H) amara values outside specified reference range. Prepared and electronically signed by Sam Leger MD 01/04/2020 14:42
--- NOTE | 2020-01-04 15:08 | PN ---
Subjective Date of Service: 01/04/20 Interval History: Pt feels well. Started having PUTNAM and weakness with exertion. Denies CP , feels well today Objective Active Medications: Acetaminophen (Tylenol Tab*) 487.5 mg PO BEDTIME [facility] Acetaminophen (Tylenol Tab*) 650 mg PO Q4H PRN PRN Reason: PAIN - MILD Amlodipine Besylate (Norvasc Tab*) 2.5 mg PO DAILY [facility] Last Admin: 01/04/20 09:19 Dose: 2.5 mg Aspirin (Aspirin Ec Tab*) 81 mg PO DAILY [facility] Last Admin: 01/04/20 09:20 Dose: 81 mg Atorvastatin Calcium (Lipitor*) 10 mg PO DAILY [facility] Last Admin: 01/04/20 09:20 Dose: 10 mg Cholecalciferol (Vitamin D Tab*) 1,000 units PO DAILY [facility] Last Admin: 01/04/20 09:20 Dose: 1,000 units Diphenhydramine HCl (Benadryl Po*) 25 mg PO BEDTIME [facility] Docusate Sodium (Colace Cap*) 100 mg PO BID [facility] Last Admin: 01/04/20 09:20 Dose: 100 mg Ferrous Sulfate (Ferrous Sulfate Tab*) 325 mg PO DAILY [facility] Last Admin: 01/04/20 09:20 Dose: 325 mg Heparin Sodium (Porcine) (Heparin Vial(*)) 5,000 units SUBCUT Q8HR [facility] Last Admin: 01/04/20 13:58 Dose: 5,000 units Levothyroxine Sodium (Synthroid Tab*) 125 mcg PO DAILY@0600 [facility] Last Admin: 01/04/20 06:13 Dose: 125 mcg Melatonin (Melatonin) 3 mg PO BEDTIME PRN PRN Reason: SLEEP Mirabegron (Myrbetriq (Nf)) 25 mg PO BID [facility] Last Admin: 01/04/20 09:21 Dose: Not Given Ondansetron HCl (Zofran Inj*) 4 mg IV Q4H PRN PRN Reason: NAUSEA/VOMITING Pantoprazole Sodium (Protonix Tab*) 40 mg PO DAILY [facility] Last Admin: 01/04/20 09:20 Dose: 40 mg Venlafaxine HCl (Effexor Xr Cap*) 75 mg PO QAM [facility]; Protocol Last Admin: 01/04/20 09:20 Dose: 75 mg Venlafaxine HCl (Effexor Xr Cap*) 37.5 mg PO QPM [facility] Vital Signs - 8 hr 01/04/20 01/04/20 07:35 08:00 Temperature 97.6 F Pulse Rate 44 Respiratory 16 17 Rate Blood Pressure 138/78 (mmHg) O2 Sat by Pulse 93 Oximetry Oxygen Devices in Use Now: None Appearance: 84 yo F in nAD, aAOx3 Eyes: No Scleral Icterus, PERRLA Ears/Nose/Mouth/Throat: NL Teeth, Lips, Gums, Mucous Membranes Moist Neck: NL Appearance and Movements; NL JVP, Trachea Midline Respiratory: Symmetrical Chest Expansion and Respiratory Effort, Clear to Auscultation Cardiovascular: NL Sounds; No Murmurs; No JVD, RRR, - - irregular Abdominal: NL Sounds; No Tenderness; No Distention Lymphatic: No Cervical Adenopathy Extremities: No Edema, No Clubbing, Cyanosis Skin: No Rash or Ulcers, No Nodules or Sclerosis Neurological: Alert and Oriented x 3, - - minimal left sided weakness-at baseline Result Diagrams: 01/03/20 20:39 01/03/20 20:39 EKG Data: Sinus bradycardia with 2nd degree AVB (Mobitz type 2), p-wave intervals are equal and consistent, RBBB and LAFB. 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 Pt is planned for pacemaker tomorrow (2) Chronic kidney disease Comment: creat at baseline (3) Hx of sarcoidosis Comment: noted h/o (4) History of hypothyroidism Comment: Increase Synthroid from 125 to 135. TSH 11 (5) DVT prophylaxis Comment: HSQ Status and Disposition: inpatient
[2020-01-04] MEDS ORDERED: Venlafaxine EXT RELEASE CAP* 75 MG PO SCH (18:00)
[2020-01-04] MEDS ORDERED: Venlafaxine EXT RELEASE CAP* 37.5 MG PO SCH (18:02)
[2020-01-04] MEDS: Venlafaxine EXT RELEASE CAP* 37.5 MG PO SCH (18:17)
--- NOTE | 2020-01-04 19:47 | CONS ---
CARDIOLOGY CONSULTATION: DATE OF CONSULT: 01/04/20 INDICATION FOR CONSULTATION: Shortness of breath, second-degree heart block. HISTORY OF PRESENT ILLNESS: The patient is an 84-year-old female with a history of CVA, history of left-sided weakness, hypertension, on anticoagulation , who came to the hospital because of increasing shortness of breath with exertion. The patient came to the emergency room with these symptoms. Her initial EKG showed normal sinus rhythm with non-conducted P waves. On further inspection, it appears to be second-degree heart block type 2 with no evidence of prolonged UT interval prior to the dropped beat. The patient states when she gets up to do any kind of activity she just gets short of breath much more than she has been in the last week. The patient denied any chest pain. She denied any lightheadedness or dizziness. The patient has been having increasing falls. These appeared to be mechanical due to her difficulty with walking. There is no clear evidence of syncope. PAST MEDICAL HISTORY: Significant for CVA, hypertension, DVT, temporal arteritis. She has a history of a Leonard filter, history of PEs in the past , sarcoidosis. PAST SURGICAL HISTORY: Cholecystectomy, hysterectomy, hip surgery, Leonard filter implantation. OUTPATIENT MEDICATIONS: 1. Atorvastatin 10 mg a day. 2. Effexor 37.5 mg a day. 3. Mirabegron 25 mg b.i.d. 4. Aspirin 81 mg a day. 5. Multivitamin a day. 6. Omeprazole 20 mg a day. 7. Levothyroxine 125 mcg a day. 8. Amlodipine 5 mg a day. FAMILY HISTORY: No family history of early coronary artery disease or cardiac arrhythmias. SOCIAL HISTORY: She lives with her family. She denies tobacco or alcohol use. She is retired. REVIEW OF SYSTEMS: Positive for weakness. Positive for falls. Negative for changes in bowel or bladder habits. Negative for changes in weight. Negative for fevers. PHYSICAL EXAM: Height is 5 feet 4 inches, weight is 149 pounds, temperature 97.6, heart rate is 44, blood pressure 138/78, respiratory rate is 16, oxygen saturation 93% on room air. Sclerae anicteric. Oropharynx is pink without erythema. Carotids are 2+ without bruits. JVD is normal. Thyroid is normal. Cardiac Exam: S1, S2 without any murmurs, rubs, or gallops. PMI is normal. Lungs are clear to auscultation bilaterally. There is no dullness to percussion. Abdomen is soft, nontender, nondistended with normoactive bowel sounds. Extremities show no edema. She has 2+ pulses throughout. The patient is awake, alert, and oriented. She has some weakness on her left side. DIAGNOSTIC STUDIES/LAB DATA: Echocardiogram today shows normal LV size and systolic function. She has mild mitral valvular stenosis. She has moderate aortic stenosis. It is not significantly different than September of 2019. Laboratory studies: CBC within normal limits. Chemistries within normal limits. TSH is 11, free T4 is 0.74. IMPRESSION AND PLAN: This is an 84-year-old female who is admitted to the hospital because of shortness of breath. This is new in the last week or so. The patient has evidence of second-degree heart block type 2 and runs of 2:1 heart block. The patient has a minimally elevated troponin level; however, her echocardiogram shows normal LV size and systolic function. She does have moderate aortic stenosis. At this point, I think the patient would require a pacemaker implantation. The risks and benefits of this were described in detail. The patient is willing to proceed. The patient will undergo pacemaker implantation. I do not think any other medication changes are necessary. [id number]/[facility] #: [id number] SHEYLA
[2020-01-04] MEDS ORDERED: amLODIPine TAB* 5 MG PO ONE (21:00)
[2020-01-04] MEDS: Acetaminophen TAB* 325 MG PO SCH (21:34)
[2020-01-04] MEDS: diPHENhydraMINE PO* 25 MG PO SCH (21:34)
[2020-01-04] MEDS: Melatonin 3 MG TAB PO PRN (21:37)
[2020-01-04] MEDS ORDERED: NS 0.9% 1000 ML** 1,000 ML IV SCH (23:55)
[2020-01-05] MEDS: Levothyroxine TAB* 137 MCG TAB PO SCH (06:01)
[2020-01-05] MEDS: Heparin VIAL(*) 5000 UNITS/ML VIAL (FIVE THOUSAND) SUBCUT SCH ×3 (06:02→22:00)
[2020-01-05 06:49] LABS: ABS Basophils 0.1 10^3/ul (0-0.2); ABS Eosinophils 0.2 10^3/ul (0-0.6); ABS Lymphocytes 3.1 10^3/ul (1.0-4.8); ABS Monocytes 0.5 10^3/ul (0-0.8); ABS Neutrophils 2.2 10^3/ul (1.5-7.7); Eosinophil % 3.6 %; Hematocrit 42 % (35-47); Hemoglobin 14.7 g/dL (12.0-16.0); Lymphocyte % 51.2 %; Mean Corpuscular HGB Conc 35 g/dL (31-36); Mean Corpuscular Hemoglobin 34 pg (27-31); Mean Corpuscular Volume 96 fL (80-97); Mean Platelet Volume 7.9 fL (7.4-10.4); Platelet Count 212 10^3/uL (150-450); Red Blood Count 4.39 10^6 /uL (3.70-4.87); Red Cell Distribution Width 14 % (10-15)
[2020-01-05 07:04] LABS: Calcium 9.2 mg/dL (8.6-10.3); EGFR Non-African American 33.9 (>60); Potassium 3.6 mmol/L (3.5-5.0)
[2020-01-05] MEDS: Atorvastatin* 10 MG TAB PO SCH (07:44)
[2020-01-05] MEDS: Cholecalciferol TAB* 1000 UNITS PO SCH (07:44)
[2020-01-05] MEDS: amLODIPine TAB* 5 MG PO SCH (07:45)
[2020-01-05] MEDS: Ferrous Sulfate TAB* 325 MG PO SCH (07:45)
[2020-01-05] MEDS: Aspirin EC TAB* 81 MG TAB.EC PO SCH (07:46)
[2020-01-05] MEDS: Docusate CAP* 100 MG PO SCH ×2 (07:46→22:00)
[2020-01-05] MEDS: Pantoprazole TAB * 40 MG TAB PO SCH (07:46)
[2020-01-05] MEDS: Venlafaxine EXT RELEASE CAP* 75 MG PO SCH (07:47)
[2020-01-05] MEDS: PTO: Mirabegron (NF) 25 MG TAB PO SCH ×2 (07:47→22:00)
[2020-01-05] MEDS ORDERED: ceFAZolin 2 GM in NS 100 ml - ONCE (Pharmacy Admix) IVPB ONE (08:00)
[2020-01-05] MEDS ORDERED: Diazepam TAB(*) 5 MG PO ONE (08:00)
[2020-01-05] MEDS ORDERED: ceFAZolin 1 GM/10 ML flush(*) SYRINGE for pocket flush (cardiology) FLUSH ONE (08:00)
[2020-01-05] MEDS ORDERED: ceFAZolin 2 GM PREMIX in ORs 2 GM/50 ML BAG IVPB ONE (08:00)
[2020-01-05] MEDS ORDERED: Diazepam TAB(*) 5 MG ONE (09:06)
[2020-01-05] MEDS ORDERED: Iohexol 180 (CONTRAST) 10 ML SDV IV ONE (09:08)
[2020-01-05] MEDS ORDERED: fentaNYL* 50 MCG/ML 2 ML VIAL (100 MCG VIAL) ONE (09:08)
[2020-01-05] MEDS ORDERED: Lidocaine 1% INJ* 10 MG/ML 30 ML SDV ONE (09:08)
[2020-01-05] MEDS ORDERED: Midazolam* 1 MG/ML 5 ML VIAL (5 MG) ONE (09:08)
--- NOTE | 2020-01-05 11:09 | PN ---
Subjective Date of Service: 01/05/20 - CC: PUTNAM, 2nd degree HB Interval History: I saw the patient with her daughter. PUTNAM progressive over the last several weeks, marked over the last week. Fall in bathroom about 3 months ago. No recent fevers, infectious signs or symptoms. Medications Active Medications: INPATIENT Acetaminophen (Tylenol Tab*) 487.5 mg PO BEDTIME [facility] Last Admin: 01/04/20 21:34 Dose: 487.5 mg Acetaminophen (Tylenol Tab*) 650 mg PO Q4H PRN PRN Reason: PAIN - MILD Amlodipine Besylate (Norvasc Tab*) 2.5 mg PO DAILY [facility] Last Admin: 01/05/20 07:45 Dose: 2.5 mg Aspirin (Aspirin Ec Tab*) 81 mg PO DAILY [facility] Last Admin: 01/05/20 07:46 Dose: 81 mg Atorvastatin Calcium (Lipitor*) 10 mg PO DAILY [facility] Last Admin: 01/05/20 07:44 Dose: 10 mg Cholecalciferol (Vitamin D Tab*) 1,000 units PO DAILY [facility] Last Admin: 01/05/20 07:44 Dose: 1,000 units Diphenhydramine HCl (Benadryl Po*) 25 mg PO BEDTIME [facility] Last Admin: 01/04/20 21:34 Dose: 25 mg Docusate Sodium (Colace Cap*) 100 mg PO BID [facility] Last Admin: 01/05/20 07:46 Dose: 100 mg Ferrous Sulfate (Ferrous Sulfate Tab*) 325 mg PO DAILY [facility] Last Admin: 01/05/20 07:45 Dose: 325 mg Heparin Sodium (Porcine) (Heparin Vial(*)) 5,000 units SUBCUT Q8HR [facility] Last Admin: 01/05/20 06:02 Dose: 5,000 units Sodium Chloride (Ns 0.9% 1000 Ml) 1,000 mls @ 100 mls/hr IV PER RATE [facility] Last Admin: 01/05/20 01:58 Dose: 100 mls/hr Levothyroxine Sodium (Synthroid Tab*) 137 mcg PO DAILY@0600 [facility] Last Admin: 01/05/20 06:01 Dose: 137 mcg Melatonin (Melatonin) 3 mg PO BEDTIME PRN PRN Reason: SLEEP Last Admin: 01/04/20 21:37 Dose: 3 mg Mirabegron (Myrbetriq (Nf)) 25 mg PO BID [facility] Last Admin: 01/05/20 07:47 Dose: Not Given Ondansetron HCl (Zofran Inj*) 4 mg IV Q4H PRN PRN Reason: NAUSEA/VOMITING Pantoprazole Sodium (Protonix Tab*) 40 mg PO DAILY [facility] Last Admin: 01/05/20 07:46 Dose: 40 mg Venlafaxine HCl (Effexor Xr Cap*) 75 mg PO QAM [facility]; Protocol Last Admin: 01/05/20 07:47 Dose: 75 mg Venlafaxine HCl (Effexor Xr Cap*) 37.5 mg PO QPM [facility] Last Admin: 01/04/20 18:17 Dose: 37.5 mg Home meds: Atorvastatin* [Lipitor 10 MG*] 10 mg PO DAILY 08/17/18 [History Confirmed ] Mirabegron (NF) [Myrbetriq (NF)] 25 mg PO BID 08/17/18 [History Confirmed ] Venlafaxine EXT RELEASE CAP* [Effexor Xr CAP*] 37.5 mg PO QPM 08/17/18 [History Confirmed 01/03/20] Aspirin EC TAB* [Ecotrin EC Low Dose 81 MG*] 81 mg PO DAILY tab.ec 08/26/18 [ Rx Confirmed 01/03/20] Iron 65 mg PO DAILY 06/15/19 [History Confirmed 01/03/20] Acetaminophen/Diphenhydramine [Tylenol Pm Ex-Strength Caplet] 1 each PO BEDTIME 08/05/19 [History Confirmed 01/03/20] Melatonin (NF) 1 tab PO BEDTIME PRN 08/05/19 [History Confirmed 01/03/20] Multivitamins/Minerals TAB* [Theragran/minerals TAB*] 1 tab PO DAILY 08/05/19 [ History Confirmed 01/03/20] Levothyroxine TAB* [Synthroid 125 MCG TAB*] 125 mcg PO DAILY 10/13/19 [History Confirmed 01/03/20] Omeprazole CAP (NF) [Prilosec CAP* 20 MG] 20 mg PO DAILY 10/13/19 [History Confirmed 01/03/20] Venlafaxine CAP (NF) [Effexor CAP (NF)] 75 mg PO QAM 10/25/19 [History Confirmed 01/03/20] Amlodipine 2.5 mg TAB (NF) 2.5 mg PO DAILY 01/03/20 [History Confirmed 01/03/20] Cholecalciferol (Vitamin D3) [Vitamin D3] 25 mcg PO DAILY 01/03/20 [History Confirmed 01/03/20] Objective Vital Signs: Temp Pulse Resp BP Pulse Ox 97.6 F 43 24 170/56 97 01/05/20 08:01 01/05/20 08:01 01/05/20 09:09 01/05/20 08:01 01/05/20 08:01 Vital Signs - 12 hr Temp Pulse Resp BP Pulse Ox 01/05/20 09:09 24 01/05/20 09:00 19 01/05/20 08:01 97.6 F 43 20 170/56 97 01/05/20 07:37 17 01/05/20 03:37 97.6 F 40 18 135/73 91 01/05/20 01:58 16 01/04/20 23:58 97.6 F 87 18 145/50 90 Oxygen Devices in Use Now: None Appearance: short elderly female, lying flat, comfortable, smiling. Eyes: No Scleral Icterus, PERRLA Ears/Nose/Mouth/Throat: Clear Oropharnyx, Mucous Membranes Moist Neck: NL Appearance and Movements; NL JVP Respiratory: Symmetrical Chest Expansion and Respiratory Effort, Clear to Auscultation Cardiovascular: - - irregular, 3/6 late peaking murmur RUSB with radiation across the precordium. Abdominal: NL Sounds; No Tenderness; No Distention Extremities: No Edema Skin: No Rash or Ulcers Neurological: Alert and Oriented x 3 Lines/Tubes/Other Access: Clean, Dry and Intact Peripheral IV Laboratory Results: 01/05/20 06:10 01/05/20 06:10 INR (Anticoag Therapy) 1.06 (0.82-1.09) 01/03/20 20:39 B-Natriuretic Peptide 172 pg/mL (<=100) H 01/03/20 20:39 TSH 11.57 mcIU/mL (0.34-5.60) H 01/03/20 20:39 01/03/20 20:39 Troponin I 0.03 H* Diagnostic Imaging: *[facility]* [place] [address] Fax #: [phone] Transthoracic Echocardiogram Patient: Francine Poe : 1935 Study Date: 01/04/2020 Age: 84 Gender: F HR: 45 bpm Height: 64 in /162.6 cm BSA: 1.73 m^2 Weight: 148.7 lb /67.6 kg BMI: 25.6 kg/m^2 *Township Supervisor: * Pennie Larios [facility] *Referring Physician: * Eri Cunningham *Reading Physician: * Sam Leger MD Indications: Chest Pain, unspecified. History: Risk factors: Former tobacco use. Hypertension. Dyslipidemia. Conclusions Summary: - Left ventricle: The cavity size is below normal. Wall thickness is moderately increased. Systolic function is normal. The estimated ejection fraction is 65-70%. Wall motion is normal; there are no regional wall motion abnormalities. - Mitral valve: The Mitral valve annulus appears moderate to severely calcified. The leaflets are mildly calcified. The findings are consistent with mild stenosis. There is mild to moderate regurgitation. The valve area by pressure half-time is 2.7 cm^2. - Aortic valve: Valve mobility is restricted. The findings are consistent with moderate stenosis. The peak systolic velocity is 2.7 m/sec. The mean systolic gradient is 14.0 mm Hg. - Tricuspid valve: There is mild regurgitation. - Pulmonary arteries: Systolic pressure is within the normal range. - Compared to study of 09/21/19, the left ventricle function is the same. Aortic stenosis is slightly worse. This report is only to be considered final once signed by the Provider(s) as displayed in the "<Electronically Signed by >" field (s). Absence of a signature indicates the report is in a draft status and still needs to be finalized. In the event this document was created by someone other than the signing Provider, the individual initiating the document will be listed in the "Entered by:" or "Dictated by:" pat. EKG Data: Monitor: NSR, PAC's, type 2 second degree HB. 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 For pacemaker today. Risks, benefits and details of the procedure discussed, questions answered. The patient underwent pacer implantation, transient drop in BP responded to IVF. Heart Block: s/p pacer implant : Moderate Follow Monitor concerning for PAF earlier, in NSR now. Interogation in AM should confirm if PAF Beta enma added for now.
[2020-01-05] MEDS ORDERED: oxyCODONE/Acetamin 5/325 MG* TAB PO PRN (11:10)
--- NOTE | 2020-01-05 13:27 | PN ---
Subjective Date of Service: 01/05/20 Interval History: Pt is seen post pacemaker placement, c/o no pain Objective Active Medications: Acetaminophen (Tylenol Tab*) 487.5 mg PO BEDTIME [facility] Last Admin: 01/04/20 21:34 Dose: 487.5 mg Acetaminophen (Tylenol Tab*) 650 mg PO Q4H PRN PRN Reason: PAIN - MILD Amlodipine Besylate (Norvasc Tab*) 2.5 mg PO DAILY [facility] Last Admin: 01/05/20 07:45 Dose: 2.5 mg Aspirin (Aspirin Ec Tab*) 81 mg PO DAILY [facility] Last Admin: 01/05/20 07:46 Dose: 81 mg Atorvastatin Calcium (Lipitor*) 10 mg PO DAILY [facility] Last Admin: 01/05/20 07:44 Dose: 10 mg Cholecalciferol (Vitamin D Tab*) 1,000 units PO DAILY [facility] Last Admin: 01/05/20 07:44 Dose: 1,000 units Diphenhydramine HCl (Benadryl Po*) 25 mg PO BEDTIME [facility] Last Admin: 01/04/20 21:34 Dose: 25 mg Docusate Sodium (Colace Cap*) 100 mg PO BID [facility] Last Admin: 01/05/20 07:46 Dose: 100 mg Ferrous Sulfate (Ferrous Sulfate Tab*) 325 mg PO DAILY [facility] Last Admin: 01/05/20 07:45 Dose: 325 mg Heparin Sodium (Porcine) (Heparin Vial(*)) 5,000 units SUBCUT Q8HR [facility] Last Admin: 01/05/20 06:02 Dose: 5,000 units Sodium Chloride (Ns 0.9% 1000 Ml) 1,000 mls @ 100 mls/hr IV PER RATE [facility] Last Admin: 01/05/20 01:58 Dose: 100 mls/hr Cefazolin Sodium 500 mg/ (Sodium Chloride) 50 mls @ 200 mls/hr IVPB Q8H [facility] Levothyroxine Sodium (Synthroid Tab*) 137 mcg PO DAILY@0600 [facility] Last Admin: 01/05/20 06:01 Dose: 137 mcg Melatonin (Melatonin) 3 mg PO BEDTIME PRN PRN Reason: SLEEP Last Admin: 01/04/20 21:37 Dose: 3 mg Mirabegron (Myrbetriq (Nf)) 25 mg PO BID [facility] Last Admin: 01/05/20 07:47 Dose: Not Given Ondansetron HCl (Zofran Inj*) 4 mg IV Q4H PRN PRN Reason: NAUSEA/VOMITING Oxycodone/Acetaminophen (Percocet 5/325 Tab*) 1 tab PO Q4H PRN PRN Reason: PAIN - SEVERE Pantoprazole Sodium (Protonix Tab*) 40 mg PO DAILY [facility] Last Admin: 01/05/20 07:46 Dose: 40 mg Venlafaxine HCl (Effexor Xr Cap*) 75 mg PO QAM [facility]; Protocol Last Admin: 01/05/20 07:47 Dose: 75 mg Venlafaxine HCl (Effexor Xr Cap*) 37.5 mg PO QPM [facility] Last Admin: 01/04/20 18:17 Dose: 37.5 mg Vital Signs - 8 hr 01/05/20 01/05/20 01/05/20 07:37 08:01 09:00 Temperature 97.6 F Pulse Rate 43 Respiratory 17 20 19 Rate Blood Pressure 170/56 (mmHg) O2 Sat by Pulse 97 Oximetry 01/05/20 01/05/20 01/05/20 09:09 11:28 11:30 Temperature Pulse Rate 76 Respiratory 24 20 Rate Blood Pressure 166/75 (mmHg) O2 Sat by Pulse 90 Oximetry 01/05/20 01/05/20 01/05/20 11:44 11:58 12:00 Temperature Pulse Rate 82 81 Respiratory Rate Blood Pressure 139/69 145/69 (mmHg) O2 Sat by Pulse 95 93 Oximetry 01/05/20 12:13 Temperature Pulse Rate 79 Respiratory Rate Blood Pressure 146/100 (mmHg) O2 Sat by Pulse 95 Oximetry Oxygen Devices in Use Now: None Appearance: 84 yo F in nAD, AAOx3 Eyes: No Scleral Icterus, PERRLA Ears/Nose/Mouth/Throat: NL Teeth, Lips, Gums, Mucous Membranes Moist Neck: NL Appearance and Movements; NL JVP, Trachea Midline Respiratory: Symmetrical Chest Expansion and Respiratory Effort, Clear to Auscultation Cardiovascular: NL Sounds; No Murmurs; No JVD, RRR Abdominal: NL Sounds; No Tenderness; No Distention Lymphatic: No Cervical Adenopathy, No Auricular Adenopathy Extremities: No Edema, No Clubbing, Cyanosis Skin: No Nodules or Sclerosis, - - L subclavian area with incision covered with Douderm Neurological: Alert and Oriented x 3, NL Muscle Strength and Tone Result Diagrams: 01/05/20 06:10 01/05/20 06:10 EKG Data: Sinus bradycardia with 2nd degree AVB (Mobitz type 2), p-wave intervals are equal and consistent, RBBB and LAFB. 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 TSH 11 (5) HTN (hypertension) Comment: cont Norvasc (6) DVT prophylaxis Comment: HSQ Status and Disposition: inpatient, likely d/c home tomorrow
[2020-01-05] MEDS ORDERED: Metoprolol Succinate XL TAB* 25 MG PO SCH (18:00)
[2020-01-05] MEDS: ceFAZolin 500 MG VIAL(*) 500 MG in NS 0.9% 50 ML* 50 ML IVPB SCH (18:06)
[2020-01-05] MEDS: Venlafaxine EXT RELEASE CAP* 37.5 MG PO SCH (18:06)
[2020-01-05] MEDS ORDERED: Dextran 70/Hypromellose Tears Eye Drops 15 ml BTL (for Artificials Tears) BOTH EYES PRN (20:06)
[2020-01-05] MEDS: Metoprolol Succinate XL TAB* 25 MG PO SCH (21:59)
[2020-01-05] MEDS: Melatonin 3 MG TAB PO PRN (21:59)
[2020-01-05] MEDS: Acetaminophen TAB* 325 MG PO SCH (21:59)
[2020-01-05] MEDS: diPHENhydraMINE PO* 25 MG PO SCH (21:59)
[2020-01-05] MEDS: PTO: Artificial Tears* 15 ML BTL BOTH EYES PRN (22:02)
--- NOTE | 2020-01-06 01:12 | OP ---
CC: Dr. Leger * DATE OF OPERATION: 01/05/20 - ROOM #449 DATE OF : 35 SURGEON: Karen Sullivan MD ANESTHESIA: MAC. PRE-OP DIAGNOSIS: Second-degree heart block, type 2. POST-OP DIAGNOSIS: Second-degree heart block, type 2. OPERATIVE PROCEDURE: Dual-chamber pacemaker implantation. ESTIMATED BLOOD LOSS: Less than 2 cc. COMPLICATIONS: None. DESCRIPTION OF PROCEDURE: The indications, risks, and benefits were discussed with the patient and her daughter in depth. Risks and benefits detailed and they were amenable to proceeding. The patient is right-handed and the left subclavian fossa was prepped and draped in the usual sterile fashion. A time-out was called. Following this, the patient received 1% lidocaine for local anesthesia as well as 4 mg of Versed and 37.5 mcg of fentanyl for sedation. The patient received 10 cc of radiopaque dye in the left upper extremity outlining the left axillary and left subclavian vein. Following this and the local anesthesia, using a 10-blade knife, a 2.5 cm incision was made in the left subclavian fossa and using Bovie and blunt dissection was extended to the level of the pectoralis muscle. Additional lidocaine was infused inferiorly and medially, and using blunt dissection, a pocket was fashioned. Using a modified Seldinger technique and fluoroscopic guidance, the left subclavian vein was cannulated and a guidewire inserted using fluoroscopic guidance. The procedure was repeated with a second guidewire. Using an introducer technique, the right ventricular lead was guided into the right ventricle and on to the septum, it was actively fixed in place. It took 2 tries to get optimal placement and thresholds. Using the second guidewire and an introducer technique, the right atrial lead was guided into the right atrial appendage, actively fixed in place, and pacing and sensing thresholds were checked and found to be good. The leads were sutured to the pocket using 0 silk suture, taking care to get adequate additional lead for breathing and movement. Following this, the pocket was copiously irrigated. The fascia over the pectoralis muscle was no longer intact. We therefore used Lidia in the pocket. Following this, the leads were attached to the generator. The generator was placed in the pocket. The incision was closed using 2 layers of absorbable suture, 2-0 followed by 4- 0 followed by chance and external dressing. FINDINGS: The system is a [employer] ([employer]tronic MRI compatible system. The device is a [employer] Yoko XT DR, model number W1DR01, serial number [id number]. The atrial lead is a Medtronic, model 5076-45, serial number [id number]. The ventricular lead is a Medtronic, model 5076-52, serial number [id number]. R-waves are sensed at 4.8 millivolts with an atrial lead impedance of 1035 ohms and an atrial pacing threshold of 1 volt at 0.5 milliseconds. The ventricular lead senses R-waves at 7.6 millivolts with a ventricular lead impedance of 865 ohms and a ventricular pacing threshold of 0.5 volt at 0.5 milliseconds. With the device, P-waves 3.4 millivolts, atrial lead impedance 741 ohms, and atrial pacing threshold 0.75 volts at 0.4 milliseconds, R-wave sensed at 6.9 millivolts, ventricular lead impedance 684 ohms, and ventricular pacing threshold 0.5 volts at 0.4 milliseconds. Again, the patient was hemodynamically stable throughout the procedure and on return to the floor. CONCLUSIONS: She is programmed in DDD mode with a low rate of 60 beats per minutes. [id number]/[facility] #: [id number] SHEYLA
[2020-01-06] MEDS: ceFAZolin 500 MG VIAL(*) 500 MG in NS 0.9% 50 ML* 50 ML IVPB SCH ×3 (03:00→18:18)
[2020-01-06] MEDS: Acetaminophen TAB* 325 MG PO PRN ×3 (03:55→17:43)
[2020-01-06] MEDS: Levothyroxine TAB* 137 MCG TAB PO SCH (06:07)
[2020-01-06] MEDS: Heparin VIAL(*) 5000 UNITS/ML VIAL (FIVE THOUSAND) SUBCUT SCH ×3 (06:07→21:59)
[2020-01-06 06:22] LABS: Potassium 3.9 mmol/L (3.5-5.0)
[2020-01-06 06:28] LABS: BUN/Creatinine Ratio 16.6 (8-20); EGFR African American 39.7 (>60); EGFR Non-African American 32.8 (>60)
[2020-01-06] MEDS: Cholecalciferol TAB* 1000 UNITS PO SCH (09:03)
[2020-01-06] MEDS: Venlafaxine EXT RELEASE CAP* 75 MG PO SCH (09:03)
[2020-01-06] MEDS: Aspirin EC TAB* 81 MG TAB.EC PO SCH (09:03)
[2020-01-06] MEDS: FLUTICASONE 50 MCG BOTH NARES SCH (09:03)
[2020-01-06] MEDS: amLODIPine TAB* 5 MG PO SCH (09:03)
[2020-01-06] MEDS: Atorvastatin* 10 MG TAB PO SCH (09:03)
[2020-01-06] MEDS: Docusate CAP* 100 MG PO SCH ×2 (09:04→21:59)
[2020-01-06] MEDS: Metoprolol Succinate XL TAB* 25 MG PO SCH ×2 (09:04→21:53)
[2020-01-06] MEDS: Pantoprazole TAB * 40 MG TAB PO SCH (09:04)
[2020-01-06] MEDS: Ferrous Sulfate TAB* 325 MG PO SCH (09:04)
[2020-01-06] MEDS: PTO: Mirabegron (NF) 25 MG TAB PO SCH ×2 (09:05→21:55)
--- NOTE | 2020-01-06 10:29 | PN ---
Subjective Date of Service: 01/06/20 - CC: s/p pacer implantation, PUTNAM, 2nd degree HB Interval History: Mild tenderness of incision. No SOB. The patient thinks she did well with PT, but PT found patient weak, not independent. Medications Active Medications: Acetaminophen (Tylenol Tab*) 487.5 mg PO BEDTIME [facility] Last Admin: 01/05/20 21:59 Dose: 487.5 mg Acetaminophen (Tylenol Tab*) 650 mg PO Q4H PRN PRN Reason: PAIN - MILD Last Admin: 01/06/20 09:04 Dose: 650 mg Amlodipine Besylate (Norvasc Tab*) 2.5 mg PO DAILY [facility] Last Admin: 01/06/20 09:03 Dose: 2.5 mg Aspirin (Aspirin Ec Tab*) 81 mg PO DAILY [facility] Last Admin: 01/06/20 09:03 Dose: 81 mg Atorvastatin Calcium (Lipitor*) 10 mg PO DAILY [facility] Last Admin: 01/06/20 09:03 Dose: 10 mg Cholecalciferol (Vitamin D Tab*) 1,000 units PO DAILY [facility] Last Admin: 01/06/20 09:03 Dose: 1,000 units Diphenhydramine HCl (Benadryl Po*) 25 mg PO BEDTIME [facility] Last Admin: 01/05/20 21:59 Dose: 25 mg Docusate Sodium (Colace Cap*) 100 mg PO BID [facility] Last Admin: 01/06/20 09:04 Dose: 100 mg Ferrous Sulfate (Ferrous Sulfate Tab*) 325 mg PO DAILY [facility] Last Admin: 01/06/20 09:04 Dose: 325 mg Fluticasone Propionate (Flonase Nasal [place] 50mcg*) 1 spray BOTH NARES DAILY [facility] Last Admin: 01/06/20 09:03 Dose: 1 spray Heparin Sodium (Porcine) (Heparin Vial(*)) 5,000 units SUBCUT Q8HR [facility] Last Admin: 01/06/20 06:07 Dose: 5,000 units Cefazolin Sodium 500 mg/ (Sodium Chloride) 50 mls @ 200 mls/hr IVPB Q8H [facility] Last Admin: 01/06/20 10:15 Dose: 200 mls/hr Levothyroxine Sodium (Synthroid Tab*) 137 mcg PO DAILY@0600 [facility] Last Admin: 01/06/20 06:07 Dose: 137 mcg Melatonin (Melatonin) 3 mg PO BEDTIME PRN PRN Reason: SLEEP Last Admin: 01/05/20 21:59 Dose: 3 mg Metoprolol Succinate (Toprol Xl Tab*) 25 mg PO BID [facility] Last Admin: 01/06/20 09:04 Dose: 25 mg Mirabegron (Myrbetriq (Nf)) 25 mg PO BID [facility] Last Admin: 01/06/20 09:05 Dose: 25 mg Ondansetron HCl (Zofran Inj*) 4 mg IV Q4H PRN PRN Reason: NAUSEA/VOMITING Oxycodone/Acetaminophen (Percocet 5/325 Tab*) 1 tab PO Q4H PRN PRN Reason: PAIN - SEVERE Pantoprazole Sodium (Protonix Tab*) 40 mg PO DAILY [facility] Last Admin: 01/06/20 09:04 Dose: 40 mg Polyvinyl Alcohol (Polyvinyl Alcohol 1.4% Opth*) 1 drop BOTH EYES Q4H PRN PRN Reason: DRY EYE Last Admin: 01/05/20 22:02 Dose: 1 drop Venlafaxine HCl (Effexor Xr Cap*) 75 mg PO QAM [facility]; Protocol Last Admin: 01/06/20 09:03 Dose: 75 mg Venlafaxine HCl (Effexor Xr Cap*) 37.5 mg PO QPM [facility] Last Admin: 01/05/20 18:06 Dose: 37.5 mg Objective Vital Signs: Temp Pulse Resp BP Pulse Ox 97.0 F 64 15 153/69 95 01/06/20 07:35 01/06/20 07:35 01/06/20 07:35 01/06/20 07:35 01/06/20 07:35 Vital Signs - 12 hr Temp Pulse Resp BP Pulse Ox 01/06/20 07:35 97.0 F 64 15 153/69 95 01/06/20 03:00 16 01/06/20 02:54 97.3 F 59 17 148/66 96 01/06/20 00:04 94 01/05/20 22:54 97.8 F 71 18 154/61 93 Oxygen Devices in Use Now: Nasal Cannula Appearance: short elderly female, seated in chair, appears comfortable, smiling. Eyes: No Scleral Icterus, PERRLA Ears/Nose/Mouth/Throat: Clear Oropharnyx, Mucous Membranes Moist Neck: NL Appearance and Movements; NL JVP Respiratory: Symmetrical Chest Expansion and Respiratory Effort, Clear to Auscultation - cleared after coughing, some rhonchi prior to cough. Distant. Cardiovascular: RRR, - - 2/6 mid to late peaking murmur RUSB to USB. Abdominal: NL Sounds; No Tenderness; No Distention Extremities: No Edema Skin: No Rash or Ulcers, - - incision left subclavian fossa free of hematoma, minimal darkening around incision c/w ecchymosis, no evidence of infection. Neurological: - - Answers questions, follows commands, formal exam not done.\\ Lines/Tubes/Other Access: Clean, Dry and Intact Peripheral IV Laboratory Results: 01/05/20 06:10 01/06/20 05:48 INR (Anticoag Therapy) 1.06 (0.82-1.09) 01/03/20 20:39 B-Natriuretic Peptide 172 pg/mL (<=100) H 01/03/20 20:39 TSH 11.57 mcIU/mL (0.34-5.60) H 01/03/20 20:39 01/03/20 20:39 Troponin I 0.03 H* Diagnostic Imaging: *[facility]* [place] [address] Fax #: [phone] Transthoracic Echocardiogram Patient: Mireya Coreas : 1935 Study Date: 01/04/2020 Age: 84 Gender: F HR: 45 bpm Height: 64 in /162.6 cm BSA: 1.73 m^2 Weight: 148.7 lb /67.6 kg BMI: 25.6 kg/m^2 *Liner Helper: * Pennie Larios [facility] *Referring Physician: * Eri Cunningham *Reading Physician: * Sam Leger MD Indications: Chest Pain, unspecified. History: Risk factors: Former tobacco use. Hypertension. Dyslipidemia. Conclusions Summary: - Left ventricle: The cavity size is below normal. Wall thickness is moderately increased. Systolic function is normal. The estimated ejection fraction is 65-70%. Wall motion is normal; there are no regional wall motion abnormalities. - Mitral valve: The Mitral valve annulus appears moderate to severely calcified. The leaflets are mildly calcified. The findings are consistent with mild stenosis. There is mild to moderate regurgitation. The valve area by pressure half-time is 2.7 cm^2. - Aortic valve: Valve mobility is restricted. The findings are consistent with moderate stenosis. The peak systolic velocity is 2.7 m/sec. The mean systolic gradient is 14.0 mm Hg. - Tricuspid valve: There is mild regurgitation. - Pulmonary arteries: Systolic pressure is within the normal range. - Compared to study of 09/21/19, the left ventricle function is the same. Aortic stenosis is slightly worse. This report is only to be considered final once signed by the Provider(s) as displayed in the "<Electronically Signed by >" field (s). Absence of a signature indicates the report is in a draft status and still needs to be finalized. In the event this document was created by someone other than the signing Provider, the individual initiating the document will be listed in the "Entered by:" or "Dictated by:" pat. Patient Name: MIREYA COREAS Medical Record#: [id number] Ordering Physician: Karen Sullivan MD Acct.#: [id number] : 1935 Age: 84 Sex: F Location: [address] [place] [address] - MEDICAL/TELEMETRY Exam Date: 01/06/20 0700 ADM Status: ADM IN Order Information: CHEST PA & LAT 2 VWS Accession Number: [id number] CPT: 38102 INDICATION: Left cardiac pacer implant COMPARISON: Chest x-ray January 05, 2020 TECHNIQUE: PA and lateral views of the chest were obtained. FINDINGS: Again seen is an appropriately positioned left upper chest cardiac pacemaker with 2 leads overlying the heart and surgical skin chance overlying the subclavicular area. The heart and mediastinum are normal in size and contour. The lungs are grossly clear. There is no pneumothorax. Visualized bones are normal for the patient's age. There is no radiographic evidence of free air beneath the diaphragm IMPRESSION: NO RADIOGRAPHIC EVIDENCE OF ACUTE CARDIOPULMONARY DISEASE STATUS POST 2-LEAD LEFT UPPER CHEST CARDIAC PACEMAKER IMPLANTATION. Good lead placement. EKG Data: Monitor: NSR, PAC's, type 2 second degree HB. ECG's and monitor today: NSR, V pacing. 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 For pacemaker today. POD#1 pacer implant A lead sensing dropped in bipolar, changed to Unipolar, good sensing V lead stable. Discharge with Keflex 500 mg TID x 3 days : Moderate Follow HTN: A bit up, but avoid over treatment with . CKD: BUN and Cr stable today post pacer (and 10 cc IV contrast). Social: Defer to hospitalist, but looks like needs more PT/assistance and may need some home help.
--- NOTE | 2020-01-06 16:13 | PN ---
Subjective Date of Service: 01/06/20 Interval History: Pt has had loose stools this aM. Also had been very weak and unable to get OOB by herself Objective Active Medications: Acetaminophen (Tylenol Tab*) 487.5 mg PO BEDTIME [facility] Last Admin: 01/05/20 21:59 Dose: 487.5 mg Acetaminophen (Tylenol Tab*) 650 mg PO Q4H PRN PRN Reason: PAIN - MILD Last Admin: 01/06/20 09:04 Dose: 650 mg Amlodipine Besylate (Norvasc Tab*) 2.5 mg PO DAILY [facility] Last Admin: 01/06/20 09:03 Dose: 2.5 mg Aspirin (Aspirin Ec Tab*) 81 mg PO DAILY [facility] Last Admin: 01/06/20 09:03 Dose: 81 mg Atorvastatin Calcium (Lipitor*) 10 mg PO DAILY [facility] Last Admin: 01/06/20 09:03 Dose: 10 mg Cholecalciferol (Vitamin D Tab*) 1,000 units PO DAILY [facility] Last Admin: 01/06/20 09:03 Dose: 1,000 units Diphenhydramine HCl (Benadryl Po*) 25 mg PO BEDTIME [facility] Last Admin: 01/05/20 21:59 Dose: 25 mg Docusate Sodium (Colace Cap*) 100 mg PO BID [facility] Last Admin: 01/06/20 09:04 Dose: 100 mg Ferrous Sulfate (Ferrous Sulfate Tab*) 325 mg PO DAILY [facility] Last Admin: 01/06/20 09:04 Dose: 325 mg Fluticasone Propionate (Flonase Nasal [place] 50mcg*) 1 spray BOTH NARES DAILY [facility] Last Admin: 01/06/20 09:03 Dose: 1 spray Heparin Sodium (Porcine) (Heparin Vial(*)) 5,000 units SUBCUT Q8HR [facility] Last Admin: 01/06/20 13:46 Dose: 5,000 units Cefazolin Sodium 500 mg/ (Sodium Chloride) 50 mls @ 200 mls/hr IVPB Q8H [facility] Last Admin: 01/06/20 10:15 Dose: 200 mls/hr Lactobacillus Rhamnosus (Lactobacillus Acidophilus*) 1 tab PO BID [facility] Levothyroxine Sodium (Synthroid Tab*) 137 mcg PO DAILY@0600 [facility] Last Admin: 01/06/20 06:07 Dose: 137 mcg Melatonin (Melatonin) 3 mg PO BEDTIME PRN PRN Reason: SLEEP Last Admin: 01/05/20 21:59 Dose: 3 mg Metoprolol Succinate (Toprol Xl Tab*) 25 mg PO BID [facility] Last Admin: 01/06/20 09:04 Dose: 25 mg Mirabegron (Myrbetriq (Nf)) 25 mg PO BID [facility] Last Admin: 01/06/20 09:05 Dose: 25 mg Ondansetron HCl (Zofran Inj*) 4 mg IV Q4H PRN PRN Reason: NAUSEA/VOMITING Oxycodone/Acetaminophen (Percocet 5/325 Tab*) 1 tab PO Q4H PRN PRN Reason: PAIN - SEVERE Pantoprazole Sodium (Protonix Tab*) 40 mg PO DAILY [facility] Last Admin: 01/06/20 09:04 Dose: 40 mg Polyvinyl Alcohol (Polyvinyl Alcohol 1.4% Opth*) 1 drop BOTH EYES Q4H PRN PRN Reason: DRY EYE Last Admin: 01/05/20 22:02 Dose: 1 drop Venlafaxine HCl (Effexor Xr Cap*) 75 mg PO QAM [facility]; Protocol Last Admin: 01/06/20 09:03 Dose: 75 mg Venlafaxine HCl (Effexor Xr Cap*) 37.5 mg PO QPM [facility] Last Admin: 01/05/20 18:06 Dose: 37.5 mg Vital Signs - 8 hr 01/06/20 01/06/20 01/06/20 11:00 11:11 15:34 Temperature 96.6 F 97.9 F Pulse Rate 63 64 Respiratory 17 17 Rate Blood Pressure 139/67 141/51 (mmHg) O2 Sat by Pulse 94 94 96 Oximetry Oxygen Devices in Use Now: None Appearance: 84 yo F in NAD, AAOx3 Eyes: No Scleral Icterus, PERRLA Ears/Nose/Mouth/Throat: NL Teeth, Lips, Gums, Mucous Membranes Moist Neck: NL Appearance and Movements; NL JVP, Trachea Midline Respiratory: Symmetrical Chest Expansion and Respiratory Effort, Clear to Auscultation Cardiovascular: NL Sounds; No Murmurs; No JVD, RRR Abdominal: NL Sounds; No Tenderness; No Distention Lymphatic: No Cervical Adenopathy Extremities: No Edema Skin: No Nodules or Sclerosis, - - left subclavian pacer incision covered with duoderm Neurological: Alert and Oriented x 3, NL Muscle Strength and Tone Result Diagrams: 01/05/20 06:10 01/06/20 05:48 EKG Data: Sinus bradycardia with 2nd degree AVB (Mobitz type 2), p-wave intervals are equal and consistent, RBBB and LAFB. 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 TSH 11 (5) HTN (hypertension) Comment: cont Norvasc (6) DVT prophylaxis Comment: HSQ Status and Disposition: inpatient, PT eval ongoing
[2020-01-06] MEDS: Venlafaxine EXT RELEASE CAP* 37.5 MG PO SCH (17:42)
[2020-01-06] MEDS: Lactobacillus Acidophilus* 1 TAB PO SCH (21:53)
[2020-01-06] MEDS: Acetaminophen TAB* 325 MG PO SCH (21:54)
[2020-01-06] MEDS: PTO: Artificial Tears* 15 ML BTL BOTH EYES PRN (21:55)
[2020-01-06] MEDS: diPHENhydraMINE PO* 25 MG PO SCH (21:56)
[2020-01-07] MEDS: ceFAZolin 500 MG VIAL(*) 500 MG in NS 0.9% 50 ML* 50 ML IVPB SCH ×3 (02:32→18:33)
[2020-01-07] MEDS: Levothyroxine TAB* 137 MCG TAB PO SCH (05:15)
[2020-01-07] MEDS: Heparin VIAL(*) 5000 UNITS/ML VIAL (FIVE THOUSAND) SUBCUT SCH ×3 (05:15→22:10)
[2020-01-07] MEDS: Acetaminophen TAB* 325 MG PO PRN (07:57)
[2020-01-07] MEDS: Metoprolol Succinate XL TAB* 25 MG PO SCH ×2 (08:03→20:31)
[2020-01-07] MEDS: Docusate CAP* 100 MG PO SCH ×2 (08:03→20:32)
[2020-01-07] MEDS: Aspirin EC TAB* 81 MG TAB.EC PO SCH (08:03)
[2020-01-07] MEDS: Ferrous Sulfate TAB* 325 MG PO SCH (08:04)
[2020-01-07] MEDS: Lactobacillus Acidophilus* 1 TAB PO SCH ×2 (08:04→20:31)
[2020-01-07] MEDS: Pantoprazole TAB * 40 MG TAB PO SCH (08:04)
[2020-01-07] MEDS: amLODIPine TAB* 5 MG PO SCH (08:04)
[2020-01-07] MEDS: Cholecalciferol TAB* 1000 UNITS PO SCH (08:05)
[2020-01-07] MEDS: Venlafaxine EXT RELEASE CAP* 75 MG PO SCH (08:05)
[2020-01-07] MEDS: FLUTICASONE 50 MCG BOTH NARES SCH (08:05)
[2020-01-07] MEDS: Atorvastatin* 10 MG TAB PO SCH (08:05)
[2020-01-07] MEDS: PTO: Mirabegron (NF) 25 MG TAB PO SCH ×2 (08:06→20:33)
--- NOTE | 2020-01-07 13:56 | PN ---
Subjective Date of Service: 01/07/20 Interval History: Pt still feels generalized weakness, loose BM's that were present yesterday resolved. Objective Active Medications: Acetaminophen (Tylenol Tab*) 487.5 mg PO BEDTIME [facility] Last Admin: 01/06/20 21:54 Dose: 487.5 mg Acetaminophen (Tylenol Tab*) 650 mg PO Q4H PRN PRN Reason: PAIN - MILD Last Admin: 01/07/20 07:57 Dose: 650 mg Amlodipine Besylate (Norvasc Tab*) 2.5 mg PO DAILY [facility] Last Admin: 01/07/20 08:04 Dose: 2.5 mg Aspirin (Aspirin Ec Tab*) 81 mg PO DAILY [facility] Last Admin: 01/07/20 08:03 Dose: 81 mg Atorvastatin Calcium (Lipitor*) 10 mg PO DAILY [facility] Last Admin: 01/07/20 08:05 Dose: 10 mg Cholecalciferol (Vitamin D Tab*) 1,000 units PO DAILY [facility] Last Admin: 01/07/20 08:05 Dose: 1,000 units Diphenhydramine HCl (Benadryl Po*) 25 mg PO BEDTIME [facility] Last Admin: 01/06/20 21:56 Dose: 25 mg Docusate Sodium (Colace Cap*) 100 mg PO BID [facility] Last Admin: 01/07/20 08:03 Dose: 100 mg Ferrous Sulfate (Ferrous Sulfate Tab*) 325 mg PO DAILY [facility] Last Admin: 01/07/20 08:04 Dose: 325 mg Fluticasone Propionate (Flonase Nasal [place] 50mcg*) 1 spray BOTH NARES DAILY [facility] Last Admin: 01/07/20 08:05 Dose: 1 spray Heparin Sodium (Porcine) (Heparin Vial(*)) 5,000 units SUBCUT Q8HR [facility] Last Admin: 01/07/20 05:15 Dose: 5,000 units Cefazolin Sodium 500 mg/ (Sodium Chloride) 50 mls @ 200 mls/hr IVPB Q8H [facility] Last Admin: 01/07/20 10:44 Dose: 200 mls/hr Lactobacillus Rhamnosus (Lactobacillus Acidophilus*) 1 tab PO BID [facility] Last Admin: 01/07/20 08:04 Dose: 1 tab Levothyroxine Sodium (Synthroid Tab*) 137 mcg PO DAILY@0600 [facility] Last Admin: 01/07/20 05:15 Dose: 137 mcg Melatonin (Melatonin) 3 mg PO BEDTIME PRN PRN Reason: SLEEP Last Admin: 01/05/20 21:59 Dose: 3 mg Metoprolol Succinate (Toprol Xl Tab*) 25 mg PO BID [facility] Last Admin: 01/07/20 08:03 Dose: 25 mg Mirabegron (Myrbetriq (Nf)) 25 mg PO BID [facility] Last Admin: 01/07/20 08:06 Dose: 25 mg Ondansetron HCl (Zofran Inj*) 4 mg IV Q4H PRN PRN Reason: NAUSEA/VOMITING Oxycodone/Acetaminophen (Percocet 5/325 Tab*) 1 tab PO Q4H PRN PRN Reason: PAIN - SEVERE Pantoprazole Sodium (Protonix Tab*) 40 mg PO DAILY [facility] Last Admin: 01/07/20 08:04 Dose: 40 mg Polyvinyl Alcohol (Polyvinyl Alcohol 1.4% Opth*) 1 drop BOTH EYES Q4H PRN PRN Reason: DRY EYE Last Admin: 01/06/20 21:55 Dose: 1 drop Venlafaxine HCl (Effexor Xr Cap*) 75 mg PO QAM [facility]; Protocol Last Admin: 01/07/20 08:05 Dose: 75 mg Venlafaxine HCl (Effexor Xr Cap*) 37.5 mg PO QPM [facility] Last Admin: 01/06/20 17:42 Dose: 37.5 mg Vital Signs - 8 hr 01/07/20 01/07/20 01/07/20 07:23 08:00 11:00 Temperature 97.3 F Pulse Rate 62 Respiratory 16 14 Rate Blood Pressure 164/67 (mmHg) O2 Sat by Pulse 94 94 Oximetry 01/07/20 11:21 Temperature 97.6 F Pulse Rate 67 Respiratory 16 Rate Blood Pressure 131/64 (mmHg) O2 Sat by Pulse 94 Oximetry Oxygen Devices in Use Now: None Appearance: 84 yo F in nAD, AAOx3 Eyes: No Scleral Icterus, PERRLA Ears/Nose/Mouth/Throat: NL Teeth, Lips, Gums, Mucous Membranes Moist Neck: NL Appearance and Movements; NL JVP, Trachea Midline Respiratory: Symmetrical Chest Expansion and Respiratory Effort, Clear to Auscultation Cardiovascular: NL Sounds; No Murmurs; No JVD, RRR Abdominal: NL Sounds; No Tenderness; No Distention Lymphatic: No Cervical Adenopathy Extremities: No Edema, No Clubbing, Cyanosis Skin: No Nodules or Sclerosis, - - left subclavian area covered with duoderm, no skin cellulitis noted Neurological: Alert and Oriented x 3, NL Muscle Strength and Tone Result Diagrams: 01/05/20 06:10 01/06/20 05:48 EKG Data: Sinus bradycardia with 2nd degree AVB (Mobitz type 2), p-wave intervals are equal and consistent, RBBB and LAFB. 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 PT/OT cont. Pt agrees to STR-considering [facility] (2) Chronic kidney disease Comment: creat at baseline (3) Hx of sarcoidosis Comment: noted h/o (4) History of hypothyroidism Comment: Increased Synthroid from 125 to 135. TSH 11 (5) HTN (hypertension) Comment: cont Norvasc (6) DVT prophylaxis Comment: HSQ Status and Disposition: inpatient, PT eval ongoing. Awaiting STR at d/c
[2020-01-07] MEDS: Venlafaxine EXT RELEASE CAP* 37.5 MG PO SCH (18:33)
[2020-01-07] MEDS: Acetaminophen TAB* 325 MG PO SCH (20:30)
[2020-01-07] MEDS: diPHENhydraMINE PO* 25 MG PO SCH (20:31)
[2020-01-08] MEDS: ceFAZolin 500 MG VIAL(*) 500 MG in NS 0.9% 50 ML* 50 ML IVPB SCH ×3 (01:38→17:46)
[2020-01-08] MEDS: Heparin VIAL(*) 5000 UNITS/ML VIAL (FIVE THOUSAND) SUBCUT SCH ×3 (05:36→20:46)
[2020-01-08] MEDS: Levothyroxine TAB* 137 MCG TAB PO SCH (05:36)
[2020-01-08] MEDS: Atorvastatin* 10 MG TAB PO SCH (11:00)
[2020-01-08] MEDS: Lactobacillus Acidophilus* 1 TAB PO SCH ×2 (11:00→20:46)
[2020-01-08] MEDS: FLUTICASONE 50 MCG BOTH NARES SCH (11:00)
[2020-01-08] MEDS: Ferrous Sulfate TAB* 325 MG PO SCH (11:00)
[2020-01-08] MEDS: Pantoprazole TAB * 40 MG TAB PO SCH (11:00)
[2020-01-08] MEDS: PTO: Mirabegron (NF) 25 MG TAB PO SCH ×2 (11:00→20:47)
[2020-01-08] MEDS: amLODIPine TAB* 5 MG PO SCH (11:00)
[2020-01-08] MEDS: Aspirin EC TAB* 81 MG TAB.EC PO SCH (11:01)
[2020-01-08] MEDS: Metoprolol Succinate XL TAB* 25 MG PO SCH ×2 (11:01→20:45)
[2020-01-08] MEDS: Venlafaxine EXT RELEASE CAP* 75 MG PO SCH (11:01)
[2020-01-08] MEDS: Cholecalciferol TAB* 1000 UNITS PO SCH (11:01)
[2020-01-08] MEDS: Docusate CAP* 100 MG PO SCH ×2 (11:01→20:46)
--- NOTE | 2020-01-08 15:14 | PN ---
Subjective Date of Service: 01/08/20 Interval History: Ms. Poe is feeling well today. She offers no complaints. Seen sitting in the chair eating lunch. Denies CP, SOB, dizziness. No pain at pacer site. She has been getting up to the [facility], not ambulating. She is agreeable to rehab, but not particularly happy about it. No concerns from nursing. Family History: Unchanged from Admission Social History: Unchanged from Admission Past Medical History: Unchanged from Admission Objective Active Medications: Acetaminophen (Tylenol Tab*) 487.5 mg PO BEDTIME [facility] Acetaminophen (Tylenol Tab*) 650 mg PO Q4H PRN PAIN - MILD Amlodipine Besylate (Norvasc Tab*) 2.5 mg PO DAILY [facility] Aspirin (Aspirin Ec Tab*) 81 mg PO DAILY [facility] Atorvastatin Calcium (Lipitor*) 10 mg PO DAILY [facility] Cholecalciferol (Vitamin D Tab*) 1,000 units PO DAILY [facility] Diphenhydramine HCl (Benadryl Po*) 25 mg PO BEDTIME [facility] Docusate Sodium (Colace Cap*) 100 mg PO BID [facility] Ferrous Sulfate (Ferrous Sulfate Tab*) 325 mg PO DAILY [facility] Fluticasone Propionate (Flonase Nasal [place] 50mcg*) 1 spray BOTH NARES DAILY [facility] Heparin Sodium (Porcine) (Heparin Vial(*)) 5,000 units SUBCUT Q8HR [facility] Cefazolin Sodium 500 mg/ (Sodium Chloride) 50 mls @ 200 mls/hr IVPB Q8H [facility] Lactobacillus Rhamnosus (Lactobacillus Acidophilus*) 1 tab PO BID [facility] Levothyroxine Sodium (Synthroid Tab*) 137 mcg PO DAILY@0600 [facility] Melatonin (Melatonin) 3 mg PO BEDTIME PRN SLEEP Metoprolol Succinate (Toprol Xl Tab*) 25 mg PO BID [facility] Mirabegron (Myrbetriq (Nf)) 25 mg PO BID [facility] Ondansetron HCl (Zofran Inj*) 4 mg IV Q4H PRN NAUSEA/VOMITING Oxycodone/Acetaminophen (Percocet 5/325 Tab*) 1 tab PO Q4H PRN PAIN - SEVERE Pantoprazole Sodium (Protonix Tab*) 40 mg PO DAILY [facility] Polyvinyl Alcohol (Polyvinyl Alcohol 1.4% Opth*) 1 drop BOTH EYES Q4H PRN DRY EYE Venlafaxine HCl (Effexor Xr Cap*) 75 mg PO QAM [facility]; Protocol Venlafaxine HCl (Effexor Xr Cap*) 37.5 mg PO QPM [facility] Vital Signs - 8 hr 01/08/20 01/08/20 01/08/20 07:48 11:00 11:13 Temperature 98.1 F 98 F Pulse Rate 67 73 Respiratory 18 18 Rate Blood Pressure 153/51 133/62 (mmHg) O2 Sat by Pulse 94 95 95 Oximetry Oxygen Devices in Use Now: None Appearance: Elderly female sitting in chair in NAD Ears/Nose/Mouth/Throat: Mucous Membranes Moist Neck: NL Appearance and Movements; NL JVP, Trachea Midline Respiratory: Symmetrical Chest Expansion and Respiratory Effort, Clear to Auscultation Cardiovascular: RRR, - - Grade 3/6 systolic murmur Abdominal: NL Sounds; No Tenderness; No Distention Extremities: No Edema Neurological: Alert and Oriented x 3 Lines/Tubes/Other Access: Clean, Dry and Intact Peripheral IV Nutrition: Taking PO's Result Diagrams: 01/05/20 06:10 01/06/20 05:48 Assess/Plan/Problems-Billing Assessment: Ms. 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 - Patient Problems (1) AV block, 2nd degree Code(s): I44.1 - ATRIOVENTRICULAR BLOCK, SECOND DEGREE Comment: - Mobitz II - S/p pacemaker placement 01/05 - Cleared for d/c by Cardiology - Post-pacer precautions (2) HTN (hypertension) Code(s): I10 - ESSENTIAL (PRIMARY) HYPERTENSION Comment: - Normotensive - Continue amlodipine, metoprolol (3) H/O: CVA (cerebrovascular accident) Code(s): Z86.73 - PRSNL HX OF TIA (TIA), AND CEREB INFRC W/O RESID DEFICITS Comment: - Residual left-sided weakness - Continue aspirin, atorvastatin (4) Chronic kidney disease Code(s): N18.9 - CHRONIC KIDNEY DISEASE, UNSPECIFIED Comment: - Creatinine at baseline (5) Hypothyroid Code(s): E03.9 - HYPOTHYROIDISM, UNSPECIFIED Comment: - Continue levothyroxine (6) Depression Code(s): F32.9 - MAJOR DEPRESSIVE DISORDER, SINGLE EPISODE, UNSPECIFIED Comment: - Continue venlafaxine (7) GERD (gastroesophageal reflux disease) Code(s): K21.9 - GASTRO-ESOPHAGEAL REFLUX DISEASE WITHOUT ESOPHAGITIS Comment : - Continue pantoprazole (8) DVT prophylaxis Code(s): Z29.9 - ENCOUNTER FOR PROPHYLACTIC MEASURES, UNSPECIFIED Comment: - Heparin SQ (9) DNR (do not resuscitate) Comment: Status and Disposition: Inpatient. Anticipate d/c to [facility] on Friday. Attending: Cayetano Adan
[2020-01-08] MEDS: Venlafaxine EXT RELEASE CAP* 37.5 MG PO SCH (17:46)
[2020-01-08] MEDS: PTO: Artificial Tears* 15 ML BTL BOTH EYES PRN (20:45)
[2020-01-08] MEDS: Acetaminophen TAB* 325 MG PO SCH (20:46)
[2020-01-08] MEDS: diPHENhydraMINE PO* 25 MG PO SCH (20:46)
[2020-01-09] MEDS: Acetaminophen TAB* 325 MG PO PRN (05:17)
[2020-01-09] MEDS: Heparin VIAL(*) 5000 UNITS/ML VIAL (FIVE THOUSAND) SUBCUT SCH ×3 (05:17→21:51)
[2020-01-09] MEDS: Levothyroxine TAB* 137 MCG TAB PO SCH (05:17)
[2020-01-09] MEDS: PTO: Artificial Tears* 15 ML BTL BOTH EYES PRN ×3 (05:20→18:21)
[2020-01-09] MEDS: Venlafaxine EXT RELEASE CAP* 75 MG PO SCH (10:28)
[2020-01-09] MEDS: PTO: Mirabegron (NF) 25 MG TAB PO SCH ×2 (10:28→21:52)
[2020-01-09] MEDS: Ferrous Sulfate TAB* 325 MG PO SCH (10:28)
[2020-01-09] MEDS: Cholecalciferol TAB* 1000 UNITS PO SCH (10:28)
[2020-01-09] MEDS: FLUTICASONE 50 MCG BOTH NARES SCH (10:28)
[2020-01-09] MEDS: Pantoprazole TAB * 40 MG TAB PO SCH (10:28)
[2020-01-09] MEDS: Lactobacillus Acidophilus* 1 TAB PO SCH ×2 (10:29→21:50)
[2020-01-09] MEDS: Aspirin EC TAB* 81 MG TAB.EC PO SCH (10:29)
[2020-01-09] MEDS: Docusate CAP* 100 MG PO SCH ×2 (10:29→21:49)
[2020-01-09] MEDS: amLODIPine TAB* 5 MG PO SCH (10:29)
[2020-01-09] MEDS: Metoprolol Succinate XL TAB* 25 MG PO SCH ×2 (10:29→21:50)
[2020-01-09] MEDS: Atorvastatin* 10 MG TAB PO SCH (10:29)
--- NOTE | 2020-01-09 16:04 | PN ---
Subjective Date of Service: 01/09/20 Interval History: Ms. Poe is feeling well today. Her only complaint is that she did not sleep well overnight because of left toe pain. She reports her toe has been red and painful intermittently over the last few months. No injuries and it is isolated to the third toe. She has not tried any Tylenol or ice. Denies CP, SOB, N/V. No concerns from nursing. Family History: Unchanged from Admission Social History: Unchanged from Admission Past Medical History: Unchanged from Admission Objective Active Medications: Acetaminophen (Tylenol Tab*) 487.5 mg PO BEDTIME [facility] Acetaminophen (Tylenol Tab*) 650 mg PO Q4H PRN PAIN - MILD Amlodipine Besylate (Norvasc Tab*) 2.5 mg PO DAILY [facility] Aspirin (Aspirin Ec Tab*) 81 mg PO DAILY [facility] Atorvastatin Calcium (Lipitor*) 10 mg PO DAILY [facility] Cholecalciferol (Vitamin D Tab*) 1,000 units PO DAILY [facility] Diphenhydramine HCl (Benadryl Po*) 25 mg PO BEDTIME [facility] Docusate Sodium (Colace Cap*) 100 mg PO BID [facility] Ferrous Sulfate (Ferrous Sulfate Tab*) 325 mg PO DAILY [facility] Fluticasone Propionate (Flonase Nasal [place] 50mcg*) 1 spray BOTH NARES DAILY [facility] Heparin Sodium (Porcine) (Heparin Vial(*)) 5,000 units SUBCUT Q8HR [facility] Lactobacillus Rhamnosus (Lactobacillus Acidophilus*) 1 tab PO BID [facility] Levothyroxine Sodium (Synthroid Tab*) 137 mcg PO DAILY@0600 [facility] Melatonin (Melatonin) 3 mg PO BEDTIME PRN SLEEP Metoprolol Succinate (Toprol Xl Tab*) 25 mg PO BID [facility] Mirabegron (Myrbetriq (Nf)) 25 mg PO BID [facility] Ondansetron HCl (Zofran Inj*) 4 mg IV Q4H PRN NAUSEA/VOMITING Oxycodone/Acetaminophen (Percocet 5/325 Tab*) 1 tab PO Q4H PRN PAIN - SEVERE Pantoprazole Sodium (Protonix Tab*) 40 mg PO DAILY [facility] Polyvinyl Alcohol (Polyvinyl Alcohol 1.4% Opth*) 1 drop BOTH EYES Q4H PRN DRY EYE Venlafaxine HCl (Effexor Xr Cap*) 75 mg PO QAM [facility]; Protocol Venlafaxine HCl (Effexor Xr Cap*) 37.5 mg PO QPM [facility] Vital Signs - 8 hr 01/09/20 11:00 Temperature 97.8 F Pulse Rate 69 Respiratory 22 Rate Blood Pressure 150/50 (mmHg) O2 Sat by Pulse 93 Oximetry Oxygen Devices in Use Now: None Appearance: Elderly female lying in bed in NAD Ears/Nose/Mouth/Throat: Mucous Membranes Moist Neck: NL Appearance and Movements; NL JVP, Trachea Midline Respiratory: Symmetrical Chest Expansion and Respiratory Effort, Clear to Auscultation Cardiovascular: RRR, - - Grade 3/6 systolic murmur Abdominal: NL Sounds; No Tenderness; No Distention Extremities: - - Erythema and edema to left third toe Skin: - - Mepilex intact to pacer site Neurological: Alert and Oriented x 3 Lines/Tubes/Other Access: Clean, Dry and Intact Peripheral IV Nutrition: Taking PO's Result Diagrams: 01/05/20 06:10 01/06/20 05:48 Assess/Plan/Problems-Billing Assessment: Ms. 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 - Patient Problems (1) AV block, 2nd degree Code(s): I44.1 - ATRIOVENTRICULAR BLOCK, SECOND DEGREE Comment: - Mobitz II - S/p pacemaker placement 01/05 - Cleared for d/c by Cardiology - Post-pacer precautions (2) HTN (hypertension) Code(s): I10 - ESSENTIAL (PRIMARY) HYPERTENSION Comment: - Normotensive - Continue amlodipine, metoprolol (3) H/O: CVA (cerebrovascular accident) Code(s): Z86.73 - PRSNL HX OF TIA (TIA), AND CEREB INFRC W/O RESID DEFICITS Comment: - Residual left-sided weakness - Continue aspirin, atorvastatin (4) Chronic kidney disease Code(s): N18.9 - CHRONIC KIDNEY DISEASE, UNSPECIFIED Comment: - Creatinine at baseline (5) Hypothyroid Code(s): E03.9 - HYPOTHYROIDISM, UNSPECIFIED Comment: - Continue levothyroxine (6) Depression Code(s): F32.9 - MAJOR DEPRESSIVE DISORDER, SINGLE EPISODE, UNSPECIFIED Comment: - Continue venlafaxine (7) GERD (gastroesophageal reflux disease) Code(s): K21.9 - GASTRO-ESOPHAGEAL REFLUX DISEASE WITHOUT ESOPHAGITIS Comment : - Continue pantoprazole (8) DVT prophylaxis Code(s): Z29.9 - ENCOUNTER FOR PROPHYLACTIC MEASURES, UNSPECIFIED Comment: - Heparin SQ (9) DNR (do not resuscitate) Comment: Status and Disposition: Inpatient. Anticipate d/c to [facility] on Friday. Attending: Cayetano Adan
[2020-01-09] MEDS: Venlafaxine EXT RELEASE CAP* 37.5 MG PO SCH (18:20)
[2020-01-09] MEDS: diPHENhydraMINE PO* 25 MG PO SCH (21:49)
[2020-01-09] MEDS: Acetaminophen TAB* 325 MG PO SCH (21:50)
[2020-01-10] MEDS: Heparin VIAL(*) 5000 UNITS/ML VIAL (FIVE THOUSAND) SUBCUT SCH (06:01)
[2020-01-10] MEDS: Levothyroxine TAB* 137 MCG TAB PO SCH (06:02)
[2020-01-10 08:30] VITALS: BP 151/69
[2020-01-10] MEDS: PTO: Mirabegron (NF) 25 MG TAB PO SCH (08:35)
[2020-01-10] MEDS: Venlafaxine EXT RELEASE CAP* 75 MG PO SCH (08:36)
[2020-01-10] MEDS: FLUTICASONE 50 MCG BOTH NARES SCH (08:36)
[2020-01-10] MEDS: Metoprolol Succinate XL TAB* 25 MG PO SCH (08:36)
[2020-01-10] MEDS: Aspirin EC TAB* 81 MG TAB.EC PO SCH (08:37)
[2020-01-10] MEDS: Lactobacillus Acidophilus* 1 TAB PO SCH (08:37)
[2020-01-10] MEDS: Atorvastatin* 10 MG TAB PO SCH (08:37)
[2020-01-10] MEDS: Ferrous Sulfate TAB* 325 MG PO SCH (08:37)
[2020-01-10] MEDS: amLODIPine TAB* 5 MG PO SCH (08:37)
[2020-01-10] MEDS: Pantoprazole TAB * 40 MG TAB PO SCH (08:37)
[2020-01-10] MEDS: Docusate CAP* 100 MG PO SCH (08:37)
[2020-01-10] MEDS: Cholecalciferol TAB* 1000 UNITS PO SCH (08:37)
--- NOTE | 2020-01-10 11:11 | DS ---
CC: Dr. Meghann Connell; Dr. Karen Sullivan * DISCHARGE SUMMARY: DATE OF ADMISSION: 01/04/20 DATE OF DISCHARGE: 01/10/20 PRIMARY CARE PROVIDER: Dr. Meghann Connell. ATTENDING PHYSICIAN: Dr. Cayetano Adan.* (DICTATED BY VALERIANO CHAPMAN NP) PRIMARY DIAGNOSIS: 1. Second-degree heart block, status post pacemaker. SECONDARY DIAGNOSES: 1. Hypertension. 2. History of cerebrovascular disease with residual left-sided weakness. 3. Chronic kidney disease. 4. Hypothyroidism. 5. Depression. 6. Gastroesophageal reflux disease. 7. Pulmonary embolism/deep venous thrombosis, not on anticoagulation, IVC filter in place. 8. Vasculitis. 9. Sarcoidosis. 10. Temporal arteritis. STUDIES WHILE IN THE HOSPITAL: 1. EKG on 01/03/20 shows second-degree AV block, Mobitz 1 with a rate of 75. 2. Chest x-ray on 01/03/20 reads as findings consistent with old granulomatous disease with no evidence for acute findings. 3. EKG on 01/04/20 shows second-degree heart block, Mobitz 2 with a rate of 45. 4. Transthoracic echocardiogram on 01/04/20 reads as the left ventricular cavity size is below normal. Wall thickness was moderately increased. Systolic function is normal. The estimated ejection fraction is 55% to 70%. Wall motion is normal and there are no regional wall motion abnormalities. The mitral valve annulus appears [id number] calcified. The leaflets are mildly calcified. The findings are consistent with mild mitral stenosis. There is [id number] mitral regurgitation. The aortic valve mobility is restricted. The findings are consistent with moderate aortic stenosis. There is mild tricuspid regurgitation. Systolic pressure in the pulmonary arteries is within the normal range. Compared to the study of 09/21/19, the left ventricular function is the same. Aortic stenosis is slightly worse. 5. Chest x-ray on 01/05/20 reads as negative for pneumothorax or pulmonary edema following dual chamber pacemaker placement. 6. EKG on 01/05/20 shows normal sinus rhythm at a rate of 80, intermittent pacing. 7. EKG on 01/05/20 shows a 100% paced rhythm with a rate of 88. 8. EKG on 01/06/20 shows intermittently paced rhythm with a rate of 60, right bundle-branch block and left anterior fascicular block. 9. EKG on 01/06/20 shows 100% paced rhythm with a rate of 85. 10. Chest x-ray on 01/06/20 reads as no radiographic evidence of acute cardiopulmonary disease status post 2-lead left upper chest cardiac pacemaker implantation. HISTORY OF PRESENT ILLNESS AND HOSPITAL COURSE: Ms. Poe is an 84-year-old female with past medical history of hypertension, hyperlipidemia, VTE, not on anticoagulation, CVA with residual left-sided weakness and sarcoidosis, who presented to the emergency room on 01/03/20 with complaints of fall, shortness of breath, and cough. Please see the history and physical by Dr. Amin for complete summary of the events leading up to this hospitalization. In short, the patient reported shortness of breath worse with exertion and increasing in severity for the previous 2 days. Last fall was on 12/28/19; there were no reported injuries. In the emergency room, the patient was noted to have an elevated creatinine consistent with baseline. She was noted to have an elevated troponin of 0.03 and an elevated TSH at 11. EKG revealed second- degree AV block, which at first appeared to be Mobitz 1, later determined to be Mobitz 2. She was admitted by the hospitalist service. Cardiology was consulted and the patient was seen by Dr. Leger on 01/04/20. At that point, he determined that the patient would likely undergo a pacemaker implantation. The patient was agreeable to this plan. The patient ultimately underwent a dual chamber pacemaker implantation on 01/05/[address] Sullivan. She tolerated the procedure well. Lower rate limit was set to 60 beats per minute. The device is a [employer] MRI-compatible device. EKGs after pacemaker did show appropriate pacing. The patient completed 3 days of prophylactic cefazolin. She has maintained post-pacemaker left arm restriction. Recovery has been uneventful. She was evaluated by Physical Therapy, who indicated that she would benefit from subacute rehab and the patient was agreeable with that plan. The patient and her family has accepted a bed offer at [facility]. PHYSICAL EXAMINATION: On exam, the patient is alert and oriented x4 with no significant focal neurological deficits. Heart is regular rate and rhythm. There is a grade 3/6 systolic murmur. Lung sounds are clear to auscultation without rhonchi, wheezes, or rubs. There is no peripheral edema. The patient is noted to have erythema and edema to the left third toe, which she reports has been occurring intermittently for a number of months. Ms. Poe is stable for discharge. Most recent vitals are as follows: Temp 97, heart rate 66, respiratory rate 18, oxygen saturation 90% on room air, blood pressure 151/69. DISCHARGE MEDICATIONS: New: 1. Acetaminophen 650 mg p.o. q.4 hours p.r.n. pain. 2. Metoprolol succinate 25 mg p.o. b.i.d. Changed: 1. Levothyroxine 137 mcg p.o. daily (previously 125 mcg). Continued: 1. Tylenol PM 1 tab p.o. at bedtime. 2. Amlodipine 2.5 mg p.o. daily. 3. Aspirin 81 mg p.o. daily. 4. Atorvastatin 10 mg daily. 5. Cholecalciferol 25 mcg p.o. daily. 6. Iron 65 mg p.o. daily. 7. Melatonin 1 tab p.o. at bedtime p.r.n. sleep. 8. Myrbetriq 25 mg p.o. b.i.d. 9. Omeprazole 20 mg p.o. daily. 10. Venlafaxine 75 mg p.o. q.a.m. 11. Venlafaxine 37.5 mg p.o. q.p.m. 12. TheraTears 1 drop both eyes daily p.r.n. dry eye. 13. Fluticasone 50 mcg to both nares daily. 14. Multivitamin 1 tab p.o. daily. DISCHARGE PLAN: Ms. Poe will be discharged to subacute rehab. Activity will be as tolerated. The patient will need to maintain postpacemaker arm restrictions to the left arm until cleared by Cardiology. She does have a sling in place. Diet will be heart healthy. Medications as noted above. The patient has started on metoprolol by Cardiology as she has completed 3 days of prophylactic antibiotic post pacemaker insertion and does not require any further antibiotics. Synthroid dosing has been increased due to elevated TSH on admission. TSH should be rechecked in 6 weeks. She can resume her usual home medications as noted above. The patient's pacer site to the left upper chest should be monitored for any signs of infection. She will need to follow up with Dr. Sullivan for a pacer check. She should follow up with a provider at [facility] upon arrival and should follow up with her primary care provider upon discharge from the facility. She should return to the emergency room or nearest hospital for any worsening of symptoms, shortness of breath, lightheadedness, dizziness, chest discomfort, high fevers, chills, night sweats , loss of consciousness, or any other worrisome signs or symptoms. DISCHARGE CONDITION: Stable. DISCHARGE POSITION: Long Term [facility], [place]. This is a summarized report of a complex medical history and hospital stay. For further details, please see entire medical record. TIME SPENT: Approximately 45 minutes was spent on this discharge. VALERIANO CHAPMAN NP [id number]/CPS #: [id number] SHEYLA
== END 2020-01-10 14:10 | DRG 243 ==
LOC: ED 19:36 → MEDTELE 01-04 02:36
PROVIDERS: ADMIT Family Medicine; ATTEND Internal Medicine
PROC: 02HK3JZ Insertion of Pacemaker Lead into Right Ventricle, Percutaneous Approach (ICD-10-PCS; 2020-01-05)
PROC: 02H63JZ Insertion of Pacemaker Lead into Right Atrium, Percutaneous Approach (ICD-10-PCS; 2020-01-05)
PROC: 0JH606Z Insertion of Pacemaker, Dual Chamber into Chest Subcutaneous Tissue and Fascia, Open Approach (ICD-10-PCS; principal; 2020-01-05 09:00)
DX: I44.1 Atrioventricular block, second degree (principal); D86.9 Sarcoidosis, unspecified; I35.0 Nonrheumatic aortic (valve) stenosis; E03.9 Hypothyroidism, unspecified; I12.9 Hypertensive chronic kidney disease with stage 1 through stage 4 chronic kidney disease, or unspecified chronic kidney disease; R55 Syncope and collapse; I48.0 Paroxysmal atrial fibrillation; E78.5 Hyperlipidemia, unspecified; K21.9 Gastro-esophageal reflux disease without esophagitis; M31.6 Other giant cell arteritis; Z66 Do not resuscitate; F32.9 Major depressive disorder, single episode, unspecified; E78.00 Pure hypercholesterolemia, unspecified; N18.3 Chronic kidney disease, stage 3 (moderate); R79.89 Other specified abnormal findings of blood chemistry; R00.1 Bradycardia, unspecified; F03.90 Unspecified dementia, unspecified severity, without behavioral disturbance, psychotic disturbance, mood disturbance, and anxiety; H54.7 Unspecified visual loss; Z87.891 Personal history of nicotine dependence; Z95.828 Presence of other vascular implants and grafts; Z79.82 Long term (current) use of aspirin; Z79.890 Hormone replacement therapy; Z79.899 Other long term (current) drug therapy; Z28.21 Immunization not carried out because of patient refusal; I69.354 Hemiplegia and hemiparesis following cerebral infarction affecting left non-dominant side; Z86.718 Personal history of other venous thrombosis and embolism; Z86.711 Personal history of pulmonary embolism; Z90.710 Acquired absence of both cervix and uterus; Z88.1 Allergy status to other antibiotic agents; Z88.8 Allergy status to other drugs, medicaments and biological substances
CPT/HCPCS: 33208; 36415; 71045; 71046; 80048; 83735; 83880; 84439; 84443; 84484; 85025; 85610; 93005; 93306; 99156; 99157; 99284; A9270-GY; C1785; C1892; C1898; J0690; J1644; J2250; J3010